=== PATIENT | female | born 1935 | race Caucasian/White ===

== ENCOUNTER → 2023-07-15 13:21 | Outpatient (REF) | payer OTHER, SELFPAY | LOC: DHCBC MAIN 13:21 | PROVIDERS: ATTENDING PHYSICIAN Nurse Practitioner; FAMILY PHYSICIAN Family Medicine | DX: I10 Essential (primary) hypertension (principal); R06.09 Other forms of dyspnea; U07.1 COVID-19; I35.8 Other nonrheumatic aortic valve disorders; I36.1 Nonrheumatic tricuspid (valve) insufficiency | CPT/HCPCS: 93306 ==

== ENCOUNTER → 2023-08-19 14:06 | Outpatient (REF) | payer OTHER, SELFPAY | LOC: RAD 14:06 | PROVIDERS: ATTENDING PHYSICIAN Family Medicine | DX: R53.83 Other fatigue (principal); R06.09 Other forms of dyspnea | CPT/HCPCS: 71046 ==

== ENCOUNTER 2023-09-12 15:09 | Inpatient (IN) | payer OTHER, SELFPAY ==
[2023-09-12] VITALS (7 sets, daily range): BP systolic 128–173; BP diastolic 65–88; BMI 38.8
[2023-09-12 11:55] LABS: % Basophils 0.3 % (0-2); % Immature Granulocytes 0.8 % (0-0.5); % Monocytes 7.1 % (1.7-9.3); % Neutrophils 82.8 % (42.2-75.2); Absolute Eosinophils 0.1 10^3/uL (0-0.7); Absolute Immature Granulocytes 0.1 10^3/uL (0-0.05); Absolute Lymphocytes 0.8 10^3/uL (1.2-3.4); Absolute Monocytes 0.7 10^3/uL (0.1-0.6); Absolute Neutrophils 8.6 10^3/uL (1.4-6.5); Hematocrit 40.1 % (37.0-47.0); Hemoglobin 13.9 g/dL (12.0-16.0); Mean Corp Hgb Conc. 34.7 g/dL (33.0-37.0); Mean Corpuscular Hgb 31.4 pg (27.0-31.0); Mean Corpuscular Volume 90.5 fL (81.0-99.0); Mean Platelet Volume 10.1 fL (7.4-10.4); Nucleated Red Blood Cells % 0 %; Platelet Count 202 10^3/uL (130-400); Red Blood Cell Count 4.43 10^6/uL (4.20-5.40); Red Cell Dist. Width 12.8 % (11.5-14.5); White Blood Cell Count 10.4 10^3/uL (4.8-10.8)
--- NOTE | 2023-09-12 11:57 | ED.GENMED ---
History of Present Illness
General
Chief Complaint: Breathing Problem
Source: patient and family
Time Seen by Provider: 09/12/23 11:27
Travel History
Have you had any contact with someone who has COVID-19?: No
Do you have any symptoms of coronavirus? Fever > 100 degrees, chills, cough, shortness of breath, sore throat, loss of taste or smell, muscle aches, or headache?: Yes
Symptoms:: cough
History of Present Illness
History of Present Illness:
88-year-old female with past medical history of chronic lung disease, hypertension, hyperlipidemia, previous CVA, diabetes presenting the emergency department for evaluation of a persistent cough that has been ongoing for about 3 weeks, gradually
worsening and now patient notes exertional dyspnea mild hypoxia with ambulation. Patient is chronically on 5 L and follows with dethistler operator here, Dr. Murguia. She has been using Tessalon Perles and Mucinex but without much relief. She notes at
rest she is relatively asymptomatic. Symptoms initially started with a little bit of rhinorrhea but no fevers or other infectious symptoms. Rhinorrhea is now resolved. No known sick contacts, recent travel or recent antibiotics. She denies any
chest pain, palpitations, diaphoresis, lower extremity edema.
Past History
Past History
ED Past Medical History: CVA, GERD, HTN, Hypercholesterolemia, NIDDM and Other (TIA. GI bleed)
ED Past Surgical History: Cholecystectomy, Orthopedic and Other
Social History
Tobacco: Former smoker
Alcohol: None
Drug: None
Personal:
Living: with family
Employment: Retired
Family History
Family History: Other (Reviewed and non-contributory)
Review of Systems
Review of Systems
All Other Systems: ROS reviewed and negative except as documented in HPI and ROS
Phy Exam
Physical Exam
Physical Exam:
GENERAL: Alert , in no apparent distress
EYE: conjunctiva clear
NECK: Supple, no significant adenopathy.
ENT: o/p clr, mmm.
CARDIAC: Regular rate and rhythm, systolic murmur most pronounced in the left sternal border
LUNGS: Faint apical wheeze bilateral posterior lung jennings, no accessory muscle use, no obvious respiratory distress, oxygen saturation 96% on room baseline 5 L
NEUROLOGICAL: Alert and oriented
SKIN: Warm and dry, skin intact.
MUSCULOSKELETAL: well perfused. No edema
PSYCH: Normal and appropriate interaction.
Scores
Heart Failure Risk
Heart Failure Risk Score: Yes
History of Stroke or TIA: Yes
History of intubation for respiratory distress: No
Heart rate on ED arrival >/= 110: No
SaO2 <90% on arrival on room air: Yes
HR >/=110 during 3min walk test (or too ill to perform test): Yes
ECG has acute ischemic changes: No
Urea >/=12mmol/L (BUN 33.6mg/dL): No
Serum CO2>/=35mmol/L: No
Troponin I or T elevated to IL Level (0.4mg/dL): No
NT-proBNP >/=5,000ng/L (5,000pg/ml): No
HF Risk Score: 4
Admission Status: HIGH RISK 26.1% Consider SNF treatment or admission to hospital
Heart Score for Chest Pain Patients
STEMI patient?: Not applicable
Withdrawal Assessment of Alcohol
Withdrawal Assessment Completed?: Not applicable
Course
Orders/Labs/Results
Orders:
Orders
09/12/23 11:35
Dexamethasone Sod Phosphate [Decadron] 10 mg IV NOW STA
Ipratropium/Albuterol Sulfate [Duoneb] 3 ml INH R NOW ONE
09/12/23 11:36
Electrocardiogram (*1) Urgent
Reason for Study: Shortness of Breath
EKG- Treatment ONCE
CR Chest - 2 Views Urgent
Comment:
Reason For Exam: SOB, TIAN
09/12/23 11:43
Basic Metabolic Panel Urgent
Complete Blood Count/With Diff Urgent
NT-proBNP Urgent
Troponin I Urgent
09/12/23 11:47
COVID-19 Antigen Urgent
Source: Nasal Swab
09/12/23 14:23
Admit/Transfer Patient As Directed
Co-Sign Provider:
Level of Care: Inpatient admission
Assign to:: Medical/Surgical
Physician / Group: hosp
Diagnosis: COPD exacerbation
Reason for Hospitalization: COPD exacerbation
Expected length of stay greater than two midnights?: Yes
ELOS- Estimated Length of Stay in days: 3
I certify the patient meets the requirements for IP care: Yes
09/12/23 14:26
Code Status As Directed
Resuscitation Status: Do not resuscitate
Reached after discussion with pt or family/Healthcare POA: Yes
09/12/23 14:27
DNR Bracelet Application ONCE
09/12/23 15:01
Furosemide [Lasix] 20 mg IV NOW STA
09/13/23 00:00
Dexamethasone Sod Phosphate [Decadron] 4 mg IV Q12H
Abnormal Lab Results
09/12/23
11:43
MCH 31.4 H pg
(27.0-31.0)
Abs Immat Gran (auto) 0.1 H 10^3/uL
(0-0.05)
Absolute Neuts (auto) 8.6 H 10^3/uL
(1.4-6.5)
Absolute Lymphs (auto) 0.8 L 10^3/uL
(1.2-3.4)
Absolute Monos (auto) 0.7 H 10^3/uL
(0.1-0.6)
Immature Gran % 0.8 H %
(0-0.5)
Neutrophils % 82.8 H %
(42.2-75.2)
Lymphocytes % 8.0 L %
(20.5-51.1)
Sodium 131 L mmol/L
(135-145)
Chloride 92 L mmol/L
(98-107)
Glucose 246 H mg/dl
(70-99)
09/12/23 11:43
09/12/23 11:43
Vital Signs
Initial and Last Documented VS:
Initial Vital Signs
Temp Pulse Resp BP Pulse Ox
98.9 F 107 22 173/79 96
09/12/23 10:58 09/12/23 10:58 09/12/23 10:58 09/12/23 10:58 09/12/23 10:58
Last Documented Vital Signs
Temp Pulse Resp BP Pulse Ox
98.9 F 87 19 139/74 94
09/12/23 10:58 09/12/23 14:00 09/12/23 14:00 09/12/23 13:00 09/12/23 14:00
MDM/Problems Addressed
Differential Diagnosis Includes:
COPD exacerbation, pneumonia, CHF, less concern for ACS
MDM/Problems Addressed:
88-year-old female presenting emergency department for 3 weeks of cough gradually worsening exertional dyspnea and noting her oxygen saturation is dropping while ambulating. She states that presently she is asymptomatic at rest. There is mild
tachycardia although this is also with exertion as her heart rate is persistently in the 80s during my exam. Will check labs, EKG, troponin and a BNP. Once labs are completed will ambulate patient and observe her oxygen saturation. Chest x-ray
ordered. Also will treat with a DuoNeb and Decadron. Patient does have diabetes so Decadron can elevate her glucose however feel the benefit of this outweighs the risk.
Chronic conditions affecting care: COPD
Acute Exacerbation and/or Progression of Chronic Illness: COPD
*Radiology
Radiology exam reviewed: radiology read reviewed
*Pulse Oximetry
Patient hypoxic: yes
*Washing And Screening Plant Supervisor Interpretation
Rate: normal
Rhythm: sinus
*Critical Care Note
Total Time (30-74mins, 75-104mins- exclusive of procedures): Not Applicable
Patient Management
Discussion with other providers: Hospitalist
Escalation/DeEscalation of care consider admission/obs:
Patient does note some mild improvement following her nebulizer treatments. Her chest x-ray shows changes consistent with COPD as well as some mild pulmonary vascular congestion. When ambulated patient's oxygen saturation dropped to 80% and she
experienced increased shortness of breath. Given her age, chronic medical conditions and presentation I do feel patient would be best served being admitted for continued evaluation and treatment. Hospitalist team accepts for admission.
ED Attending Note
-
Portions of this chart may have been created with voice recognition software.� Occasional wrong word or��sound alike� substitutions may have occurred due to the inherent limitations of voice recognition software.
Discharge Plan
Departure
Patient Disposition: Admit
Date of Disposition: 09/12/23
Time of Disposition: 13:57
Presentation/result/management discussed w/ accepting MD/DO: Hospitalist
Discharge Problem:
Acute exacerbation of chronic obstructive pulmonary disease (COPD), Hypoxia
Interventions
Interventions:
*Risk Screen - Suicide Last Done: 09/12/23 11:01
*General Assessment Last Done: 09/12/23 11:01
*Neglect/Abuse Screening Last Done: 09/12/23 11:01
ED- Fall Risk Assessment Last Done: 09/12/23 11:56
[2023-09-12] MEDS: DUONEB 3 ML INH ×2 (12:00→20:52)
[2023-09-12] MEDS: DECADRON 10 MG IV (12:03)
[2023-09-12 12:07] LABS: Blood Urea Nitrogen 16 mg/dl (7-17); Calcium 10.1 mg/dl (8.4-10.2); Carbon Dioxide 30 mmol/L (22-30); Chloride 92 mmol/L (98-107); Estimated Creatinine Clearance 40 ml/min; Glucose 246 mg/dl (70-99); Potassium 4.1 mmol/L (3.5-5.1); Sodium 131 mmol/L (135-145); eGFR 54.19
[2023-09-12 12:12] LABS: COVID-19 Antigen Negative (Negative)
[2023-09-12 12:20] LABS: NT-proBNP 956 pg/ml; Troponin I 0.022 ng/ml
--- NOTE | 2023-09-12 14:38 | HPS.HSE ---
Family Physician
-
Family Physician: Ana Rosa Min MD
Chief Complaint
-
Persisting dry cough for the last 3 weeks
History of Present Illness
88-year-old female with past medical history of chronic lung disease, hypertension, hyperlipidemia, previous CVA, diabetes presenting the emergency department for evaluation of a persistent cough that has been ongoing for about 3 weeks, gradually
worsening and now patient notes exertional dyspnea mild hypoxia with ambulation. Patient is chronically on 5 L and follows with laryngologist here, Dr. Murguia. She has been using Tessalon Perles and Mucinex but without much relief. She notes at
rest she is relatively asymptomatic. Symptoms initially started with a little bit of rhinorrhea but no fevers or other infectious symptoms. Rhinorrhea is now resolved. No known sick contacts, recent travel or recent antibiotics. She denies any
chest pain, palpitations, diaphoresis, lower extremity edema. She has been followed by Dr. 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 A 2D echocardiogram was reviewed
from July of this year and is unchanged from 2021 with adequate and retained EF of 65% and no wall motion abnormality no valvulopathy of concern. She describes a cough at night last night to be unusually irritating to her where she could not
sleep she has been using 5 pillows nightly for years. She has been on prednisone daily 10 mg for the last several months per Dr. Kathia Gil on the pulmonary service/I could not ascertain why she remains on propranolol. She is also on diltiazem
Medical History
Past Medical History
Past Medical History: Reports Asthma, CAD, COPD, CVA, GERD, HTN, Hypercholesterolemia and NIDDM
Additional Past Medical History:
Prior to her GI bleeding prior TIA
Past Surgical History: Reports None
Social History
Tobacco: Former Smoker
Alcohol: None
Drug: None
Personal:
Living: With Family
Employment: Retired
Family History
Family History: Not pertinent
Allergies / Home Medications
Allergies reflects when Allergies were last updated in [facility].
Home Medications with original date entered in [facility]
Allergy/Medication List:
Allergies
Allergy/AdvReac Type Severity Reaction Status Date / Time
egg Allergy Hives Verified 09/12/23 11:01
Home Medications
propranolol 60 mg capsule,24 hr,extended release 60 mg PO DAILY Blood Pressure 04/27/15
cranberry 400 mg capsule 400 mg PO BID Supplement 03/30/19
Mucinex DM 1 tab PO BIDPRN PRN cough/congestion 09/12/23
acetaminophen 500 mg tablet (Tylenol Extra Strength) 1,000 mg PO DAILYPRN PRN mild pain 09/12/23
acetaminophen 500 mg tablet (Tylenol Extra Strength) 1,000 mg PO HS Pain 09/12/23
cholecalciferol (vitamin D3) 125 mcg (5,000 unit) tablet 125 mcg PO DAILY Supplement 09/12/23
clopidogrel 75 mg tablet 75 mg PO DAILY Blood Clot Prevention/Tx 09/12/23
cyanocobalamin (vitamin B-12) 500 mcg tablet 500 mcg PO HS Supplement 09/12/23
diltiazem HCl 120 mg capsule,extended release 24 hr, controlled 120 mg PO DAILY Arrhythmia 09/12/23
isosorbide mononitrate 120 mg tablet,extended release 24 hr 120 mg PO DAILY Heart Disease/Condition 09/12/23
loperamide 2 mg capsule 2 mg PO DAILYPRN PRN diarrhea 09/12/23
losartan 100 mg tablet 100 mg PO DAILY Blood Pressure 09/12/23
metformin 750 mg tablet,extended release 24 hr 750 mg PO BID Diabetes 09/12/23
omeprazole 20 mg capsule,delayed release 20 mg PO DAILY Gastrointestinal Issue 09/12/23
prednisone 10 mg tablet 10 mg PO DAILY anti-inflammation 09/12/23
rosuvastatin 40 mg tablet 40 mg PO HS High Cholesterol 09/12/23
Review of Systems
-
History Source: Patient
Constitutional: Denies Fever
EENT: Denies Sore Throat
Respiratory: Reports See HPI, Cough and Trouble Breathing; Denies Hemoptysis
Cardiac: Denies Chest Pain, Diaphoresis, Palpitations or Syncope
Abdomen/GI: Reports No Symptoms
: Reports No Symptoms
Musculoskeletal: Reports No Symptoms and Joint Pain
Psych: Reports No Symptoms
Physical Exam
Vital Signs
Vital Signs
Temp Pulse Resp BP Pulse Ox
98.9 F 87 19 139/74 94
09/12/23 10:58 09/12/23 14:00 09/12/23 14:00 09/12/23 13:00 09/12/23 14:00
Physical Exam
General: Well Developed
Respiratory: Clear and Decreased Breath Sounds
Cardiac: S1/S2 and Regular Rhythm
GI: Soft
Skin: Warm
Neuro: Awake, Alert, Oriented, AO x 3 and No Motor Deficits
Psych: Calm
Laboratory Results
-
09/12/23 11:43
09/12/23 11:43
Laboratory Results
Troponin I 0.022 ng/ml 09/12/23 11:43
Data Reviewed
-
Critical Care Time (in minutes): 54
Diagnostic Radiology: Discussed with Physician (Some suggestion of mild overfilling no inflammatory infiltrate seen underlying COPD)
Lab Data: Labs Reviewed by me (proBNP over 900/blood sugar 07/15/1945/troponin 0.022)
Impression/Plan
-
IMPRESSION:
88-year-old female with past medical history of chronic lung disease, hypertension, hyperlipidemia, previous CVA, diabetes presenting the emergency department for evaluation of a persistent cough that has been ongoing for about 3 weeks, gradually
worsening and now patient notes exertional dyspnea mild hypoxia with ambulation. Patient is chronically on 5 L and follows with laryngologist here, Dr. Murguia. She has been using Tessalon Perles and Mucinex but without much relief. She notes at
rest she is relatively asymptomatic. Symptoms initially started with a little bit of rhinorrhea but no fevers or other infectious symptoms. Rhinorrhea is now resolved. No known sick contacts, recent travel or recent antibiotics. She denies any
chest pain, palpitations, diaphoresis, lower extremity edema.
She has been followed by Dr. 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
A 2D echocardiogram was reviewed from July of this year and is unchanged from 2021 with adequate and retained EF of 65% and no wall motion abnormality no valvulopathy of concern. She describes a cough at night last night to be unusually
irritating to her where she could not sleep she has been using 5 pillows nightly for years. She has been on prednisone daily 10 mg for the last several months per Dr. Kathia Gil on the pulmonary service/I could not ascertain why she remains on
propranolol. She is also on diltiazem
COPD exacerbation manifesting as intractable cough
-Oxygen and steroid-dependent
-No increased oxygen requirements above her baseline on presentation
-Some improvement with IV steroid and neb treatment in the ED
-Equivocal findings for some overfilling on chest x-ray/COPD/no infiltrate
-Recent upper respiratory symptoms now resolved
-Will treat with nebs titrate oxygen and IV steroid
-No relief with benzonatate or guaifenesin
-No criteria for antibiotic
-Nonselective beta-gene possibly contributing to cough variant
-Consult pulmonary follow-up with Dr. Murguia
Dyspnea on exertion and orthopnea
-Possible venous overfilling on chest x-ray indicating mild CHF
-proBNP of over 900 in her age group not that specific for CHF
-Recent 2D echocardiogram reviewed with 65% EF and mildly elevated PASP
-Will give single dose of IV Lasix tonight
Gastroesophageal reflux disease
-By history had been on omeprazole PPI
-Could be cause of her cough variant symptoms worse when lying down
-Placed on Protonix here
Type 2 diabetes mellitus
-Continue metformin
-Low-dose scale coverage
-Watch for hyperglycemia on steroid management
Essential hypertension
-Continue losartan
-On propranolol/look for alternatives as may be involved with her persisting cough
-Diltiazem to continue
Prior comorbidities include
Prior TIA/Plavix
CAD/clopidogrel
GI bleed by history
DVT prophylaxis with Lovenox/SCD
DNR/DNI
--- NOTE | 2023-09-12 15:32 | CON.PUL ---
Consultation
Consultation Request
Date/Time Consultation Requested: 09/12/23-3:30 PM
Date/Time Consultation Performed: 09/12/23-4 PM
Requesting Provider: hospitalist
Performing Provider: Dr. Graham
Reason for Consultation: COPD exacerbation
Medical History
-
Chief Complaint: shortness of breath
History of Present Illness:
88-year-old female with a history of COPD on chronic 5 L oxygen, followed by Dr. Murguia, hypertension, hyperlipidemia, previous CVA as well as diabetes and presented with aggressive shortness of breath over the last 3 weeks felt to have a COPD
exacerbation-pulmonary consulted for COPD exacerbation 09/12/23. She states that she has been getting more short of breath over the last several weeks. She also has a nonproductive cough. She has some mild postnasal drip, no reflux though reports a
'very large hiatal hernia'. She did not complain of significant leg swelling. Major complaint was progressive dyspnea on exertion and desaturations. Daughter was also at the bedside and reports desaturations into the low 80s with exertion. She
does not have any chest pain, chest tightness, pleurisy, hemoptysis, abdominal pain or weakness.
Past Medical History
Past Medical History: None ( COPD-on chronic 5 L oxygen. Former smoker. Asthma. Pulmonary nodule. Interstitial lung disease. History latent TB. Obesity. JELLY on CPAP. CAD. CVA. GERD. Hypertension. Hyperlipidemia. Diabetes. GERD.
Diverticulosis. Fatty liver. Glaucoma. Adrenal nodule. Vitamin D deficiency.)
Past Surgical History: None ( Cholecystectomy. Appendectomy. Right TKR. Loop recorder implanted. Ramsey teeth. Vein stripping. Laser surgery for glaucoma.)
Social History
Tobacco: Former Smoker
Alcohol: None
Drug: None
Living: With Family
Occupational Exposures: Previous tuberculosis exposure
Environmental Exposures: No known asbestos exposure
Family History
Family History: Other ( family history of lung cancer. Father 39 with tuberculosis-was alcoholic. Son with renal cell carcinoma. 2 sisters from lung cancer and COPD seventh decade)
Allergies / Home Medications
Allergies
Allergy/AdvReac Type Severity Reaction Status Date / Time
egg Allergy Hives Verified 09/12/23 11:01
Home Medications
�Medication �Instructions �Recorded �Confirmed �Last Taken �Type
propranolol 60 mg capsule,24 60 mg PO DAILY Blood Pressure 04/27/15 09/12/23 09/12/23 History
hr,extended release
cranberry 400 mg capsule 400 mg PO BID Supplement 03/30/19 09/12/23 09/12/23 History
Mucinex DM 1 tab PO BIDPRN PRN 09/12/23 09/12/23 2 Days Ago History
cough/congestion ~09/10/23
acetaminophen 500 mg tablet 1,000 mg PO DAILYPRN PRN mild pain 09/12/23 09/12/23 Unknown History
(Tylenol Extra Strength)
acetaminophen 500 mg tablet 1,000 mg PO HS Pain 09/12/23 09/12/23 09/11/23 History
(Tylenol Extra Strength)
cholecalciferol (vitamin D3) 125 125 mcg PO DAILY Supplement 09/12/23 09/12/23 09/12/23 History
mcg (5,000 unit) tablet
clopidogrel 75 mg tablet 75 mg PO DAILY Blood Clot 09/12/23 09/12/23 Unknown History
Prevention/Tx
cyanocobalamin (vitamin B-12) 500 500 mcg PO HS Supplement 09/12/23 09/12/23 09/11/23 History
mcg tablet
diltiazem HCl 120 mg 120 mg PO DAILY Arrhythmia 09/12/23 09/12/23 09/12/23 History
capsule,extended release 24 hr,
controlled
isosorbide mononitrate 120 mg 120 mg PO DAILY Heart 09/12/23 09/12/23 09/12/23 History
tablet,extended release 24 hr Disease/Condition
loperamide 2 mg capsule 2 mg PO DAILYPRN PRN diarrhea 09/12/23 09/12/23 09/11/23 History
losartan 100 mg tablet 100 mg PO DAILY Blood Pressure 09/12/23 09/12/23 09/12/23 History
metformin 750 mg tablet,extended 750 mg PO BID Diabetes 09/12/23 09/12/23 09/12/23 History
release 24 hr
omeprazole 20 mg capsule,delayed 20 mg PO DAILY Gastrointestinal 09/12/23 09/12/23 09/12/23 History
release Issue
prednisone 10 mg tablet 10 mg PO DAILY anti-inflammation 09/12/23 09/12/23 09/12/23 History
rosuvastatin 40 mg tablet 40 mg PO HS High Cholesterol 09/12/23 09/12/23 09/11/23 History
Review of Systems
-
Unable to Obtain full review of systems at this time due to: Other ( per HPI)
Vitals / Labs / Diagnostic Testing
Vital Signs
Temp Pulse Resp BP Pulse Ox
98.9 F 87 19 139/74 94
09/12/23 10:58 09/12/23 14:00 09/12/23 14:00 09/12/23 13:00 09/12/23 14:00
Lab Data
09/12/23 11:43
09/12/23 11:43
Diagnostic Testing:
Physical Exam
-
HEENT: Normocephalic, Anicteric and Moist Mucous Membranes
Cardiovascular: Regular Rhythm
Respiratory: Wheeze (Diffuse expiratory), Rales (n), Rhonchi (n), Non-Labored Respirations, Accessory Resp Muscle Use (n) and Other ( prolonged expiratory time)
GI: Soft, Non Distended and Non Tender
Neurology: Awake, Alert and No Motor Deficits
Skin: Warm and Good Color
General: Respiratory Distress (n) and Comfortable
Assessment
-
88-year-old female with a history of COPD on chronic 5 L oxygen, followed by Dr. Murguia, hypertension, hyperlipidemia, previous CVA as well as diabetes and presented with aggressive shortness of breath over the last 3 weeks felt to have a COPD
exacerbation-pulmonary consulted for COPD exacerbation 4/5/24.
COPD with acute exacerbation.
Mild hyponatremia-serum sodium 131
Hyperglycemia-blood sugar 246
Conditions present prior to admission:
COPD-on chronic 5 L oxygen
Decreased diffusing capacity-, DLCO 44%
Former smoker.
Asthma
Pulmonary nodule- Chest x-ray revealed 3.[address] chest confirmed this-no change 06/2023, possibility of malignancy discussed, patient does not want aggressive workup or treatment
Interstitial lung disease.
History latent TB
Obesity.
JELLY on CPAP
CAD
CVA
GERD.
Hypertension.
Hyperlipidemia.
Diabetes.
GERD.
Diverticulosis.
Fatty liver.
Glaucoma.
Adrenal nodule.
Vitamin D deficiency.
Cholecystectomy. Appendectomy. Right TKR. Loop recorder implanted. Ramsey teeth. Vein stripping. Laser surgery for glaucoma.
Plan
Respiratory decompensation, likely due to COPD exacerbation and possible mild fluid overload.
Supplemental oxygen as needed.
Nebulizers.
Decadron.
Aspiration precautions.
Mucolytic's.
Mucus clearing devices..
Observe off antibiotics
Diuresis as tolerated.
Consider echocardiogram-last echocardiogram July 2023. Summarized below.
Monitor intake/output, renal function, weight and lower extremity edema.
Monitor blood sugar.
Insulin supplementation as needed.
DVT prophylaxis.
GI prophylaxis-on . Pantoprazole.
Nutrition
Early mobilization
Reviewed with 2 daughters at the bedside
Last saw pulmonary-Dr. Murguia 07/04/23
Diagnostic data:
. Chest x-ray . 09/12/23-Mild or early CHF overlying COPD and moderate hiatal hernia.
Chest x-ray 08/19/23-NAD, stable mild cardiomegaly
.
CT chest 04/16/23-right lower lobe opacification, most likely infectious or inflammatory, but pulmonary neoplasm cannot be excluded, moderate hiatal hernia
Echo 04/08/22: normal biventricular function, PA pressure 47, aortic sclerosis�������
Echo 10/21/20: normal biventricular function, no significant valvular disease, right heart pressures could not be determined, technically difficult�������
Echo 07/31/19: Normal biventricular function,no significant valvular disease, right heart pressures could not be determined�������
ECHO 07/07/18: Aortic sclerosis, normal biventricular function, nl PASP.
Echocardiogram 07/15/23-EF 65-70%, PA systolic 44
PFT 11/14/20: FVC 1.89/95%, FEV1 1.49/103%, ratio 79, TLC 3.44/79%, DLCO 7.43/44%���
���
[place] 12/20/19: FVC 1.70/82%, FEV1 1.28/84%, ratio 77������
PFT 07/16/19: FVC 1.92/92%, FEV1 1.45/95%, ratio 76, TLC 3.06/69%, DLCO 7.91/45%.����
���
PFT 12/28/18: FVC 1.85/87%, FEV1 1.31/84%, ratio 71, TLC 3.33/75%, DLCO 8.68/50%.
HST 08/05/19-AHI-17.7, desaturation bucky 71%, CPAP with 4 L oxygen
Data Reviewed
-
PFT: Report reviewed by me
EKG: Report reviewed by me
Radiology: Report reviewed by me
CT Scan: Report reviewed by me
Medical Tests (Nuc Med, Echo etc): Report reviewed by me
Labs: Labs reviewed by me
Old Records: Reviewed
Total Time Spent with Patient (in minutes): 65
[2023-09-12] MEDS: LASIX 20 MG IV (16:29)
--- NOTE | 2023-09-12 17:30 | PTCARENOTE ---
Rec'd Pt from ED to Room 431- [address] [place]. Pt is AAOx3, ambulated unassisted from stretcher to bed. Pt oriented to room w call gavin in place.
[2023-09-12 17:36] LABS: Glucose - Point of Care 284 mg/dl (70-99)
[2023-09-12] MEDS: DUONEB INH (17:44)
[2023-09-12 18:04] LABS: Iron 66 ug/dl (37-170)
[2023-09-12 18:13] LABS: Percent Saturation 20 % (20-50); Total Iron Binding Capacity 323 ug/dl (265-497)
[2023-09-12] MEDS: NOVOLOG FLEXPEN-LOW RESISTANCE 3 UNITS SC (18:36)
[2023-09-12] MEDS: LOVENOX 40 MG SC (18:37)
[2023-09-12 19:29] LABS: Ferritin 53.5 ng/ml (11.1-264.0)
[2023-09-12 19:43] LABS: Vitamin B12 951 pg/ml (239-931)
[2023-09-12] MEDS: GLUCOPHAGE XR EXTENDED RELEASE 750 MG PO (21:26)
[2023-09-12] MEDS: TYLENOL 1000 MG PO (21:28)
[2023-09-12] MEDS: CRESTOR 40 MG PO (21:28)
[2023-09-12] MEDS: VITAMIN B-12 1000 MCG PO (21:28)
[2023-09-12 21:29] LABS: Glucose - Point of Care 392 mg/dl (70-99)
[2023-09-12] MEDS: DECADRON 4 MG IV (23:17)
[2023-09-13 06:00] VITALS: BMI 35.4
[2023-09-13 07:08] LABS: Hematocrit 37.6 % (37.0-47.0); Hemoglobin 13.1 g/dL (12.0-16.0); Mean Corp Hgb Conc. 34.8 g/dL (33.0-37.0); Mean Corpuscular Hgb 30.9 pg (27.0-31.0); Mean Corpuscular Volume 88.7 fL (81.0-99.0); Mean Platelet Volume 10.2 fL (7.4-10.4); Platelet Count 226 10^3/uL (130-400); Red Blood Cell Count 4.24 10^6/uL (4.20-5.40); Red Cell Dist. Width 12.7 % (11.5-14.5); White Blood Cell Count 7.1 10^3/uL (4.8-10.8)
[2023-09-13 07:30] VITALS: BP 180/84
[2023-09-13 07:31] LABS: Blood Urea Nitrogen 22 mg/dl (7-17); Calcium 10.1 mg/dl (8.4-10.2); Carbon Dioxide 26 mmol/L (22-30); Chloride 94 mmol/L (98-107); Estimated Creatinine Clearance 43 ml/min; Glucose 276 mg/dl (70-99); Potassium 4.4 mmol/L (3.5-5.1); Sodium 128 mmol/L (135-145); eGFR > 60.00
[2023-09-13 07:39] LABS: Glucose - Point of Care 265 mg/dl (70-99)
[2023-09-13 07:59] LABS: Ferritin 62.6 ng/ml (11.1-264.0)
[2023-09-13] MEDS: DUONEB 3 ML INH ×4 (08:03→21:56)
[2023-09-13] MEDS: NOVOLOG FLEXPEN-LOW RESISTANCE 3 UNITS SC ×2 (09:33→17:54)
[2023-09-13] MEDS: IMDUR (EXTENDED RELEASE) 120 MG PO (09:35)
[2023-09-13] MEDS: CARDIZEM CD 120 MG PO (09:35)
[2023-09-13] MEDS: COZAAR 100 MG PO (09:35)
[2023-09-13] MEDS: PLAVIX 75 MG PO (09:35)
[2023-09-13] MEDS: GLUCOPHAGE XR EXTENDED RELEASE 750 MG PO ×2 (09:36→21:18)
[2023-09-13] MEDS: PROTONIX 40 MG PO (09:36)
[2023-09-13] MEDS: INDERAL LA 60 MG PO (09:36)
[2023-09-13] MEDS: VITAMIN D3 (cholecalciferol) 125 MCG PO (09:36)
--- NOTE | 2023-09-13 09:48 | W.PN.HOSP.TC ---
Today's Communication/Plan
-
Would continue present course of IV steroids for another day and defer to pulmonary further taper
Seems to have had response with the steroids for her cough and doubt CHF
Increase activity
Assessment / Plan
Assessment / Plan
88-year-old female with past medical history of chronic lung disease, hypertension, hyperlipidemia, previous CVA, diabetes presenting the emergency department for evaluation of a persistent cough that has been ongoing for about 3 weeks, gradually
worsening and now patient notes exertional dyspnea mild hypoxia with ambulation. Patient is chronically on 5 L and follows with junior sales assistant here, Dr. Murguia. She has been using Tessalon Perles and Mucinex but without much relief. She notes at
rest she is relatively asymptomatic. Symptoms initially started with a little bit of rhinorrhea but no fevers or other infectious symptoms. Rhinorrhea is now resolved. No known sick contacts, recent travel or recent antibiotics. She denies any
chest pain, palpitations, diaphoresis, lower extremity edema.
She has been followed by Dr. 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
A 2D echocardiogram was reviewed from July of this year and is unchanged from 2021 with adequate and retained EF of 65% and no wall motion abnormality no valvulopathy of concern. She describes a cough at night last night to be unusually
irritating to her where she could not sleep she has been using 5 pillows nightly for years. She has been on prednisone daily 10 mg for the last several months per Dr. Kathia Gil on the pulmonary service/I could not ascertain why she remains on
propranolol. She is also on diltiazem
COPD exacerbation manifesting as intractable cough
-Oxygen and steroid-dependent
-No increased oxygen requirements above her baseline on presentation
-Some improvement with IV steroid and neb treatment in the ED/further improvement in cough overnight
-Equivocal findings for some overfilling on chest x-ray/COPD/no infiltrate
-Recent upper respiratory symptoms now resolved
-Will treat with nebs titrate oxygen and IV steroid
-No relief with benzonatate or guaifenesin
-No criteria for antibiotic
-Nonselective beta-gene possibly contributing to cough variant
-Consult pulmonary follow-up with Dr. Murguia
Dyspnea on exertion and orthopnea
-Possible venous overfilling on chest x-ray indicating mild CHF
-proBNP of over 900 in her age group not that specific for CHF
-Recent 2D echocardiogram reviewed with 65% EF and mildly elevated PASP
-Will give single dose of IV Lasix tonight
Gastroesophageal reflux disease
-By history had been on omeprazole PPI
-Could be cause of her cough variant symptoms worse when lying down
-Placed on Protonix here
Type 2 diabetes mellitus
-Continue metformin
-Low-dose scale coverage
-Watch for hyperglycemia on steroid management
Essential hypertension
-Continue losartan
-On propranolol/look for alternatives as may be involved with her persisting cough
-Diltiazem to continue
Prior comorbidities include
Prior TIA/Plavix
CAD/clopidogrel
GI bleed by history
DVT prophylaxis with Lovenox/SCD
DNR/DNI
Anticipated Discharge: Within 24 hours
Subjective/Interval History
-
Date of Service: September 13, 2023
States she has had significant improvement in her cough since she has been here actually had a good night sleep for the first time in some time.
Objective Data
-
Labs:
Laboratory Results
09/13/23
06:39
WBC 7.1
Hgb 13.1
Hct 37.6
Plt Count 226
Sodium 128 L
Potassium 4.4
Chloride 94 L
Carbon Dioxide 26
BUN 22 H
Creatinine 0.9
Glucose 276 H
Calcium 10.1
Vital Signs:
Vital Signs
Temp Pulse Resp BP Pulse Ox
97.5 F 80 16 180/84 96
09/13/23 07:30 09/13/23 08:04 09/13/23 08:04 09/13/23 07:30 09/13/23 08:04
Review of Systems
-
Unable to obtain full review of systems at this time due to: Dementia
Constitutional: Reports No Symptoms
EENT: Reports No Symptoms Reported
Respiratory: Reports Cough
Physical Exam
-
General: Well Developed
HEENT: Normocephalic
Respiratory: Clear to Auscultation; Negative Wheezes
Cardiac: Regular Rhythm
GI: Soft and Nontender
Psych: Calm
Data Reviewed
-
Total Time Spent with Patient (in minutes): 45
Labs: Labs Reviewed by me (White count 7.1/hemoglobin and indices stable/sodium 128/blood sugar up to 276)
[2023-09-13 11:05] LABS: Glycohemoglobin (HgbA1c) 9.4 % (4.0-5.6)
[2023-09-13 11:35] LABS: Glucose - Point of Care 323 mg/dl (70-99)
--- NOTE | 2023-09-13 12:05 | CM ---
Patient seen with son, initial assessment completed. Patient reports she lives independently in a one story home, one step to enter. Patient denies VN or SNF, reports on home O2 through [facility]. Patient confirms PCP Mechelle, confirms she has
prescription coverage, pharmacy used in [facility]. CM will continue to follow for discharge planning needs.
Plan; home no needs, watch for VN needs.
[2023-09-13] MEDS: NOVOLOG FLEXPEN-LOW RESISTANCE 4 UNITS SC (12:36)
[2023-09-13] MEDS: DECADRON 4 MG IV (12:40)
--- NOTE | 2023-09-13 14:51 | W.PN.PUL3 ---
Today's Communication / Plan
-
Transition to prednisone
Continue nebulizer
Continue mucolytic's
Wean down oxygen as
Assessment
-
88-year-old female with a history of COPD on chronic 5 L oxygen, followed by Dr. Murguia, hypertension, hyperlipidemia, previous CVA as well as diabetes and presented with aggressive shortness of breath over the last 3 weeks felt to have a COPD
exacerbation-pulmonary consulted for COPD exacerbation 09/12/23.
COPD with acute exacerbation.
Mild hyponatremia-serum sodium 131
Hyperglycemia-blood sugar 246
Conditions present prior to admission:
COPD-on chronic 5 L oxygen
Decreased diffusing capacity-, DLCO 44%
Former smoker.
Asthma
Pulmonary nodule- Chest x-ray revealed 3.[address] chest confirmed this-no change 06/2023, possibility of malignancy discussed, patient does not want aggressive workup or treatment
Interstitial lung disease.
History latent TB
Obesity.
JELLY on CPAP
CAD
CVA
GERD.
Hypertension.
Hyperlipidemia.
Diabetes.
GERD.
Diverticulosis.
Fatty liver.
Glaucoma.
Adrenal nodule.
Vitamin D deficiency.
Cholecystectomy. Appendectomy. Right TKR. Loop recorder implanted. [place] teeth. Vein stripping. Laser surgery for glaucoma.
Plan
Respiratory decompensation, likely due to COPD exacerbation and possible mild fluid overload.
-
Supplemental oxygen as needed.
Continue nebulizer-Duoneb QID
Bronchospasm improved, transition to prednisone 40 mg with a quick taper.
Aspiration precautions.
Mucolytic's.
Mucus clearing devices.
Observe off antibiotics
-
Diuresis as tolerated intermittently.
last echocardiogram July 2023. Summarized below.
Monitor intake/output, renal function, weight and lower extremity edema.
Monitor blood sugar.
Insulin supplementation as needed.
DVT prophylaxis.
GI prophylaxis-on . Pantoprazole.
Nutrition
Early mobilization
Reviewed with 2 daughters at the bedside
Last saw pulmonary-Dr. Murguia 07/04/23
Diagnostic data:
. Chest x-ray . 09/12/23-Mild or early CHF overlying COPD and moderate hiatal hernia.
Chest x-ray 08/19/23-NAD, stable mild cardiomegaly
.
CT chest 04/16/23-right lower lobe opacification, most likely infectious or inflammatory, but pulmonary neoplasm cannot be excluded, moderate hiatal hernia
Echo 04/08/22: normal biventricular function, PA pressure 47, aortic sclerosis�������
Echo 10/21/20: normal biventricular function, no significant valvular disease, right heart pressures could not be determined, technically difficult�������
Echo 07/31/19: Normal biventricular function,no significant valvular disease, right heart pressures could not be determined�������
ECHO 07/07/18: Aortic sclerosis, normal biventricular function, nl PASP.
Echocardiogram 07/15/23-EF 65-70%, PA systolic 44
PFT 11/14/20: FVC 1.89/95%, FEV1 1.49/103%, ratio 79, TLC 3.44/79%, DLCO 7.43/44%���
���
Serena 12/20/19: FVC 1.70/82%, FEV1 1.28/84%, ratio 77������
PFT 07/16/19: FVC 1.92/92%, FEV1 1.45/95%, ratio 76, TLC 3.06/69%, DLCO 7.91/45%.����
���
PFT 12/28/18: FVC 1.85/87%, FEV1 1.31/84%, ratio 71, TLC 3.33/75%, DLCO 8.68/50%.
HST 08/05/19-AHI-17.7, desaturation bucky 71%, CPAP with 4 L oxygen
Subjective Data
-
Date of Service:
Date of Service: September 13, 2023
Chief Complaint: Pulmonary Follow Up (Acute exacerbation COPD)
Review of Systems
General: Fever (n)
Cardiopulmonary: Dyspnea and Wheezing
GI: Abdominal Pain and Nausea (n)
Objective Data
Data Reviewed
Vital Signs / I&O / Oxygen:
Vital Signs
Temp Pulse Resp BP Pulse Ox
97.5 F 80 16 180/84 96
09/13/23 07:30 09/13/23 11:17 09/13/23 11:17 09/13/23 07:30 09/13/23 08:04
SaO2 96
Nasal Cannula flow liters per 3
minute
Physical Exam
General: Respiratory Distress and Comfortable
HEENT: Normocephalic
Cardiovascular: S1-S2 and Regular Rhythm
Respiratory: Wheeze and Non-Labored Respirations
GI: Soft and Non Distended
Neurology: Awake
Labs/Micro/Reports
Lab Data
09/13/23 06:39
09/13/23 06:39
--- NOTE | 2023-09-13 15:30 | PTCARENOTE ---
Patient OOb to chair all day. Patient has extended O2 tuning and ambulates from chair to door way frequently. Patient 97% on 5L NC. Patient asked not to have her O2 lower than 4L NC. Patient states, 'I am fine when I am sitting and doing nothing,
but when I get up to walk my oxygen level drops.'
[2023-09-13 16:10] LABS: Glucose - Point of Care 283 mg/dl (70-99)
[2023-09-13 16:15] VITALS: BP 110/56
[2023-09-13 21:03] LABS: Glucose - Point of Care 305 mg/dl (70-99)
[2023-09-13] MEDS: TYLENOL 1000 MG PO (21:18)
[2023-09-13] MEDS: VITAMIN B-12 1000 MCG PO (21:20)
[2023-09-13] MEDS: CRESTOR 40 MG PO (21:21)
[2023-09-13] MEDS: SAFETUSSIN DM (SUGAR/ALCOHOL FREE) 200 MG PO (22:19)
[2023-09-13 23:20] VITALS: BP 150/78
[2023-09-14 06:00] VITALS: BMI 36.4
[2023-09-14] MEDS: SAFETUSSIN DM (SUGAR/ALCOHOL FREE) 200 MG PO ×2 (06:34→22:22)
[2023-09-14 06:53] LABS: Blood Urea Nitrogen 30 mg/dl (7-17); Calcium 10.9 mg/dl (8.4-10.2); Carbon Dioxide 29 mmol/L (22-30); Chloride 91 mmol/L (98-107); Estimated Creatinine Clearance 38 ml/min; Glucose 233 mg/dl (70-99); Potassium 5.2 mmol/L (3.5-5.1); Sodium 128 mmol/L (135-145); eGFR 54.19
[2023-09-14] MEDS: DUONEB 3 ML INH ×4 (07:30→20:02)
[2023-09-14 07:53] VITALS: BP 112/86
[2023-09-14 08:20] LABS: Glucose - Point of Care 249 mg/dl (70-99)
[2023-09-14] MEDS: PLAVIX 75 MG PO (09:04)
[2023-09-14] MEDS: COZAAR 100 MG PO (09:04)
[2023-09-14] MEDS: NOVOLOG FLEXPEN-LOW RESISTANCE 3 UNITS SC ×2 (09:04→12:46)
[2023-09-14] MEDS: VITAMIN D3 (cholecalciferol) 125 MCG PO (09:05)
[2023-09-14] MEDS: IMDUR (EXTENDED RELEASE) 120 MG PO (09:05)
[2023-09-14] MEDS: CARDIZEM CD 120 MG PO (09:05)
[2023-09-14] MEDS: DELTASONE 40 MG PO (09:05)
[2023-09-14] MEDS: INDERAL LA 60 MG PO (09:05)
[2023-09-14] MEDS: PROTONIX 40 MG PO (09:05)
[2023-09-14] MEDS: GLUCOPHAGE XR EXTENDED RELEASE 750 MG PO ×2 (09:05→21:18)
--- NOTE | 2023-09-14 10:34 | W.PN.HOSP.TC ---
Today's Communication/Plan
-
Transition to oral prednisone with taper
Assessment / Plan
Assessment / Plan
88-year-old female with past medical history of chronic lung disease, hypertension, hyperlipidemia, previous CVA, diabetes presenting the emergency department for evaluation of a persistent cough that has been ongoing for about 3 weeks, gradually
worsening and now patient notes exertional dyspnea mild hypoxia with ambulation. Patient is chronically on 5 L and follows with business banking manager here, Dr. Murguia. She has been using Tessalon Perles and Mucinex but without much relief. She notes at
rest she is relatively asymptomatic. Symptoms initially started with a little bit of rhinorrhea but no fevers or other infectious symptoms. Rhinorrhea is now resolved. No known sick contacts, recent travel or recent antibiotics. She denies any
chest pain, palpitations, diaphoresis, lower extremity edema.
She has been followed by Dr. 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
A 2D echocardiogram was reviewed from July of this year and is unchanged from 2021 with adequate and retained EF of 65% and no wall motion abnormality no valvulopathy of concern. She describes a cough at night last night to be unusually
irritating to her where she could not sleep she has been using 5 pillows nightly for years. She has been on prednisone daily 10 mg for the last several months per Dr. Kathia Gil on the pulmonary service/I could not ascertain why she remains on
propranolol. She is also on diltiazem
COPD exacerbation manifesting as intractable cough
-Oxygen and steroid-dependent
-Now increased oxygen requirements above her baseline on presentation
-Some improvement with IV steroid and neb treatment in the ED/further improvement in cough overnight
-Equivocal findings for some overfilling on chest x-ray/COPD/no infiltrate
-Recent upper respiratory symptoms now resolved
-Will treat with nebs titrate oxygen and IV steroid>> slow prednisone taper start September 13
-No relief with benzonatate or guaifenesin
-No criteria for antibiotic
-Nonselective beta-gene possibly contributing to cough variant
-Consult pulmonary follow-up with Dr. Murguia
Dyspnea on exertion and orthopnea
-Possible venous overfilling on chest x-ray indicating mild CHF
-proBNP of over 900 in her age group not that specific for CHF
-Recent 2D echocardiogram reviewed with 65% EF and mildly elevated PASP
-Will give single dose of IV Lasix tonight
Gastroesophageal reflux disease
-By history had been on omeprazole PPI
-Could be cause of her cough variant symptoms worse when lying down
-Placed on Protonix here
Type 2 diabetes mellitus
-Continue metformin
-Low-dose scale coverage
-Watch for hyperglycemia on steroid management
Essential hypertension
-Continue losartan
-On propranolol/look for alternatives as may be involved with her persisting cough
-Diltiazem to continue
Prior comorbidities include
Prior TIA/Plavix
CAD/clopidogrel
GI bleed by history
DVT prophylaxis with Lovenox/SCD
DNR/DNI
Anticipated Discharge: Within 24 hours
Subjective/Interval History
-
Date of Service: September 14, 2023
States that she had another restful night just like the night before and with less cough. Remains slightly congested on her baseline oxygen
Objective Data
-
Labs:
Laboratory Results
09/14/23
05:57
Sodium 128 L
Potassium 5.2 H
Chloride 91 L
Carbon Dioxide 29
BUN 30 H
Creatinine 1.0
Glucose 233 H
Calcium 10.9 H
Vital Signs:
Vital Signs
Temp Pulse Resp BP Pulse Ox
97.8 F 79 18 112/86 95
09/14/23 07:53 09/14/23 07:53 09/14/23 07:53 09/14/23 07:53 09/14/23 07:53
I&O
09/13/23 09/14/23 09/15/23
06:59 06:59 06:59
Intake Total 360 / 360
Balance 360 / 360
Review of Systems
-
History Source: Patient
Constitutional: Reports No Symptoms
EENT: Reports No Symptoms Reported
Respiratory: Reports Cough
Endocrine: Reports No Symptoms
Hematologic / Lymphatic: Reports No Symptoms
Allergy / Immunology: Reports No Symptoms
Psych: Reports Depressed
Physical Exam
-
General: Well Developed
HEENT: Normocephalic
Respiratory: Wheezes and Rhonchi
Cardiac: Regular Rhythm
GI: Soft and Nontender
Data Reviewed
-
Total Time Spent with Patient (in minutes): 56
Labs: Labs Reviewed by me (Sodium 128 potassium 5.2 chloride 91/blood sugar 233/calcium 10.9)
[2023-09-14 12:38] LABS: Glucose - Point of Care 286 mg/dl (70-99)
[2023-09-14 15:05] VITALS: BP 114/65
--- NOTE | 2023-09-14 16:10 | W.PN.PUL3 ---
Today's Communication / Plan
-
Continue nebulizers while in the hospital
Prednisone taper
Will add low-dose azithromycin for anti-inflammatory properties, hopefully will help with the coughing.
Antitussive
Intermittent diuretics
Assessment
-
88-year-old female with a history of COPD on chronic 5 L oxygen, followed by Dr. Murguia, hypertension, hyperlipidemia, previous CVA as well as diabetes and presented with aggressive shortness of breath over the last 3 weeks felt to have a COPD
exacerbation-pulmonary consulted for COPD exacerbation 09/12/23.
COPD with acute exacerbation.
Mild hyponatremia-serum sodium 131
Hyperglycemia-blood sugar 246
Conditions present prior to admission:
COPD-on chronic 5 L oxygen
Decreased diffusing capacity-, DLCO 44%
Former smoker.
Asthma
Pulmonary nodule- Chest x-ray revealed 3.[address] chest confirmed this-no change 06/2023, possibility of malignancy discussed, patient does not want aggressive workup or treatment
Interstitial lung disease.
History latent TB
Obesity.
JELLY on CPAP
CAD
CVA
GERD.
Hypertension.
Hyperlipidemia.
Diabetes.
GERD.
Diverticulosis.
Fatty liver.
Glaucoma.
Adrenal nodule.
Vitamin D deficiency.
Cholecystectomy. Appendectomy. Right TKR. Loop recorder implanted. [place] teeth. Vein stripping. Laser surgery for glaucoma.
Plan
Respiratory decompensation, likely due to COPD exacerbation and possible mild fluid overload.
Main symptom is cough paroxysms.
Not bronchospastic on exam 09/14/2023.
-
Continue with current care for now:
Not bronchospastic on exam for 12/27/2023.
Continue nebulizer-Duoneb QID, while in the hospital.
Bronchospasm improved, transition to prednisone 40 mg decrease by 10 mg every 48 hours to off.
Mucolytic's.
Continue antitussives.
Observe off antibiotics for now.
Given ongoing cough and intermittent phlegm production, will add low-dose azithromycin for anti-inflammatory properties 250 mg every 48 hours until she is seen in our office.
-
Diuresis as tolerated intermittently.
last echocardiogram July 2023. Summarized below.
Follow renal function and electrolytes.
Monitor blood sugar. Particularly on the steroids.
Insulin supplementation as needed.
DVT prophylaxis.
GI prophylaxis-on . Pantoprazole.
Reviewed with 2 daughters at the bedside
Last saw pulmonary-Dr. Murguia 07/04/23

Diagnostic data:
. Chest x-ray . 09/12/23-Mild or early CHF overlying COPD and moderate hiatal hernia.
Chest x-ray 08/19/23-NAD, stable mild cardiomegaly
.
CT chest 04/16/23-right lower lobe opacification, most likely infectious or inflammatory, but pulmonary neoplasm cannot be excluded, moderate hiatal hernia
Echo 04/08/22: normal biventricular function, PA pressure 47, aortic sclerosis�������
Echo 10/21/20: normal biventricular function, no significant valvular disease, right heart pressures could not be determined, technically difficult�������
Echo 07/31/19: Normal biventricular function,no significant valvular disease, right heart pressures could not be determined�������
ECHO 07/07/18: Aortic sclerosis, normal biventricular function, nl PASP.
Echocardiogram 07/15/23-EF 65-70%, PA systolic 44
PFT 11/14/20: FVC 1.89/95%, FEV1 1.49/103%, ratio 79, TLC 3.44/79%, DLCO 7.43/44%���
���
Zev 12/20/19: FVC 1.70/82%, FEV1 1.28/84%, ratio 77������
PFT 07/16/19: FVC 1.92/92%, FEV1 1.45/95%, ratio 76, TLC 3.06/69%, DLCO 7.91/45%.����
���
PFT 12/28/18: FVC 1.85/87%, FEV1 1.31/84%, ratio 71, TLC 3.33/75%, DLCO 8.68/50%.
HST 08/05/19-AHI-17.7, desaturation bucky 71%, CPAP with 4 L oxygen
Subjective Data
-
Date of Service:
Date of Service: September 14, 2023
Chief Complaint: Pulmonary Follow Up (Acute exacerbation COPD)
Review of Systems
Cardiopulmonary: Dyspnea and Cough
GI: Nausea (n) and Vomiting (n)
Objective Data
Data Reviewed
Vital Signs / I&O / Oxygen:
Vital Signs
Temp Pulse Resp BP Pulse Ox
97.3 F 81 18 114/65 97
09/14/23 15:05 09/14/23 15:05 09/14/23 15:05 09/14/23 15:05 09/14/23 15:05
Intake and Output
09/13/23 09/14/23 09/15/23
06:59 06:59 06:59
Intake Total 360 / 360
Balance 360 / 360
SaO2 97
Nasal Cannula flow liters per 4
minute
Physical Exam
General: Respiratory Distress and Comfortable
HEENT: Normocephalic
Cardiovascular: S1-S2 and Regular Rhythm
Respiratory: Wheeze and Non-Labored Respirations
GI: Soft and Non Distended
Neurology: Awake
Labs/Micro/Reports
Lab Data
09/13/23 06:39
09/14/23 05:57
[2023-09-14 16:40] LABS: Glucose - Point of Care 372 mg/dl (70-99)
[2023-09-14] MEDS: ZITHROMAX 250 MG PO (17:19)
[2023-09-14] MEDS: NOVOLOG FLEXPEN-LOW RESISTANCE 5 UNITS SC (17:21)
[2023-09-14] MEDS: TYLENOL 1000 MG PO (21:17)
[2023-09-14 21:18] LABS: Glucose - Point of Care 264 mg/dl (70-99)
[2023-09-14] MEDS: VITAMIN B-12 1000 MCG PO (21:18)
[2023-09-14] MEDS: CRESTOR 40 MG PO (21:18)
[2023-09-14] MEDS: OCEAN, SALINE MIST 2 SPRAYS NASAL (21:22)
[2023-09-14] MEDS: AYR SALINE NASAL GEL 1 APPLIC NASAL (21:23)
[2023-09-14 23:34] VITALS: BP 142/76
[2023-09-15] MEDS: SAFETUSSIN DM (SUGAR/ALCOHOL FREE) 200 MG PO ×2 (04:09→13:42)
[2023-09-15 06:00] VITALS: BMI 35.2
[2023-09-15] MEDS: DUONEB 3 ML INH ×2 (07:16→11:01)
--- NOTE | 2023-09-15 07:40 | W.PN.HOSP.TC ---
Today's Communication/Plan
-
Patient still not feeling well and does not want to be discharged at this time, still coughing a lot
Continue prednisone taper
Assessment / Plan
Assessment / Plan
Physical Exam
General: Well Developed
HEENT: Normocephalic
Respiratory: Wheezes and Rhonchi
Cardiac: S1 and S2. Regular Rhythm
GI: Soft and Nontender. Positive bowel sounds.
Assessment/Plan
88-year-old female with past medical history of chronic lung disease, hypertension, hyperlipidemia, previous CVA, diabetes presenting the emergency department for evaluation of a persistent cough that has been ongoing for about 3 weeks, gradually
worsening and now patient notes exertional dyspnea mild hypoxia with ambulation. Patient is chronically on 5 L and follows with senior oracle database developer here, Dr. Murguia. She has been using Tessalon Perles and Mucinex but without much relief. She notes at
rest she is relatively asymptomatic. Symptoms initially started with a little bit of rhinorrhea but no fevers or other infectious symptoms. Rhinorrhea is now resolved. No known sick contacts, recent travel or recent antibiotics. She denies any
chest pain, palpitations, diaphoresis, lower extremity edema.
She has been followed by Dr. 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
A 2D echocardiogram was reviewed from July of this year and is unchanged from 2021 with adequate and retained EF of 65% and no wall motion abnormality no valvulopathy of concern. She describes a cough at night last night to be unusually
irritating to her where she could not sleep she has been using 5 pillows nightly for years. She has been on prednisone daily 10 mg for the last several months per Dr. Kathia Gil on the pulmonary service/I could not ascertain why she remains on
propranolol. She is also on diltiazem
COPD exacerbation manifesting as intractable cough
-Oxygen and steroid-dependent
-Earlier had increased oxygen requirements above her baseline on presentation
-Some improvement with IV steroid and neb treatment in the ED
-Equivocal findings for some overfilling on chest x-ray/COPD/no infiltrate
-Recent upper respiratory symptoms now resolved
-Will treat with nebs titrate oxygen and IV steroid>> slow prednisone taper started: transitioned to prednisone 40 mg decrease by 10 mg every 48 hours to off
-No relief with benzonatate or guaifenesin
-As per pulmonary, given ongoing cough and intermittent phlegm production, continue low-dose azithromycin for anti-inflammatory properties 250 mg every 48 hours until patient is seen in pulmonary office.
-Nonselective beta-gene possibly contributing to cough variant
-Consulted pulmonary follow-up with Dr. Murguia
Dyspnea on exertion and orthopnea
-Possible venous overfilling on chest x-ray indicating mild CHF
-proBNP of over 900 in her age group not that specific for CHF
-Recent 2D echocardiogram reviewed with 65% EF and mildly elevated PASP
-Will give single dose of IV Lasix tonight
-Diuresis as tolerated intermittently.
Gastroesophageal reflux disease
-By history had been on omeprazole PPI
-Could be cause of her cough variant symptoms worse when lying down
-Placed on Protonix here
Type 2 diabetes mellitus
-Continue metformin
-Low-dose scale coverage
-Watch for hyperglycemia on steroid management
Essential hypertension
-Continue losartan
-On propranolol/look for alternatives as may be involved with her persisting cough
-Diltiazem to continue
Prior comorbidities include
Prior TIA/Plavix
CAD/clopidogrel
GI bleed by history
DVT prophylaxis with Heparin Subq/SCD
DNR/DNI
Anticipated Discharge: 24 - 48 hours
Subjective/Interval History
-
Date of Service: September 15, 2023
Patient was seen and examined. She reported ongoing, persistent cough but otherwise denied any other new, significant symptoms or complaints.
Objective Data
-
Vital Signs:
Vital Signs
Temp Pulse Resp BP Pulse Ox
97.3 F 75 16 142/76 98
09/14/23 23:34 09/15/23 07:19 09/15/23 07:19 09/14/23 23:34 09/15/23 07:19
I&O
09/14/23 09/15/23 09/16/23
06:59 06:59 06:59
Intake Total 360 / 360 1740 / 1740
Balance 360 / 360 1740 / 1740
[2023-09-15 08:14] VITALS: BP 160/78
[2023-09-15 08:28] LABS: Glucose - Point of Care 174 mg/dl (70-99)
[2023-09-15] MEDS: CARDIZEM CD 120 MG PO (08:36)
[2023-09-15] MEDS: PLAVIX 75 MG PO (08:36)
[2023-09-15] MEDS: GLUCOPHAGE XR EXTENDED RELEASE 750 MG PO ×2 (08:36→21:43)
[2023-09-15] MEDS: NOVOLOG FLEXPEN-LOW RESISTANCE 1 UNITS SC (08:36)
[2023-09-15] MEDS: VITAMIN D3 (cholecalciferol) 125 MCG PO (08:36)
[2023-09-15] MEDS: IMDUR (EXTENDED RELEASE) 120 MG PO (08:36)
[2023-09-15] MEDS: DELTASONE 40 MG PO (08:36)
[2023-09-15] MEDS: INDERAL LA 60 MG PO (08:36)
[2023-09-15] MEDS: PROTONIX 40 MG PO (08:36)
[2023-09-15] MEDS: COZAAR 100 MG PO (08:36)
[2023-09-15 12:12] LABS: Glucose - Point of Care 232 mg/dl (70-99)
[2023-09-15] MEDS: NOVOLOG FLEXPEN-LOW RESISTANCE 2 UNITS SC (12:46)
--- NOTE | 2023-09-15 14:21 | W.PN.PUL3 ---
Today's Communication / Plan
-
PT eval due to weakness/SOB with exertion
Will add Advair/Spiriva for cough complaints
Continue nebs PRN
On baseline O2 requirements
Outpatient pulm FU recommended
Discharge planning per team
Assessment
-
88-year-old female with a history of COPD on chronic 5 L oxygen, followed by Dr. Murguia, hypertension, hyperlipidemia, previous CVA as well as diabetes and presented with aggressive shortness of breath over the last 3 weeks felt to have a COPD
exacerbation-pulmonary consulted for COPD exacerbation 09/12/23.
COPD with acute exacerbation.
Mild hyponatremia-serum sodium 131
Hyperglycemia-blood sugar 246
Conditions present prior to admission:
COPD-on chronic 5 L oxygen
Decreased diffusing capacity-, DLCO 44%
Former smoker.
Asthma
Pulmonary nodule- Chest x-ray revealed 3.[address] chest confirmed this-no change 06/2023, possibility of malignancy discussed, patient does not want aggressive workup or treatment
Interstitial lung disease.
History latent TB
Obesity.
JELLY on CPAP
CAD
CVA
GERD.
Hypertension.
Hyperlipidemia.
Diabetes.
GERD.
Diverticulosis.
Fatty liver.
Glaucoma.
Adrenal nodule.
Vitamin D deficiency.
Cholecystectomy. Appendectomy. Right TKR. Loop recorder implanted. [place] teeth. Vein stripping. Laser surgery for glaucoma.
Plan
Respiratory decompensation, likely due to COPD exacerbation and possible mild fluid overload.
Main symptom is cough paroxysms.
Not bronchospastic on exam 09/14/2023.
She is on her baseline O2 of 4L continuous
Continue with current care for now:
Not bronchospastic on exam for 12/27/2023.
Continue nebulizer-Duoneb QID, while in the hospital.
Bronchospasm improved, transition to prednisone 40 mg decrease by 10 mg every 48 hours to off.
Mucolytic's.
Continue antitussives.
Observe off antibiotics for now.
Given ongoing cough and intermittent phlegm production, will add low-dose azithromycin for anti-inflammatory properties 250 mg every 48 hours until she is seen in our office
We discussed cough as an expectant symptom of COPD
She has tried tesslon perles in past but did not help
Will add advair, spriva to see if this helps
Diuresis as tolerated intermittently.
Last echocardiogram July 2023. Summarized below.
Follow renal function and electrolytes.
Monitor blood sugar. Particularly on the steroids.
Insulin supplementation as needed.
DVT prophylaxis.
GI prophylaxis-on . Pantoprazole.
PT/OT eval for discharge placement
Outpatient pulmonary FU recommended
Last saw pulmonary-Dr. Murguia 07/04/23
Discharge planning per team
Diagnostic Data
Chest x-ray 09/12/23-Mild or early CHF overlying COPD and moderate hiatal hernia.
Chest x-ray 08/19/23-NAD, stable mild cardiomegaly
CT chest 04/16/23-right lower lobe opacification, most likely infectious or inflammatory, but pulmonary neoplasm cannot be excluded, moderate hiatal hernia
Echocardiogram 07/15/23-EF 65-70%, PA systolic 44
Echo 04/08/22: normal biventricular function, PA pressure 47, aortic sclerosis�������
Echo 10/21/20: normal biventricular function, no significant valvular disease, right heart pressures could not be determined, technically difficult�������
Echo 07/31/19: Normal biventricular function,no significant valvular disease, right heart pressures could not be determined�������
ECHO 07/07/18: Aortic sclerosis, normal biventricular function, nl PASP.
PFT 11/14/20: FVC 1.89/95%, FEV1 1.49/103%, ratio 79, TLC 3.44/79%, DLCO 7.43/44%���
[facility] 12/20/19: FVC 1.70/82%, FEV1 1.28/84%, ratio 77������
PFT 07/16/19: FVC 1.92/92%, FEV1 1.45/95%, ratio 76, TLC 3.06/69%, DLCO 7.91/45%.����
PFT 12/28/18: FVC 1.85/87%, FEV1 1.31/84%, ratio 71, TLC 3.33/75%, DLCO 8.68/50%.
HST 08/05/19-AHI-17.7, desaturation bucky 71%, CPAP with 4 L oxygen
All relevant imaging reviewed.
Subjective Data
-
Date of Service:
Date of Service: September 15, 2023
Chief Complaint: Pulmonary Follow Up (Acute exacerbation COPD)
Objective Data
Data Reviewed
Vital Signs / I&O / Oxygen:
Vital Signs
Temp Pulse Resp BP Pulse Ox
98.8 F 81 16 160/78 96
09/15/23 08:14 09/15/23 11:02 09/15/23 11:02 09/15/23 08:36 09/15/23 11:57
Intake and Output
09/14/23 09/15/23 09/16/23
06:59 06:59 06:59
Intake Total 360 / 360 1740 / 1740
Balance 360 / 360 1740 / 1740
SaO2 96
Nasal Cannula flow liters per 4
minute
Physical Exam
General: Respiratory Distress and Comfortable
HEENT: Normocephalic
Cardiovascular: S1-S2 and Regular Rhythm
Respiratory: Wheeze and Non-Labored Respirations
GI: Soft and Non Distended
Neurology: Awake
Labs/Micro/Reports
Lab Data
09/13/23 06:39
09/14/23 05:57
--- NOTE | 2023-09-15 14:52 | CM ---
creative services manager reviewed patient's chart and met with patient and will await PT/OT evaluations and recommendations, patient uses 4-5 liters of oxygen at home and lives alone per chart.
Plan; To follow with patient await physical therapy recommendation for discharge planning needs.
[2023-09-15 15:41] VITALS: BP 140/64
[2023-09-15 16:55] LABS: Glucose - Point of Care 332 mg/dl (70-99)
[2023-09-15] MEDS: NOVOLOG FLEXPEN-LOW RESISTANCE 4 UNITS SC (17:19)
[2023-09-15 19:59] LABS: Hematocrit 37.9 % (37.0-47.0); Hemoglobin 13.2 g/dL (12.0-16.0); Mean Corp Hgb Conc. 34.8 g/dL (33.0-37.0); Mean Corpuscular Hgb 31.1 pg (27.0-31.0); Mean Corpuscular Volume 89.2 fL (81.0-99.0); Mean Platelet Volume 10.2 fL (7.4-10.4); Platelet Count 269 10^3/uL (130-400); Red Blood Cell Count 4.25 10^6/uL (4.20-5.40); Red Cell Dist. Width 12.9 % (11.5-14.5); White Blood Cell Count 12.6 10^3/uL (4.8-10.8)
[2023-09-15] MEDS: ADVAIR HFA 230/21 MCG INHALER 2 PUFF INH (20:08)
[2023-09-15 20:20] LABS: Blood Urea Nitrogen 37 mg/dl (7-17); Calcium 10.2 mg/dl (8.4-10.2); Carbon Dioxide 28 mmol/L (22-30); Chloride 86 mmol/L (98-107); Estimated Creatinine Clearance 27 ml/min; Glucose 409 mg/dl (70-99); Potassium 4.9 mmol/L (3.5-5.1); Sodium 125 mmol/L (135-145); eGFR 36.19
[2023-09-15 21:41] LABS: Glucose - Point of Care 290 mg/dl (70-99)
[2023-09-15] MEDS: CRESTOR 40 MG PO (21:43)
[2023-09-15] MEDS: TYLENOL 1000 MG PO (21:43)
[2023-09-15] MEDS: VITAMIN B-12 1000 MCG PO (21:43)
[2023-09-15 23:14] VITALS: BP 138/76
[2023-09-16 06:00] VITALS: BMI 35.2
[2023-09-16 07:12] LABS: Glucose - Point of Care 179 mg/dl (70-99)
[2023-09-16] MEDS: SPIRIVA RESPIMAT 2.5 MCG 2 PUFF INH (07:20)
[2023-09-16] MEDS: ADVAIR HFA 230/21 MCG INHALER 2 PUFF INH ×2 (07:21→19:52)
[2023-09-16 07:47] LABS: Hematocrit 40.6 % (37.0-47.0); Hemoglobin 13.5 g/dL (12.0-16.0); Mean Corp Hgb Conc. 33.3 g/dL (33.0-37.0); Mean Corpuscular Hgb 30.7 pg (27.0-31.0); Mean Corpuscular Volume 92.3 fL (81.0-99.0); Mean Platelet Volume 10.3 fL (7.4-10.4); Platelet Count 249 10^3/uL (130-400); Red Cell Dist. Width 12.7 % (11.5-14.5); White Blood Cell Count 10.1 10^3/uL (4.8-10.8)
[2023-09-16 08:05] VITALS: BP 145/74
--- NOTE | 2023-09-16 08:30 | W.PN.HOSP.TC ---
Today's Communication/Plan
-
Glucose control
Continue steroid taper
Cardiology will place patient on a heart monitor prior to discharge (either tomorrow or )
Assessment / Plan
Assessment / Plan
Physical Exam
General: Well Developed
HEENT: Normocephalic
Respiratory: Wheezes and Rhonchi
Cardiac: S1 and S2. Irregular Rhythm
GI: Soft and Nontender. Positive bowel sounds.
Neuro: Awake and Alert.
Assessment/Plan
88-year-old female with past medical history of chronic lung disease, hypertension, hyperlipidemia, previous CVA, diabetes presenting the emergency department for evaluation of a persistent cough that has been ongoing for about 3 weeks, gradually
worsening and now patient notes exertional dyspnea mild hypoxia with ambulation. Patient is chronically on 5 L and follows with air traffic instructor here, Dr. Murguia. She has been using Tessalon Perles and Mucinex but without much relief. She notes at
rest she is relatively asymptomatic. Symptoms initially started with a little bit of rhinorrhea but no fevers or other infectious symptoms. Rhinorrhea is now resolved. No known sick contacts, recent travel or recent antibiotics. She denies any
chest pain, palpitations, diaphoresis, lower extremity edema.
She has been followed by Dr. 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
A 2D echocardiogram was reviewed from July of this year and is unchanged from 2021 with adequate and retained EF of 65% and no wall motion abnormality no valvulopathy of concern. She describes a cough at night last night to be unusually
irritating to her where she could not sleep she has been using 5 pillows nightly for years. She has been on prednisone daily 10 mg for the last several months per Dr. Kathia Gil on the pulmonary service/I could not ascertain why she remains on
propranolol. She is also on diltiazem
COPD exacerbation manifesting as intractable cough
COPD on Chronic 4 L of oxygen at home
Interstitial Lung Disease
Asthma
Former Smoker
-Oxygen and steroid-dependent
-Earlier had increased oxygen requirements above her baseline on presentation
-Some improvement with IV steroid and neb treatment in the ED
-Equivocal findings for some overfilling on chest x-ray/COPD/no infiltrate
-Recent upper respiratory symptoms now resolved
-Will treat with nebs titrate oxygen and IV steroid>> slow prednisone taper started: transitioned to prednisone 40 mg decrease by 10 mg every 48 hours to off (first dose of prednisone 30 was 09/16/23)
-No relief with benzonatate or guaifenesin
-As per pulmonary, given ongoing cough and intermittent phlegm production, continue low-dose azithromycin for anti-inflammatory properties 250 mg every 48 hours until patient is seen in pulmonary office.
-Nonselective beta-gene possibly contributing to cough variant
-Consulted pulmonary, recommendations appreciated
-Follow-up with Dr. Murguia outpatient
-Advair and Spriva added with improvement in cough
Dyspnea on exertion and orthopnea
-Possible venous overfilling on chest x-ray indicating mild CHF
-proBNP of over 900 in her age group not that specific for CHF
-Recent 2D echocardiogram reviewed with 65% EF and mildly elevated PASP
-Diuresis as tolerated intermittently.
Irregular Rhythm
-Placed on tele and EKG performed both on September 16, 2023
-Discussed with on-call [facility] senior instructional designer on September 16, 2023, and from their standpoint telemetry shows no definitive A-Fib and EKG looks sinus
-Cardiology will place patient on a final block press operator prior to discharge
-Patient also has a follow-up with Dr. Moran ([facility]) in about 1 month
Mild Hyponatremia
-Monitor BMP
-Possible contribution from hyperglycemia
Gastroesophageal reflux disease
-By history had been on omeprazole PPI
-Could be cause of her cough variant symptoms worse when lying down
-Placed on Protonix here
Type 2 diabetes mellitus
Hyperglycemia
-Continue metformin
-Low-dose scale coverage
-Consulted Diabetes SALES SUPPORT ASSISTANT, recommendations appreciated
Essential hypertension
-Continue losartan
-On propranolol/look for alternatives as may be involved with her persisting cough
-Diltiazem to continue
Pulmonary Nodule
-Follow-up with pulmonary
Prior comorbidities include
Prior TIA/CVA - Plavix
CAD - Clopidogrel
GI bleed by history
History latent TB
Obesity.
JELLY on CPAP
GERD.
Hyperlipidemia.
Diverticulosis.
Fatty liver.
Glaucoma.
Adrenal nodule.
Vitamin D deficiency.
Cholecystectomy. Appendectomy. Right TKR. Loop recorder implanted. [place] teeth. Vein stripping. Laser surgery for glaucoma.
DVT prophylaxis with Heparin Subq/SCD
DNR/DNI
Anticipated Discharge: 24 - 48 hours
Subjective/Interval History
-
Date of Service: September 16, 2023
Patient was seen and examined. She reported that her cough is better today.
Objective Data
-
Labs:
Laboratory Results
09/16/23
07:25
WBC 10.1
Hgb 13.5
Hct 40.6
Plt Count 249
Sodium Pending
Potassium Pending
Chloride Pending
Carbon Dioxide Pending
BUN Pending
Creatinine Pending
Glucose Pending
Calcium Pending
Vital Signs:
Vital Signs
Temp Pulse Resp BP Pulse Ox
97.7 F 83 18 138/76 96
09/15/23 23:14 09/16/23 07:24 09/16/23 07:24 09/15/23 23:14 09/16/23 07:24
I&O
09/15/23 09/16/23 09/17/23
06:59 06:59 06:59
Intake Total 1740 / 1740 960 / 960
Balance 1740 / 1740 960 / 960
[2023-09-16 08:48] LABS: Blood Urea Nitrogen 34 mg/dl (7-17); Calcium 10.1 mg/dl (8.4-10.2); Carbon Dioxide 31 mmol/L (22-30); Chloride 94 mmol/L (98-107); Estimated Creatinine Clearance 35 ml/min; Glucose 163 mg/dl (70-99); Potassium 4.6 mmol/L (3.5-5.1); Sodium 130 mmol/L (135-145); eGFR 48.33
[2023-09-16] MEDS: NOVOLOG FLEXPEN-LOW RESISTANCE 1 UNITS SC (08:49)
[2023-09-16] MEDS: DELTASONE 30 MG PO (08:49)
[2023-09-16] MEDS: COZAAR 100 MG PO (08:50)
[2023-09-16] MEDS: IMDUR (EXTENDED RELEASE) 120 MG PO (08:50)
[2023-09-16] MEDS: INDERAL LA 60 MG PO (08:50)
[2023-09-16] MEDS: PROTONIX 40 MG PO (08:50)
[2023-09-16] MEDS: PLAVIX 75 MG PO (08:50)
[2023-09-16] MEDS: VITAMIN D3 (cholecalciferol) 125 MCG PO (08:50)
[2023-09-16] MEDS: SAFETUSSIN DM (SUGAR/ALCOHOL FREE) 200 MG PO (08:53)
[2023-09-16] MEDS: GLUCOPHAGE XR EXTENDED RELEASE 750 MG PO ×2 (08:53→21:22)
[2023-09-16] MEDS: CARDIZEM CD 120 MG PO (08:54)
--- NOTE | 2023-09-16 10:00 | W.PN.PUL3 ---
Today's Communication / Plan
-
Inhalers are helping, coughing seem better today
PT eval, likely to need SNF placement
Tele monitoring per team for new arrhythmia
Reviewed outpatient management with patient and family at bedside
Outpatient pulmonary FU recommended
Discharge planning per team
Assessment
-
88-year-old female with a history of COPD on chronic 5 L oxygen, followed by Dr. Murguia, hypertension, hyperlipidemia, previous CVA as well as diabetes and presented with aggressive shortness of breath over the last 3 weeks felt to have a COPD
exacerbation-pulmonary consulted for COPD exacerbation 09/12/23.
COPD with acute exacerbation.
Mild hyponatremia-serum sodium 131
Hyperglycemia-blood sugar 246
Conditions present prior to admission:
COPD-on chronic 5 L oxygen
Decreased diffusing capacity-, DLCO 44%
Former smoker.
Asthma
Pulmonary nodule- Chest x-ray revealed 3.[address] chest confirmed this-no change 06/2023, possibility of malignancy discussed, patient does not want aggressive workup or treatment
Interstitial lung disease.
History latent TB
Obesity.
JELLY on CPAP
CAD
CVA
GERD.
Hypertension.
Hyperlipidemia.
Diabetes.
GERD.
Diverticulosis.
Fatty liver.
Glaucoma.
Adrenal nodule.
Vitamin D deficiency.
Cholecystectomy. Appendectomy. Right TKR. Loop recorder implanted. [place] teeth. Vein stripping. Laser surgery for glaucoma.
Plan
Respiratory decompensation, likely due to COPD exacerbation and possible mild fluid overload.
Main symptom is cough paroxysms.
Not bronchospastic on exam 09/14/2023.
She is on her baseline O2 of 4L continuous
Continue with current care for now:
Not bronchospastic on exam for 12/27/2023.
Continue nebulizer-Duoneb QID, while in the hospital.
Bronchospasm improved, transition to prednisone 40 mg decrease by 10 mg every 48 hours to off.
Mucolytic's.
Continue antitussives.
Observe off antibiotics for now.
Given ongoing cough and intermittent phlegm production, will add low-dose azithromycin for anti-inflammatory properties 250 mg every 48 hours until she is seen in our office
We discussed cough as an expectant symptom of COPD
She has tried tesslon perles in past but did not help
Continue advair, spriva at time of discharge
Diuresis as tolerated intermittently.
Last echocardiogram July 2023. Summarized below.
Follow renal function and electrolytes.
She notes new arrhythmia, care team with monitoring
Monitor blood sugar. Particularly on the steroids.
Insulin supplementation as needed.
DVT prophylaxis.
GI prophylaxis-on -- Pantoprazole.
PT/OT eval for discharge placement
Outpatient pulmonary FU recommended
Last saw pulmonary-Dr. Murguia 07/04/23
Discharge planning per team
Diagnostic Data
Chest x-ray 09/12/23-Mild or early CHF overlying COPD and moderate hiatal hernia.
Chest x-ray 08/19/23-NAD, stable mild cardiomegaly
CT chest 04/16/23-right lower lobe opacification, most likely infectious or inflammatory, but pulmonary neoplasm cannot be excluded, moderate hiatal hernia
Echocardiogram 07/15/23-EF 65-70%, PA systolic 44
Echo 04/08/22: normal biventricular function, PA pressure 47, aortic sclerosis�������
Echo 10/21/20: normal biventricular function, no significant valvular disease, right heart pressures could not be determined, technically difficult�������
Echo 07/31/19: Normal biventricular function,no significant valvular disease, right heart pressures could not be determined�������
ECHO 07/07/18: Aortic sclerosis, normal biventricular function, nl PASP.
PFT 11/14/20: FVC 1.89/95%, FEV1 1.49/103%, ratio 79, TLC 3.44/79%, DLCO 7.43/44%���
[facility] 12/20/19: FVC 1.70/82%, FEV1 1.28/84%, ratio 77������
PFT 07/16/19: FVC 1.92/92%, FEV1 1.45/95%, ratio 76, TLC 3.06/69%, DLCO 7.91/45%.����
PFT 12/28/18: FVC 1.85/87%, FEV1 1.31/84%, ratio 71, TLC 3.33/75%, DLCO 8.68/50%.
HST 08/05/19-AHI-17.7, desaturation bucky 71%, CPAP with 4 L oxygen
All relevant imaging reviewed.
Subjective Data
-
Date of Service:
Date of Service: September 16, 2023
Chief Complaint: Pulmonary Follow Up (Acute exacerbation COPD)
Subjective:
no new complaints, cough seemed more productive last night
Still weak/SOB
she notes possible new afib
Objective Data
Data Reviewed
Vital Signs / I&O / Oxygen:
Vital Signs
Temp Pulse Resp BP Pulse Ox
97.5 F 80 16 145/74 97
09/16/23 08:05 09/16/23 08:05 09/16/23 08:05 09/16/23 08:05 09/16/23 08:05
Intake and Output
09/15/23 09/16/23 09/17/23
06:59 06:59 06:59
Intake Total 1740 / 1740 960 / 960
Balance 1740 / 1740 960 / 960
SaO2 97
Nasal Cannula flow liters per 4
minute
Physical Exam
General: Respiratory Distress, Comfortable and Other (NAD)
HEENT: Normocephalic, Anicteric and Moist Mucous Membranes
Cardiovascular: S1-S2, Regular Rhythm and Peripheral Edema
Respiratory: Clear and Non-Labored Respirations
GI: Soft, Non Distended and Non Tender
Neurology: Awake, Alert, Oriented, AO x 3 and No Motor Deficits
Skin: Warm, Dry and Good Color
Labs/Micro/Reports
Lab Data
09/16/23 07:25
09/16/23 07:25
[2023-09-16 11:06] VITALS: BP 119/86
[2023-09-16 11:55] LABS: Glucose - Point of Care 311 mg/dl (70-99)
[2023-09-16] MEDS: NOVOLOG FLEXPEN-LOW RESISTANCE 4 UNITS SC (12:04)
[2023-09-16 12:08] VITALS: BP 119/86; BP 139/66; PULSE 56; O2SAT 95
--- NOTE | 2023-09-16 12:24 | PN.DE.MGMTRT ---
Insulin Management
- -
09/16/2023 Diabetes Management Consult
Patient admitted 09/11 with dyspnea, hypoxia, exacerbation of COPD. PMH HTN, chronic lung disease (on prednisone 10 mg ), HLD, CVA, type 2 diabetes. Prior to admission was taking 750 mg metformin BID. A1C 9.4%, cr 1.1, eGFR 48.33. Patient is
currently on steroid taper.
Glucose range yesterday 174 to 332, fasting today 179.
Will add Januvia 100 mg, first dose now and reassess glucose control for possible need for AM lantus with elevated A1C.
Diabetes History
- -
Type of Diabetes: 2
Pre-Admission Diabetes Regimen
09/15/23 09/16/23
19:47 07:25
Creatinine 1.4 H 1.1 H
Lab Results
Hemoglobin A1c 9.4 % (4.0-5.6) H 09/13/23 06:39
Insulin Pump Settings
IP Diabetes Regimen
09/15/23 09/15/23 09/15/23
16:53 19:47 21:40
Glucose 409 H
POC Glucose 332 H 290 H
09/16/23 09/16/23 09/16/23
07:11 07:25 11:53
Glucose 163 H
POC Glucose 179 H 311 H
Patient Education
[2023-09-16] MEDS: JANUVIA 100 MG PO (12:36)
--- NOTE | 2023-09-16 13:21 | PN.CDI ---
CDI
- -
CDI:
Physician Documentation Request
Admit Date: 09/12/23 15:09
Dear Doctor Amy,
Patient admitted with COPD exacerbation.
09/15 Hospitalist PN: 'Dyspnea on exertion and orthopnea
-Possible venous overfilling on chest x-ray indicating mild CHF
-proBNP of over 900 in her age group not that specific for CHF
-Recent 2D echocardiogram reviewed with 65% EF and mildly elevated PASP
-Diuresis as tolerated intermittently.'
Please clarify the following:
____ - Acute HFpEF was present on admission and is now resolved.
____ - Acute HFpEF was present on admission and is still being monitored, evaluated or treated
____ - Acute HFpEF was ruled out
____ - Acute HFpEF is still a likely, suspected, probable diagnosis
____ - Other
____ - Unable to determine
Use of terms such as suspected, likely, concern for, or probable (associated with a specific diagnosis that is being evaluated, monitored, or treated as if it exists) are acceptable and can be coded in the inpatient setting, when documented at the
time of discharge.
Thank you,
Angle Ayoub RN, BSN
CDI Specialist
Available via [employer] text
Please use your independent medical judgment in providing your response.
--- NOTE | 2023-09-16 13:26 | PN.CDI ---
CDI
- -
CDI:
Physician Documentation Request
Admit Date: 09/12/23 15:09
Dear Doctor Amy,
Patient admitted for COPD exacerbation.
09/15 Hospitalist PN: 'COPD on Chronic 4 L of oxygen at home...Oxygen and steroid-dependent. Earlier had increased oxygen requirements above her baseline on presentation'
Selected Entries
09/12/23
10:58 09/12/23
17:32 09/13/23
07:30
Nasal Cannula flow liters per minute 6 5 5
Clarify which of the following accurately represents the patient's respiratory status:
Acute on chronic hypoxic respiratory failure
Chronic hypoxic respiratory failure
Other
Additional information for Respiratory Failure:
Recognized criteria for Respiratory Failure (Source: [facility] Apr 2013)
ABGs: (1 or more) Symptoms Please indicate type if known
1. p)2 <60 or RA SPO2 <91% on RA 1. Tachypnea, SOB, dyspnea Hypoxic
2. pCO2 50 and pH <7.35 2. Use of accessory muscles Hypercapnic
3. pO2 decrease of pCO2 increase by 3. Pallor or cyanosis Hypoxic and Hypercapnic
10 mmHg from baseline if known 4. Anxiety or restlessness Unable to determine
5. Unable to speak in full sentences
Supplemental O2 of > 40% (5LPM) Intubation is not required
Use of terms such as suspected, likely, concern for, or probable (associated with a specific diagnosis that is being evaluated, monitored, or treated as if it exists) are acceptable and can be coded in the inpatient setting, when documented at the
time of discharge.
Thank you,
Angle Ayoub RN, BSN
CDI Specialist
Available via [place] text
Please use your independent medical judgment in providing your response.
--- NOTE | 2023-09-16 13:32 | PN.CDI ---
CDI
- -
CDI:
Physician Documentation Request
Admit Date: 09/12/23 15:09
Dear Doctor Amy,
Patient admitted for COPD exacerbation.
Laboratory Tests
09/14/23 09/15/23 09/16/23
05:57 19:47 07:25
Creatinine 1.0 1.4 H 1.1 H
Clarify which of the following accurately represents the patient's renal status:
JASWANT
Rise in creatinine
Other
Criteria for JASWANT*
1 Increase in serum creatinine by > or = to 0.3 mg/dL (> or = to 26.5 micromol/L) within 48 hours, OR
2 Increase in serum creatinine to > or = to 1.5 times baseline, which is known or presumed to have occurred within 7 days, OR
3 Urine volume < 0.5 nL/kg/hour for six hours
Use of terms such as suspected, likely, concern for, or probable (associated with a specific diagnosis that is being evaluated, monitored, or treated as if it exists) are acceptable and can be coded in the inpatient setting, when documented at the
time of discharge.
Thank you,
Angle Ayoub RN, BSN
CDI Specialist
Available via [employer] text
Please use your independent medical judgment in providing your response.
*Source: Kidney Disease: Improving Global Outcomes (KDIGO) 2012
[2023-09-16 15:37] VITALS: BP 126/91
--- NOTE | 2023-09-16 16:10 | CM ---
clinical care manager reviewed patient's chart and physical therapy are recommending skilled placement skilled options reviewed with patient and patient has selected [facility], referral [facility].
Plan; Skilled placement, referral sent to [facility]
[2023-09-16 16:46] LABS: Glucose - Point of Care 423 mg/dl (70-99)
[2023-09-16 17:15] LABS: Glucose 390 mg/dl (70-99)
[2023-09-16] MEDS: NOVOLOG FLEXPEN-LOW RESISTANCE 5 UNITS SC (17:22)
[2023-09-16] MEDS: ZITHROMAX 250 MG PO (17:22)
[2023-09-16 20:11] VITALS: BP 123/53
[2023-09-16] MEDS: CRESTOR 40 MG PO (21:21)
[2023-09-16] MEDS: TYLENOL 1000 MG PO (21:21)
[2023-09-16] MEDS: ROBITUSSIN AC 5 ML PO (21:22)
[2023-09-16] MEDS: VITAMIN B-12 1000 MCG PO (21:22)
[2023-09-16 21:41] LABS: Glucose - Point of Care 312 mg/dl (70-99)
--- NOTE | 2023-09-16 22:28 | PTCARENOTE ---
Addendum entered by Karen Shelby RN 09/16/23 22:32:
2140 glucose of 312. JODEE Nance notied imediately via tiger text communication. 4 units of insulin ordered as stat-med.
Original Note:
2140 glucose of 312. JODEE Nance notied imediately via tiger text communication.
[2023-09-16] MEDS: NOVOLOG FLEXPEN 4 UNITS SC (22:40)
[2023-09-16 23:34] VITALS: BP 131/88
[2023-09-17] VITALS (7 sets, daily range): BP systolic 106–157; BP diastolic 57–91; PULSE 84–112; O2SAT 96; BMI 35.4
--- NOTE | 2023-09-17 07:32 | PN.DE.MGMTRT ---
Insulin Management
- -
09/17/2023 Diabetes Management Consult Follow up
Patient admitted 09/11 with dyspnea, hypoxia, exacerbation of COPD. PMH HTN, chronic lung disease (on prednisone 10 mg ), HLD, CVA, type 2 diabetes. Prior to admission was taking 750 mg metformin BID. A1C 9.4%, cr 1.1, eGFR 48.33. Patient is
currently on steroid taper.
Glucose range yesterday 179 to 423.
Patient is awake alert and oriented oob in chair. Able to participate in education and discussion about diabetes management.
Januvia 100 mg, started yesterday AM. Will start AM lantus 14 units, continue Januvia 100 mg daily and metformin 750 mg BID.
Instructed patient on steps to prepare and inject insulin in pre filled pen with good return demonstration. Printed instructions with pictures also provided. Patient to use home pen needles and self inject all meals with nursing supervision.
I spoke with patient nurse and provided pen needles.
Diabetes History
- -
Type of Diabetes: 2
Pre-Admission Diabetes Regimen
09/16/23
07:25
Creatinine 1.1 H
Lab Results
Hemoglobin A1c 9.4 % (4.0-5.6) H 09/13/23 06:39
Insulin Pump Settings
IP Diabetes Regimen
09/16/23 09/16/23 09/16/23
07:25 11:53 16:44
Glucose 163 H
POC Glucose 311 H 423 H
09/16/23 09/16/23
16:52 21:40
Glucose 390 H
POC Glucose 312 H
Meal type: Lunch
Meal type: Breakfast
Amount consumed: 100%
Amount consumed: 100%
Patient Education
[2023-09-17 07:40] LABS: Glucose - Point of Care 124 mg/dl (70-99)
[2023-09-17 07:59] LABS: Hematocrit 39.5 % (37.0-47.0); Hemoglobin 13.2 g/dL (12.0-16.0); Mean Corp Hgb Conc. 33.4 g/dL (33.0-37.0); Mean Corpuscular Hgb 30.8 pg (27.0-31.0); Mean Corpuscular Volume 92.1 fL (81.0-99.0); Mean Platelet Volume 10.5 fL (7.4-10.4); Platelet Count 249 10^3/uL (130-400); Red Blood Cell Count 4.29 10^6/uL (4.20-5.40); Red Cell Dist. Width 12.9 % (11.5-14.5); White Blood Cell Count 9.3 10^3/uL (4.8-10.8)
[2023-09-17] MEDS: SPIRIVA RESPIMAT 2.5 MCG 2 PUFF INH (08:10)
[2023-09-17] MEDS: ADVAIR HFA 230/21 MCG INHALER 2 PUFF INH ×2 (08:10→20:06)
[2023-09-17] MEDS: NOVOLOG FLEXPEN-LOW RESISTANCE SC (08:10)
[2023-09-17] MEDS: CARDIZEM CD 120 MG PO (08:12)
[2023-09-17] MEDS: DELTASONE 30 MG PO (08:12)
[2023-09-17] MEDS: INDERAL LA 60 MG PO (08:12)
[2023-09-17] MEDS: TESSALON PERLES 200 MG PO (08:12)
[2023-09-17] MEDS: GLUCOPHAGE XR EXTENDED RELEASE 750 MG PO ×2 (08:13→20:31)
[2023-09-17] MEDS: PLAVIX 75 MG PO (08:13)
[2023-09-17] MEDS: PROTONIX 40 MG PO (08:13)
[2023-09-17] MEDS: LANTUS 0.140000000000000013 UNITS SC (08:13)
[2023-09-17] MEDS: IMDUR (EXTENDED RELEASE) 120 MG PO (08:13)
[2023-09-17] MEDS: COZAAR 100 MG PO (08:13)
[2023-09-17] MEDS: JANUVIA 100 MG PO (08:14)
[2023-09-17] MEDS: VITAMIN D3 (cholecalciferol) 125 MCG PO (08:14)
[2023-09-17 08:29] LABS: Blood Urea Nitrogen 35 mg/dl (7-17); Calcium 10.7 mg/dl (8.4-10.2); Carbon Dioxide 31 mmol/L (22-30); Chloride 91 mmol/L (98-107); Estimated Creatinine Clearance 30 ml/min; Glucose 125 mg/dl (70-99); Potassium 4.4 mmol/L (3.5-5.1); Sodium 130 mmol/L (135-145); eGFR 39.55
--- NOTE | 2023-09-17 10:59 | W.PN.PUL3 ---
Today's Communication / Plan
-
New onset Afib now on IV dilt, consider cards eval for further management
Prednisone taper, weaned to 30mg
Doing well in terms of cough on inhalers, this can be continued as outpatient
She is on her baseline O2 amount
D/c planning to SNF per team, PT eval ongoing
Assessment
-
88-year-old female with a history of COPD on chronic 5 L oxygen, followed by Dr. Murguia, hypertension, hyperlipidemia, previous CVA as well as diabetes and presented with aggressive shortness of breath over the last 3 weeks felt to have a COPD
exacerbation-pulmonary consulted for COPD exacerbation 09/12/23.
COPD with acute exacerbation.
Mild hyponatremia-serum sodium 131
Hyperglycemia-blood sugar 246
New onset AFib on IV dilt
Conditions present prior to admission:
COPD-on chronic 5 L oxygen
Decreased diffusing capacity-, DLCO 44%
Former smoker.
Asthma
Pulmonary nodule- Chest x-ray revealed 3.[address] chest confirmed this-no change 06/2023, possibility of malignancy discussed, patient does not want aggressive workup or treatment
Interstitial lung disease.
History latent TB
Obesity.
JELLY on CPAP
CAD
CVA
GERD.
Hypertension.
Hyperlipidemia.
Diabetes.
GERD.
Diverticulosis.
Fatty liver.
Glaucoma.
Adrenal nodule.
Vitamin D deficiency.
Cholecystectomy. Appendectomy. Right TKR. Loop recorder implanted. [place] teeth. Vein stripping. Laser surgery for glaucoma.
Plan
Respiratory decompensation, likely due to COPD exacerbation and possible mild fluid overload.
Main symptom is cough paroxysms.
Not bronchospastic on exam 09/14/2023.
She is on her baseline O2 of 4L continuous
Continue with current care for now:
Not bronchospastic on exam for 12/27/2023.
Bronchospasm improved, transition to prednisone 40 mg decrease by 10 mg every 48 hours to off.
Mucolytic's.
Continue antitussives.
Observe off antibiotics for now.
Given ongoing cough and intermittent phlegm production, will add low-dose azithromycin for anti-inflammatory properties 250 mg every 48 hours until she is seen in our office
We discussed cough as an expectant symptom of COPD
She has tried tesslon perles in past but did not help
Continue advair, spriva at time of discharge, nebs PRN
Diuresis as tolerated intermittently.
Last echocardiogram July 2023. Summarized below.
Follow renal function and electrolytes.
She notes new arrhythmia, care team with monitoring
Consider cards eval
Monitor blood sugar. Particularly on the steroids.
Insulin supplementation as needed.
DVT prophylaxis.
GI prophylaxis-on -- Pantoprazole.
PT/OT eval for discharge placement
Outpatient pulmonary FU recommended
Last saw pulmonary-Dr. Murguia 07/04/23
Discharge planning per team
Diagnostic Data
Chest x-ray 09/12/23-Mild or early CHF overlying COPD and moderate hiatal hernia.
Chest x-ray 08/19/23-NAD, stable mild cardiomegaly
CT chest 04/16/23-right lower lobe opacification, most likely infectious or inflammatory, but pulmonary neoplasm cannot be excluded, moderate hiatal hernia
Echocardiogram 07/15/23-EF 65-70%, PA systolic 44
Echo 04/08/22: normal biventricular function, PA pressure 47, aortic sclerosis�������
Echo 10/21/20: normal biventricular function, no significant valvular disease, right heart pressures could not be determined, technically difficult�������
Echo 07/31/19: Normal biventricular function,no significant valvular disease, right heart pressures could not be determined�������
ECHO 07/07/18: Aortic sclerosis, normal biventricular function, nl PASP.
PFT 11/14/20: FVC 1.89/95%, FEV1 1.49/103%, ratio 79, TLC 3.44/79%, DLCO 7.43/44%���
[place] 12/20/19: FVC 1.70/82%, FEV1 1.28/84%, ratio 77������
PFT 07/16/19: FVC 1.92/92%, FEV1 1.45/95%, ratio 76, TLC 3.06/69%, DLCO 7.91/45%.����
PFT 12/28/18: FVC 1.85/87%, FEV1 1.31/84%, ratio 71, TLC 3.33/75%, DLCO 8.68/50%.
HST 08/05/19-AHI-17.7, desaturation bucky 71%, CPAP with 4 L oxygen
All relevant imaging reviewed.
Subjective Data
-
Date of Service:
Date of Service: September 17, 2023
Chief Complaint: Pulmonary Follow Up (Acute exacerbation COPD)
Subjective:
stable overnight, she feels she is not doing 'well'
less coughing since inhalers were changed
family at bedside
she is now on IV dilt for afib
Objective Data
Data Reviewed
Vital Signs / I&O / Oxygen:
Vital Signs
Temp Pulse Resp BP Pulse Ox
97.6 F 85 16 157/91 96
09/17/23 08:00 09/17/23 08:11 09/17/23 08:11 09/17/23 08:00 09/17/23 10:49
Intake and Output
09/16/23 09/17/23 09/18/23
06:59 06:59 06:59
Intake Total 960 / 960 780 / 780
Balance 960 / 960 780 / 780
SaO2 96
Nasal Cannula flow liters per 4
minute
Physical Exam
General: Respiratory Distress, Comfortable and Other (NAD)
HEENT: Normocephalic, Anicteric and Moist Mucous Membranes
Cardiovascular: S1-S2, Irregular Rhythm and Peripheral Edema
Respiratory: Clear and Non-Labored Respirations
GI: Soft, Non Distended and Non Tender
Neurology: Awake, Alert, Oriented, AO x 3 and No Motor Deficits
Skin: Warm, Dry and Good Color
Labs/Micro/Reports
Lab Data
09/17/23 07:23
09/17/23 07:23
Microbiology
09/15/23 15:31 Nose MRSA Screen - Final
Staph aureus MRSA
[2023-09-17 11:08] LABS: Troponin I 0.027 ng/ml
[2023-09-17] MEDS: CARDIZEM 125 IV (11:09)
--- NOTE | 2023-09-17 12:05 | CON.CAR ---
Addendum entered and electronically signed by Stef Phillips MD 09/17/23 14:46:
I saw and examined the patient.
The PAID SEARCH SPECIALIST's note was reviewed and I agree with the note.
Comment: 88F with new onset AF/RVR.
- On dilt IV and po BB. Suspect we can transition to oral CCB in AM
- C2V is very high at 8. Transition clopidogrel to apixaban 5 po BID.
- Monitor creatinine because it has approached but not hit 1.5
- She has history of GIB, so FARHAT closure remains an option. Hopefully, since she tolerated clopidogrel, she can transition to apixaban.
Original Note:
Consultation
Consultation Request
Date/Time Consultation Requested: 09/17/23 1000
Date/Time Consultation Performed: 09/17/23 1200
Requesting Provider: Dr. Reyes
Performing Provider: Sylvie FARRAR for Dr. Phillips
Reason for Consultation: AFIB
Medical History
-
Chief Complaint: cough
History of Present Illness:
88 y/o female with CAD (diagnosed due to abnormal stress test, treated medically), hypertension, dyslipidemia, DM, PAD (50% L and R subclavian), TIA's, GERD, GIB on DAPT- diverticular, and COPD on O2 who is here for evaluation of cough with worsened
SOB and hypoxia. We are consulted since she went into AFIB with RVR this AM. She has occasional palpitations. She had brief chest discomfort this AM. She is now on a diltiazem drip with HR in 90's. She is in no distress at the time of my assessment
and has family visiting in the room.
Past Medical History
Past Medical History: CAD, COPD, CVA (TIAs), HTN, Hypercholesterolemia, NIDDM and Other (GIB)
Social History
Tobacco: Former Smoker
Family History
Family History: Reviewed & Not Pertinent
Allergies / Home Medications
Allergy/AdvReac Type Severity Reaction Status Date / Time
egg Allergy Hives Verified 09/12/23 11:01
�Medication �Instructions �Recorded �Confirmed �Type
propranolol 60 mg capsule,24 60 mg PO DAILY Blood Pressure 04/27/15 09/12/23 History
hr,extended release
cranberry 400 mg capsule 400 mg PO BID Supplement 03/30/19 09/12/23 History
Mucinex DM 1 tab PO BIDPRN PRN 09/12/23 09/12/23 History
cough/congestion
acetaminophen 500 mg tablet 1,000 mg PO DAILYPRN PRN mild pain 09/12/23 09/12/23 History
(Tylenol Extra Strength)
acetaminophen 500 mg tablet 1,000 mg PO HS Pain 09/12/23 09/12/23 History
(Tylenol Extra Strength)
cholecalciferol (vitamin D3) 125 125 mcg PO DAILY Supplement 09/12/23 09/12/23 History
mcg (5,000 unit) tablet
clopidogrel 75 mg tablet 75 mg PO DAILY Blood Clot 09/12/23 09/12/23 History
Prevention/Tx
cyanocobalamin (vitamin B-12) 500 500 mcg PO HS Supplement 09/12/23 09/12/23 History
mcg tablet
diltiazem HCl 120 mg 120 mg PO DAILY Arrhythmia 09/12/23 09/12/23 History
capsule,extended release 24 hr,
controlled
isosorbide mononitrate 120 mg 120 mg PO DAILY Heart 09/12/23 09/12/23 History
tablet,extended release 24 hr Disease/Condition
loperamide 2 mg capsule 2 mg PO DAILYPRN PRN diarrhea 09/12/23 09/12/23 History
losartan 100 mg tablet 100 mg PO DAILY Blood Pressure 09/12/23 09/12/23 History
metformin 750 mg tablet,extended 750 mg PO BID Diabetes 09/12/23 09/12/23 History
release 24 hr
omeprazole 20 mg capsule,delayed 20 mg PO DAILY Gastrointestinal 09/12/23 09/12/23 History
release Issue
prednisone 10 mg tablet 10 mg PO DAILY anti-inflammation 09/12/23 09/12/23 History
rosuvastatin 40 mg tablet 40 mg PO HS High Cholesterol 09/12/23 09/12/23 History
Review of Systems
-
History Source: Patient
All other systems: Negative unless noted
Respiratory: Cough and Trouble Breathing
Physical Exam
Vital Signs
Temp Pulse Resp BP Pulse Ox
97.6 F 85 16 157/91 96
09/17/23 08:00 09/17/23 08:11 09/17/23 08:11 09/17/23 08:00 09/17/23 10:49
Lab Results
09/17/23 07:23
09/17/23 07:23
Troponin I 0.027 ng/ml 09/17/23 10:38
Sfk-M-Zhptqpkfjmo Pept 956 pg/ml 09/12/23 11:43
Physical Exam
General: Well Developed, Well Nourished and No Apparent Distress
HEENT: Normocephalic and Anicteric
Respiratory: Clear and Non Labored Respirations
Cardiac: Irregular Rhythm
Musculoskeletal: No Edema
Skin: Warm and Dry
Neuro: AO x 3
Psych: Calm
Impression / Plan
-
SOB/cough:
-COPD exacerbation- getting steroids and breathing tx- management per pulmonary. Cough is now productive with guaifenesin/Zithromax.
-of note, I do not suspect CHF in this patient with no weight gain or edema despite CXR read as below. Recent echo as below.
AFIB with RVR:
-new diagnosis
-on diltiazem drip with controlled rates- likely just increase PO dosing for rate-control, but will hold PO dilt while on IV. Continue propranolol. IV dilt requires intensive monitoring.
-[id number] score is 8 for age, female, HTN, DM, CAD, TIA's. Recommend Eliquis 5 mg PO BID- will check pricing with CM. Will stop Plavix. She denies falling. Of note, she has a history of diverticular GIB's on ASA/Plavix.
-recent echo as below
-check TSH
CAD:
-patient with brief chest discomfort this AM, likely related to AFIB with RVR in setting of known CAD. Trop okay so far.
-continue BB, statin, Imdur. Transition from plavix to Eliquis.
HTN:
-monitor on dilt drip, but seems stable overall
Data Reviewed
-
EKG: Tracing Personally Visualized and interpreted
Radiology: Report Reviewed by me (CXR 09/12/23:Findings suggest mild or early congestive heart failure with overlying findings consistent with COPD. There is moderate sized hiatal hernia)
Medical Tests (Nuc Med, Echo etc): Report Reviewed by me (Echo 07/15/23: Mild-moderate concentric left ventricular hypertrophy. Ejection fraction is 65-70%. Mild tricuspid regurgitation. pulmonary artery pressure of 44 mmHg)
Labs: Labs Reviewed by me
--- NOTE | 2023-09-17 12:07 | CM ---
Addendum entered by Shirin Calvillo 09/17/23 14:02:
Cost of Eliquis is $47 per month for Eliquis 5 mg BID, physician aware.
Addendum entered by Shirin Calvillo 09/17/23 12:35:
KODAK faxed to [phone] admissions at [facility].
Original Note:
Chart reviewed and plan is for skilled placement when stable for discharge, patient has selected [facility], referral sent to [facility].
Plan; Skilled placement when stable.
[2023-09-17 12:10] LABS: Glucose - Point of Care 281 mg/dl (70-99)
[2023-09-17] MEDS: NOVOLOG FLEXPEN-LOW RESISTANCE 300 UNITS SC (12:36)
--- NOTE | 2023-09-17 15:56 | W.PN.HOSP.TC ---
Today's Communication/Plan
-
New A-Fib with RVR today
Cardizem Drip
Anticoagulation
Appreciate cardiology and pulmonary
Assessment / Plan
Assessment / Plan
Physical Exam
General: Well Developed
HEENT: Normocephalic
Respiratory: Wheezes and Rhonchi
Cardiac: S1 and S2. Irregular Rhythm
GI: Soft and Nontender. Positive bowel sounds.
Neuro: Awake and Alert.
Assessment/Plan
88-year-old female with past medical history of chronic lung disease, hypertension, hyperlipidemia, previous CVA, diabetes presenting the emergency department for evaluation of a persistent cough that has been ongoing for about 3 weeks, gradually
worsening and now patient notes exertional dyspnea mild hypoxia with ambulation. Patient is chronically on 5 L and follows with retail center receptionist here, Dr. Murguia. She has been using Tessalon Perles and Mucinex but without much relief. She notes at
rest she is relatively asymptomatic. Symptoms initially started with a little bit of rhinorrhea but no fevers or other infectious symptoms. Rhinorrhea is now resolved. No known sick contacts, recent travel or recent antibiotics. She denies any
chest pain, palpitations, diaphoresis, lower extremity edema.
She has been followed by Dr. 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
A 2D echocardiogram was reviewed from July of this year and is unchanged from 2021 with adequate and retained EF of 65% and no wall motion abnormality no valvulopathy of concern. She describes a cough at night last night to be unusually
irritating to her where she could not sleep she has been using 5 pillows nightly for years. She has been on prednisone daily 10 mg for the last several months per Dr. Kathia Gil on the pulmonary service/I could not ascertain why she remains on
propranolol. She is also on diltiazem
COPD exacerbation manifesting as intractable cough
COPD on Chronic 4 L of oxygen at home
Interstitial Lung Disease
Asthma
Former Smoker
-Oxygen and steroid-dependent
-Earlier had increased oxygen requirements above her baseline on presentation
-Some improvement with IV steroid and neb treatment in the ED
-Equivocal findings for some overfilling on chest x-ray/COPD/no infiltrate
-Recent upper respiratory symptoms now resolved
-Will treat with nebs titrate oxygen and IV steroid>> slow prednisone taper started: transitioned to prednisone 40 mg decrease by 10 mg every 48 hours to off (first dose of prednisone 30 was 09/16/23)
-No relief with benzonatate or guaifenesin
-As per pulmonary, given ongoing cough and intermittent phlegm production, continue low-dose azithromycin for anti-inflammatory properties 250 mg every 48 hours until patient is seen in pulmonary office.
-Nonselective beta-gene possibly contributing to cough variant
-Consulted pulmonary, recommendations appreciated
-Follow-up with Dr. Murguia outpatient
-Advair and Spriva added with improvement in cough
Dyspnea on exertion and orthopnea
-Possible venous overfilling on chest x-ray indicating mild CHF
-proBNP of over 900 in her age group not that specific for CHF
-Recent 2D echocardiogram reviewed with 65% EF and mildly elevated PASP
-Diuresis as tolerated intermittently.
Irregular Rhythm
New-Onset A-Fib RVR
-Placed on tele and EKG performed both on September 16, 2023
-Discussed with on-call [facility] medical billing representative on September 16, 2023, and from their standpoint telemetry shows no definitive A-Fib and EKG looks sinus
-New A-Fib RVR observed on September 17, 2023 morning
-Cardizem Drip started
-Cardiology consulted, recommendations appreciated
-Apixaban started due to high CHADSVASC score
Mild Hyponatremia
-Monitor BMP
-Possible contribution from hyperglycemia
Gastroesophageal reflux disease
-By history had been on omeprazole PPI
-Could be cause of her cough variant symptoms worse when lying down
-Placed on Protonix here
Type 2 diabetes mellitus
Hyperglycemia
-Continue metformin
-Low-dose scale coverage
-Consulted Diabetes CHIEF DEVELOPMENT OFFICER, recommendations appreciated
Essential hypertension
-Continue losartan
-On propranolol/look for alternatives as may be involved with her persisting cough
-Diltiazem to continue
Pulmonary Nodule
-Follow-up with pulmonary
Prior comorbidities include
Prior TIA/CVA - Plavix
CAD - Clopidogrel
GI bleed by history
History latent TB
Obesity.
JELLY on CPAP
GERD.
Hyperlipidemia.
Diverticulosis.
Fatty liver.
Glaucoma.
Adrenal nodule.
Vitamin D deficiency.
Cholecystectomy. Appendectomy. Right TKR. Loop recorder implanted. [place] teeth. Vein stripping. Laser surgery for glaucoma.
DVT prophylaxis with Heparin Subq/SCD
DNR/DNI
Anticipated Discharge: 24 - 48 hours
Subjective/Interval History
-
Date of Service: September 17, 2023
Patient was seen and examined. She had a few-seconds episode of chest pain earlier this morning, but otherwise denied any other, new significant complaints or symptoms.
Objective Data
-
Labs:
Laboratory Results
09/17/23
07:23
WBC 9.3
Hgb 13.2
Hct 39.5
Plt Count 249
Sodium 130 L
Potassium 4.4
Chloride 91 L
Carbon Dioxide 31 H
BUN 35 H
Creatinine 1.3 H
Glucose 125 H
Calcium 10.7 H
Vital Signs:
Vital Signs
Temp Pulse Resp BP Pulse Ox
97.4 F 101 19 139/85 96
09/17/23 12:00 09/17/23 12:00 09/17/23 12:00 09/17/23 12:00 09/17/23 12:00
I&O
09/16/23 09/17/23 09/18/23
06:59 06:59 06:59
Intake Total 960 / 960 780 / 780
Balance 960 / 960 780 / 780
--- NOTE | 2023-09-17 16:30 | PTCARENOTE ---
Assumed care of patient at 15:00 from Day Shift RN.
Assessment unchanged from prior assessment. Patient continues to be ambulatory on 4L NC. Remains on Diltiazem Drip for A-Fib with RVR.
--- NOTE | 2023-09-17 16:45 | PTCARENOTE ---
Critical Lab Report Troponin 0.040. Notified Byron Reyes MD.
[2023-09-17] MEDS: NOVOLOG FLEXPEN-LOW RESISTANCE 3 UNITS SC (18:04)
[2023-09-17 18:05] LABS: Glucose - Point of Care 297 mg/dl (70-99)
--- NOTE | 2023-09-17 20:29 | PTCARENOTE ---
Esperanza FARRAR notified of 1640 Trop. Next trop due @ 2230; will continue to monitor.
[2023-09-17] MEDS: ELIQUIS 5 MG PO (20:31)
[2023-09-17 21:20] LABS: Glucose - Point of Care 207 mg/dl (70-99)
[2023-09-17 22:54] LABS: Troponin I 0.062 ng/ml
[2023-09-17] MEDS: CRESTOR 40 MG PO (22:57)
[2023-09-17] MEDS: TYLENOL 1000 MG PO (22:58)
[2023-09-17] MEDS: VITAMIN B-12 1000 MCG PO (22:58)
[2023-09-17] MEDS: ROBITUSSIN AC 5 ML PO (23:05)
--- NOTE | 2023-09-17 23:30 | PTCARENOTE ---
2230 Trop of 0.062 reported to Rachel FARRAR. No new orders at this time. Pt remains asymptomatic w/stable VS.
[2023-09-18] VITALS (8 sets, daily range): BP systolic 98–140; BP diastolic 59–82; O2SAT 96; BMI 35.4
[2023-09-18 06:47] LABS: Hematocrit 39.3 % (37.0-47.0); Hemoglobin 13.1 g/dL (12.0-16.0); Mean Corp Hgb Conc. 33.3 g/dL (33.0-37.0); Mean Corpuscular Hgb 30.4 pg (27.0-31.0); Mean Corpuscular Volume 91.2 fL (81.0-99.0); Mean Platelet Volume 10.7 fL (7.4-10.4); Platelet Count 273 10^3/uL (130-400); Red Blood Cell Count 4.31 10^6/uL (4.20-5.40); Red Cell Dist. Width 12.8 % (11.5-14.5); White Blood Cell Count 10.7 10^3/uL (4.8-10.8)
[2023-09-18 07:13] LABS: Blood Urea Nitrogen 38 mg/dl (7-17); Calcium 10.4 mg/dl (8.4-10.2); Carbon Dioxide 27 mmol/L (22-30); Chloride 95 mmol/L (98-107); Estimated Creatinine Clearance 30 ml/min; Glucose 134 mg/dl (70-99); Potassium 4.1 mmol/L (3.5-5.1); Sodium 127 mmol/L (135-145); eGFR 39.55
[2023-09-18 07:17] LABS: Troponin I 0.071 ng/ml
[2023-09-18] MEDS: SPIRIVA RESPIMAT 2.5 MCG 2 PUFF INH (07:48)
[2023-09-18] MEDS: ADVAIR HFA 230/21 MCG INHALER 2 PUFF INH ×2 (07:48→19:34)
[2023-09-18] MEDS: NOVOLOG FLEXPEN-LOW RESISTANCE SC (08:00)
--- NOTE | 2023-09-18 08:07 | PN.DE.MGMTRT ---
Insulin Management
- -
09/18/2023 Diabetes Management Consult Follow up
Patient admitted 09/11 with dyspnea, hypoxia, exacerbation of COPD. PMH HTN, chronic lung disease (on prednisone 10 mg ), HLD, CVA, type 2 diabetes. Prior to admission was taking 750 mg metformin BID. A1C 9.4%, cr 1.3, eGFR 39.55 today. Patient
is currently on steroid taper prednisone now 20 mg daily.
Glucose range yesterday 124 to 297.
Spoke with patient today, she is alert and oriented oob in chair, admits to being exhausted.
Metformin 750 mg BID continues, Januvia 100 mg, started 09/15, AM lantus 14 units started 09/16. Glucose as high as 297 yesterday requiring corrective insulin with each meal. Will add AC novolog 5 units.
Discussed with patient and nurse her self injection. Patient admits to only doing fair with self injection which nurse confirms. She does need frequent verbal cuing. Nurse to continue to have patient prepare and self inject with her supervision.
Diabetes History
- -
Type of Diabetes: 2
Pre-Admission Diabetes Regimen
09/17/23 09/18/23
07:23 06:22
Creatinine 1.3 H 1.3 H
Lab Results
Hemoglobin A1c 9.4 % (4.0-5.6) H 09/13/23 06:39
Insulin Pump Settings
IP Diabetes Regimen
09/17/23 09/17/23 09/17/23
07:23 12:05 18:04
Glucose 125 H
POC Glucose 281 H 297 H
09/17/23 09/18/23
21:18 06:22
Glucose 134 H
POC Glucose 207 H
Meal type: Dinner
Amount consumed: 100%
Patient Education
[2023-09-18 08:23] LABS: Glucose - Point of Care 134 mg/dl (70-99)
[2023-09-18] MEDS: DELTASONE 20 MG PO (09:05)
[2023-09-18] MEDS: GLUCOPHAGE XR EXTENDED RELEASE 750 MG PO ×2 (09:06→21:23)
[2023-09-18] MEDS: INDERAL LA 60 MG PO (09:06)
[2023-09-18] MEDS: ELIQUIS 5 MG PO ×2 (09:06→21:23)
[2023-09-18] MEDS: IMDUR (EXTENDED RELEASE) 120 MG PO (09:06)
[2023-09-18] MEDS: COZAAR 100 MG PO (09:06)
[2023-09-18] MEDS: VITAMIN D3 (cholecalciferol) 125 MCG PO (09:07)
[2023-09-18] MEDS: LANTUS 0.140000000000000013 UNITS SC (09:07)
[2023-09-18] MEDS: JANUVIA 100 MG PO (09:07)
[2023-09-18] MEDS: PROTONIX 40 MG PO (09:07)
[2023-09-18] MEDS: NOVOLOG FLEXPEN 5 UNITS SC ×3 (09:07→18:01)
[2023-09-18] MEDS: CARDIZEM 125 IV (09:23)
--- NOTE | 2023-09-18 09:52 | W.PN.CD ---
Today's Communication / Plan
-
- transition to diltiazem po but at 240 instead of 120
- no further inpatient cardiac workup is anticipated and I will sign off
- Follow up: Sylvie Kang on October 02 at 2:20 PM, then Dr. Moran
- MEDS: Diltiazem CD 240 (new dose), Imdur 120 po qd, losartan 100 qd, Inderal LA 60 qd, rosuvastatin 40 po qd, Eliquis 5 po BID (new)
Impression / Plan
-
SOB/cough:
- COPD exacerbation- getting steroids and breathing tx- management per pulmonary. Cough is now productive with guaifenesin/Zithromax.
- do not suspect CHF in this patient with no weight gain or edema despite CXR read as below. Recent echo as below.
AFIB with RVR:
-new diagnosis
-transition to diltiazem po but at 240 instead of 120
-[id number] score is 8 - Eliquis 5 po BID is the correct dose unless creatinine is greater than 1.50
CAD:
- suspect CP/troponin bump are secondary to AF/RVR
- treat AF/RVR and observe for symptoms when she resumes her outpatient life
HTN:
Dispo
- no further inpatient cardiac workup is anticipated and I will sign off
- Follow up: Sylvie Kang on October 02 at 2:20 PM, then Dr. Moran
- MEDS: Diltiazem CD 240 (new dose), Imdur 120 po qd, losartan 100 qd, Inderal LA 60 qd, rosuvastatin 40 po qd, Eliquis 5 po BID (new)
Physical Exam
Vital Signs/Labs
Vital Signs
Temp Pulse Resp BP Pulse Ox
36.3 C 89 16 140/82 96
09/18/23 07:30 09/18/23 09:06 09/18/23 07:50 09/18/23 09:06 09/18/23 07:50
09/17/23 09/18/23 09/19/23
06:59 06:59 06:59
Actual Weight 187 lb 2 oz 187 lb
09/18/23 06:22
09/18/23 06:22
09/12/23
11:43
Law-H-Gomythlmwqv Pept 956
LAB Results
09/17/23 09/17/23 09/17/23
10:38 16:42 22:15
Troponin I 0.027 0.040 H* D 0.062 H* D
09/18/23
06:22
Troponin I 0.071 H*
Physical Exam
Constitutional: No acute distress
EENT: Anicteric and Moist mucous membranes
Cardiovascular: Pedal edema is absent, Systolic murmur absent, Diastolic murmur absent and Rhythm/rate is irregular
Respiratory: Respiratory effort normal
GI: Soft, Distention absent, Non tender and Normal bowel sounds
Neuro/Psych: Alert and Oriented
Data Reviewed
-
Date of Service: September 18, 2023
--- NOTE | 2023-09-18 10:08 | W.PN.PUL3 ---
Today's Communication / Plan
-
Doing well on inhalers, no changes today
Ongoing Afib management per cards, transition to oral meds per team
Outpatient pulmonary FU reviewed again today
No further recs from our standpoint, we will sign off, please call with questions
Assessment
-
88-year-old female with a history of COPD on chronic 5 L oxygen, followed by Dr. Murguia, hypertension, hyperlipidemia, previous CVA as well as diabetes and presented with aggressive shortness of breath over the last 3 weeks felt to have a COPD
exacerbation-pulmonary consulted for COPD exacerbation 09/12/23.
COPD with acute exacerbation.
Mild hyponatremia-serum sodium 131
Hyperglycemia-blood sugar 246
New onset AFib on IV dilt
Conditions present prior to admission:
COPD-on chronic 5 L oxygen
Decreased diffusing capacity-, DLCO 44%
Former smoker.
Asthma
Pulmonary nodule- Chest x-ray revealed 3.[address] chest confirmed this-no change 06/2023, possibility of malignancy discussed, patient does not want aggressive workup or treatment
Interstitial lung disease.
History latent TB
Obesity.
JELLY on CPAP
CAD
CVA
GERD.
Hypertension.
Hyperlipidemia.
Diabetes.
GERD.
Diverticulosis.
Fatty liver.
Glaucoma.
Adrenal nodule.
Vitamin D deficiency.
Cholecystectomy. Appendectomy. Right TKR. Loop recorder implanted. [place] teeth. Vein stripping. Laser surgery for glaucoma.
Plan
Respiratory decompensation, likely due to COPD exacerbation and possible mild fluid overload.
Main symptom is cough paroxysms.
Not bronchospastic on exam 09/14/2023.
She is on her baseline O2 of 4L continuous
Continue with current care for now:
Not bronchospastic on exam for 12/27/2023.
Bronchospasm improved, transition to prednisone 40 mg decrease by 10 mg every 48 hours to off.
Mucolytic's.
Continue antitussives.
Observe off antibiotics for now.
Given ongoing cough and intermittent phlegm production, will add low-dose azithromycin for anti-inflammatory properties 250 mg every 48 hours until she is seen in our office
We discussed cough as an expectant symptom of COPD
She has tried tesslon perles in past but did not help
Continue advair, spriva at time of discharge, nebs PRN
Diuresis as tolerated intermittently.
Last echocardiogram July 2023. Summarized below.
Follow renal function and electrolytes.
She notes new arrhythmia, care team with monitoring
Cards eval
Monitor blood sugar. Particularly on the steroids.
Insulin supplementation as needed.
DVT prophylaxis.
GI prophylaxis-on -- Pantoprazole.
PT/OT eval for discharge placement
Outpatient pulmonary FU recommended
Last saw pulmonary-Dr. Murguia 07/04/23
Discharge planning per team
Diagnostic Data
Chest x-ray 09/12/23-Mild or early CHF overlying COPD and moderate hiatal hernia.
Chest x-ray 08/19/23-NAD, stable mild cardiomegaly
CT chest 04/16/23-right lower lobe opacification, most likely infectious or inflammatory, but pulmonary neoplasm cannot be excluded, moderate hiatal hernia
Echocardiogram 07/15/23-EF 65-70%, PA systolic 44
Echo 04/08/22: normal biventricular function, PA pressure 47, aortic sclerosis�������
Echo 10/21/20: normal biventricular function, no significant valvular disease, right heart pressures could not be determined, technically difficult�������
Echo 07/31/19: Normal biventricular function,no significant valvular disease, right heart pressures could not be determined�������
ECHO 07/07/18: Aortic sclerosis, normal biventricular function, nl PASP.
PFT 11/14/20: FVC 1.89/95%, FEV1 1.49/103%, ratio 79, TLC 3.44/79%, DLCO 7.43/44%���
Zev 12/20/19: FVC 1.70/82%, FEV1 1.28/84%, ratio 77������
PFT 07/16/19: FVC 1.92/92%, FEV1 1.45/95%, ratio 76, TLC 3.06/69%, DLCO 7.91/45%.����
PFT 12/28/18: FVC 1.85/87%, FEV1 1.31/84%, ratio 71, TLC 3.33/75%, DLCO 8.68/50%.
HST 08/05/19-AHI-17.7, desaturation bucky 71%, CPAP with 4 L oxygen
All relevant imaging reviewed.
Subjective Data
-
Date of Service:
Date of Service: September 18, 2023
Chief Complaint: Pulmonary Follow Up (Acute exacerbation COPD)
Subjective:
no acute events on, remains clinically unchanged
she feels her cough has remained improved
Objective Data
Data Reviewed
Vital Signs / I&O / Oxygen:
Vital Signs
Temp Pulse Resp BP Pulse Ox
97.3 F 89 16 140/82 96
09/18/23 07:30 09/18/23 09:06 09/18/23 07:50 09/18/23 09:06 09/18/23 07:50
Intake and Output
09/17/23 09/18/23 09/19/23
06:59 06:59 06:59
Intake Total 780 / 780 720 / 720
Balance 780 / 780 720 / 720
SaO2 96
Nasal Cannula flow liters per 4
minute
Physical Exam
General: Respiratory Distress, Comfortable and Other (NAD)
HEENT: Normocephalic, Anicteric and Moist Mucous Membranes
Cardiovascular: S1-S2, Irregular Rhythm and Peripheral Edema
Respiratory: Clear and Non-Labored Respirations
GI: Soft, Non Distended and Non Tender
Neurology: Awake, Alert, Oriented, AO x 3 and No Motor Deficits
Skin: Warm, Dry and Good Color
Labs/Micro/Reports
Lab Data
09/18/23 06:22
09/18/23 06:22
Microbiology
09/15/23 15:31 Nose MRSA Screen - Final
Staph aureus MRSA
[2023-09-18] MEDS: CARDIZEM CD 240 MG PO (10:41)
--- NOTE | 2023-09-18 11:18 | W.PN.HOSP.TC ---
Today's Communication/Plan
-
NSS IV 75 cc/hr for renal function/JASWANT
Will also switch Protonix to Pepcid
Hyponatremia work-up
Appreciate cardiology for A-Fib
Assessment / Plan
Assessment / Plan
Physical Exam
General: Well Developed
HEENT: Normocephalic
Respiratory: Wheezes and Rhonchi
Cardiac: S1 and S2. Irregular Rhythm
GI: Soft and Nontender. Positive bowel sounds.
Neuro: Awake and Alert.
Assessment/Plan
88-year-old female with past medical history of chronic lung disease, hypertension, hyperlipidemia, previous CVA, diabetes presenting the emergency department for evaluation of a persistent cough that has been ongoing for about 3 weeks, gradually
worsening and now patient notes exertional dyspnea mild hypoxia with ambulation. Patient is chronically on 5 L and follows with personnel placement specialist here, Dr. Murguia. She has been using Tessalon Perles and Mucinex but without much relief. She notes at
rest she is relatively asymptomatic. Symptoms initially started with a little bit of rhinorrhea but no fevers or other infectious symptoms. Rhinorrhea is now resolved. No known sick contacts, recent travel or recent antibiotics. She denies any
chest pain, palpitations, diaphoresis, lower extremity edema.
She has been followed by Dr. 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
A 2D echocardiogram was reviewed from July of this year and is unchanged from 2021 with adequate and retained EF of 65% and no wall motion abnormality no valvulopathy of concern. She describes a cough at night last night to be unusually
irritating to her where she could not sleep she has been using 5 pillows nightly for years. She has been on prednisone daily 10 mg for the last several months per Dr. Kathia Gil on the pulmonary service/I could not ascertain why she remains on
propranolol. She is also on diltiazem
COPD exacerbation manifesting as intractable cough
COPD on Chronic 4 L of oxygen at home
Acute on chronic hypoxic respiratory failure
Interstitial Lung Disease
Asthma
Former Smoker
-Oxygen and steroid-dependent
-Earlier had increased oxygen requirements above her baseline on presentation
-Some improvement with IV steroid and neb treatment in the ED
-Equivocal findings for some overfilling on chest x-ray/COPD/no infiltrate
-Recent upper respiratory symptoms now resolved
-Will treat with nebs titrate oxygen and IV steroid>> slow prednisone taper started: transitioned to prednisone 40 mg decrease by 10 mg every 48 hours to off (first dose of prednisone 30 was 09/16/23)
-No relief with benzonatate or guaifenesin
-As per pulmonary, given ongoing cough and intermittent phlegm production, continue low-dose azithromycin for anti-inflammatory properties 250 mg every 48 hours until patient is seen in pulmonary office.
-Nonselective beta-gene possibly contributing to cough variant
-Consulted pulmonary, recommendations appreciated
-Follow-up with Dr. Murguia outpatient
-Advair and Spriva added with improvement in cough
Dyspnea on exertion and orthopnea
Acute HFpEF unlikely
-Possible venous overfilling on chest x-ray indicating mild CHF
-proBNP of over 900 in her age group not that specific for CHF
-Recent 2D echocardiogram reviewed with 65% EF and mildly elevated PASP
-Diuresis as tolerated intermittently.
Irregular Rhythm
New-Onset A-Fib RVR
-Placed on tele and EKG performed both on September 16, 2023
-Discussed with on-call [facility] avionics system engineer on September 16, 2023, and from their standpoint telemetry shows no definitive A-Fib and EKG looks sinus
-New A-Fib RVR observed on September 17, 2023 morning
-Cardizem Drip started
-Cardiology consulted, recommendations appreciated
-Apixaban started due to high CHADSVASC score
-HR's this morning appeared controlled -- will await cardiology recommendations about switching to oral cardizem
Acute Kidney Injury
-Trial of IV fluids
-Monitor BMP
Mild Hyponatremia
-Monitor BMP
-Check sodium studies
-Recheck BMP tomorrow
Gastroesophageal reflux disease
-By history had been on omeprazole PPI
-Could be cause of her cough variant symptoms worse when lying down
-Placed on Protonix here
-Stop Protonix due to renal function
-Replace with Pepcid
Type 2 diabetes mellitus
Hyperglycemia
-Continue metformin
-Low-dose scale coverage
-Consulted Diabetes MAIL HANDLERS SUPERVISOR, recommendations appreciated
Essential hypertension
-Continue losartan
-On propranolol/look for alternatives as may be involved with her persisting cough
-Diltiazem to continue
Pulmonary Nodule
-Follow-up with pulmonary
Prior comorbidities include
Prior TIA/CVA - Plavix
CAD - Clopidogrel
GI bleed by history
History latent TB
Obesity.
JELLY on CPAP
GERD.
Hyperlipidemia.
Diverticulosis.
Fatty liver.
Glaucoma.
Adrenal nodule.
Vitamin D deficiency.
Cholecystectomy. Appendectomy. Right TKR. Loop recorder implanted. [place] teeth. Vein stripping. Laser surgery for glaucoma.
DVT prophylaxis with Heparin Subq/SCD
DNR/DNI
Anticipated Discharge: 24 - 48 hours
Subjective/Interval History
-
Date of Service: September 18, 2023
Patient was seen and examined. She denied any chest pain or any other symptoms or complaints.
Objective Data
-
Labs:
Laboratory Results
09/18/23
06:22
WBC 10.7
Hgb 13.1
Hct 39.3
Plt Count 273
Sodium 127 L
Potassium 4.1
Chloride 95 L
Carbon Dioxide 27
BUN 38 H
Creatinine 1.3 H
Glucose 134 H
Calcium 10.4 H
Vital Signs:
Vital Signs
Temp Pulse Resp BP Pulse Ox
97.3 F 87 16 140/82 96
09/18/23 07:30 09/18/23 10:41 09/18/23 07:50 09/18/23 09:06 09/18/23 07:50
I&O
09/17/23 09/18/23 09/19/23
06:59 06:59 06:59
Intake Total 780 / 780 720 / 720
Balance 780 / 780 720 / 720
--- NOTE | 2023-09-18 11:45 | PTCARENOTE ---
Attending Amy and Director Software Development Alan notified of Troponin 0.080.
[2023-09-18 12:13] LABS: Glucose - Point of Care 199 mg/dl (70-99)
[2023-09-18 12:13] LABS: Osmolality Serum 282 mOsm/kg (275-300)
--- NOTE | 2023-09-18 12:26 | CM ---
Chart reviewed and plan is for skilled placement at [facility]. Patient and family are aware of plan.
[facility] Skilled
Report [phone]
[2023-09-18] MEDS: NSS 1000 IV (13:11)
[2023-09-18] MEDS: NOVOLOG FLEXPEN-LOW RESISTANCE 1 UNITS SC (13:12)
[2023-09-18 16:45] LABS: Glucose - Point of Care 260 mg/dl (70-99)
[2023-09-18 17:05] LABS: Troponin I 0.065 ng/ml
[2023-09-18] MEDS: NOVOLOG FLEXPEN-LOW RESISTANCE 3 UNITS SC (18:01)
[2023-09-18] MEDS: ZITHROMAX 250 MG PO (18:04)
[2023-09-18] MEDS: CRESTOR 40 MG PO (21:24)
[2023-09-18] MEDS: VITAMIN B-12 1000 MCG PO (21:24)
[2023-09-18] MEDS: TYLENOL 1000 MG PO (21:24)
[2023-09-18] MEDS: ROBITUSSIN AC 5 ML PO (21:26)
[2023-09-18 22:19] LABS: Glucose - Point of Care 118 mg/dl (70-99)
[2023-09-19] MEDS: NSS 1000 IV ×2 (01:38→14:46)
[2023-09-19 03:00] VITALS: BP 114/61
[2023-09-19 07:00] VITALS: BP 140/86
[2023-09-19 07:42] LABS: Hematocrit 41.5 % (37.0-47.0); Hemoglobin 13.7 g/dL (12.0-16.0); Mean Corpuscular Hgb 30.4 pg (27.0-31.0); Mean Platelet Volume 10.2 fL (7.4-10.4); Platelet Count 271 10^3/uL (130-400); Red Blood Cell Count 4.51 10^6/uL (4.20-5.40); Red Cell Dist. Width 12.8 % (11.5-14.5); White Blood Cell Count 11.8 10^3/uL (4.8-10.8)
[2023-09-19] MEDS: ADVAIR HFA 230/21 MCG INHALER 2 PUFF INH ×2 (07:43→20:06)
[2023-09-19] MEDS: SPIRIVA RESPIMAT 2.5 MCG 2 PUFF INH (07:44)
[2023-09-19 08:01] LABS: Glucose - Point of Care 98 mg/dl (70-99)
[2023-09-19] MEDS: NOVOLOG FLEXPEN-LOW RESISTANCE SC (08:14)
--- NOTE | 2023-09-19 08:14 | PN.DE.MGMTRT ---
Insulin Management
- -
09/19/2023 Diabetes Management F/U:
Patient admitted 09/11 with dyspnea, hypoxia, exacerbation of COPD. PMH HTN, chronic lung disease (on prednisone 10 mg ), HLD, CVA and T2DM.
Prior to admission was taking 750 mg metformin BID. A1C 9.4%, Cr 1.3, eGFR 39.55 today.
Pt A/O x3, OOB in chair, offers no complaints. She was able to participate in discussion regarding diabetes regimen.
Patient is currently on steroid taper prednisone now down to 20 mg daily, was taking 10mg daily
Glucose has trended down, was 118 @ HS and fasting 92 this AM.
Will reduce Lantus to 12 units in AM and STOP AC NovoLog.
Will cont Metformin 750 mg BID and Januvia 100 mg- recently added during this hospital visit.
Meds at D/C: Lantus 12 units in AM, Metformin 750 mg BID and Januvia 100 mg
Nurse team to continue to have patient prepare and self inject insulin with supervision.
Diabetes History
- -
Type of Diabetes: 2 requiring insulin
Pre-Admission Diabetes Regimen
Lab Results
Hemoglobin A1c 9.4 % (4.0-5.6) H 09/13/23 06:39
Insulin Pump Settings
IP Diabetes Regimen
09/18/23 09/18/23 09/18/23
08:22 12:12 16:44
POC Glucose 134 H 199 H 260 H
09/18/23 09/19/23
22:18 08:00
POC Glucose 118 H 98
Meal type: Lunch
Meal type: Breakfast
Amount consumed: 100%
Amount consumed: 100%
Patient Education
[2023-09-19 08:29] LABS: Albumin 3.5 g/dl (3.5-5.0); Blood Urea Nitrogen 38 mg/dl (7-17); Calcium 10.7 mg/dl (8.4-10.2); Carbon Dioxide 26 mmol/L (22-30); Chloride 99 mmol/L (98-107); Estimated Creatinine Clearance 32 ml/min; Glucose 92 mg/dl (70-99); Sodium 132 mmol/L (135-145); eGFR 43.54
[2023-09-19 08:35] LABS: Potassium 4.4 mmol/L (3.5-5.1)
[2023-09-19] MEDS: ELIQUIS 5 MG PO ×2 (09:04→21:40)
[2023-09-19] MEDS: VITAMIN D3 (cholecalciferol) 125 MCG PO (09:04)
[2023-09-19] MEDS: NOVOLOG FLEXPEN SC (09:04)
[2023-09-19] MEDS: DELTASONE 20 MG PO (09:04)
[2023-09-19] MEDS: IMDUR (EXTENDED RELEASE) 120 MG PO (09:05)
[2023-09-19] MEDS: GLUCOPHAGE XR EXTENDED RELEASE 750 MG PO ×2 (09:05→21:40)
[2023-09-19] MEDS: JANUVIA 100 MG PO (09:05)
[2023-09-19] MEDS: COZAAR 100 MG PO (09:05)
[2023-09-19] MEDS: INDERAL LA 60 MG PO (09:06)
[2023-09-19] MEDS: CARDIZEM CD 240 MG PO (09:06)
[2023-09-19] MEDS: LANTUS SC ×2 (09:07→09:16)
[2023-09-19] MEDS: PEPCID 20 MG PO (09:08)
[2023-09-19] MEDS: LANTUS 0.119999999999999996 UNITS SC (10:28)
[2023-09-19 11:00] VITALS: BP 108/70
[2023-09-19 11:39] LABS: Glucose - Point of Care 164 mg/dl (70-99)
[2023-09-19] MEDS: NOVOLOG FLEXPEN-MODERATE RESISTANCE 1 UNITS SC ×2 (12:43→17:32)
--- NOTE | 2023-09-19 13:10 | CM ---
manager statistics reviewed patient's chart and plan is for skilled placement when patient is medically stable for discharge, patient has been accepted at [facility].
Plan; Skilled placement at [facility] when stable.
[2023-09-19 15:00] VITALS: BP 142/83
[2023-09-19 16:59] LABS: Glucose - Point of Care 191 mg/dl (70-99)
[2023-09-19 19:23] VITALS: BP 114/64
--- NOTE | 2023-09-19 19:57 | W.PN.HOSP.TC ---
Today's Communication/Plan
-
[facility] bed available, labs improved, as long as telemetry and patient okay tomorrow can be discharged to [facility]
Assessment / Plan
Assessment / Plan
Physical Exam
General: Well Developed
HEENT: Normocephalic
Respiratory: Wheezes and Rhonchi
Cardiac: S1 and S2. Irregular Rhythm
GI: Soft and Nontender. Positive bowel sounds.
Neuro: Awake and Alert.
Assessment/Plan
88-year-old female with past medical history of chronic lung disease, hypertension, hyperlipidemia, previous CVA, diabetes presenting the emergency department for evaluation of a persistent cough that has been ongoing for about 3 weeks, gradually
worsening and now patient notes exertional dyspnea mild hypoxia with ambulation. Patient is chronically on 5 L and follows with hand drawer in helper here, Dr. Murguia. She has been using Tessalon Perles and Mucinex but without much relief. She notes at
rest she is relatively asymptomatic. Symptoms initially started with a little bit of rhinorrhea but no fevers or other infectious symptoms. Rhinorrhea is now resolved. No known sick contacts, recent travel or recent antibiotics. She denies any
chest pain, palpitations, diaphoresis, lower extremity edema.
She has been followed by Dr. 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
A 2D echocardiogram was reviewed from July of this year and is unchanged from 2021 with adequate and retained EF of 65% and no wall motion abnormality no valvulopathy of concern. She describes a cough at night last night to be unusually
irritating to her where she could not sleep she has been using 5 pillows nightly for years. She has been on prednisone daily 10 mg for the last several months per Dr. Kathia Gil on the pulmonary service/I could not ascertain why she remains on
propranolol. She is also on diltiazem
COPD exacerbation manifesting as intractable cough
COPD on Chronic 4 L of oxygen at home
Acute on chronic hypoxic respiratory failure
Interstitial Lung Disease
Asthma
Former Smoker
-Oxygen and steroid-dependent
-Earlier had increased oxygen requirements above her baseline on presentation
-Some improvement with IV steroid and neb treatment in the ED
-Equivocal findings for some overfilling on chest x-ray/COPD/no infiltrate
-Recent upper respiratory symptoms now resolved
-Will treat with nebs titrate oxygen and IV steroid>> slow prednisone taper started: transitioned to prednisone 40 mg decrease by 10 mg every 48 hours to off (first dose of prednisone 30 was 09/16/23)
-No relief with benzonatate or guaifenesin
-As per pulmonary, given ongoing cough and intermittent phlegm production, continue low-dose azithromycin for anti-inflammatory properties 250 mg every 48 hours until patient is seen in pulmonary office.
-Nonselective beta-gene possibly contributing to cough variant
-Consulted pulmonary, recommendations appreciated
-Follow-up with Dr. Murguia outpatient
-Advair and Spriva added with improvement in cough
Dyspnea on exertion and orthopnea
Acute HFpEF unlikely
-Possible venous overfilling on chest x-ray indicating mild CHF
-proBNP of over 900 in her age group not that specific for CHF
-Recent 2D echocardiogram reviewed with 65% EF and mildly elevated PASP
-Diuresis as tolerated intermittently.
Irregular Rhythm
New-Onset A-Fib RVR
-Placed on tele and EKG performed both on September 16, 2023 -- at that time, discussed with on-call [facility] sewer system supervisor on September 16, 2023, and from their standpoint telemetry shows no definitive A-Fib and EKG looks sinus
-New A-Fib RVR observed on September 17, 2023 morning
-Cardizem Drip was started
-Cardiology consulted, recommendations appreciated
-Apixaban started due to high CHADSVASC score
-Oral Cardizem but at a higher dose
Acute Kidney Injury - IMPROVING
-Trial of IV fluids
-Monitor BMP
Mild Hyponatremia - IMPROVED
-Monitor BMP
-Recheck BMP
Gastroesophageal reflux disease
-By history had been on omeprazole PPI
-Could be cause of her cough variant symptoms worse when lying down
-Placed on Protonix here
-Stopped Protonix due to renal function
-Replace with Pepcid
Type 2 diabetes mellitus
Hyperglycemia
-Continue metformin
-Low-dose scale coverage
-Consulted Diabetes INTERNET MARKETING ANALYST, recommendations appreciated
Essential hypertension
-Continue losartan
-On propranolol/look for alternatives as may be involved with her persisting cough
-Diltiazem to continue
Pulmonary Nodule
-Follow-up with pulmonary
Prior comorbidities include
Prior TIA/CVA - Plavix
CAD - Clopidogrel
GI bleed by history
History latent TB
Obesity.
JELLY on CPAP
GERD.
Hyperlipidemia.
Diverticulosis.
Fatty liver.
Glaucoma.
Adrenal nodule.
Vitamin D deficiency.
Cholecystectomy. Appendectomy. Right TKR. Loop recorder implanted. [place] teeth. Vein stripping. Laser surgery for glaucoma.
DVT prophylaxis with Heparin Subq/SCD
DNR/DNI
Anticipated Discharge: Within 24 hours
Subjective/Interval History
-
Date of Service: September 19, 2023
Patient was seen and examined. She denied chest pain or any other complaints.
Objective Data
-
Labs:
Laboratory Results
09/19/23
07:25
WBC 11.8 H
Hgb 13.7
Hct 41.5
Plt Count 271
Sodium 132 L
Potassium 4.4
Chloride 99
Carbon Dioxide 26
BUN 38 H
Creatinine 1.2 H
Glucose 92
Calcium 10.7 H
Vital Signs:
Vital Signs
Temp Pulse Resp BP Pulse Ox
97.4 F 97 20 114/64 98
09/19/23 19:23 09/19/23 19:23 09/19/23 19:23 09/19/23 19:23 09/19/23 19:23
I&O
09/18/23 09/19/23 09/20/23
06:59 06:59 06:59
Intake Total 720 / 720 1680 / 1680 1860 / 1860
Balance 720 / 720 1680 / 1680 1860 / 1860
[2023-09-19 21:35] LABS: Glucose - Point of Care 148 mg/dl (70-99)
[2023-09-19] MEDS: TYLENOL 1000 MG PO (21:40)
[2023-09-19] MEDS: CRESTOR 40 MG PO (21:40)
[2023-09-19] MEDS: VITAMIN B-12 1000 MCG PO (21:40)
[2023-09-19] MEDS: IMODIUM 2 MG PO (22:00)
[2023-09-19 23:26] VITALS: BP 100/62
[2023-09-20] VITALS (8 sets, daily range): BP systolic 98–140; BP diastolic 61–76; PULSE 86–99; O2SAT 96
[2023-09-20] MEDS: ADVAIR HFA 230/21 MCG INHALER 2 PUFF INH ×2 (08:09→19:39)
[2023-09-20] MEDS: SPIRIVA RESPIMAT 2.5 MCG 2 PUFF INH (08:10)
[2023-09-20 08:22] LABS: Glucose - Point of Care 112 mg/dl (70-99)
[2023-09-20 08:31] LABS: Hematocrit 38.2 % (37.0-47.0); Hemoglobin 13.1 g/dL (12.0-16.0); Mean Corp Hgb Conc. 34.3 g/dL (33.0-37.0); Mean Corpuscular Hgb 31.2 pg (27.0-31.0); Mean Platelet Volume 10.3 fL (7.4-10.4); Platelet Count 233 10^3/uL (130-400); Red Cell Dist. Width 12.7 % (11.5-14.5); White Blood Cell Count 12.5 10^3/uL (4.8-10.8)
[2023-09-20] MEDS: NOVOLOG FLEXPEN-MODERATE RESISTANCE SC (08:37)
[2023-09-20] MEDS: DELTASONE 10 MG PO (08:38)
[2023-09-20] MEDS: ELIQUIS 5 MG PO ×2 (08:38→21:49)
[2023-09-20] MEDS: IMDUR (EXTENDED RELEASE) 120 MG PO (08:38)
[2023-09-20] MEDS: INDERAL LA 60 MG PO (08:38)
[2023-09-20] MEDS: JANUVIA 100 MG PO (08:38)
[2023-09-20] MEDS: VITAMIN D3 (cholecalciferol) 125 MCG PO (08:38)
[2023-09-20] MEDS: CARDIZEM CD 240 MG PO (08:38)
[2023-09-20] MEDS: PEPCID 20 MG PO (08:39)
[2023-09-20] MEDS: COZAAR 100 MG PO (08:39)
[2023-09-20] MEDS: GLUCOPHAGE XR EXTENDED RELEASE 750 MG PO ×2 (08:42→21:50)
[2023-09-20 09:08] LABS: Blood Urea Nitrogen 33 mg/dl (7-17); Calcium 10.8 mg/dl (8.4-10.2); Carbon Dioxide 26 mmol/L (22-30); Chloride 98 mmol/L (98-107); Estimated Creatinine Clearance 30 ml/min; Glucose 100 mg/dl (70-99); Potassium 4.1 mmol/L (3.5-5.1); Sodium 130 mmol/L (135-145); eGFR 39.55
--- NOTE | 2023-09-20 09:37 | CM ---
Chart reviewed per physician patient is stable for rehab placement, telephonic case manager reached out to [facility] to check on bed availability today, patient will need updated PT/OT in order to obtain Auth.
Plan; Skilled placement at [facility].
[2023-09-20] MEDS: LANTUS 0.119999999999999996 UNITS SC (09:48)
--- NOTE | 2023-09-20 11:10 | W.PN.HOSP.TC ---
Today's Communication/Plan
-
stop ARB
continue Cardizem
follow BMP
finish steroid taper
DC planning to
Assessment / Plan
Assessment / Plan
Assessment:
Acute on chronic hypoxic respiratory failure on 4L baseline
Interstitial Lung Disease
Asthma
Former Smoker
- back to baseline 4L NC
- pulm evaluated
- continue steroid taper to complete tomorrow
- continue azithromycin
- continue inhalers Advair/Spiriva
Parox A. Fib with RVR
- new onset
- s/p Cardizem drip
- continue oral Cardizem, Eliquis. HR controlled x 48 hours now
- echocardiogram 07/15/23 reviewed with 65% EF and mildly elevated PASP
JASWANT
Hyponatremia
- improving with IVF
- stop ARB
- repeat labs next week at
Gastroesophageal reflux disease
- continue H2 gene; PPI stopped with JASWANT
Type 2 diabetes mellitus
Hyperglycemia
- A1c is 9.4%
- Low-dose scale coverage
- Consulted Diabetes ASSET PROTECTION MANAGER recs noted; continue Lantus 12 units and Metformin 750mg BID
Essential hypertension
- continue Diltiazem
- hold ARB with JASWANT - monitor labs daily and at
Pulmonary Nodule
- Follow-up with pulmonary
Prior TIA/CVA - Clopidogrel
CAD - Clopidogrel
GI bleed by history
History latent TB
Obesity
JELLY on CPAP
Hyperlipidemia.
Diverticulosis.
Fatty liver.
Glaucoma.
Adrenal nodule.
Vitamin D deficiency
DVT ppx: SC Heparin
Code: DNR/DNI
Anticipated Discharge: 24 - 48 hours
Subjective/Interval History
-
Date of Service: September 20, 2023
no new complaints
awaiting bed
Objective Data
-
Labs:
Laboratory Results
09/20/23
07:07
WBC 12.5 H
Hgb 13.1
Hct 38.2
Plt Count 233
Sodium 130 L
Potassium 4.1
Chloride 98
Carbon Dioxide 26
BUN 33 H
Creatinine 1.3 H
Glucose 100 H
Calcium 10.8 H
Vital Signs:
Vital Signs
Temp Pulse Resp BP Pulse Ox
98 F 99 18 113/74 97
09/20/23 07:40 09/20/23 08:13 09/20/23 08:13 09/20/23 07:40 09/20/23 08:13
I&O
09/19/23 09/20/23 09/21/23
06:59 06:59 06:59
Intake Total 0 / 0 2099
Balance 1680 / 0 2099
Physical Exam
-
General: No Apparent Distress
HEENT: Normocephalic and Atraumatic
Respiratory: Clear to Auscultation; Negative Wheezes or Rales
Cardiac: Irregular Rhythm
GI: Soft and Nontender
Genito-urinary: No Costovertebral Tender
Neuro: AO x 3
Psych: Calm
Data Reviewed
-
Total Time Spent with Patient (in minutes): 42
Labs: Labs Reviewed by me
[2023-09-20 12:27] LABS: Glucose - Point of Care 171 mg/dl (70-99)
[2023-09-20] MEDS: NOVOLOG FLEXPEN-MODERATE RESISTANCE 1 UNITS SC ×2 (12:53→17:54)
[2023-09-20] MEDS: IMODIUM 2 MG PO (15:18)
[2023-09-20 17:08] LABS: Glucose - Point of Care 176 mg/dl (70-99)
[2023-09-20] MEDS: ZITHROMAX 250 MG PO (17:54)
[2023-09-20 21:05] LABS: Glucose - Point of Care 141 mg/dl (70-99)
[2023-09-20] MEDS: CRESTOR 40 MG PO (21:49)
[2023-09-20] MEDS: VITAMIN B-12 1000 MCG PO (21:49)
[2023-09-20] MEDS: TYLENOL 1000 MG PO (21:50)
[2023-09-21] VITALS (7 sets, daily range): BP systolic 84–143; BP diastolic 52–86
[2023-09-21] MEDS: TYLENOL 650 MG PO ×2 (06:17→18:23)
[2023-09-21 07:42] LABS: Glucose - Point of Care 119 mg/dl (70-99)
[2023-09-21] MEDS: ADVAIR HFA 230/21 MCG INHALER 2 PUFF INH ×2 (08:08→20:50)
[2023-09-21] MEDS: SPIRIVA RESPIMAT 2.5 MCG 2 PUFF INH (08:08)
[2023-09-21] MEDS: DELTASONE 10 MG PO (08:25)
[2023-09-21 09:02] LABS: Hematocrit 37.6 % (37.0-47.0); Hemoglobin 12.7 g/dL (12.0-16.0); Mean Corp Hgb Conc. 33.8 g/dL (33.0-37.0); Mean Corpuscular Hgb 30.8 pg (27.0-31.0); Mean Corpuscular Volume 91.3 fL (81.0-99.0); Mean Platelet Volume 10.4 fL (7.4-10.4); Platelet Count 223 10^3/uL (130-400); Red Blood Cell Count 4.12 10^6/uL (4.20-5.40); Red Cell Dist. Width 12.6 % (11.5-14.5); White Blood Cell Count 13.2 10^3/uL (4.8-10.8)
[2023-09-21] MEDS: INDERAL LA 60 MG PO (09:28)
[2023-09-21] MEDS: CARDIZEM CD 240 MG PO (09:28)
[2023-09-21] MEDS: IMDUR (EXTENDED RELEASE) 120 MG PO (09:28)
[2023-09-21] MEDS: PEPCID 20 MG PO (09:29)
[2023-09-21] MEDS: JANUVIA 100 MG PO (09:29)
[2023-09-21] MEDS: ELIQUIS 5 MG PO ×2 (09:29→20:51)
[2023-09-21] MEDS: GLUCOPHAGE XR EXTENDED RELEASE 750 MG PO ×2 (09:29→20:52)
[2023-09-21] MEDS: VITAMIN D3 (cholecalciferol) 125 MCG PO (09:29)
--- NOTE | 2023-09-21 09:32 | CM ---
Patient with Dx Acute on chronic hypoxic respiratory failure, Parox A. Fib with RVR, JASWANT, Hyponatremia. O2 4L. PT 09/19 & OT 09/19 recommend skilled rehab.
Spoke with Alfreda, [employer] [facility]; they are unable to accept the patient today because she was not on the list of patients she was permitted to accept on the weekend. CM can call Admissions tomorrow about bed availability.
Dr Schulz informed [facility] unable to accept today.
Plan [facility] tomorrow once bed availability confirmed and insurance auth obtained.
[2023-09-21 09:33] LABS: Blood Urea Nitrogen 24 mg/dl (7-17); Calcium 10.5 mg/dl (8.4-10.2); Carbon Dioxide 28 mmol/L (22-30); Chloride 92 mmol/L (98-107); Estimated Creatinine Clearance 27 ml/min; Glucose 120 mg/dl (70-99); Sodium 130 mmol/L (135-145); eGFR 36.19
[2023-09-21] MEDS: NOVOLOG FLEXPEN-MODERATE RESISTANCE SC (09:45)
--- NOTE | 2023-09-21 09:45 | PTCARENOTE ---
pt with complaint of right hip pain. States she has had it throughout the night. she slept in the chair most of night. She had Tylenol at 0615 which she says initially helped but pain is back. Dr Schulz made aware. Xray of hip ordered and Tramadol
ordered for the pain. Pt updated on new orders
[2023-09-21] MEDS: ULTRAM 25 MG PO (10:05)
[2023-09-21 11:02] LABS: Glucose - Point of Care 211 mg/dl (70-99)
[2023-09-21] MEDS: NOVOLOG FLEXPEN-MODERATE RESISTANCE 3 UNITS SC (11:02)
[2023-09-21] MEDS: LANTUS 0.119999999999999996 UNITS SC (11:02)
--- NOTE | 2023-09-21 11:58 | W.PN.HOSP.TC ---
Today's Communication/Plan
-
continue current plan of care
Tramadol
Xray R hip pending
Assessment / Plan
Assessment / Plan
Assessment:
R hip pain, suspect no fracture as no trauma/fall
- prn Tramadol. Xray pending
Acute on chronic hypoxic respiratory failure on 4L baseline
Interstitial Lung Disease
Asthma
Former Smoker
- back to baseline 4L NC
- pulm signed off
- she completed steroid taper
- continue azithromycin until OP pulm f/u
- continue inhalers Advair/Spiriva
Parox A. Fib with RVR
- new onset
- s/p Cardizem drip
- continue oral Cardizem, Eliquis. HR controlled x 48 hours now
- echocardiogram 07/15/23 reviewed with 65% EF and mildly elevated PASP
JASWANT
Hyponatremia
- improving with IVF
- stop ARB
- repeat labs next week at [facility]
Gastroesophageal reflux disease
- continue H2 gene; PPI stopped with JASWANT
Type 2 diabetes mellitus
Hyperglycemia
- A1c is 9.4%
- Low-dose scale coverage
- Consulted Diabetes MONITORING AND EVALUATION ADVISOR recs noted; continue Lantus 12 units and Metformin 750mg BID
Essential hypertension
- continue Diltiazem
- hold ARB with JASWANT - monitor labs daily and at [facility]
Pulmonary Nodule
- Follow-up with pulmonary
Prior TIA/CVA - Clopidogrel
CAD - Clopidogrel
GI bleed by history
History latent TB
Obesity
JELLY on CPAP
Hyperlipidemia.
Diverticulosis.
Fatty liver.
Glaucoma.
Adrenal nodule.
Vitamin D deficiency
DVT ppx: SC Heparin
Code: DNR/DNI
Anticipated Discharge: 24 - 48 hours
Subjective/Interval History
-
Date of Service: September 21, 2023
she reports some mild R hip discomfort, she feels related to PT
no fall, no prior fracture or surgery in that area
tramadol helped with pain
Objective Data
-
Labs:
Laboratory Results
09/21/23
08:29
WBC 13.2 H
Hgb 12.7
Hct 37.6
Plt Count 223
Sodium 130 L
Potassium 4.0
Chloride 92 L
Carbon Dioxide 28
BUN 24 H
Creatinine 1.4 H
Glucose 120 H
Calcium 10.5 H
Vital Signs:
Vital Signs
Temp Pulse Resp BP Pulse Ox
98.6 F 101 18 101/53 97
09/21/23 11:52 09/21/23 11:52 09/21/23 11:52 09/21/23 11:52 09/21/23 11:52
I&O
09/20/23 09/21/23 09/22/23
06:59 06:59 06:59
Intake Total 2099 1140 / 1140
Balance 2099 1140 / 1140
Physical Exam
-
General: No Apparent Distress
HEENT: Normocephalic and Atraumatic
Respiratory: Negative Wheezes or Rales
Cardiac: Regular Rhythm and S1/S2
GI: Soft and Nontender
Musculoskeletal: No Edema
Neuro: AO x 3
Hematologic / Lymphatic: No Lymphadenopathy
Psych: Calm
Data Reviewed
-
Total Time Spent with Patient (in minutes): 42
Labs: Labs Reviewed by me
[2023-09-21 17:33] LABS: Glucose - Point of Care 174 mg/dl (70-99)
[2023-09-21] MEDS: NOVOLOG FLEXPEN-MODERATE RESISTANCE 1 UNITS SC (18:15)
[2023-09-21] MEDS: VITAMIN B-12 1000 MCG PO (21:00)
[2023-09-21] MEDS: CRESTOR 40 MG PO (21:00)
[2023-09-21 21:03] LABS: Glucose - Point of Care 192 mg/dl (70-99)
[2023-09-21] MEDS: TYLENOL 1000 MG PO (22:05)
[2023-09-22 03:00] VITALS: BP 116/64
[2023-09-22 05:09] VITALS: BMI 36.9
[2023-09-22 07:30] VITALS: BP 120/75
[2023-09-22 07:49] LABS: Hematocrit 35.5 % (37.0-47.0); Hemoglobin 12.2 g/dL (12.0-16.0); Mean Corp Hgb Conc. 34.4 g/dL (33.0-37.0); Mean Corpuscular Volume 90.1 fL (81.0-99.0); Mean Platelet Volume 10.5 fL (7.4-10.4); Platelet Count 188 10^3/uL (130-400); Red Blood Cell Count 3.94 10^6/uL (4.20-5.40); White Blood Cell Count 20.5 10^3/uL (4.8-10.8)
[2023-09-22] MEDS: SPIRIVA RESPIMAT 2.5 MCG 2 PUFF INH (08:09)
[2023-09-22] MEDS: ADVAIR HFA 230/21 MCG INHALER 2 PUFF INH (08:09)
[2023-09-22 08:13] LABS: Glucose - Point of Care 129 mg/dl (70-99)
[2023-09-22 08:23] LABS: Blood Urea Nitrogen 29 mg/dl (7-17); Calcium 9.9 mg/dl (8.4-10.2); Carbon Dioxide 24 mmol/L (22-30); Chloride 93 mmol/L (98-107); Estimated Creatinine Clearance 25 ml/min; Glucose 127 mg/dl (70-99); Potassium 3.8 mmol/L (3.5-5.1); Sodium 129 mmol/L (135-145); eGFR 30.83
[2023-09-22] MEDS: NOVOLOG FLEXPEN-MODERATE RESISTANCE SC (08:34)
[2023-09-22] MEDS: ELIQUIS 5 MG PO (08:44)
[2023-09-22] MEDS: PEPCID 20 MG PO (08:44)
[2023-09-22] MEDS: GLUCOPHAGE XR EXTENDED RELEASE 750 MG PO (08:44)
[2023-09-22] MEDS: CARDIZEM CD 240 MG PO (08:44)
[2023-09-22] MEDS: JANUVIA 100 MG PO (08:45)
[2023-09-22] MEDS: IMDUR (EXTENDED RELEASE) 120 MG PO (08:45)
[2023-09-22] MEDS: VITAMIN D3 (cholecalciferol) 125 MCG PO (08:45)
[2023-09-22] MEDS: LANTUS 0.119999999999999996 UNITS SC (08:45)
[2023-09-22] MEDS: INDERAL LA 60 MG PO (08:45)
--- NOTE | 2023-09-22 09:47 | PN.DE.MGMTRT ---
Insulin Management
- -
09/22/2023 Diabetes Management F/U:
Patient admitted 09/11 with dyspnea, hypoxia, exacerbation of COPD. PMH HTN, chronic lung disease (on prednisone 10 mg ), HLD, CVA and T2DM.
Prior to admission was taking 750 mg metformin BID. A1C 9.4%, Cr 1.3-->1.6, eGFR 30.83 today.
Pt A/O x3, OOB in chair, offers no complaints. She was able to participate in discussion regarding diabetes regimen.
Patient is currently on steroid taper prednisone now down to 20 mg daily, was taking 10mg daily
Was weaned off steroids. Glucose stable.
Will make no changes to current regimen: Lantus 12 units in AM, Metformin 750 mg BID and Januvia 100 mg.
Meds at D/C: Lantus 12 units in AM, Metformin 750 mg BID and Januvia 100 mg
Nursing team to continue to have patient prepare and self inject insulin with supervision.
Diabetes History
- -
Type of Diabetes: 2 requiring insulin
Pre-Admission Diabetes Regimen
09/22/23
07:31
Creatinine 1.6 H
Lab Results
Hemoglobin A1c 9.4 % (4.0-5.6) H 09/13/23 06:39
Insulin Pump Settings
IP Diabetes Regimen
09/21/23 09/21/23 09/21/23
11:00 17:31 21:02
Glucose
POC Glucose 211 H 174 H 192 H
09/22/23 09/22/23
07:31 08:11
Glucose 127 H
POC Glucose 129 H
Meal type: Lunch
Meal type: Breakfast
Amount consumed: 50%
Amount consumed: 30%
Patient Education
[2023-09-22 11:15] VITALS: BP 96/55
--- NOTE | 2023-09-22 11:30 | W.PN.HOSP.TC ---
Today's Communication/Plan
-
IVF
DC planning to [facility]
Assessment / Plan
Assessment / Plan
Assessment:
R hip pain, suspect no fracture as no trauma/fall
- prn Tramadol
- Xray: Mild to moderate degenerative changes of the right hip without evidence for acute fracture or dislocation. Mild to moderate degenerative changes of the pubis symphysis, left hip, bilateral sacroiliac joints and partially visualized lower
lumbar spine. Diffuse demineralization. Soft tissues are grossly unremarkable.
- continue PT/OT
Acute on chronic hypoxic respiratory failure on 4L baseline
Interstitial Lung Disease
Asthma
Former Smoker
- back to baseline 4L NC
- pulm signed off
- she completed steroid taper
- continue azithromycin until OP pulm f/u
- continue inhalers Advair/Spiriva
Parox A. Fib with RVR
- new onset
- s/p Cardizem drip
- continue oral Cardizem, Eliquis. HR controlled x 48 hours now
- echocardiogram 07/15/23 reviewed with 65% EF and mildly elevated PASP
JASWANT
Hyponatremia
- continue IVF
- stop ARB
- repeat labs next week at [facility]
Gastroesophageal reflux disease
- continue H2 gene; PPI stopped with JASWANT
Type 2 diabetes mellitus
Hyperglycemia
- A1c is 9.4%
- Low-dose scale coverage
- Consulted Diabetes VP [employer]ATEGIC PLANNING recs noted; continue Lantus 12 units and Metformin 750mg BID
Essential hypertension
- continue Diltiazem
- hold ARB with JASWANT - monitor labs daily and at [facility]
Pulmonary Nodule
- Follow-up with pulmonary
Prior TIA/CVA - Clopidogrel
CAD - Clopidogrel
GI bleed by history
History latent TB
Obesity
JELLY on CPAP
Hyperlipidemia.
Diverticulosis.
Fatty liver.
Glaucoma.
Adrenal nodule.
Vitamin D deficiency
DVT ppx: SC Heparin
Code: DNR/DNI
Anticipated Discharge: 24 - 48 hours
Subjective/Interval History
-
Date of Service: September 22, 2023
hip pain improved
no fracture on Xray
waiting on SNF
Objective Data
-
Labs:
Laboratory Results
09/22/23
07:31
WBC 20.5 H
Hgb 12.2
Hct 35.5 L
Plt Count 188
Sodium 129 L
Potassium 3.8
Chloride 93 L
Carbon Dioxide 24
BUN 29 H
Creatinine 1.6 H
Glucose 127 H
Calcium 9.9
Vital Signs:
Vital Signs
Temp Pulse Resp BP Pulse Ox
97.7 F 102 17 96/55 94
09/22/23 11:15 09/22/23 11:15 09/22/23 11:15 09/22/23 11:15 09/22/23 11:15
I&O
09/21/23 09/22/23 09/23/23
06:59 06:59 06:59
Intake Total 1140 / 1140 1380 / 1380
Balance 1140 / 1140 1380 / 1380
Physical Exam
-
General: No Apparent Distress
HEENT: Normocephalic and Atraumatic
Respiratory: Negative Wheezes or Rales
Cardiac: Irregular Rhythm
GI: Soft and Nontender
Musculoskeletal: No Edema
Neuro: AO x 3
Hematologic / Lymphatic: No Lymphadenopathy
Psych: Calm
Data Reviewed
-
Total Time Spent with Patient (in minutes): 41
Labs: Labs Reviewed by me
[2023-09-22 11:38] VITALS: PULSE 92; O2SAT 92
[2023-09-22 11:39] VITALS: PULSE 109; PULSE 119; O2SAT 92
[2023-09-22 11:51] VITALS: BMI 34.8
[2023-09-22 11:58] LABS: Glucose - Point of Care 193 mg/dl (70-99)
--- NOTE | 2023-09-22 12:10 | W.DS.TRANS ---
DC Summary - Resume Writer
-
Discharge Instructions:
Discharge Diagnosis/Procedures Parox Afib RVR, AECOPD
Diet Diabetic, Carb Controlled,Restrict fluids to 48
oz
Activity As tolerated
Bathing Restrictions None
Other Services PT,OT
Instructions:
Stand-Alone Forms:
Changes to Home Medications: No
Discharge Medications:
DC Medications w/original date entered in [employer]
propranolol 60 mg capsule,24 hr,extended release 60 mg PO DAILY Blood Pressure 04/27/15
cranberry 400 mg capsule 400 mg PO BID Supplement 03/30/19
Mucinex DM 1 tab PO BIDPRN PRN cough/congestion 09/12/23
acetaminophen 500 mg tablet (Tylenol Extra Strength) 1,000 mg PO DAILYPRN PRN mild pain 09/12/23
acetaminophen 500 mg tablet (Tylenol Extra Strength) 1,000 mg PO HS Pain 09/12/23
cholecalciferol (vitamin D3) 125 mcg (5,000 unit) tablet 125 mcg PO DAILY Supplement 09/12/23
cyanocobalamin (vitamin B-12) 500 mcg tablet 500 mcg PO HS Supplement 09/12/23
isosorbide mononitrate 120 mg tablet,extended release 24 hr 120 mg PO DAILY Heart Disease/Condition 09/12/23
loperamide 2 mg capsule 2 mg PO DAILYPRN PRN diarrhea 09/12/23
metformin 750 mg tablet,extended release 24 hr 750 mg PO BID Diabetes 09/12/23
rosuvastatin 40 mg tablet 40 mg PO HS High Cholesterol 09/12/23
Insulin Glargine Lantus [Lantus] 12 units As Directed mls/hr SC DAILY@0800 09/22/23
apixaban 5 mg tablet (Eliquis) 5 mg PO BID #60 tabs 09/22/23
azithromycin 250 mg tablet 250 mg PO Q48H #30 tabs 09/22/23
diltiazem HCl 240 mg capsule,extended release 24 hr 240 mg PO DAILY #30 caps 09/22/23
fluticasone propionate 230 mcg-salmeterol 21 mcg/actuation HFA inhaler 2 puff inhalation R BID #12 grams 09/22/23
ipratropium 0.5 mg-albuterol 3 mg (2.5 mg base)/3 mL nebulization soln 3 ml inhalation R Q4HPRN PRN shortness of breath #90 mL 09/22/23
pantoprazole 40 mg tablet,delayed release 40 mg PO DAILY #30 tabs 09/22/23
sitagliptin phosphate 100 mg tablet (Januvia) 100 mg PO DAILY #30 tabs 09/22/23
tiotropium bromide 2.5 mcg/actuation mist for inhalation (Spiriva Respimat) 2 puff inhalation R DAILY #4 grams 09/22/23
Home Medication Changes
Pending Results: No
Total time spent discharging patient (in min): 42
[2023-09-22] MEDS: NOVOLOG FLEXPEN-MODERATE RESISTANCE 1 UNITS SC (12:21)
[2023-09-22] MEDS: NSS 1000 IV (12:21)
[2023-09-22] MEDS: TYLENOL 650 MG PO (12:22)
--- NOTE | 2023-09-22 12:27 | CM ---
Addendum entered by Shirin Calvillo 09/22/23 13:12:
Patient has been approved for 8 days skilled at [facility] level 1, 09/21-09/28, Auth [id number], Ambulance Auth [id number], patient has a 2:30pm pick up man by ambulance.
Original Note:
Chart reviewed and patient does qualify for skilled placement, [facility] can accept katherine today, [employer] Auth pending, daughter to bring in CPAP machine for patient to use at skilled facility.
Plan; Skilled placement at [facility]
Report [phone]
--- NOTE | 2023-09-22 14:00 | PTCARENOTE ---
Report called to Lyndon Chahal. Patient for ambulance pick up and delivery driver at 14:30.
--- NOTE | 2023-09-22 15:01 | PTCARENOTE ---
R hand INT removed prior to discharge. Patient developing a hematoma on posterior aspect of hand after removal. Pressure applied, bleeding from site stopping. Pressure dressing placed. Lyndon Lackey updated.
== END 2023-09-22 15:04 | DRG 190 ==
LOC: 4 WEST ACU 15:09
PROVIDERS: Hospitalist; Physician Assistant Medical; ADMITTING PHYSICIAN Internal Medicine; ATTENDING PHYSICIAN Internal Medicine; CONSULT PHYSICIAN Internal Medicine Cardiovascular Disease; CONSULT PHYSICIAN Internal Medicine Critical Care Medicine; EMERGENCY PHYSICIAN Student in an Organized Health Care Education/Training Program; FAMILY PHYSICIAN Family Medicine
PROC: 5A09357 Assistance with Respiratory Ventilation, Less than 24 Consecutive Hours, Continuous Positive Airway Pressure (ICD-10-PCS; 2023-09-12)
DX: J44.1 Chronic obstructive pulmonary disease with (acute) exacerbation (principal); J96.21 Acute and chronic respiratory failure with hypoxia; J84.9 Interstitial pulmonary disease, unspecified; E87.1 Hypo-osmolality and hyponatremia; N17.9 Acute kidney failure, unspecified; I10 Essential (primary) hypertension; E78.00 Pure hypercholesterolemia, unspecified; E11.65 Type 2 diabetes mellitus with hyperglycemia; R91.1 Solitary pulmonary nodule; G47.33 Obstructive sleep apnea (adult) (pediatric); K76.0 Fatty (change of) liver, not elsewhere classified; E55.9 Vitamin D deficiency, unspecified; E27.8 Other specified disorders of adrenal gland; K21.9 Gastro-esophageal reflux disease without esophagitis; E66.9 Obesity, unspecified; M25.551 Pain in right hip; R00.2 Palpitations; I48.0 Paroxysmal atrial fibrillation; K44.9 Diaphragmatic hernia without obstruction or gangrene; I25.10 Atherosclerotic heart disease of native coronary artery without angina pectoris; Z66 Do not resuscitate; Z20.1 Contact with and (suspected) exposure to tuberculosis; Z91.012 Allergy to eggs; Z99.81 Dependence on supplemental oxygen; Z87.891 Personal history of nicotine dependence; Z87.19 Personal history of other diseases of the digestive system; Z86.73 Personal history of transient ischemic attack (TIA), and cerebral infarction without residual deficits; Z79.02 Long term (current) use of antithrombotics/antiplatelets; Z79.84 Long term (current) use of oral hypoglycemic drugs; Z79.52 Long term (current) use of systemic steroids; Z86.15 Personal history of latent tuberculosis infection; Z68.34 Body mass index [BMI] 34.0-34.9, adult; Z11.52 Encounter for screening for COVID-19; Z80.1 Family history of malignant neoplasm of trachea, bronchus and lung; Z81.1 Family history of alcohol abuse and dependence; Z80.51 Family history of malignant neoplasm of kidney; Z79.01 Long term (current) use of anticoagulants
CPT/HCPCS: 71046; 73502; 80048; 82040; 82607; 82728; 82947; 82962; 83036; 83540; 83550; 83880; 83930; 84443; 84484; 85025; 85027; 87070; 87147; 87811; 93005; 94640; 96374; 97116; 97162; 97166; 97530; 97535; 99285

== ENCOUNTER 2023-09-23 15:07 | Inpatient (IN) | payer OTHER, SELFPAY ==
[2023-09-23] VITALS (14 sets, daily range): BP systolic 63–141; BP diastolic 27–107
--- NOTE | 2023-09-23 12:13 | ED.GENMED ---
History of Present Illness
General
Chief Complaint: Change in Mental Status
Source: patient and long-term records
Exam Limitations: none
Time Seen by Provider: 09/23/23 12:12
Nursing documentation reviewed up to this point in time: agreed with
History of Present Illness
History of Present Illness:
88-year-old female with history of glaucoma, HLD, obesity, obstructive sleep apnea with CPAP, CAD, A-fib with RVR, on Eliquis, TIAs, IDDM, HTN, GERD, JASWANT, hyponatremia, from [facility] was discharged from the [facility] yesterday w COPD
exacerbation, and above diagnoses. DC'd to [facility] yesterday.
Presents back again with change in mental state: Pt is poor historian.
Admitted here 09/11-09/21 patient acute on chronic hypoxic respiratory failure, interstitial lung disease, asthma, paroxysmal A-fib with RVR, acute kidney injury, hyponatremia.
Spoke with Alfreda at [facility] who states she is not very familiar with the patient as she just arrived yesterday, she states patient was found on the floor by her chair, unwitnessed fall. Much more confused, weak.
This morning when the nurse went in to see her she had altered mental status and difficulty expressing herself. She could not get her words out. Monitored her for a while, O2 sat was continuously dropping, they put her for 4 to 5 L and could not
get her oxygen sat above 90..
Spoke with daughter Mark and son at bedside who state prior to admission here on 09/12/23 pt lived alone in her own home in independent living.
Son saw pt last 4 days ago and she was at her baseline AA&O.
Daughter Mark states she saw her up until 8:30 last night and she could tell her speech was a little garbled but she could talk and communicate.
Past History
Past History
ED Past Medical History: COPD, CVA, GERD, HTN, Hypercholesterolemia, IDDM, Renal failure and Other (TIA. GI bleed)
ED Past Surgical History: Cholecystectomy, Orthopedic and Other
Social History
Tobacco: Former smoker
Alcohol: None
Drug: None
Personal:
Living: assisted living (Independent living)
Employment: Retired
Family History
Family History: Other (Reviewed and non-contributory)
Review of Systems
Review of Systems
Allergies reviewed?: Yes
Unable to obtain full review of systems at this time due to: due to acuity
Other source history: family and long-term
All Other Systems: ROS reviewed and negative except as documented in HPI and ROS
Constitutional: Denies fever
Respiratory: Reports trouble breathing (hypoxic on pulse ox)
ABD/GI: Denies vomiting or diarrhea
Musculoskeletal: Denies edema
Skin: Reports no symptoms
Neurological: Reports other (change in mental state)
Phy Exam
Physical Exam
Physical Exam:
GENERAL: Minimally responsive.
CONSTITUTIONAL: Afebrile.
EYES: PERRL, conjunctivae normal
Neck: Supple
ENMT: moist mucus membranes, Pharynx nl
RESPIRATORY: Regular respirations, nonlabored, lungs with crackles in bases. Frequent coarse junky productive cough
CARDIOVASCULAR: Regular rate and rhythm, no murmurs, no rubs.
GI: Soft, normal BS
MUSCULOSKELETAL: No edema Well perfused.
SKIN: Warm, dry, pink
PSYCH: Obtunded
NEUROLOGIC: Obtunded. Attempts to talk but speech is extremely garbled
NIH Stroke Score
Level of Consciousness: 2 - Obtunded
LOC questions: 2-Neither correct
LOC Commands: 2-Performs neither correctly
Best Gaze: 0-Normal
Visual [place]: 0=Normal, no visual loss
Facial palsy: 0=Normal, symmetrical
Motor - Right Arm: 3=None vs. gravity
Motor - Left Arm: 3=None vs. gravity
Motor - Right Le-None vs. gravity
Motor - Left Le-None vs. gravity
Limb Ataxia: 2-Present in two limbs
Sensation: 0-Normal
Best Language: 2-Severe aphasia
Dysarthria: 2-Severe slurring
Extinction and Inattention: 1-Sensory inattention
Total Score:: 25
Course
Orders/Labs/Results
Orders:
Orders
09/23/23 12:10
Electrocardiogram (*1) Urgent
Reason for Study: Tachycardia
EKG- Treatment ONCE
09/23/23 12:20
CMP [Comprehensive Metabolic Panel] Urgent
Complete Blood Count/With Diff Urgent
09/23/23 12:39
CT Head W/o Iv Contrast Urgent
Comment:
Reason For Exam: change in mental state
09/23/23 12:40
Straight cath- Treatment ONCE
09/23/23 12:41
CR Chest Portable - 1 View Urgent
Comment:
Reason For Exam: change in mental state, cough
Reason Study Needs to be Portable: Patient Unstable
09/23/23 12:47
0.9% Sodium Chloride 1000 ml [Nss] 2,700 ml IV NOW STA
09/23/23 12:48
Vancomycin 1 Gram/200 ml [Vancocin] 1 gram in 200 ml IV NOW
09/23/23 12:56
Lactic Acid Q4H
Comment: CANCEL 2nd LACTIC ACID IF 1st LACTIC ACID IS LESS THAN 2
Urinalysis Reflex To Culture Urgent
Date Specimen was Collected: 09/23/23
Time Specimen was Collected: 12:47
Urine Microscopic Reflex Cult Urgent
Blood Culture Q30M
JEOVANY Source: Blood/Venous
Specimen Description:
Blood Culture Q30M
JEOVANY Source: Blood/Venous
Specimen Description:
Urine Culture Urgent
JEOVANY Source: U
Specimen Description:
Date Specimen was Collected: 09/23/23
Time Specimen was Collected: 12:47
09/23/23 14:19
NT-proBNP Urgent
Troponin I Urgent
09/23/23 14:48
Admit/Transfer Patient As Directed
Co-Sign Provider:
Level of Care: Inpatient admission
Assign to:: Telemetry
Physician / Group: clifton rich
Diagnosis: sepsis 2/2 uti, tme likely uti, jaswant/dehydration, hypona hypovolemic, copd4l
Reason for Telemetry: Arrhythmia
Date to Stop Telemetry: 09/26/23
Time to Stop Telemetry: 11:00
Reason for Hospitalization: sepsis 2/2 uti, tme likely uti, jaswant/dehydration, hypona hypovolemic, copd4l
Expected length of stay greater than two midnights?: Yes
ELOS- Estimated Length of Stay in days: 4
I certify the patient meets the requirements for IP care: Yes
Code Status As Directed
Resuscitation Status: Do not resuscitate
Reached after discussion with pt or family/Healthcare POA: Yes
Based on pt advanced directive or healthcare POA form: Yes
Decision communicated with: Per daughter Kiera at bedside
DNR Bracelet Application ONCE
09/23/23 Dinner
IDDSI 6 - Soft & Bite Sized
Fluid Restriction: 1440 mL/day (48 oz)
Dysphagia Diet: 1800 kary/15 CHO Diabetic
09/23/23 15:02
Speech Screening from Kev Routine
09/23/23 15:[address] Non Medication Order As Directed
Physician Order: If passes swallow may have dysphagia 2 diet
09/23/23 15:34
Lactic Acid Q4H
Comment: CANCEL 2nd LACTIC ACID IF 1st LACTIC ACID IS LESS THAN 2
09/23/23 16:00
CefTRIAXone [Rocephin] 1,000 mg IV Q24H
09/23/23 20:15
Acetaminophen [Tylenol] 650 mg PO Q4HPRN PRN
Apixaban [Eliquis] 2.5 mg PO BID
Azithromycin [Zithromax] 250 mg PO Q48H
Bisacodyl [Dulcolax] 10 mg RECTAL [id number] PRN
Dextrose 50%-Water [Dextrose 50% Syringe] 12.5 grams IV [id number] PRN
Docusate W/Senna [Senokot-S] 1 tablet PO BIDPRN PRN
Fluticasone/Salmeterol 230/21 [Advair Hfa 230/21 Mcg Inhaler] 2 puff INH R BID
Glucagon [GlucaGen] 1 mg IM PRN PRN
Insulin Aspart Corrective Low [Novolog Flexpen-Low Resistance] See Protocol SC AC
Ipratropium/Albuterol Sulfate [Duoneb] 3 ml INH R Q4HPRN PRN
Polyethylene Glycol Powder [Miralax] 17 grams PO DAILYPRN PRN
09/23/23 20:15
VTE Contraindication Routine
VTE Mechanical Device Contraindication: Medical Contraindication
Pharmocologic Contraindication: Medical Contraindication
Comment: Continue EMPLOYEE RELATIONS REPRESENTATIVE Eliquis
Activity As Directed
Activity Level: As Tolerated
Bedside Glucose Monitoring As Directed
Frequency: AC&HS
Comment: Change to q6h if pt on TPN, tube feeding or not eating
Intake/ Output As Directed
Frequency: Per unit guidelines
Neurological Checks As Directed
Frequency: q4h
Vital Signs As Directed
Frequency: Per unit guidelines
Weight As Directed
Frequency: Daily
O2 Therapy [RESP] Routine
Nasal Cannula Liter Flow: 4 LPM
Titrate/Wean O2 to maintain O2 sat greater than (%): 90
Special Instructions: Patient chronic 4 L nasal cannula dependent
Pulse Ox/spot Check [RESP] Routine
Quantity: 1
Ot Eval And Treat Routine
Pt Eval And Treat Routine
Activity Level: As Tolerated
Speech Therapy Eval & Treat Routine
09/23/23 22:00
Acetaminophen [Tylenol] 1,000 mg PO HS
09/24/23 06:00
Complete Blood Count/With Diff IN AM
Comprehensive Metabolic Panel IN AM
09/24/23 08:00
Diltiazem Extended Release [Cardizem Cd] 240 mg PO DAILY
ISOSORBIDE MONOnitrate ER [Imdur (Extended Release)] 120 mg PO DAILY
Propranolol Extended Release [Inderal LA] 60 mg PO DAILY
Tiotropium [place] 2.5 Mcg [Spiriva Respimat 2.5 Mcg] 2 puff INH R DAILY
insulin glargine [Lantus Solostar U-100 Insulin] 12 unit SC DAILY
09/25/23 06:00
Complete Blood Count/With Diff IN AM
Comprehensive Metabolic Panel IN AM
09/26/23 06:00
Complete Blood Count/With Diff IN AM
Comprehensive Metabolic Panel IN AM
09/26/23 11:00
DC Protocol for Telemetry ONCE
09/27/23 06:00
Complete Blood Count/With Diff IN AM
Comprehensive Metabolic Panel IN AM
Abnormal Lab Results
09/23/23 09/23/23 09/23/23
12:20 12:56 14:19
WBC 24.4 H 10^3/uL
(4.8-10.8)
MCH 31.1 H pg
(27.0-31.0)
MPV 11.2 H fL
(7.4-10.4)
Abs Immat Gran (auto) 0.3 H 10^3/uL
(0-0.05)
Absolute Neuts (auto) 22.3 H 10^3/uL
(1.4-6.5)
Absolute Lymphs (auto) 0.6 L 10^3/uL
(1.2-3.4)
Absolute Monos (auto) 1.1 H 10^3/uL
(0.1-0.6)
Immature Gran % 1.1 H %
(0-0.5)
Neutrophils % 91.3 H %
(42.2-75.2)
Lymphocytes % 2.5 L %
(20.5-51.1)
Sodium 126 L mmol/L
(135-145)
Chloride 91 L mmol/L
(98-107)
BUN 32 H mg/dl
(7-17)
Creatinine 2.0 H mg/dL
(0.6-1.0)
Glucose 162 H mg/dl
(70-99)
Lactic Acid 2.9 H mmol/L
(0.7-2.0)
Troponin I 0.088 H* ng/ml
Urine Ketones Trace A
(Negative)
Ur Occult Blood Reflex 4+ A
(Negative)
Urine Nitrite (Reflex) Positive A
(Negative)
Leukocyte Esterase Rfl 2+ A
(Negative)
Urine RBC 16-20 A /HPF
(0-2)
Urine WBC (Reflex) 50-60 A /HPF
(0-5)
Urine Bacteria (Reflex) Moderate A
(Negative)
Urine Glucose Trace A
(Negative)
Urine Albumin (Reflex) 2+ A
(Neg - Trace)
09/23/23 12:20
09/23/23 12:20
Vital Signs
Initial and Last Documented VS:
Initial Vital Signs
Temp Pulse Resp BP Pulse Ox
98.3 F 101 18 141/67 91
09/23/23 12:11 09/23/23 12:11 09/23/23 12:11 09/23/23 12:11 09/23/23 12:11
Last Documented Vital Signs
Temp Pulse Resp BP Pulse Ox
99.7 F 95 33 121/72 95
09/23/23 19:42 09/23/23 20:00 09/23/23 16:36 09/23/23 20:00 09/23/23 19:45
MDM/Problems Addressed
Differential Diagnosis Includes:
CVA, ICH, metabolic encephalopathy, Sepsis
MDM/Problems Addressed:
88-year-old female with history of glaucoma, HLD, obesity, obstructive sleep apnea with CPAP, CAD, A-fib with RVR, on Eliquis, TIAs, IDDM, HTN, GERD, JASWANT, hyponatremia, from [facility] was discharged from the [facility] yesterday w COPD
exacerbation, and above diagnoses. DC'd to [facility] yesterday.
Presents back again with change in mental state: Pt is poor historian.
Admitted here 09/11-09/21 patient acute on chronic hypoxic respiratory failure, interstitial lung disease, asthma, paroxysmal A-fib with RVR, acute kidney injury, hyponatremia.
Spoke with Alfrdea at [facility] who states she is not very familiar with the patient as she just arrived yesterday, she states patient was found on the floor by her chair, unwitnessed fall. Much more confused, weak.
This morning when the nurse went in to see her she had altered mental status and difficulty expressing herself. She could not get her words out. Monitored her for a while, O2 sat was continuously dropping, they put her for 4 to 5 L and could not
get her oxygen sat above 90..
Spoke with daughter Mark and son at bedside who state prior to admission here on 09/12/23 pt lived alone in her own home in independent living.
Son saw pt last 4 days ago and she was at her baseline AA&O.
Daughter Mark states she saw her up until 8:30 last night and she could tell her speech was a little garbled but she could talk and communicate.
Family state after being on Prednisone 10 mg daily for several months, was receiving steroids during this recent admission and tapered off prior to discharge
Pt is obtunded, NIH scale 25.
Global rather than focal neuro deficits
1:10 PM
CBC: WBC 24.4 (partially due to recent steroids?)
Patient sent to CAT scan
CBC: WBC 24.4
CMP: Sodium 126, Glucose 165, BUN/Creat 32/2.0,
Sepsis protocol instituted
This examiner reviewed the head CT, no acute abnormality noted. Awaiting official x-ray read
1:52 PM
Official radiology read of head CT: IMPRESSION:
There are no acute intracranial abnormalities.
There is mild diffuse cortical atrophy with mild nonspecific white matter changes as described above.
Chronic bilateral maxillary and ethmoid sinusitis
U/A consistent with UTI WBC 50-60 9, +Nitrates, 2+ Leukocytes, culture pending
Blood cultures pending
CXR: IMPRESSION:
There is borderline cephalization of the pulmonary vasculature. Correlation with the patient's BNP is recommended
The lungs are otherwise clear
Troponin, BNP pending
Plan: Admit: Urosepsis, Hyponatremia, mental status change
Hospitalist notified of admission
Pt a little more alert and coherent. Family updated
Chronic conditions affecting care: DM, HTN, Arrhythmia, COPD and Kidney disease
*Pulse Oximetry
Patient hypoxic: yes
Comment: 88% RA placed on O2 5 L NC: up to 91%
*EKG
EKG Intrepretation Date: 09/23/23
Interpretation: abnormal
Comparison EKG: no changes
Rate: normal
Rhythm: a-fib
[place]: normal axis
QRS Pattern: normal QRS
Ischemia: no ischemia
*Critical Care Note
Total Time (30-74mins, 75-104mins- exclusive of procedures): Not Applicable
Patient Management
Social determinants of health affecting care: Strong social support
ED Attending Note
-
Portions of this chart may have been created with voice recognition software.� Occasional wrong word or��sound alike� substitutions may have occurred due to the inherent limitations of voice recognition software.
Discharge Plan
Departure
Patient Disposition: Admit
Date of Disposition: 09/23/23
Time of Disposition: 13:56
Admit to: IMU
Presentation/result/management discussed w/ accepting MD/DO: Hospitalist
Condition: Serious
Discharge Problem:
Acute UTI, Sepsis, Acute hyponatremia
Interventions
Interventions:
*Risk Screen - Suicide Last Done: 09/23/23 12:11
*General Assessment Last Done: 09/23/23 12:11
*Neglect/Abuse Screening Last Done: 09/23/23 12:11
ED- Fall Risk Assessment Last Done: 09/23/23 17:24
*ED COVID-19 Vaccine History Last Done: 09/23/23 12:11
ED- Neurological Assessment Last Done: 09/23/23 12:11
ED Swallowing Screen Last Done: 09/23/23 17:24
[2023-09-23 12:40] LABS: % Basophils 0.3 % (0-2); % Eosinophils 0.2 % (0-6); % Immature Granulocytes 1.1 % (0-0.5); % Lymphocytes 2.5 % (20.5-51.1); % Monocytes 4.6 % (1.7-9.3); % Neutrophils 91.3 % (42.2-75.2); Absolute Basophils 0.1 10^3/uL (0-0.2); Absolute Eosinophils 0.1 10^3/uL (0-0.7); Absolute Immature Granulocytes 0.3 10^3/uL (0-0.05); Absolute Lymphocytes 0.6 10^3/uL (1.2-3.4); Absolute Monocytes 1.1 10^3/uL (0.1-0.6); Absolute Neutrophils 22.3 10^3/uL (1.4-6.5); Hematocrit 37.7 % (37.0-47.0); Hemoglobin 13.2 g/dL (12.0-16.0); Mean Corpuscular Hgb 31.1 pg (27.0-31.0); Mean Corpuscular Volume 88.7 fL (81.0-99.0); Mean Platelet Volume 11.2 fL (7.4-10.4); Nucleated Red Blood Cells % 0 %; Platelet Count 190 10^3/uL (130-400); Red Blood Cell Count 4.25 10^6/uL (4.20-5.40); Red Cell Dist. Width 13.2 % (11.5-14.5); White Blood Cell Count 24.4 10^3/uL (4.8-10.8)
[2023-09-23 12:48] LABS: ALT (SGPT) 18 U/L (0-35); AST (SGOT) 25 U/L (14-36); Albumin 3.5 g/dl (3.5-5.0); Alkaline Phosphatase 102 U/L (38-126); Blood Urea Nitrogen 32 mg/dl (7-17); Calcium 9.9 mg/dl (8.4-10.2); Carbon Dioxide 22 mmol/L (22-30); Chloride 91 mmol/L (98-107); Glucose 162 mg/dl (70-99); Potassium 3.7 mmol/L (3.5-5.1); Sodium 126 mmol/L (135-145); Total Bilirubin 0.9 mg/dl (0.2-1.3); Total Protein 6.3 g/dl (6.3-8.2); eGFR 23.59
[2023-09-23] MEDS: NSS 2700 ML IV (12:59)
[2023-09-23] MEDS: VANCOCIN 200 IV (13:04)
[2023-09-23 13:15] LABS: Urine Albumin 2+ (Neg - Trace); Urine Bilirubin Negative (Negative); Urine Character Very Cloudy (Clear); Urine Color Yellow; Urine Glucose Trace (Negative); Urine Ketone Trace (Negative); Urine Leukocyte 2+ (Negative); Urine Nitrite Positive (Negative); Urine Occult Blood 4+ (Negative); Urine Urobilinogen Negative (Neg - 1+)
[2023-09-23 13:24] LABS: Lactic Acid 2.9 mmol/L (0.7-2.0)
[2023-09-23 13:40] LABS: Urine Bacteria Moderate (Negative); Urine Red Blood Cell 16-20 /HPF (0-2); Urine White Cell 50-60 /HPF (0-5)
--- NOTE | 2023-09-23 14:18 | HPS.HSE ---
Addendum entered and electronically signed by Vinod Turpin MD 09/23/23 15:19:
I saw and examined the patient.
The QUALIFICATIONS EXAMINER or PA's note was reviewed and I agree with the note.
Comment:
88-year-old female from [facility] [place] self who was found on the floor by her chair unwitnessed fall with increased confusion and weakness and difficulty expressing herself. No fevers, lower sodium than upon discharged. Higher WBC.
She had a recent admission 09/11 - 09/22/2023 COPD exacerbation ,paroxysmal A-fib with RVR new onset patient was treated with IV steroids, IV Cardizem to oral Cardizem and oral Eliquis Plavix was stopped was discharged to [facility] on 09/22/2023.
Physical Exam
General: Other (Pleasantly confused does respond to name, thinks her daughter is her son-in-law not oriented to place or time); No Pain or Fever
HEENT: Normocephalic, Anicteric, PERRLA, Thruston Conjunctivae, No Ptosis and Oxygen (4 L nasal cannula dependent)
Respiratory: limited. No wheezes.
Cardiac: S1/S2 and Regular Rhythm;
GI: Soft, Non Distended, Normal Bowel Sounds, Tender (Suprapubic) and No Hepatosplenomegaly
Rectal: no bleeding
Genito-urinary: no Marshall
Musculoskeletal: No Clubbing, No Cyanosis and No Edema
Skin: Warm and Dry; No Rash or Jaundice
Neuro: Awake, mumbling , known to have expressive aphasia. Did not follow commands but answered yes and no appropirately. No Tremors
Psych: Calm
# Acute change mental status. Her mental status seems to be different than her baseline according to the family. History of strokes in the past. CAT scan of the head showed signs of atrophy with no acute changes.
Toxic metabolic encephalopathy with ongoing leukocytosis, cloudy urine, hyponatremia, worsening renal function.
Avoid sedative drugs. Stop metformin.
Continue with mild IV fluid.
Blood and urine culture.
Modified diet, swallow evaluation
Empiric antibiotic for possible UTI
Consider MRI of the head if no improvement with supportive care and treatment of UTI. Patient will require sedation to undergo MRI we will avoid sedative until stabilizing the patient
#Hyponatremia, check serum and urine osmolality. Urine sodium.
Continue with IV fluid.
# Leukocytosis, blood culture. Empiric antibiotic for UTI.
Follow-up with urine culture
#Acute kidney injury patient had normal kidney function on 09/13/23
Check urine studies, electrolyte
Avoid nephrotoxic
Renal ultrasound stat
Bladder scan
Consult nephrology, appreciate input
# Paroxysmal A-fib, continue Eliquis but adjust the dose, continue heart medication including rate control medications
#Chronic hypoxic respiratory failure combination of obstructive sleep apnea, COPD
Baseline oxygen requirement 4 to 5 L
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
Total critical time spent to see patient, examine the patient on the floor, review data and lab results, discuss treatment plan with patient, ER doctor, family, nursing staff around 85 minutes
Original Note:
Family Physician
-
Family Physician: Juan Alberto Bowles MD
Chief Complaint
-
Increased confusion, hypoxia
History of Present Illness
88-year-old female from [facility] [employer] who was found on the floor by her chair unwitnessed fall with increased confusion and weakness and difficulty expressing herself. She was noted to be hypoxic O2 improving on 4 to 5 L at 90%. At baseline she is
supposed to be on 4 L it is unclear whether this was off at the correction. Her daughter Kiera is at bedside states prior to her admission on 09/10 she was living by herself completely oriented. On discharge she had some slight confusion, but
today is very confused. Patient rambles when asked where she is at, referred to her daughter as her son-in-law. She just arrived to [facility] yesterday from her recent admission and discharge 09/11-
She had a recent admission 09/11 - 09/22/2023 COPD exacerbation ,paroxysmal A-fib with RVR new onset patient was treated with IV steroids, IV Cardizem to oral Cardizem and oral Eliquis Plavix was stopped was [facility] to SN[facility] on 09/[facility]23. Other PMH
chronic COPD, interstitial lung disease, asthma, former smoker, latent tuberculosis, JELLY on CPAP, paroxysmal A-fib with RVR September 2023 on Eliquis, GERD/GI bleed, DM 2, HTN, known pulmonary nodule, TIA/CVA with prior expressive aphasia, CAD, HLD,
diverticulosis, fatty liver, glaucoma, adrenal nodule, vitamin D deficiency.
Medical History
Past Medical History
Past Medical History: Reports Other
Additional Past Medical History:
New onset A-fib September 2023
chronic COPD
interstitial lung disease
asthma
former smoker
latent tuberculosis
JELLY on CPAP
GERD/GI bleed
DM 2
HTN
known pulmonary nodule
TIA/CVA
CAD
HLD
diverticulosis
fatty liver
glaucoma
adrenal nodule
vitamin D deficiency
Past Surgical History: Reports Other
Additional Past Surgical History:
Right TKR
Cholecystectomy
Bilateral leg vein stripping
Bilateral cataract extraction
Loop recorder placed
Laser surgery cataract
Social History
Tobacco: Former Smoker
Alcohol: Occasional (Would have occasional alcohol once twice a week prior to recent admission in September)
Drug: None
Personal: Single
Living: Alone
Employment: Retired
Family History
Family History: Not pertinent
Allergies / Home Medications
Allergies reflects when Allergies were last updated in [employer].
Home Medications with original date entered in [employer]
Allergy/Medication List:
Allergies
Allergy/AdvReac Type Severity Reaction Status Date / Time
egg Allergy Hives Verified 09/12/23 11:01
Home Medications
propranolol 60 mg capsule,24 hr,extended release 60 mg PO DAILY Blood Pressure 04/27/15
cranberry 400 mg capsule 400 mg PO BID Supplement 03/30/19
cholecalciferol (vitamin D3) 125 mcg (5,000 unit) tablet 125 mcg PO DAILY Supplement 09/12/23
cyanocobalamin (vitamin B-12) 500 mcg tablet 500 mcg PO HS Supplement 09/12/23
isosorbide mononitrate 120 mg tablet,extended release 24 hr 120 mg PO DAILY Heart Disease/Condition 09/12/23
loperamide 2 mg capsule 2 mg PO DAILYPRN PRN diarrhea 09/12/23
metformin 750 mg tablet,extended release 24 hr 750 mg PO BID Diabetes 09/12/23
rosuvastatin 40 mg tablet 40 mg PO HS High Cholesterol 09/12/23
apixaban 5 mg tablet (Eliquis) 5 mg PO BID #60 tabs 09/22/23
azithromycin 250 mg tablet 250 mg PO Q48H #30 tabs 09/22/23
diltiazem HCl 240 mg capsule,extended release 24 hr 240 mg PO DAILY #30 caps 09/22/23
fluticasone propionate 230 mcg-salmeterol 21 mcg/actuation HFA inhaler 2 puff inhalation R BID #12 grams 09/22/23
ipratropium 0.5 mg-albuterol 3 mg (2.5 mg base)/3 mL nebulization soln 3 ml inhalation R Q4HPRN PRN shortness of breath #90 mL 09/22/23
pantoprazole 40 mg tablet,delayed release 40 mg PO DAILY #30 tabs 09/22/23
sitagliptin phosphate 100 mg tablet (Januvia) 100 mg PO DAILY #30 tabs 09/22/23
tiotropium bromide 2.5 mcg/actuation mist for inhalation (Spiriva Respimat) 2 puff inhalation R DAILY #4 grams 09/22/23
acetaminophen 325 mg tablet (Tylenol) 650 mg PO Q4H PRN fever>100 09/23/23
acetaminophen 500 mg tablet 1,000 mg PO DAILYPRN PRN mild pain 09/23/23
acetaminophen 500 mg tablet 1,000 mg PO HS 09/23/23
bisacodyl 10 mg rectal suppository (Dulcolax (bisacodyl)) 10 mg AR DAILY PRN constipation 09/23/23
guaifenesin 600 mg tablet, extended release 12 hr (Mucinex) 600 mg PO BID PRN congestion 09/23/23
insulin glargine 100 unit/mL (3 mL) subcutaneous pen (Lantus Solostar U-100 Insulin) 12 unit SC DAILY 09/23/23
magnesium hydroxide 400 mg/5 mL oral suspension (Milk of Magnesia) 30 ml PO DAILY PRN if no BM x 4 days 09/23/23
sodium phosphates 19 gram-7 gram/118 mL enema (Fleet Enema) 118 ml AR DAILYPRN PRN constipation 09/23/23
Review of Systems
-
History Source: Patient and Family (Daughter Kiera at bedside)
A 12 point ROS was completed and negative except as noted: Yes
Constitutional: Reports Fatigue and Other (Confused); Denies Fever or Chills
EENT: Denies Sore Throat or Runny Nose
Respiratory: Denies Cough or Trouble Breathing
Cardiac: Denies Chest Pain, Diaphoresis, Palpitations or Syncope
Abdomen/GI: Reports Abdominal Pain (Suprapubic tenderness on palpation) and Other (Decreased appetite and oral intake per daughter); Denies Nausea, Vomiting or Diarrhea
: Denies Dysuria or Flank Pain
Musculoskeletal: Reports Other (Chronic left upper arm pain); Denies Joint Swelling or Edema
Skin: Denies Itching or Rash
Neurological: Reports Weakness (Generalized with confusion); Denies Dizzy or Headache
Endocrine: Reports No Symptoms
Hematologic/Lymphatic: Reports No Symptoms
Psych: Reports Calm
Physical Exam
Vital Signs
Vital Signs
Temp Pulse Resp BP Pulse Ox
98.3 F 82 22 113/58 94
09/23/23 12:11 09/23/23 13:45 09/23/23 13:45 09/23/23 13:00 09/23/23 13:00
Physical Exam
General: Other (Pleasantly confused does respond to name, thinks her daughter is her son-in-law not oriented to place or time); No Pain or Fever
HEENT: NormoCephalic, Anicteric, PERRLA, Thruston Conjunctivae, No Ptosis and Oxygen (4 L nasal cannula dependent)
Respiratory: Clear; No Wheezes, Rales or Rhonchi
Cardiac: S1/S2 and Regular Rhythm; No Murmur, Rub, Gallop or Peripheral Edema
Breast: Deferred by me
GI: Soft, Non Distended, Normal Bowel Sounds, Tender (Suprapubic) and No Hepatosplenomegaly
Rectal: Deferred by Provider
Genito-urinary: Deferred by me
Musculoskeletal: No Clubbing, No Cyanosis and No Edema
Skin: Warm and Dry; No Rash or Jaundice
Neuro: Awake, Alert, Oriented (To name only thinks daughter is son-in-law) and No Sensory Deficits; No Slurred Speech, Facial Droop or Tremors
Psych: Calm
Laboratory Results
-
09/23/23 12:20
09/23/23 12:20
Laboratory Results
Lactic Acid 2.9 mmol/L (0.7-2.0) H 09/23/23 12:56
Total Bilirubin 0.9 mg/dl (0.2-1.3) 09/23/23 12:20
AST 25 U/L (14-36) 09/23/23 12:20
ALT 18 U/L (0-35) 09/23/23 12:20
Alkaline Phosphatase 102 U/L (38-126) 09/23/23 12:20
Impression/Plan
-
Impression/plan:
Admit to telemetry
#Sepsis 2/2 UTI
#TME likely UTI concern tia/cva
#Hx MRSA nasal positive 09/15/23
WBC 24.4 with left shift, pyuria, HR 82, 113/58, 98.3 F
-Follow urine culture, blood cultures x 2
-IV vancomycin given in Er will cont Iv Rocephin
-IV NSS 2700 mL bolus given in ER
- Check MRI brain if no improvement 24 hours
-nuero Checks every 4 hours
-Speech swallow eval
-Follow CBC, BMP
PT/Ot case mgmt
#Hyponatremia hypovolemic symptomatic with Confusion
NA 126 <129 yesterday 09/22/2023
-IV NSS 2700 ml bolus given in Er
-Follow BMP
CT head: No acute intracranial abnormalities. Mild diffuse cortical atrophy with mild nonspecific white matter changes
CXR: Borderline cephalization of the pulmonary vasculature otherwise normal
#JASWANT on CKD
Creat 2 > 1.6 yesterday 09/22/2023
-ARB was recently stopped
-iv fluids given in ER 2700 ml hold further fluids
-Hold metformin 750 mg twice daily
#Chronic COPD with chronic hypoxic respiratory failure on 4 L baseline
#Interstitial Lung Disease
#Asthma
#Former Smoker
94%, 4 L nasal cannula
- back to baseline 4L NC
-Recently completed steroid taper 09/10-09/21
- continue azithromycin until OP pulm f/u
- continue inhalers Advair/Spiriva
#JELLY on CPAP
-cont setting 7 with 4 liters nc
#Paroxysmal A-fib with new onset September 2023
-Continue Eliquis at 2.5 mg twice daily instead of 5 mg twice daily due to CrCl 27, CrCl was 34 on discharge 09/22/2023
-cont oral Cardizem
-- echocardiogram 07/15/23 reviewed with 65% EF and mildly elevated PASP
#HTN�benign
BP 113/58
-Continue propranolol 60 mg ER with hold parameters
-Continue oral diltiazem with hold parameters
#Gastroesophageal reflux disease
#GI bleed by history
- continue H2 gene; PPI stopped with JASWANT
#Type 2 diabetes mellitus
#Hyperglycemia hx
BS 162
- A1c is 9.4%
- Low-dose scale coverage
- continue Lantus 12 units
-Hold metformin 750mg BID, Januvia
#Pulmonary Nodule
- Follow-up with pulmonary
#Prior TIA/CVA
- Clopidogrel was stopped during recent admission due to need for Eliquis for A-fib
#CAD
-Continue beta-gene
Hold statin statin
#History latent TB
#Obesity due to excess calorie consumption
-Weight loss recommended
#Hyperlipidemia
-Hold current statin
#Ambulatory dysfunction secondary to recent hospitalization
-Continue PT/OT
Other PMH:
#Diverticulosis.
Fatty liver
Glaucoma
Adrenal nodule
Vitamin D deficiency-continue vitamin D
DVT proph
-Continue oral Eliquis
Code: DNR/DNI
--- NOTE | 2023-09-23 15:19 | W.PN.UPDATE ---
Update Note
Progress Note Update
Billing purposes
[2023-09-23] MEDS: ROCEPHIN 1000 MG IV (15:20)
[2023-09-23] MEDS: STERILE WATER FOR INJECTION 10 ML IV (15:20)
[2023-09-23 15:30] LABS: NT-proBNP 7880 pg/ml; Troponin I 0.088 ng/ml
[2023-09-23 15:54] LABS: Lactic Acid 2.2 mmol/L (0.7-2.0)
--- NOTE | 2023-09-23 15:57 | W.CON.NEPH ---
Consultation
-
Date/Time Consultation Requested: 09/23/2023 3:40 PM
Date/Time Consultation Performed: 09/23/2023 4:00
Requesting Provider: Hernan
Performing Provider: Eliud
Reason for Consultation: JASWANT/Hyponatremia
Medical History
-
Chief Complaint: JASWANT/Hyponatremia
History of Present Illness:
The patient is an 88-year-old female with a past medical history of paroxysmal atrial fibrillation currently maintained on Eliquis and rate controlled with diltiazem. She is maintained on insulin for diabetes and Combivent inhalers and home O2 for
her COPD. She was recently admitted to the hospital from 09/12/2023 until 09/22/2023 with COPD exacerbation and new onset AFIB. During that hospitalization she had ongoing issues with hyponatremia and progressive renal failure with a creatinine of
1.6 noted at discharge yesterday off of her baseline of 1 noted on 09/14/2023. She re presented to the hospital from [facility] today after being found on the floor with an unwitnessed fall with increasing confusion weakness and expressive aphasia.
She was also notably hypoxic. Initial CT scan of head was nonrevealing for any acute CVA. Of note her creatinine is now up to 2 and she is hyponatremic with a serum sodium level of 126 nephrology was asked to see the patient.
Past Medical History
New onset A-fib September 2023
chronic COPD
interstitial lung disease
asthma
former smoker
latent tuberculosis
JELLY on CPAP
GERD/GI bleed
DM 2
HTN
known pulmonary nodule
TIA/CVA
CAD
HLD
diverticulosis
fatty liver
glaucoma
adrenal nodule
vitamin D deficiency
Right total knee replacement
Cholecystectomy
Social History
Tobacco: Former Smoker
Alcohol: Occasional
Family History
No chronic kidney disease
Family History: Not Pertinent
Allergies / Home Medications
Allergy/AdvReac Type Severity Reaction Status Date / Time
egg Allergy Hives Verified 09/12/23 11:01
�Medication �Instructions �Recorded �Confirmed �Type
propranolol 60 mg capsule,24 60 mg PO DAILY Blood Pressure 04/27/15 09/23/23 History
hr,extended release
cranberry 400 mg capsule 400 mg PO BID Supplement 03/30/19 09/23/23 History
cholecalciferol (vitamin D3) 125 125 mcg PO DAILY Supplement 09/12/23 09/23/23 History
mcg (5,000 unit) tablet
cyanocobalamin (vitamin B-12) 500 500 mcg PO HS Supplement 09/12/23 09/23/23 History
mcg tablet
isosorbide mononitrate 120 mg 120 mg PO DAILY Heart 09/12/23 09/23/23 History
tablet,extended release 24 hr Disease/Condition
loperamide 2 mg capsule 2 mg PO DAILYPRN PRN diarrhea 09/12/23 09/23/23 History
metformin 750 mg tablet,extended 750 mg PO BID Diabetes 09/12/23 09/23/23 History
release 24 hr
rosuvastatin 40 mg tablet 40 mg PO HS High Cholesterol 09/12/23 09/23/23 History
ipratropium 0.5 mg-albuterol 3 mg 3 ml inhalation R Q4HPRN PRN 09/22/23 09/23/23 Rx
(2.5 mg base)/3 mL nebulization shortness of breath #90 mL
soln
acetaminophen 325 mg tablet 650 mg PO Q4H PRN fever>100 09/23/23 09/23/23 History
(Tylenol)
acetaminophen 500 mg tablet 1,000 mg PO DAILYPRN PRN mild pain 09/23/23 09/23/23 History
acetaminophen 500 mg tablet 1,000 mg PO HS Pain 09/23/23 09/23/23 History
apixaban 5 mg tablet (Eliquis) 5 mg PO BID Blood Clot 09/23/23 09/23/23 History
Prevention/Tx
azithromycin 250 mg tablet 250 mg PO Q48H prophylaxis 09/23/23 09/23/23 History
bisacodyl 10 mg rectal suppository 10 mg WI DAILY PRN constipation 09/23/23 09/23/23 History
(Dulcolax (bisacodyl))
diltiazem HCl 240 mg 240 mg PO DAILY Blood Pressure 09/23/23 09/23/23 History
capsule,extended release 24 hr
fluticasone propionate 230 2 puff inhalation R BID 09/23/23 09/23/23 History
mcg-salmeterol 21 mcg/actuation Lung/Breathing Issues
HFA inhaler
guaifenesin 600 mg tablet, 600 mg PO BID PRN congestion 09/23/23 09/23/23 History
extended release 12 hr (Mucinex)
insulin glargine 100 unit/mL (3 12 unit SC DAILY Diabetes 09/23/23 09/23/23 History
mL) subcutaneous pen (Lantus
Solostar U-100 Insulin)
magnesium hydroxide 400 mg/5 mL 30 ml PO DAILY PRN if no BM x 4 09/23/23 09/23/23 History
oral suspension (Milk of Magnesia) days
pantoprazole 40 mg tablet,delayed 40 mg PO DAILY Gastrointestinal 09/23/23 09/23/23 History
release Issue
sitagliptin phosphate 100 mg 100 mg PO DAILY Diabetes 09/23/23 09/23/23 History
tablet (Januvia)
sodium phosphates 19 gram-7 118 ml WI DAILYPRN PRN constipation 09/23/23 09/23/23 History
gram/118 mL enema (Fleet Enema)
tiotropium bromide 2.5 2 puff inhalation R DAILY 09/23/23 09/23/23 History
mcg/actuation mist for inhalation Lung/Breathing Issues
(Spiriva Respimat)
Review of Systems
-
Unable to obtain full review of systems at this time due to: Dementia (mild)
History Source: Patient and Family
All other systems: Negative unless noted
Constitutional: Fatigue and Other (Found down after fall from chair)
EENT: No Symptoms
Respiratory: Other (Chronic shortness of breath on oxygen therapy)
Abdomen/GI: No Symptoms
: No Symptoms
Musculoskeletal: No Symptoms
Skin: No Symptoms
Neurological: Other (Confusion on presentation)
Endocrine: No Symptoms
Hematologic/Lymphatic: No Symptoms
Physical Exam
Vital Signs
Vital Signs
Temp Pulse Resp BP Pulse Ox
98.3 F 79 27 123/71 91
09/23/23 12:11 09/23/23 15:00 09/23/23 15:00 09/23/23 15:00 09/23/23 14:15
Lab Results
09/23/23 12:20
09/23/23 12:20
WBC 24.4 10^3/uL (4.8-10.8) H 09/23/23 12:20
RBC 4.25 10^6/uL (4.20-5.40) 09/23/23 12:20
Hgb 13.2 g/dL (12.0-16.0) 09/23/23 12:20
Hct 37.7 % (37.0-47.0) 09/23/23 12:20
Plt Count 190 10^3/uL (130-400) 09/23/23 12:20
Sodium 126 mmol/L (135-145) L 09/23/23 12:20
Potassium 3.7 mmol/L (3.5-5.1) 09/23/23 12:20
Chloride 91 mmol/L (98-107) L 09/23/23 12:20
Carbon Dioxide 22 mmol/L (22-30) 09/23/23 12:20
BUN 32 mg/dl (7-17) H 09/23/23 12:20
Creatinine 2.0 mg/dL (0.6-1.0) H 09/23/23 12:20
eGFR 23.59 09/23/23 12:20
Glucose 162 mg/dl (70-99) H 09/23/23 12:20
Calcium 9.9 mg/dl (8.4-10.2) 09/23/23 12:20
Tiy-P-Mhdejudhuwr Pept 7880 pg/ml 09/23/23 14:19
Albumin 3.5 g/dl (3.5-5.0) 09/23/23 12:20
Physical Exam
General: Awake, Alert, No Distress, Nontoxic and Other (Answers most questions appropriately)
HEENT: PERRL, EOMI, Anicteric, Conjunctivae Clear, Ear/Nose Intact, Facial Symmetry, Neck Supple, Trachea Midline and No JVD
Respiratory: Normal Excursion and Other (Coarse breath sounds with decreased breath sounds towards the bases)
Cardiac: S1/S2 and Regular Rate/Rhythm (Irregular)
Breast: Deferred by me
Abdomen: Soft, Nontender, Nondistended, Normal Bowel Sounds and No Hepatosplenomegaly
Rectal: Deferred by Provider
Genito-urinary: No Costovertebral Tender
Musculoskeletal: No Clubbing, No Cyanosis and No Edema
Skin: No Rash, Warm, Dry, No Clubbing and Other (Mottled feet)
Neuro: Nonfocal/Grossly Intact and Strength (5 out of 5)
Hematologic/Lymphatic: No Cervical Lymphadenopathy, No Submandibular Lymphadenopathy and No Supraclavicular Lymphadenopathy
Psych: Mood/afflect pleasant and Other (Some confusion noted with more complex questioning)
Data Reviewed
-
Radiology: Image Personally Visualized and interpreted (Chest x-ray personally reviewed no infiltrate no overt congestive heart failure noted interstitial lung changes)
Medical Tests (Nuc Med, Echo etc): Other (EKG report notes atrial fibrillation)
Labs: Labs Reviewed by me (BMP CBC reviewed)
Old Records: Reviewed (Reviewed history and physical discharge summary and various office notes from last admission from 09/12/2023 through 09/22/2023)
Assessment/Plan
-
Impression:
TME likely due to evolving sepsis vs embolic event
Acute kidney
Hyponatremia
Paroxysmal atrial fibrillation
Chronic COPD and interstitial lung disease
Hypertension
Type 2 diabetes
History of TIA and stroke
Coronary artery disease
History of latent TB
Plan:
JASWANT: (no obvious etiology per review of chart from recent admission and discharge yesterday)
-Check bladder scan, urinalysis, fractional excretion of sodium
-Hold metformin
-Likely prerenal mediated in setting of Urosepsis (antibiotics, cxs)
-Obtain renal and bladder ultrasound
-Antibiotics to be renally dosed
-hemodynamically stable, does not appear wet or dry
Hyponatremia
-check urine osmolarity
-FR 48oz
-check TSH
[2023-09-23 21:14] LABS: Glucose - Point of Care 150 mg/dl (70-99)
[2023-09-23] MEDS: TYLENOL 1000 MG PO (21:30)
[2023-09-23] MEDS: ELIQUIS 2.5 MG PO (21:30)
[2023-09-23] MEDS: ADVAIR HFA 230/21 MCG INHALER 2 PUFF INH (22:56)
--- NOTE | 2023-09-24 05:24 | DOWNTIME ---
There was a [employer]er Downtime on 09/24/2023 from 0100 to 09/24/2023 at 0439. Downtime documentation of patient's care, including medication administrations, has been reconciled in the electronic record per guidelines. Refer to the
patient's paper chart under the miscellaneous tab to see printed paper medication records and downtime forms.
[2023-09-24 06:00] VITALS: BMI 35.2
[2023-09-24 07:30] VITALS: BP 108/61
[2023-09-24 08:33] LABS: Glucose - Point of Care 131 mg/dl (70-99)
--- NOTE | 2023-09-24 08:35 | PTOTSP ---
Speech Language Pathology
Pt seen for clinical bedside swallow evaluation. P.O. trials of puree, regular solids, and thin liquids provided. Adequate mastication, bolus formation, and A-P transit noted. Trace residual coating on tongue post regular solids. No overt signs
of aspiration.
Pt and daughter/son denied any hx of dysphagia or PNA. Pt currently ordered IDDSI Level 6 solids, and daughter most comfortable with her staying on this diet for now. Expressive aphasia noted, which is significantly improved since yesterday per
family. Will consider speech/language evaluation pending resolution with tx of UTI.
Recommend:
(1) Continue IDDSI Level 6 (soft/bite-sized) and Thin Liquids
(2) Aspiration precautions: slow rate, sit upright, set-up assist
(3) Meds as tolerated
(4) FURNACE OPERATOR to continue to follow for dysphagia tx. Will consider speech/language evaluation pending
[2023-09-24] MEDS: SPIRIVA RESPIMAT 2.5 MCG 2 PUFF INH (08:45)
[2023-09-24] MEDS: ADVAIR HFA 230/21 MCG INHALER 2 PUFF INH ×2 (08:45→20:24)
[2023-09-24 08:59] LABS: % Basophils 0.3 % (0-2); % Eosinophils 0.3 % (0-6); % Neutrophils 90.4 % (42.2-75.2); Absolute Basophils 0.1 10^3/uL (0-0.2); Absolute Eosinophils 0.1 10^3/uL (0-0.7); Absolute Immature Granulocytes 0.2 10^3/uL (0-0.05); Absolute Lymphocytes 0.5 10^3/uL (1.2-3.4); Absolute Monocytes 0.9 10^3/uL (0.1-0.6); Absolute Neutrophils 15.5 10^3/uL (1.4-6.5); Hematocrit 32.6 % (37.0-47.0); Hemoglobin 11.4 g/dL (12.0-16.0); Mean Corpuscular Hgb 31.1 pg (27.0-31.0); Mean Corpuscular Volume 89.1 fL (81.0-99.0); Mean Platelet Volume 10.9 fL (7.4-10.4); Nucleated Red Blood Cells % 0 %; Platelet Count 156 10^3/uL (130-400); Red Blood Cell Count 3.66 10^6/uL (4.20-5.40); Red Cell Dist. Width 13.5 % (11.5-14.5); White Blood Cell Count 17.2 10^3/uL (4.8-10.8)
--- NOTE | 2023-09-24 09:12 | W.PN.HOSP.TC ---
Addendum entered and electronically signed by Vinod Turpin MD 09/24/23 11:34:
Addendum
Hypokalemia
Hyponatremia
worsening renal function with MRSA bacteremia
Low urine out put , place Marshall
Replace K
End
Addendum entered and electronically signed by Vinod Turpin MD 09/24/23 09:49:
Addendum
Blood culture came back positive for MRSA. Will add IV vancomycin. Will do transthoracic echocardiogram
Will follow-up
end
Original Note:
Today's Communication/Plan
-
.
Assessment / Plan
Assessment / Plan
Physical Exam
General: she looks better today, more alert, not in respiratory distress
HEENT: Normocephalic, Anicteric, PERRLA, [place] Conjunctivae, No Ptosis and Oxygen (4 L nasal cannula dependent)
Respiratory: limited. Mild expiratory wheezes
Cardiac: S1/S2 and Regular Rhythm;
GI: Soft, Non Distended, Normal Bowel Sounds, Tender (Suprapubic) and No Hepatosplenomegaly
Rectal: no bleeding
Genito-urinary: no Marshall
Musculoskeletal: No Clubbing, No Cyanosis and No Edema
Skin: Warm and Dry; No Rash or Jaundice
Neuro: Awake, mumbling , known to have expressive aphasia. She followed commands, answered yes and no appropriately. No Tremors
Psych: Calm
# Toxic metabolic encephalopathy due to infection/ sepsis
Her mental status seems to be better today, she is following commands and answering questions, recognized her family.
History of strokes in the past. CAT scan of the head showed signs of atrophy with no acute changes.
c/ w supportive care and treating the infection.
# Sepsis/ severe sepsis POA
with leukocytosis, bacteremia, lactic acidosis, confusion
Blood culture positive for bacteremia, 1 bottle positive for gram-positive cocci in clusters, gram-positive
Repeat the blood culture.
Continue with empiric antibiotic
Urine culture positive for gram-negative bacilli
Renal ultrasound no hydronephrosis or nephrolithiasis
Appreciate ID input
#Hyponatremia, check serum and urine osmolality. Urine sodium. Patient is incontinent. Will do straight cath for urine studies
Status post IV fluid.
#Acute kidney injury patient had normal kidney function on 09/13/23
Check urine studies, electrolyte
Avoid nephrotoxic
Renal ultrasound no hydronephrosis or nephrolithiasis, consistent with chronic renal disease. Possible underlying diabetic nephropathy
Appreciate nephrology input
# Paroxysmal A-fib, continue Eliquis but adjust the dose, continue heart medication including rate control medications
History of GI bleeding and aspirin was stopped. On low-dose Eliquis.
Monitor for GI bleeding
#Chronic hypoxic respiratory failure combination of obstructive sleep apnea, COPD
Baseline oxygen requirement 4 to 5 L. On prophylactic Zithromax
Continue with Spiriva and Advair. As needed DuoNebs
Swallow evaluation. Chest x-ray did not show acute changes
Primary stock feeder Dr. Murguia
Will reach out to her stock feeder to ask about maintenance prednisone therapy. Per family, patient was on 10 mg prednisone for several months as an outpatient
For cortisol level in a.m.
#JELLY on CPAP
-cont setting 7 with 4 liters nc
#Paroxysmal A-fib with new onset September 2023
-Continue Eliquis at 2.5 mg twice daily instead of 5 mg twice daily due to CrCl 27, CrCl was 34 on discharge 09/22/2023
-cont oral Cardizem
-- echocardiogram 07/15/23 reviewed with 65% EF and mildly elevated PASP
#HTN�benign
No hypotension.
-Continue propranolol 60 mg ER with hold parameters
-Continue oral diltiazem with hold parameters
#Gastroesophageal reflux disease
#GI bleed by history
- continue H2 gene;
#Type 2 diabetes mellitus
#Hyperglycemia hx
- A1c is 9.4%
- Low-dose scale coverage
- continue Lantus 12 units
-Hold metformin 750mg BID, Januvia
#Pulmonary Nodule
- Follow-up with pulmonary
#Prior TIA/CVA
- Clopidogrel was stopped during recent admission due to need for Eliquis for A-fib
#CAD
-No chest pain
-Continue beta-gene
Resume statin therapy.
#History latent TB
#Obesity due to excess calorie consumption
-Weight loss recommended
#Hyperlipidemia
-Hold current statin
#Ambulatory dysfunction secondary to recent hospitalization
-Continue PT/OT
Other PMH:
#Diverticulosis.
Fatty liver
Glaucoma
Adrenal nodule
Vitamin D deficiency-continue vitamin D
DVT proph
-Continue oral Eliquis
Total time spent to see patient, examine the patient on the floor, review data and lab results, discuss treatment plan with patient, family, nursing staff around 63 minutes
Anticipated Discharge: > 48 hours
Subjective/Interval History
-
Date of Service: September 24, 2023
Objective Data
-
Labs:
Laboratory Results
09/24/23
08:27
WBC Pending
Hgb Pending
Hct Pending
Plt Count Pending
Sodium Pending
Potassium Pending
Chloride Pending
Carbon Dioxide Pending
BUN Pending
Creatinine Pending
Glucose Pending
Calcium Pending
Total Bilirubin Pending
AST Pending
ALT Pending
Alkaline Phosphatase Pending
Vital Signs:
Vital Signs
Temp Pulse Resp BP Pulse Ox
97.4 F 82 16 108/61 92
09/24/23 07:30 09/24/23 08:52 09/24/23 08:52 09/24/23 07:30 09/24/23 08:52
[2023-09-24] MEDS: IMDUR (EXTENDED RELEASE) PO (09:25)
[2023-09-24] MEDS: ELIQUIS 2.5 MG PO ×2 (09:25→22:27)
[2023-09-24] MEDS: ZITHROMAX 250 MG PO (09:25)
[2023-09-24] MEDS: CARDIZEM CD PO (09:25)
[2023-09-24] MEDS: LANTUS 0.119999999999999996 UNITS SC (09:26)
[2023-09-24] MEDS: INDERAL LA PO (09:26)
[2023-09-24 09:28] LABS: ALT (SGPT) 12 U/L (0-35); AST (SGOT) 23 U/L (14-36); Albumin 2.7 g/dl (3.5-5.0); Alkaline Phosphatase 95 U/L (38-126); Blood Urea Nitrogen 37 mg/dl (7-17); Carbon Dioxide 21 mmol/L (22-30); Chloride 94 mmol/L (98-107); Estimated Creatinine Clearance 17 ml/min; Glucose 98 mg/dl (70-99); Potassium 3.2 mmol/L (3.5-5.1); Sodium 129 mmol/L (135-145); Total Bilirubin 0.6 mg/dl (0.2-1.3); Total Protein 5.3 g/dl (6.3-8.2); eGFR 18.95
--- NOTE | 2023-09-24 09:53 | PHA.VAN.IN ---
Assessment
- Assessment
Renal Function: Appears elevated from baseline (SCR 2.4 vs ~0.9-1)
Concomitant Antimicrobials: ceftriaxone / azithromycin
Plan
- Plan
Initial / Loading Dose: 1000mg 09/22 13:04 PLUS additional 1500mg x1 today
Maintenance Regimen: dosing by level
Monitorin/18 0600
Pharmacokinetics Vancomycin I
- -
Patient Age: 88
Patient Sex: Female
Vancomycin Day #: 1
Indication: Bacteremia
Requesting Provider: Dr. Turpin
Pertinent Antimicrobial Allergies:
no pertinent antibiotic allergies
Height / Weight:
Height 5 ft 2.5 in
Actual Weight 88.592 kg
Pertinent Past Medical History: BMI ~35, COPD (home O2), DM 2
- Vital Signs / Lab Results
Temp Pulse Resp BP Pulse Ox
97.4 F 82 16 108/61 92
09/24/23 07:30 09/24/23 08:52 09/24/23 08:52 09/24/23 07:30 09/24/23 08:52
Lab Results - Hematology
09/23/23 09/24/23
12:20 08:27
WBC 24.4 H 17.2 H
Lab Results - Chemistry
09/23/23 09/24/23
12:20 08:27
BUN 32 H 37 H
Creatinine 2.0 H 2.4 H
Estimated Creat Clear 17
Albumin 3.5 2.7 L
09/23/23 09/23/23
12:56 15:34
Lactic Acid 2.9 H 2.2 H
Lab Results - Urine
09/23/23
12:56
Urine Nitrite (Reflex) Positive A
Leukocyte Esterase Rfl 2+ A
Urine WBC (Reflex) 50-60 A
Ur Squamous Epith Cells 6-10
Urine Bacteria (Reflex) Moderate A
Microbiology Results
09/23/23 12:56 Blood Culture - Preliminary
Blood/Venous Staph aureus MRSA
Gram Stain - Final
09/23/23 12:56 Urine Culture - Preliminary
Urine Gram negative bacilli
09/23/23 12:56 Blood Culture - Preliminary
Blood/Venous Positive culture in progress
Gram Stain - Final
[2023-09-24 09:58] LABS: Cortisol, Random 57.1 ug/dl; TSH 1.55 uIU/ml (0.47-4.68)
[2023-09-24] MEDS: VANCOCIN 300 MG IV (10:19)
[2023-09-24] MEDS: VANCOCIN 300 ML IV (10:19)
--- NOTE | 2023-09-24 11:20 | CON.ID ---
Consultation
-
Date/Time Consultation Requested: 09/24/2023 0820
Date/Time Consultation Performed: 09/24/2023 1120
Requesting Provider: Dr. Shaina Turpin
Performing Provider: Lauren Floyd
Reason for Consultation: Bacteremia
Chief Complaint / Past History
Chief Complaint
Weakness
History of Present Illness
History obtained from review of medical records, from patient and from family members at bedside. She is an 88-year-old female with diabetes mellitus, chronic COPD, interstitial lung disease, on chronic 4 to 5 L of oxygen, who was recently
hospitalized from September 11 to September 21 with acute exacerbation of COPD, and new A-fib with RVR. She was treated with steroid, azithromycin as per pulmonary, and Cardizem. She was discharged to [facility]. However yesterday September 22, patient was
found on the floor next to her chair. Patient was very lethargic per family. White count was 24.4. Lactic acid 2.9. Patient was in JASWANT. Chest x-ray no pneumonia. She received vancomycin due to MRSA colonized. She was also placed on
ceftriaxone for abnormal urine analysis. Admission blood cultures x 2 are positive for MRSA. Per family patient's mental status is much improved today. Patient denies fevers. She feels cold. Still coughing and now more productive of
mucus/phlegm. No urinary symptoms. However patient noted to be retaining urine and Donovan catheter was placed. Patient reports poor appetite. Positive weakness. Positive nausea. No diarrhea.
Past History
Additional Past Medical History:
DM 2
New onset A-fib September 2023
chronic COPD
interstitial lung disease
chronic hypoxemic respiratory failure on 4-5L O2
asthma
latent tuberculosis, treated in remote past
JELLY on CPAP
GERD/GI bleed
HTN
known pulmonary nodule
TIA/CVA
CAD
HLD
diverticulosis
fatty liver
glaucoma
adrenal nodule
vitamin D deficiency
Right TKR
Cholecystectomy
Appendectomy
Bilateral leg vein stripping
Bilateral cataract extraction
Loop recorder placed
Laser surgery cataract
Allergy History:
egg Allergy (Verified 09/12/23 11:01)
Hives
Medications Reviewed: Yes
Current Antibiotics:
Vancomycin (d2)
Ceftriaxone (d2)
Azithromycin
Social History
Tobacco: Former Smoker
Alcohol: Occasional
Drug: None
Family History
Family History: Not Pertinent
Review of Systems
Review of Systems
General: Chills and Change in Appetite; Negative Fever
HEENT: Negative Sinus Problems, Headache or Pharyngitis
Cardiovascular: Negative Chest Pain
Respiratory: Cough
Gasteroenterology: Nausea; Negative Vomiting
Genital / Urological: Negative Dysuria or Flank Pain
Endocrine: Weakness
Skin / Hair / Nails: Negative Rash
Neurological: Negative Headache or Dizziness
All systems: All other systems were reviewed and were negative
Vital Signs
Temp Pulse Resp BP Pulse Ox
97.4 F 82 16 108/61 92
09/24/23 07:30 09/24/23 08:52 09/24/23 08:52 09/24/23 07:30 09/24/23 08:52
Physical Exam
Physical Exam
Constitutional: Acutely Ill
Head: Other (No frontal or maxillary sinus tenderness)
Eyes: No Conjunctival Hemorrhage and Sclera Anicteric
Oral: No Thrush
Cardiovascular: Irregular Rate and S1/S2
Pulmonary: Clear
Gastrointestinal: Soft, Non Tender, Non Distended and Normal Bowel Sounds
Extremities: Negative Edema
Musculoskeletal: Negative Joint Swelling (knees) or Joint Effusion (knees)
Neurological: Awake
Lab / Diagnostic Study Results
09/24/23 08:27
09/24/23 08:27
Abs Immat Gran (auto) 0.2 10^3/uL (0-0.05) H 09/24/23 08:27
Absolute Neuts (auto) 15.5 10^3/uL (1.4-6.5) H 09/24/23 08:27
Absolute Lymphs (auto) 0.5 10^3/uL (1.2-3.4) L 09/24/23 08:27
Absolute Monos (auto) 0.9 10^3/uL (0.1-0.6) H 09/24/23 08:27
Absolute Basos (auto) 0.1 10^3/uL (0-0.2) 09/24/23 08:27
Immature Gran % 1.0 % (0-0.5) H 09/24/23 08:27
Neutrophils % 90.4 % (42.2-75.2) H 09/24/23 08:27
Lymphocytes % 3.0 % (20.5-51.1) L 09/24/23 08:27
Monocytes % 5.0 % (1.7-9.3) 09/24/23 08:27
Eosinophils % 0.3 % (0-6) 09/24/23 08:27
Basophils % 0.3 % (0-2) 09/24/23 08:27
Lactic Acid 2.2 mmol/L (0.7-2.0) H 09/23/23 15:34
Ur Squamous Epith Cells 6-10 /LPF (Few) 09/23/23 12:56
Microbiology Results
Micro:
09/24/23 09:08 Blood Culture - Pending
Blood/Venous
09/23/23 12:56 Blood Culture - Preliminary
Blood/Venous Staph aureus MRSA
Gram Stain - Final
09/23/23 12:56 Urine Culture - Preliminary
Urine Gram negative bacilli
09/24/23 08:27 Blood Culture - Pending
Blood/Venous
09/23/23 12:56 Blood Culture - Preliminary
Blood/Venous Positive culture in progress
Gram Stain - Final
09/23/23 CXR: There is borderline cephalization of the pulmonary vasculature. Correlation with the patient's BNP is recommended
The lungs are otherwise clear.
09/23/23 Renal US: Suspected 2.3 cm mass in the lower pole of the left kidney. Diagnostic possibilities are (1) lobular renal parenchyma, (2) a complex cyst, or (3) a hypovascular renal cell carcinoma.
Assessment / Plan
# MRSA bacteremia
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
- Unclear source of bacteremia
- Agree with TTE
- Follow repeat blood cultures
- Continue Vancomycin
Follow Vanco levels closely
# GNR bacteruria vs UTI
- Continue ceftriaxone (d2) for now
#Leukocytosis
- improved today.
# JASWANT worse
- 09/22 donovan placed for decreased urine output
# COPD on maintenance azithromycin, per pulmonalogist
[2023-09-24 11:35] LABS: Glucose - Point of Care 95 mg/dl (70-99)
[2023-09-24] MEDS: KCL 20 MEQ PO (12:21)
[2023-09-24 13:45] LABS: Osmolality Urine 321 mOsm/kg (300-900)
[2023-09-24 13:50] LABS: Body Fluid for Eosinophils No Eosinophils seen
[2023-09-24 14:03] LABS: Urine Sodium 29 mmol/L (30-90)
--- NOTE | 2023-09-24 14:33 | W.PN.NEPH.PH ---
Today's Communication / Plan
-
- trend BMPs
Assessment/Plan
-
Impression:
TME likely due to evolving sepsis vs embolic event
Acute kidney
Hyponatremia
Paroxysmal atrial fibrillation
Chronic COPD and interstitial lung disease
Hypertension
Type 2 diabetes
History of TIA and stroke
Coronary artery disease
History of latent TB
Plan:
JASWANT: (no obvious etiology per review of chart from recent admission and discharge yesterday)
- differential includes atheroembolic disease [livedo reticularis on feet? + declined mental status + sudden rise in Cr with new onset AC + UA] vs. ATN vs. AIN?
- on CTX now for possible UTI
- did discuss biopsy with the patient's children (daughter via phone and son at bedside). they reiterated that the patient would not want any aggressive measures or treatment and would likely just want supportive measures.
- proteinuria, blood noted on UA but in the setting of infection, very difficult to interpret. albumin also lower. I will obtain some serologies, but these are likely low yield.
- Hold metformin
- renal ultrasound results reviewed with a cyst on kidney with variable diagnostic probabilities. moderate chronic bilateral renal disease noted
- antibiotics to be renally dosed
- hemodynamically stable, appears euvolemic
Hyponatremia
- likely some hypovolemic hyponatremia
- s/p fluids with improvement in Na
-
-
Date of Service: September 24, 2023
CC / HPI / ROS
-
Chief Complaint:
JASWANT
History of Present Illness:
mental status change -- still different
JASWANT (bl Cr 0.8, but has gotten as high as 1.5 in outpatient setting due to pre-renal disease)
hypoxci respiratory failure (bl O2 4-5L)
Review of Systems:
very lethargic but following commands
Labs
-
Labs:
WBC 17.2 10^3/uL (4.8-10.8) H 09/24/23 08:27
RBC 3.66 10^6/uL (4.20-5.40) L 09/24/23 08:27
Hgb 11.4 g/dL (12.0-16.0) L 09/24/23 08:27
Hct 32.6 % (37.0-47.0) L 09/24/23 08:27
Plt Count 156 10^3/uL (130-400) 09/24/23 08:27
Sodium 129 mmol/L (135-145) L 09/24/23 08:27
Potassium 3.2 mmol/L (3.5-5.1) L 09/24/23 08:27
Chloride 94 mmol/L (98-107) L 09/24/23 08:27
Carbon Dioxide 21 mmol/L (22-30) L 09/24/23 08:27
BUN 37 mg/dl (7-17) H 09/24/23 08:27
Creatinine 2.4 mg/dL (0.6-1.0) H 09/24/23 08:27
eGFR 18.95 09/24/23 08:27
Glucose 98 mg/dl (70-99) 09/24/23 08:27
Calcium 9.0 mg/dl (8.4-10.2) 09/24/23 08:27
Uax-Z-Jopiawsadru Pept 7880 pg/ml 09/23/23 14:19
Albumin 2.7 g/dl (3.5-5.0) L 09/24/23 08:27
Physical Exam
-
Vital Signs:
Vital Signs
Temp Pulse Resp BP Pulse Ox
97.4 F 82 16 108/61 92
09/24/23 07:30 09/24/23 08:52 09/24/23 08:52 09/24/23 07:30 09/24/23 08:52
Cardiovascular:: Regular rate and rhythm
Respiratory:: Bilateral: Coarse
Lung Excursion:: Normal
Abdomen:: Nontender and Soft
Bowel Sounds:: Normal
Extremity Edema:: +1: Bilateral: (mottling noted on bilateral lower extremities)
Marshall Catheter: No
[2023-09-24 15:15] LABS: Erythrocyte Sed Rate 79 mm/hour (0-20)
[2023-09-24] MEDS: ROCEPHIN 1000 MG IV (16:12)
[2023-09-24] MEDS: STERILE WATER FOR INJECTION 10 ML IV (16:12)
--- NOTE | 2023-09-24 16:21 | CM ---
Patient with recent admission.
Prior to [facility] lived independently in a one story home with 1 RON.
patient with chronic oxygen thru [facility].
Pharmacy:[facility].
Plan: CM will continue to follow for discharge planning needs
[2023-09-24 16:48] LABS: C-Reactive Protein > 270.00 mg/L (0.0-10.00)
[2023-09-24 18:00] LABS: Glucose - Point of Care 94 mg/dl (70-99)
[2023-09-24 19:40] VITALS: BP 135/80
[2023-09-24 21:24] LABS: Glucose - Point of Care 90 mg/dl (70-99)
[2023-09-24] MEDS: TYLENOL 1000 MG PO (22:27)
[2023-09-24 23:24] LABS: Complement C3 149 mg/dl (88-165)
[2023-09-24 23:31] VITALS: BP 131/75
[2023-09-25] VITALS (8 sets, daily range): BP systolic 115–148; BP diastolic 67–91; PULSE 101–109; O2SAT 93; BMI 34.6
[2023-09-25] MEDS: CARDIZEM 125 IV (01:45)
--- NOTE | 2023-09-25 01:45 | PTCARENOTE ---
Pt observed to be sustaining 110's-120's with an occasional spike of up to 140's while sleeping. Pt afebrile, no signs or symptoms. TRANSPORTATION MAINTENANCE SUPERVISOR Roas Matthews notified, 5mg/hr Cardizem ordered. Daughter at bedside updated as well. No further orders.
[2023-09-25] MEDS: SPIRIVA RESPIMAT 2.5 MCG 2 PUFF INH (08:06)
[2023-09-25 08:07] LABS: % Basophils 0.3 % (0-2); % Eosinophils 0.3 % (0-6); % Immature Granulocytes 0.9 % (0-0.5); % Lymphocytes 3.1 % (20.5-51.1); % Monocytes 5.8 % (1.7-9.3); % Neutrophils 89.6 % (42.2-75.2); Absolute Eosinophils 0.1 10^3/uL (0-0.7); Absolute Immature Granulocytes 0.1 10^3/uL (0-0.05); Absolute Lymphocytes 0.5 10^3/uL (1.2-3.4); Absolute Monocytes 0.9 10^3/uL (0.1-0.6); Absolute Neutrophils 13.4 10^3/uL (1.4-6.5); Hematocrit 33.2 % (37.0-47.0); Hemoglobin 11.4 g/dL (12.0-16.0); Mean Corp Hgb Conc. 34.3 g/dL (33.0-37.0); Mean Corpuscular Hgb 30.3 pg (27.0-31.0); Mean Corpuscular Volume 88.3 fL (81.0-99.0); Mean Platelet Volume 10.7 fL (7.4-10.4); Nucleated Red Blood Cells % 0 %; Platelet Count 171 10^3/uL (130-400); Red Blood Cell Count 3.76 10^6/uL (4.20-5.40); Red Cell Dist. Width 13.6 % (11.5-14.5); White Blood Cell Count 14.9 10^3/uL (4.8-10.8)
[2023-09-25] MEDS: ADVAIR HFA 230/21 MCG INHALER 2 PUFF INH ×2 (08:07→19:49)
[2023-09-25 08:13] LABS: Glucose - Point of Care 102 mg/dl (70-99)
[2023-09-25 08:25] LABS: ALT (SGPT) 15 U/L (0-35); AST (SGOT) 35 U/L (14-36); Albumin 2.7 g/dl (3.5-5.0); Alkaline Phosphatase 104 U/L (38-126); Blood Urea Nitrogen 45 mg/dl (7-17); Carbon Dioxide 20 mmol/L (22-30); Chloride 95 mmol/L (98-107); Estimated Creatinine Clearance 14 ml/min; Glucose 91 mg/dl (70-99); Potassium 3.3 mmol/L (3.5-5.1); Sodium 130 mmol/L (135-145); Total Bilirubin 0.5 mg/dl (0.2-1.3); Total Protein 5.4 g/dl (6.3-8.2)
[2023-09-25 08:40] LABS: Vancomycin Random 16.8 ug/ml
[2023-09-25 08:54] LABS: Cortisol, Random 51.1 ug/dl
[2023-09-25] MEDS: LANTUS 0.119999999999999996 UNITS SC (09:05)
[2023-09-25] MEDS: CARDIZEM CD 240 MG PO (09:07)
[2023-09-25] MEDS: IMDUR (EXTENDED RELEASE) 120 MG PO (09:07)
[2023-09-25] MEDS: INDERAL LA 60 MG PO (09:08)
[2023-09-25] MEDS: ELIQUIS 2.5 MG PO ×2 (09:08→20:13)
--- NOTE | 2023-09-25 09:38 | PHA.VAN.FU ---
Vancomycin Assessment / Plan
- Assessment
Renal Function: SCR Increasing
WBC's are: Trending Down
In the past 24 hrs, patient has been: Afebrile
Concomitant Antimicrobials: ceftriaxone, azithromcyin
- Assessment - Therapeutic Drug Monitoring
Random Level: 16.8 - drawn ~21.5H after previous dose of 1500mg
- Dosing Plan
Dosing by Level: Re-dose today (Vanc 750mg)
Anticipate patient will require prolonged dosing interval with increasing SCR
Given MRSA bacteremia, will re-dose with low dose today to ensure maintains levels
- Monitoring Plan
Random Level: 09/25 0600
- Follow Up
Pharmacy will continue to follow.
Vancomycin Follow UP
- -
Patient Age: 88
Patient Sex: Female
Vancomycin Day #: 2
Indication: Bacteremia
Requesting Provider: Dr. Turpin / Arsen[facility]
Pertinent Antimicrobial Allergies:
no pertinent antibiotic allergies
Height / Weight:
Height 5 ft 2.5 in
Actual Weight 87.146 kg
Pertinent Past Medical History: BMI ~35, COPD (home O2), DM 2
- Vital Signs / Lab Results
Temp Pulse Resp BP Pulse Ox
97.2 F 89 16 148/91 94
09/25/23 07:00 09/25/23 08:16 09/25/23 08:16 09/25/23 07:00 09/25/23 08:16
Lab Results - Hematology
09/23/23 09/24/23 09/25/23
12:20 08:27 07:39
WBC 24.4 H 17.2 H 14.9 H
Lab Results - Chemistry
09/23/23 09/24/23 09/25/23
12:20 08:27 07:39
BUN 32 H 37 H 45 H
Creatinine 2.0 H 2.4 H 2.9 H
Estimated Creat Clear 17 14
Albumin 3.5 2.7 L 2.7 L
09/23/23 09/23/23
12:56 15:34
Lactic Acid 2.9 H 2.2 H
Microbiology Results
09/23/23 12:56 Urine Culture - Final
Urine Citrobacter koseri
09/24/23 09:08 Blood Culture - Preliminary
Blood/Venous Positive culture in progress
Gram Stain - Preliminary
09/24/23 08:27 Blood Culture - Preliminary
Blood/Venous Positive culture in progress
Gram Stain - Preliminary
09/23/23 12:56 Blood Culture - Preliminary
Blood/Venous Staph aureus MRSA
Gram Stain - Final
09/23/23 12:56 Blood Culture - Preliminary
Blood/Venous Positive culture in progress
Gram Stain - Final
Therapeutic Drug Monitoring
Random Vancomycin 16.8 ug/ml 09/25/23 07:39
--- NOTE | 2023-09-25 10:15 | PN.CDI ---
Addendum entered and electronically signed by Vinod Turpin MD 09/25/23 10:52:
Stage 1 sacral pressure injury, POA.'
Original Note:
CDI
- -
CDI:
Physician Documentation Request
Admit Date: 09/23/23 15:07
Dear Doctor Papi,
Patient admitted with sepsis.
09/22 Nursing skin assessment, 'Stage 1 sacral pressure injury, POA.'
Physician documentation of the type and location of wounds is required for compliant documentation. Based on the above clinical findings and your assessment, please provide the following in your progress note:
Type (etiology) of ulcer/wound:
- Diabetic ulcer
- Arterial (ischemic) ulcer
- Traumatic wound
- Venous stasis ulcer
- Pressure (decubitus) ulcer
- Non-healing surgical wound
- Other
- Unable to determine
For a pressure ulcer, please also include the stage* of the ulcer:
- Stage 1 - Skin intact, non-blanchable redness
- Stage 2 - Partial thickness loss of dermis, includes intact or open blister
- Stage 3 - Full thickness tissue not including bone, tendon or muscle
- Stage 4 - Full thickness tissue loss, including exposed bone, tendon or muscle
- Unstageable - Full thickness loss in which the base of the ulcer is covered by slough (yellow, barksdale, keenan, green or brown) and/or eschar (barksdale, brown or black) in the wound bed.
- Unable to determine
Use of terms such as suspected, likely, concern for, or probable (associated with a specific diagnosis that is being evaluated, monitored, or treated as if it exists) are acceptable and can be coded in the inpatient setting, when documented at the
time of discharge.
Thank you,
Alie BORRERO,RN,CCDS
CDI Specialist
Available via [employer]
Please use your independent medical judgment in providing your response.
*Source: National Pressure Ulcer Advisory Panel (NPUAP)
--- NOTE | 2023-09-25 10:23 | W.PN.HOSP.TC ---
Today's Communication/Plan
-
.
Assessment / Plan
Assessment / Plan
Physical Exam
General: she looks better today, more alert, not in respiratory distress
HEENT: Normocephalic, Anicteric, PERRLA, Paton Conjunctivae, No Ptosis and Oxygen (4 L nasal cannula dependent)
Respiratory: limited. Mild expiratory wheezes
Cardiac: S1/S2 and Regular Rhythm;
GI: Soft, Non Distended, Normal Bowel Sounds, Tender (Suprapubic) and No Hepatosplenomegaly
Rectal: no bleeding
Genito-urinary: no Marshall
Musculoskeletal: No Clubbing, No Cyanosis and No Edema
Skin: Warm and Dry; No Rash or Jaundice
Neuro: Awake, mumbling , known to have expressive aphasia. She followed commands, answered yes and no appropriately. No Tremors
Psych: Calm
# Toxic metabolic encephalopathy due to infection/ sepsis
Her mental status seems to be better , she is following commands and answering questions, recognized her family.
History of strokes in the past. CAT scan of the head showed signs of atrophy with no acute changes. Hold off on MRI
c/ w supportive care and treating the infection.
# Severe sepsis POA
with leukocytosis, bacteremia, lactic acidosis, confusion upon admission, resolving.
# MRSA Bacteremia, persistent
c/w Vancomycin
TTE no vegetation
No fevers
No Back pain ( more than usual arthritis), no joint swelling, no toothache although one left lower molar looked black.
For possible ABENA
Appreciate ID & cardiology help
# UTI with Citrobacter Koseri
No Dysuria
No gross hematuria
Continue with Rocephin
Urine culture positive for E Coli also
Renal ultrasound no hydronephrosis or nephrolithiasis
Appreciate ID input
#Hyponatremia, improving
maintain Marshall due to JASWANT
#Acute kidney injury , Creatinine up to 2.9 from 2.4 but good urine put put
Patient had normal kidney function on 4/6/24
Urine sodium 29
Better urine out put over night
Urine studies are sent
Marshall for strict I/O measurement for now
Will start IVF with sodium bicarbonate
Avoid nephrotoxic
Renal ultrasound no hydronephrosis or nephrolithiasis, consistent with chronic renal disease. Possible underlying diabetic nephropathy
Appreciate nephrology input
# Paroxysmal A-fib, continue Eliquis but adjust the dose,
Oral Cardizem was not given yesterday duet o parameters, she went into rapid a fib, started on IV Cardizem gtt.
Stop Cardizem gtt, resume oral meds.
History of GI bleeding and aspirin was stopped. On low-dose Eliquis.- Continue Eliquis at 2.5 mg twice daily instead of 5 mg twice daily due to CrCl 27, CrCl was 34 on discharge 09/22/2023
Monitor for GI bleeding
echocardiogram 07/15/23 reviewed with 65% EF and mildly elevated PASP
#Chronic hypoxic respiratory failure combination of obstructive sleep apnea, COPD
Baseline oxygen requirement 4 to 5 L. On prophylactic Zithromax
Continue with Spiriva and Advair. As needed DuoNebs
Swallow evaluation. Chest x-ray did not show acute changes
Primary acid pump operator Dr. Murguia
Will reach out to her acid pump operator to ask about maintenance prednisone therapy. Per family, patient was on 10 mg prednisone for several months as an outpatient
For cortisol level in a.m.
#JELLY on CPAP
-cont setting 7 with 4 liters nc
#HTN�benign
No hypotension.
-Continue propranolol 60 mg ER
-Continue oral diltiazem
# hypokalemia, replace
#Gastroesophageal reflux disease
#GI bleed by history
- continue H2 gene;
#Type 2 diabetes mellitus
#Hyperglycemia hx
- A1c is 9.4%
- Low-dose scale coverage
- continue Lantus 12 units
-Hold metformin 750mg BID, Januvia
#Pulmonary Nodule
- Follow-up with pulmonary
#Prior TIA/CVA
- Clopidogrel was stopped during recent admission due to need for Eliquis for A-fib
#CAD
-No chest pain
-Continue beta-gene
Resume statin therapy.
#History latent TB
#Obesity due to excess calorie consumption
-Weight loss recommended
#Hyperlipidemia
-Hold current statin
#Ambulatory dysfunction secondary to recent hospitalization
-Continue PT/OT
Other PMH:
#Diverticulosis.
Fatty liver
Glaucoma
Adrenal nodule
Vitamin D deficiency-continue vitamin D
DVT proph
-Continue oral Eliquis
Total time spent to see patient, examine the patient on the floor, review data and lab results, discuss treatment plan with patient, family, nursing staff around 65 minutes
Anticipated Discharge: > 48 hours
Subjective/Interval History
-
Date of Service: September 25, 2023
Objective Data
-
Labs:
Laboratory Results
09/25/23
07:39
WBC 14.9 H
Hgb 11.4 L
Hct 33.2 L
Plt Count 171
Sodium 130 L
Potassium 3.3 L
Chloride 95 L
Carbon Dioxide 20 L
BUN 45 H
Creatinine 2.9 H
Glucose 91
Calcium 9.0
Total Bilirubin 0.5
AST 35
ALT 15
Alkaline Phosphatase 104
Vital Signs:
Vital Signs
Temp Pulse Resp BP Pulse Ox
97.2 F 89 16 148/91 94
09/25/23 07:00 09/25/23 08:16 09/25/23 08:16 09/25/23 07:00 09/25/23 08:16
I&O
04/17/24 04/18/24 04/19/24
06:59 06:59 06:59
Intake Total 460 / 460
Output Total 1100 / 1100
Balance -640 / -640
[2023-09-25] MEDS: VANCOCIN 150 IV (10:47)
[2023-09-25] MEDS: KCL 20 MEQ PO (11:42)
[2023-09-25] MEDS: SODIUM BICARBONATE 1075 MEQ IV (11:42)
[2023-09-25 11:55] LABS: Glucose - Point of Care 123 mg/dl (70-99)
--- NOTE | 2023-09-25 12:09 | CON.CAR ---
Consultation
Consultation Request
Date/Time Consultation Requested: 09/25/23, 11am
Date/Time Consultation Performed: 09/25/23, 1115am
Requesting Provider: Papi
Performing Provider: Dean
Reason for Consultation: A fib, bacteremia
Medical History
-
Chief Complaint: weakness
History of Present Illness:
88 yo female with PMH of A fib, likely persistent, on eliquis, CAD (moderate risk nuclear stress), chronic stable angina, medically managed (no stents), HTN, mixed hyperlipidemia, DM, PAD (50% left and right subclavian), TIA, GI bleed when on DAPT,
COPD on 4LNC, JELLY/CPAP, obesity is admitted with fatigue, altered mental status.
Found to have MRSA bacteremia, unclear source. Also A fib with RVR and JASWANT.
We are consulted for A fib management. And also for evaluation of endocarditis as possible source.
Her angina is stable. A fib seems minimally symptomatic with occasional palps. SOB seems stable.
Past Medical History
Past Medical History: Arrhythmias (persistent A fib), CAD, COPD, GERD, HTN, Hypercholesterolemia and IDDM
Past Surgical History: Cholecystectomy
Social History
Tobacco: Non-Smoker
Family History
Family History: Early CAD (none)
Allergies / Home Medications
Allergy/AdvReac Type Severity Reaction Status Date / Time
egg Allergy Hives Verified 09/12/23 11:01
�Medication �Instructions �Recorded �Confirmed �Type
propranolol 60 mg capsule,24 60 mg PO DAILY Blood Pressure 04/27/15 09/23/23 History
hr,extended release
cranberry 400 mg capsule 400 mg PO BID Supplement 03/30/19 09/23/23 History
cholecalciferol (vitamin D3) 125 125 mcg PO DAILY Supplement 09/12/23 09/23/23 History
mcg (5,000 unit) tablet
cyanocobalamin (vitamin B-12) 500 500 mcg PO HS Supplement 09/12/23 09/23/23 History
mcg tablet
isosorbide mononitrate 120 mg 120 mg PO DAILY Heart 09/12/23 09/23/23 History
tablet,extended release 24 hr Disease/Condition
loperamide 2 mg capsule 2 mg PO DAILYPRN PRN diarrhea 09/12/23 09/23/23 History
metformin 750 mg tablet,extended 750 mg PO BID Diabetes 09/12/23 09/23/23 History
release 24 hr
rosuvastatin 40 mg tablet 40 mg PO HS High Cholesterol 09/12/23 09/23/23 History
ipratropium 0.5 mg-albuterol 3 mg 3 ml inhalation R Q4HPRN PRN 09/22/23 09/23/23 Rx
(2.5 mg base)/3 mL nebulization shortness of breath #90 mL
soln
acetaminophen 325 mg tablet 650 mg PO Q4H PRN fever>100 09/23/23 09/23/23 History
(Tylenol)
acetaminophen 500 mg tablet 1,000 mg PO DAILYPRN PRN mild pain 09/23/23 09/23/23 History
acetaminophen 500 mg tablet 1,000 mg PO HS Pain 09/23/23 09/23/23 History
apixaban 5 mg tablet (Eliquis) 5 mg PO BID Blood Clot 09/23/23 09/23/23 History
Prevention/Tx
azithromycin 250 mg tablet 250 mg PO Q48H prophylaxis 09/23/23 09/23/23 History
bisacodyl 10 mg rectal suppository 10 mg KS DAILY PRN constipation 09/23/23 09/23/23 History
(Dulcolax (bisacodyl))
diltiazem HCl 240 mg 240 mg PO DAILY Blood Pressure 09/23/23 09/23/23 History
capsule,extended release 24 hr
fluticasone propionate 230 2 puff inhalation R BID 09/23/23 09/23/23 History
mcg-salmeterol 21 mcg/actuation Lung/Breathing Issues
HFA inhaler
guaifenesin 600 mg tablet, 600 mg PO BID PRN congestion 09/23/23 09/23/23 History
extended release 12 hr (Mucinex)
insulin glargine 100 unit/mL (3 12 unit SC DAILY Diabetes 09/23/23 09/23/23 History
mL) subcutaneous pen (Lantus
Solostar U-100 Insulin)
magnesium hydroxide 400 mg/5 mL 30 ml PO DAILY PRN if no BM x 4 09/23/23 09/23/23 History
oral suspension (Milk of Magnesia) days
pantoprazole 40 mg tablet,delayed 40 mg PO DAILY Gastrointestinal 09/23/23 09/23/23 History
release Issue
sitagliptin phosphate 100 mg 100 mg PO DAILY Diabetes 09/23/23 09/23/23 History
tablet (Januvia)
sodium phosphates 19 gram-7 118 ml KS DAILYPRN PRN constipation 09/23/23 09/23/23 History
gram/118 mL enema (Fleet Enema)
tiotropium bromide 2.5 2 puff inhalation R DAILY 09/23/23 09/23/23 History
mcg/actuation mist for inhalation Lung/Breathing Issues
(Spiriva Respimat)
Review of Systems
-
All other systems: Negative unless noted
Constitutional: Fatigue
Respiratory: Trouble Breathing
Cardiac: Chest Pain (stable angina)
Neurological: Weakness
Physical Exam
Vital Signs
Temp Pulse Resp BP Pulse Ox
97.6 F 101 20 119/79 93
09/25/23 10:54 09/25/23 10:54 09/25/23 10:54 09/25/23 10:54 09/25/23 10:54
Lab Results
09/25/23 07:39
09/25/23 07:39
Troponin I 0.088 ng/ml H* 09/23/23 14:19
Ncj-Q-Fjbddulanyo Pept 7880 pg/ml 09/23/23 14:19
Physical Exam
General: No Apparent Distress and Comfortable
HEENT: Normocephalic, Anicteric and Moist Mucous Membranes
Respiratory: Clear and Non Labored Respirations
Cardiac: S1/S2 (normal), Irregular Rhythm, Murmur (none), Peripheral Edema (none) and JVD (none)
GI: Soft, Non Tender and Non Distended
Musculoskeletal: No Clubbing, No Cyanosis and No Edema
Skin: Warm and Dry
Neuro: AO x 3
Psych: Calm
Impression / Plan
-
88 yo female with PMH of A fib, likely persistent, on eliquis, CAD (moderate risk nuclear stress), chronic stable angina, medically managed (no stents), HTN, mixed hyperlipidemia, DM, PAD (50% left and right subclavian), TIA, GI bleed when on
DAPT, COPD on 4LNC, JELLY/CPAP, obesity is admitted with fatigue, altered mental status.
Found to have MRSA bacteremia, unclear source. Also A fib with RVR and JASWANT.
We are consulted for A fib management. And also for evaluation of endocarditis as possible source.
#MRSA bacteremia
-Abx per ID
-TTE unremarkable
-discussed persistent positive Bcx with ID and recommendation is for ABENA
-nephrology is also concerned about embolic phenomenon contributing to JASWANT
-will plan for ABENA in AM as long as she remains clinically stable
# A fib, likely persistent
-continue eliquis 2.5mg bid for OAC (CHADS2-VASC = 8)
-continue diltiazem 240mg daily, and propranolol 60mg daily for rate control
-rates mildly elevated: trend as she is treated for infection
#CAD with stable angina
-not on ASA since on eliquis for A fib
-prior nuclear stress: moderate risk with small area of ischemia in LAD territory
-opted not for cath in past due to GI bleed on DAPT in past
-continue imdur 120mg daily, propranolol 60mg daily.
-she takes crestor at home
# JASWANT
-nephrology consulted
Testing
TTE 09/24/23
Normal left ventricular systolic function. Left ventricular ejection fraction
is 55-60% by visual assessment.
Mild to moderate tricuspid regurgitation. Estimated pulmonary artery pressure
of 50 mmHg.
No significant change since the prior study of Jul 2023.
Data Reviewed
-
EKG: Tracing Personally Visualized and interpreted (A fib 93, LVH)
Medical Tests (Nuc Med, Echo etc): Report Reviewed by me (echo per note)
Labs: Labs Reviewed by me, Discussed with Physician, Discussed with Nurse and Discussed with Patient
Old Records: Reviewed
--- NOTE | 2023-09-25 12:51 | CM ---
Spoke with daughter bedside.
Patient sitting in chair.
PT/OT recommending skilled rehab.
Patient was in [facility], will send referral to [facility].
Daughter stated BUN/CR increasing and she is not sure her mother would want HD.
Per Daughter if they decide not to treat may consider home.
Discussed hospice with daughter and this will depend on patients kidney status and wishes.
Family aware of CM availability.
Plan: possible skilled rehab vs home.
--- NOTE | 2023-09-25 14:07 | W.PN.ID1 ---
Date of Service
Date of Service: September 25, 2023
Today's Communication
For ABENA.
Continue Vancomycin.
Assessment / Plan
# MRSA bacteremia, complicated
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
- Unclear source of bacteremia
-Repeat blood cx's x 2 remain positive
- TTE no gross vegetation
- Appreciate Cardiology. For ABENA tomorrow or Friday.
- Follow repeat blood cultures until clear
- Continue Vancomycin (d3)
Follow Vanco levels closely
# Citrobacter bacteruria vs UTI
- Continue ceftriaxone (d3) for now
#Leukocytosis
- improving.
# JASWANT worse
- 09/22 donovan placed for decreased urine output
# COPD on maintenance azithromycin, per pulmonalogist
#Additional Past Medical History:
DM 2
New onset A-fib September 2023
chronic COPD
interstitial lung disease
chronic hypoxemic respiratory failure on 4-5L O2
asthma
latent tuberculosis, treated in remote past
JELLY on CPAP
GERD/GI bleed
HTN
known pulmonary nodule
TIA/CVA
CAD
HLD
diverticulosis
fatty liver
glaucoma
adrenal nodule
vitamin D deficiency
Right TKR
Cholecystectomy
Appendectomy
Bilateral leg vein stripping
Bilateral cataract extraction
Loop recorder placed
Laser surgery cataract
Chief Complaint
-: Bacteremia
Subjective / Review of Systems
More alert. Sitting up in chair.
c/o left shoulder pain.
Had right hip pain now resolved.
No back pain.
Vital Signs / Physical Exam
Vital Signs
Vital Signs
Temp Pulse Resp BP Pulse Ox
97.6 F 101 20 119/79 93
09/25/23 10:54 09/25/23 10:54 09/25/23 10:54 09/25/23 10:54 09/25/23 10:54
Physical Exam
Constitutional: No Acute Distress and Comfortable
Cardiovascular: Irregular Rate
Pulmonary: Clear
Gastrointestinal: Soft, Non Tender and Non Distended
Genito-Urinary: Negative CVA Tenderness
Musculoskeletal: Other (right hip/ left shoulder/right TKR: NO erythema/warmth/effusion); Negative Spinal Tenderness
Neurological: AO x 3
Objective Data
Lab Data
Lab Results
09/25/23 07:39
09/25/23 07:39
ESR Cancelled 09/24/23 14:48
Estimated Creat Clear 14 ml/min 09/25/23 07:39
Lactic Acid 2.2 mmol/L (0.7-2.0) H 09/23/23 15:34
Total Bilirubin 0.5 mg/dl (0.2-1.3) 09/25/23 07:39
AST 35 U/L (14-36) 09/25/23 07:39
ALT 15 U/L (0-35) 09/25/23 07:39
Alkaline Phosphatase 104 U/L (38-126) 09/25/23 07:39
C-Reactive Protein > 270.00 mg/L (0.0-10.00) H 09/24/23 08:28
Most recent labs reviewed.
Micro Results:
09/23/23 12:56 Blood Culture - Preliminary
Blood/Venous Positive culture in progress
Gram Stain - Final
09/23/23 12:56 Blood Culture - Preliminary
Blood/Venous Staph aureus MRSA
Gram Stain - Final
09/24/23 08:27 Blood Culture - Preliminary
Blood/Venous Staph aureus MRSA
Gram Stain - Preliminary
09/23/23 12:56 Urine Culture - Final
Urine Citrobacter koseri
09/24/23 09:08 Blood Culture - Preliminary
Blood/Venous Positive culture in progress
Gram Stain - Preliminary
09/25/23 07:39 Blood Culture - Pending
Blood/Venous
09/23/23 CXR: There is borderline cephalization of the pulmonary vasculature. Correlation with the patient's BNP is recommended
The lungs are otherwise clear.
09/23/23 Renal US: Suspected 2.3 cm mass in the lower pole of the left kidney. Diagnostic possibilities are (1) lobular renal parenchyma, (2) a complex cyst, or (3) a hypovascular renal cell carcinoma.
Care Review
Plan reviewed with: Physician (Drs. Moran and Papi)
--- NOTE | 2023-09-25 14:49 | W.PN.NEPH.PH ---
Today's Communication / Plan
-
- replete K
- sodium bicarb gtt
Assessment/Plan
-
Impression:
TME likely due to evolving sepsis vs embolic event
Acute kidney
Hyponatremia
Paroxysmal atrial fibrillation
Chronic COPD and interstitial lung disease
Hypertension
Type 2 diabetes
History of TIA and stroke
Coronary artery disease
History of latent TB
Plan:
JASWANT: (no obvious etiology per review of chart from recent admission and discharge)
- differential includes atheroembolic disease [livedo reticularis on feet? + sudden rise in Cr with new onset AC + UA] vs. ATN vs. AIN?
- on CTX now for possible UTI
- did discuss biopsy with the patient's children they told me that the patient would not want any aggressive measures or treatment and would likely just want supportive measures. discussed with patient today who reiterated this.
- proteinuria, blood noted on UA but in the setting of infection, very difficult to interpret. albumin also lower. notable for some high C4 unclear of clinical significance. no peripheral eosinophilia.
- patient with significantly improved mentation today and increased UOP after Marshall placement --> unclear if this indicates ATN and the patient might peak Cr soon. we will continue to trend for the next 24-48h
- Hold metformin
- renal ultrasound results reviewed with a cyst on kidney with variable diagnostic probabilities. moderate chronic bilateral renal disease noted
- antibiotics to be renally dosed
- hemodynamically stable, appears euvolemic
Hyponatremia
- likely some hypovolemic hyponatremia
- s/p fluids with improvement in Na
- initiated on sodium bicarb today by primary team. will need aggressive repletion of K which will help with Na as well
-
-
Date of Service: September 25, 2023
CC / HPI / ROS
-
Chief Complaint:
JASWANT
History of Present Illness:
mental status change -- still different
JASWANT (bl Cr 0.8, but has gotten as high as 1.5 in outpatient setting due to pre-renal disease), now up to 2.9
hypoxci respiratory failure (bl O2 4-5L)
Review of Systems:
awake and alert today
states that she is feeling better
does not remember meeting me yesterday
Labs
-
Labs:
WBC 14.9 10^3/uL (4.8-10.8) H 09/25/23 07:39
RBC 3.76 10^6/uL (4.20-5.40) L 09/25/23 07:39
Hgb 11.4 g/dL (12.0-16.0) L 09/25/23 07:39
Hct 33.2 % (37.0-47.0) L 09/25/23 07:39
Plt Count 171 10^3/uL (130-400) 09/25/23 07:39
Sodium 130 mmol/L (135-145) L 09/25/23 07:39
Potassium 3.3 mmol/L (3.5-5.1) L 09/25/23 07:39
Chloride 95 mmol/L (98-107) L 09/25/23 07:39
Carbon Dioxide 20 mmol/L (22-30) L 09/25/23 07:39
BUN 45 mg/dl (7-17) H 09/25/23 07:39
Creatinine 2.9 mg/dL (0.6-1.0) H 09/25/23 07:39
eGFR 15.10 09/25/23 07:39
Glucose 91 mg/dl (70-99) 09/25/23 07:39
Calcium 9.0 mg/dl (8.4-10.2) 09/25/23 07:39
Vdv-M-Iasqzcozazq Pept 7880 pg/ml 09/23/23 14:19
Albumin 2.7 g/dl (3.5-5.0) L 09/25/23 07:39
Physical Exam
-
Vital Signs:
Vital Signs
Temp Pulse Resp BP Pulse Ox
97.6 F 101 20 119/79 93
09/25/23 10:54 09/25/23 10:54 09/25/23 10:54 09/25/23 10:54 09/25/23 10:54
Cardiovascular:: Regular rate and rhythm
Respiratory:: Bilateral: Coarse
Lung Excursion:: Normal
Abdomen:: Nontender and Soft
Bowel Sounds:: Normal
Extremity Edema:: None: Bilateral:
Marshall Catheter: Yes
[2023-09-25] MEDS: ROCEPHIN 1000 MG IV (15:46)
[2023-09-25] MEDS: STERILE WATER FOR INJECTION 10 ML IV (15:47)
[2023-09-25 16:56] LABS: Glucose - Point of Care 123 mg/dl (70-99)
[2023-09-25 21:43] LABS: Glucose - Point of Care 158 mg/dl (70-99)
[2023-09-25] MEDS: TYLENOL 1000 MG PO (21:56)
[2023-09-26] VITALS (7 sets, daily range): BP systolic 112–149; BP diastolic 61–94; BMI 35.3
[2023-09-26] MEDS: SODIUM BICARBONATE 1075 MEQ IV ×2 (02:31→17:39)
[2023-09-26 05:36] LABS: Glucose - Point of Care 182 mg/dl (70-99)
[2023-09-26] MEDS: NOVOLOG FLEXPEN-MODERATE RESISTANCE 1 UNITS SC (06:05)
[2023-09-26] MEDS: ADVAIR HFA 230/21 MCG INHALER 2 PUFF INH ×2 (07:31→20:17)
[2023-09-26] MEDS: SPIRIVA RESPIMAT 2.5 MCG 2 PUFF INH (07:31)
[2023-09-26] MEDS: DUONEB 3 ML INH (07:37)
[2023-09-26 07:38] LABS: % Basophils 0.2 % (0-2); % Eosinophils 0.2 % (0-6); % Immature Granulocytes 0.6 % (0-0.5); % Lymphocytes 3.5 % (20.5-51.1); % Monocytes 6.4 % (1.7-9.3); % Neutrophils 89.1 % (42.2-75.2); Absolute Immature Granulocytes 0.1 10^3/uL (0-0.05); Absolute Lymphocytes 0.4 10^3/uL (1.2-3.4); Absolute Monocytes 0.7 10^3/uL (0.1-0.6); Absolute Neutrophils 10.2 10^3/uL (1.4-6.5); Hematocrit 31.3 % (37.0-47.0); Mean Corp Hgb Conc. 35.1 g/dL (33.0-37.0); Mean Corpuscular Hgb 30.8 pg (27.0-31.0); Mean Corpuscular Volume 87.7 fL (81.0-99.0); Mean Platelet Volume 10.8 fL (7.4-10.4); Nucleated Red Blood Cells % 0 %; Platelet Count 166 10^3/uL (130-400); Red Blood Cell Count 3.57 10^6/uL (4.20-5.40); Red Cell Dist. Width 13.8 % (11.5-14.5); White Blood Cell Count 11.5 10^3/uL (4.8-10.8)
[2023-09-26 08:02] LABS: Vancomycin Random 17.9 ug/ml
--- NOTE | 2023-09-26 08:05 | W.PN.CD ---
Today's Communication / Plan
-
plan for ABENA today
trend tele
Impression / Plan
-
88 yo female with PMH of A fib, likely persistent, on eliquis, CAD (moderate risk nuclear stress), chronic stable angina, medically managed (no stents), HTN, mixed hyperlipidemia, DM, PAD (50% left and right subclavian), TIA, GI bleed when on
DAPT, COPD on 4LNC, JELLY/CPAP, obesity is admitted with fatigue, altered mental status.
Found to have MRSA bacteremia, unclear source. Also A fib with RVR and JASWANT.
We are consulted for A fib management. And also for evaluation of endocarditis as possible source.
#MRSA bacteremia
-Abx per ID
-TTE unremarkable
-discussed persistent positive Bcx with ID and recommendation is for ABENA
-nephrology is also concerned about embolic phenomenon contributing to JASWANT
-ABENA this AM
# A fib, likely persistent
-continue eliquis 2.5mg bid for OAC (CHADS2-VASC = 8)
-continue diltiazem 240mg daily, and propranolol 60mg daily for rate control
-average HR ~100: improving as she is treated for infection; will titrate diltiazem if rates remain elevated
#CAD with stable angina
-not on ASA since on eliquis for A fib
-prior nuclear stress: moderate risk with small area of ischemia in LAD territory
-opted not for cath in past due to GI bleed on DAPT in past
-continue imdur 120mg daily, propranolol 60mg daily.
-she takes crestor at home
# JASWANT
-nephrology consulted
Testing
TTE 09/24/23
Normal left ventricular systolic function. Left ventricular ejection fraction
is 55-60% by visual assessment.
Mild to moderate tricuspid regurgitation. Estimated pulmonary artery pressure
of 50 mmHg.
No significant change since the prior study of Jul 2023.
Physical Exam
Vital Signs/Labs
Vital Signs
Temp Pulse Resp BP Pulse Ox
97.3 F 96 20 131/94 97
09/26/23 07:00 09/26/23 07:40 09/26/23 07:40 09/26/23 07:00 09/26/23 07:40
09/25/23 09/26/23 09/27/23
06:59 06:59 06:59
Actual Weight 87.146 kg 88.904 kg
09/26/23 07:20
TSH 1.55 uIU/ml (0.47-4.68) 09/24/23 08:27
09/23/23
14:19
Goy-A-Nmkyxteteqa Pept 7880
LAB Results
09/23/23
14:19
Troponin I 0.088 H*
Physical Exam
Constitutional: No acute distress
EENT: Moist mucous membranes
Cardiovascular: Pedal edema is absent, JVD pressure is normal, Rhythm/rate is irregular and Systolic murmur present
Respiratory: Respiratory effort normal and Lungs clear to auscul.
GI: Soft and Distention absent
Neuro/Psych: AO x 3
Data Reviewed
-
Date of Service: September 26, 2023
EKG: Other (A fib, avg HR ~100)
Labs: Labs Reviewed by me
[2023-09-26 08:41] LABS: ALT (SGPT) 19 U/L (0-35); AST (SGOT) 42 U/L (14-36); Albumin 2.6 g/dl (3.5-5.0); Alkaline Phosphatase 107 U/L (38-126); Blood Urea Nitrogen 46 mg/dl (7-17); Calcium 8.6 mg/dl (8.4-10.2); Carbon Dioxide 23 mmol/L (22-30); Chloride 97 mmol/L (98-107); Estimated Creatinine Clearance 15 ml/min; Glucose 105 mg/dl (70-99); Potassium 3.3 mmol/L (3.5-5.1); Sodium 129 mmol/L (135-145); Total Bilirubin 0.5 mg/dl (0.2-1.3); Total Protein 5.2 g/dl (6.3-8.2); eGFR 16.45
[2023-09-26] MEDS: LANTUS SC (08:41)
--- NOTE | 2023-09-26 08:46 | PHA.VAN.FU ---
Vancomycin Assessment / Plan
- Assessment
Renal Function: SCR Decreasing
WBC's are: Trending Down
In the past 24 hrs, patient has been: Afebrile
Concomitant Antimicrobials: Azithromycin, Ceftriaxone
- Assessment - Therapeutic Drug Monitoring
Random Level: 17.9
- Dosing Plan
Dosing by Level: Hold off on dosing today
- Monitoring Plan
Next Level Due (Date): Random level: 09/26 0600
- Follow Up
Pharmacy will continue to follow.
Vancomycin Follow UP
- -
Patient Age: 88
Patient Sex: Female
Vancomycin Day #: 3
Indication: Bacteremia
Requesting Provider: Dr. Turpin / Arsenio
Pertinent Antimicrobial Allergies:
no pertinent antibiotic allergies
Height / Weight:
Height 5 ft 2.5 in
Actual Weight 88.904 kg
Pertinent Past Medical History: BMI ~35, COPD (home O2), DM 2
- Vital Signs / Lab Results
Temp Pulse Resp BP Pulse Ox
97.3 F 96 20 131/94 97
09/26/23 07:00 09/26/23 07:40 09/26/23 07:40 09/26/23 07:00 09/26/23 07:40
Lab Results - Hematology
09/23/23 09/24/23 09/25/23
12:20 08:27 07:39
WBC 24.4 H 17.2 H 14.9 H
09/26/23
07:20
WBC 11.5 H
Lab Results - Chemistry
09/23/23 09/24/23 09/25/23
12:20 08:27 07:39
BUN 32 H 37 H 45 H
Creatinine 2.0 H 2.4 H 2.9 H
Estimated Creat Clear 17 14
Albumin 3.5 2.7 L 2.7 L
09/26/23
07:20
BUN 46 H
Creatinine 2.7 H
Estimated Creat Clear 15
Albumin 2.6 L
09/23/23 09/23/23
12:56 15:34
Lactic Acid 2.9 H 2.2 H
Microbiology Results
09/23/23 12:56 Blood Culture - Preliminary
Blood/Venous Positive culture in progress
Gram Stain - Final
09/23/23 12:56 Blood Culture - Preliminary
Blood/Venous Staph aureus MRSA
Gram Stain - Final
09/24/23 08:27 Blood Culture - Preliminary
Blood/Venous Staph aureus MRSA
Gram Stain - Preliminary
09/24/23 09:08 Blood Culture - Preliminary
Blood/Venous Positive culture in progress
Gram Stain - Preliminary
09/25/23 07:39 Blood Culture - Preliminary
Blood/Venous No Growth in 24 hours- Final report to follow
09/23/23 12:56 Urine Culture - Final
Urine Citrobacter koseri
Therapeutic Drug Monitoring
Random Vancomycin 17.9 ug/ml 09/26/23 07:20
[2023-09-26] MEDS: INDERAL LA 60 MG PO (08:49)
[2023-09-26] MEDS: CARDIZEM CD 240 MG PO (08:49)
[2023-09-26] MEDS: ELIQUIS 2.5 MG PO ×2 (08:50→21:08)
[2023-09-26] MEDS: IMDUR (EXTENDED RELEASE) 120 MG PO (08:50)
--- NOTE | 2023-09-26 10:35 | W.PN.HOSP.TC ---
Today's Communication/Plan
-
.
Assessment / Plan
Assessment / Plan
Physical Exam
General: she looks better today, more alert, not in respiratory distress
HEENT: Normocephalic, Anicteric, PERRLA, [place] Conjunctivae, No Ptosis and Oxygen (4 L nasal cannula dependent)
Respiratory: limited. Mild expiratory wheezes
Cardiac: S1/S2 and Regular Rhythm; + murmur
GI: Soft, Non Distended, Normal Bowel Sounds, Tender (Suprapubic) and No Hepatosplenomegaly
Rectal: no bleeding
Genito-urinary: no Marshall
Musculoskeletal: No Clubbing, No Cyanosis and No Edema
Skin: Warm and Dry; No Rash or Jaundice
Neuro: Awake, mumbling , known to have expressive aphasia. She followed commands, answered yes and no appropriately. No Tremors
Psych: Calm
# Toxic metabolic encephalopathy due to infection/ sepsis
Her mental status seems to be better , she is following commands and answering questions, recognized her family.
History of strokes in the past. CAT scan of the head showed signs of atrophy with no acute changes. Hold off on MRI
c/ w supportive care and treating the infection.
# Severe sepsis POA
with leukocytosis, bacteremia, lactic acidosis, confusion upon admission, resolving.
# MRSA Bacteremia, persistent. Await culture of 09/24 & 09/25
c/w Vancomycin
TTE no vegetation
No fevers
No Back pain ( more than usual arthritis), no joint swelling, no toothache although one left lower molar looked black.
For ABENA
Appreciate ID & cardiology help
# UTI with Citrobacter Koseri
No Dysuria
No gross hematuria
Continue with Rocephin
Urine culture positive for E Coli also
Renal ultrasound no hydronephrosis or nephrolithiasis
Appreciate ID input
#Hyponatremia, improving
maintain Marshall due to JASWANT
#Acute kidney injury , Creatinine down to 2.7 from 2.9 good urine put put/metabolic acidosis
Seems consistent with acute interstitial nephritis
Patient had normal kidney function on 09/13/23
Urine sodium 29
Better urine out put over night
Urine studies are sent
Marshall for strict I/O measurement for now
IVF with sodium bicarbonate, can be DC later today
Avoid nephrotoxic
Renal ultrasound no hydronephrosis or nephrolithiasis, consistent with chronic renal disease. Possible underlying diabetic nephropathy
Appreciate nephrology input
# Paroxysmal A-fib, continue Eliquis but adjust the dose,
Continue with oral medication. Rate is well-controlled.
History of GI bleeding and aspirin was stopped. On low-dose Eliquis.- Continue Eliquis at 2.5 mg twice daily instead of 5 mg twice daily due to CrCl 27, CrCl was 34 on discharge 09/22/2023
Monitor for GI bleeding
echocardiogram 07/15/23 reviewed with 65% EF and mildly elevated PASP
#Chronic hypoxic respiratory failure combination of obstructive sleep apnea, COPD
Baseline oxygen requirement 4 to 5 L. On prophylactic Zithromax
Continue with Spiriva and Advair. As needed DuoNebs
Swallow evaluation. Chest x-ray did not show acute changes
Primary supervisor unloading Dr. Murguia
Will reach out to her supervisor unloading to ask about maintenance prednisone therapy. Per family, patient was on 10 mg prednisone for several months as an outpatient
For cortisol level in a.m.
#JELLY on CPAP
-cont setting 7 with 4 liters nc
#HTN�benign
No hypotension.
-Continue propranolol 60 mg ER
-Continue oral diltiazem
# hypokalemia, replace
#Gastroesophageal reflux disease
#GI bleed by history
- continue H2 gene;
#Type 2 diabetes mellitus
#Hyperglycemia hx
- A1c is 9.4%
- Low-dose scale coverage
- continue Lantus 12 units
-Hold metformin 750mg BID, Januvia
#Pulmonary Nodule
- Follow-up with pulmonary
#Prior TIA/CVA
- Clopidogrel was stopped during recent admission due to need for Eliquis for A-fib
#CAD
-No chest pain
-Continue beta-gene
Resume statin therapy.
#History latent TB
#Obesity due to excess calorie consumption
-Weight loss recommended
#Hyperlipidemia
-Hold current statin
#Ambulatory dysfunction secondary to recent hospitalization
-Continue PT/OT
Other PMH:
#Diverticulosis.
Fatty liver
Glaucoma
Adrenal nodule
Vitamin D deficiency-continue vitamin D
DVT proph
-Continue oral Eliquis
Total time spent to see patient, examine the patient on the floor, review data and lab results, discuss treatment plan with patient, family, nursing staff around 57 minutes
Anticipated Discharge: > 48 hours
Subjective/Interval History
-
Date of Service: September 26, 2023
No chest pain
No sob
No fevers
Objective Data
-
Labs:
Laboratory Results
09/26/23
07:20
WBC 11.5 H
Hgb 11.0 L
Hct 31.3 L
Plt Count 166
Sodium 129 L
Potassium 3.3 L
Chloride 97 L
Carbon Dioxide 23
BUN 46 H
Creatinine 2.7 H
Glucose 105 H
Calcium 8.6
Total Bilirubin 0.5
AST 42 H
ALT 19
Alkaline Phosphatase 107
Vital Signs:
Vital Signs
Temp Pulse Resp BP Pulse Ox
97.3 F 96 20 131/94 97
09/26/23 07:00 09/26/23 07:40 09/26/23 07:40 09/26/23 07:00 09/26/23 07:40
I&O
09/25/23 09/26/23 09/27/23
06:59 06:59 06:59
Intake Total 460 / 460 1954
Output Total 1100 / 1100 1275 / 1275
Balance -640 / -640 680 / 680
[2023-09-26 11:40] LABS: Glucose - Point of Care 99 mg/dl (70-99)
--- NOTE | 2023-09-26 11:56 | W.PN.NEPH.PH ---
Today's Communication / Plan
-
maintain IVFs another day
maintain donovan
follow bmp
Assessment/Plan
-
Impression:
TME likely due to evolving sepsis vs embolic event
Acute kidney
Hyponatremia
Paroxysmal atrial fibrillation
Chronic COPD and interstitial lung disease
Hypertension
Type 2 diabetes
History of TIA and stroke
Coronary artery disease
History of latent TB
Plan:
JASWANT: (no obvious etiology per review of chart from recent admission and discharge)
- differential includes atheroembolic disease [livedo reticularis on feet? + sudden rise in Cr with new onset AC + UA] vs. ATN vs. AIN?
- on CTX now for possible UTI
- did discuss biopsy with the patient's children they told me that the patient would not want any aggressive measures or treatment and would likely just want supportive measures. discussed with patient today who reiterated this.
- proteinuria, blood noted on UA but in the setting of infection, very difficult to interpret. albumin also lower. notable for some high C4 unclear of clinical significance. no peripheral eosinophilia.
- patient with significantly improved mentation today and increased UOP after Donovan placement --> unclear if this indicates ATN and the patient might peak Cr soon. we will continue to trend for the next 24-48h
- Hold metformin
- renal ultrasound results reviewed with a cyst on kidney with variable diagnostic probabilities. moderate chronic bilateral renal disease noted
- antibiotics to be renally dosed
- hemodynamically stable, appears euvolemic
Hyponatremia
- likely some hypovolemic hyponatremia
- s/p fluids with sodium down to 129
-weights stable grossly non oliguric via donovan: continue donovan
- maintain sodium bicarb today by primary team. replete K
-discussed with daughter
-
-
Date of Service: September 26, 2023
CC / HPI / ROS
-
Chief Complaint:
JASWANT
History of Present Illness:
mental status change -- still different
JASWANT (bl Cr 0.8, but has gotten as high as 1.5 in outpatient setting due to pre-renal disease), down to 2.7
hypoxic respiratory failure (bl O2 4-5L)
Review of Systems:
awake and alert today
states that she is feeling better
non olilguric via donovan
Labs
-
Labs:
WBC 11.5 10^3/uL (4.8-10.8) H 09/26/23 07:20
RBC 3.57 10^6/uL (4.20-5.40) L 09/26/23 07:20
Hgb 11.0 g/dL (12.0-16.0) L 09/26/23 07:20
Hct 31.3 % (37.0-47.0) L 09/26/23 07:20
Plt Count 166 10^3/uL (130-400) 09/26/23 07:20
Sodium 129 mmol/L (135-145) L 09/26/23 07:20
Potassium 3.3 mmol/L (3.5-5.1) L 09/26/23 07:20
Chloride 97 mmol/L (98-107) L 09/26/23 07:20
Carbon Dioxide 23 mmol/L (22-30) 09/26/23 07:20
BUN 46 mg/dl (7-17) H 09/26/23 07:20
Creatinine 2.7 mg/dL (0.6-1.0) H 09/26/23 07:20
eGFR 16.45 09/26/23 07:20
Glucose 105 mg/dl (70-99) H 09/26/23 07:20
Calcium 8.6 mg/dl (8.4-10.2) 09/26/23 07:20
Emo-H-Dxxokjqykfb Pept 7880 pg/ml 09/23/23 14:19
Albumin 2.6 g/dl (3.5-5.0) L 09/26/23 07:20
Physical Exam
-
Vital Signs:
Vital Signs
Temp Pulse Resp BP Pulse Ox
97.0 F 92 20 149/89 94
09/26/23 11:20 09/26/23 11:20 09/26/23 11:20 09/26/23 11:20 09/26/23 11:20
Cardiovascular:: Regular rate and rhythm
Respiratory:: Bilateral: CTA
Lung Excursion:: Normal
Abdomen:: Nontender and Soft
Bowel Sounds:: Normal
Extremity Edema:: None: Bilateral:
Donovan Catheter: Yes
[2023-09-26] MEDS: NOVOLOG FLEXPEN-MODERATE RESISTANCE SC ×2 (14:16→17:30)
--- NOTE | 2023-09-26 14:17 | W.PN.ID1 ---
Date of Service
Date of Service: September 26, 2023
Today's Communication
Continue Vancomycin.
Assessment / Plan
# MRSA bacteremia, complicated
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
- Unclear source of bacteremia
- ABENA: No evidence of infectious endocarditis. 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
- Follow repeat blood cultures until clear
- Continue Vancomycin (d3). Anticipate 4 to 6 weeks of IV abx.
Follow Vanco levels closely
# Citrobacter bacteruria
- Completed 3d of ceftriaxone. DC ceftriaxone.
#Leukocytosis
- improving.
# JASWANT
# COPD on maintenance azithromycin, per banner painter
#Additional Past Medical History:
DM 2
New onset A-fib September 2023
chronic COPD
interstitial lung disease
chronic hypoxemic respiratory failure on 4-5L O2
asthma
latent tuberculosis, treated in remote past
JELLY on CPAP
GERD/GI bleed
HTN
known pulmonary nodule
TIA/CVA
CAD
HLD
diverticulosis
fatty liver
glaucoma
adrenal nodule
vitamin D deficiency
Right TKR
Cholecystectomy
Appendectomy
Bilateral leg vein stripping
Bilateral cataract extraction
Loop recorder placed
Laser surgery cataract
Chief Complaint
-: Bacteremia
Subjective / Review of Systems
More alert. No specific complaints. No back pain.
Vital Signs / Physical Exam
Vital Signs
Vital Signs
Temp Pulse Resp BP Pulse Ox
97.7 F 96 16 143/83 96
09/26/23 12:45 09/26/23 12:45 09/26/23 12:45 09/26/23 12:45 09/26/23 12:45
Physical Exam
Constitutional: No Acute Distress and Comfortable
Cardiovascular: Irregular Rate and S1/S2
Pulmonary: Clear
Gastrointestinal: Soft, Non Tender and Non Distended
Musculoskeletal: Negative Joint Swelling, Joint Effusion or Spinal Tenderness
Objective Data
Lab Data
Lab Results
09/26/23 07:20
09/26/23 07:20
ESR Cancelled 09/24/23 14:48
Estimated Creat Clear 15 ml/min 09/26/23 07:20
Lactic Acid 2.2 mmol/L (0.7-2.0) H 09/23/23 15:34
Total Bilirubin 0.5 mg/dl (0.2-1.3) 09/26/23 07:20
AST 42 U/L (14-36) H 09/26/23 07:20
ALT 19 U/L (0-35) 09/26/23 07:20
Alkaline Phosphatase 107 U/L (38-126) 09/26/23 07:20
C-Reactive Protein > 270.00 mg/L (0.0-10.00) H 09/24/23 08:28
Most recent labs reviewed.
Micro Results:
09/23/23 12:56 Blood Culture - Final
Blood/Venous Staph aureus MRSA
Gram Stain - Final
09/24/23 08:27 Blood Culture - Preliminary
Blood/Venous Staph aureus MRSA
Gram Stain - Preliminary
09/23/23 12:56 Blood Culture - Final
Blood/Venous Staph aureus MRSA
Gram Stain - Final
09/24/23 09:08 Blood Culture - Preliminary
Blood/Venous Positive culture in progress
Gram Stain - Preliminary
09/25/23 07:39 Blood Culture - Preliminary
Blood/Venous No Growth in 24 hours- Final report to follow
09/26/23 07:20 Blood Culture - Pending
Blood/Venous
09/23/23 12:56 Urine Culture - Final
Urine Citrobacter koseri
09/23/23 CXR: There is borderline cephalization of the pulmonary vasculature. Correlation with the patient's BNP is recommended
The lungs are otherwise clear.
09/23/23 Renal US: Suspected 2.3 cm mass in the lower pole of the left kidney. Diagnostic possibilities are (1) lobular renal parenchyma, (2) a complex cyst, or (3) a hypovascular renal cell carcinoma.
Care Review
Plan reviewed with: Physician (Dr. Moran)
--- NOTE | 2023-09-26 15:27 | CM ---
Patient seen bedside.
Continue to monitor BUN/CR patient does not want HD per daughter.
Plan terminal computer operator anbx.
PT/OT recommending skilled rehab. (was in [place] [facility] for skilled rehab prior to hospitalization).
Patient and family agreeable to [facility].
Plan: skilled rehab when stable.
[2023-09-26 16:12] LABS: Glucose - Point of Care 115 mg/dl (70-99)
[2023-09-26] MEDS: ZITHROMAX 250 MG PO (17:39)
[2023-09-26] MEDS: KCL 20 MEQ PO (17:40)
[2023-09-26] MEDS: TYLENOL 1000 MG PO (21:08)
[2023-09-26 21:31] LABS: Glucose - Point of Care 162 mg/dl (70-99)
[2023-09-27 03:10] VITALS: BP 131/75
[2023-09-27 03:29] LABS: ANA, IgG Reflex to HEp-2 Detected (None Detected)
[2023-09-27 06:00] VITALS: BMI 35.8
[2023-09-27] MEDS: SODIUM BICARBONATE 1075 MEQ IV (06:16)
[2023-09-27 07:00] VITALS: BP 131/66
[2023-09-27 07:47] LABS: Glucose - Point of Care 177 mg/dl (70-99)
[2023-09-27 08:02] LABS: % Basophils 0.2 % (0-2); % Eosinophils 0.2 % (0-6); % Immature Granulocytes 0.6 % (0-0.5); % Lymphocytes 4.2 % (20.5-51.1); % Monocytes 7.3 % (1.7-9.3); % Neutrophils 87.5 % (42.2-75.2); Absolute Immature Granulocytes 0.1 10^3/uL (0-0.05); Absolute Lymphocytes 0.4 10^3/uL (1.2-3.4); Absolute Monocytes 0.7 10^3/uL (0.1-0.6); Absolute Neutrophils 8.7 10^3/uL (1.4-6.5); Hematocrit 33.6 % (37.0-47.0); Hemoglobin 11.6 g/dL (12.0-16.0); Mean Corp Hgb Conc. 34.5 g/dL (33.0-37.0); Mean Corpuscular Hgb 30.5 pg (27.0-31.0); Mean Corpuscular Volume 88.4 fL (81.0-99.0); Mean Platelet Volume 10.2 fL (7.4-10.4); Nucleated Red Blood Cells % 0 %; Platelet Count 182 10^3/uL (130-400); Red Cell Dist. Width 13.8 % (11.5-14.5)
[2023-09-27] MEDS: ADVAIR HFA 230/21 MCG INHALER 2 PUFF INH ×2 (08:27→19:32)
[2023-09-27] MEDS: SPIRIVA RESPIMAT 2.5 MCG 2 PUFF INH (08:27)
[2023-09-27 08:30] LABS: Vancomycin Random 13.3 ug/ml
[2023-09-27 08:40] LABS: ALT (SGPT) 22 U/L (0-35); AST (SGOT) 35 U/L (14-36); Albumin 2.7 g/dl (3.5-5.0); Alkaline Phosphatase 111 U/L (38-126); Blood Urea Nitrogen 42 mg/dl (7-17); Calcium 8.5 mg/dl (8.4-10.2); Carbon Dioxide 27 mmol/L (22-30); Chloride 97 mmol/L (98-107); Estimated Creatinine Clearance 18 ml/min; Glucose 138 mg/dl (70-99); Potassium 3.5 mmol/L (3.5-5.1); Sodium 131 mmol/L (135-145); Total Bilirubin 0.5 mg/dl (0.2-1.3); Total Protein 5.5 g/dl (6.3-8.2); eGFR 19.94
--- NOTE | 2023-09-27 08:40 | W.PN.HOSP.TC ---
Today's Communication/Plan
-
likely d con Friday upon arranging IV abx course.
Assessment / Plan
Assessment / Plan
Physical Exam
General: she looks better today, more alert, not in respiratory distress
HEENT: Normocephalic, Anicteric, PERRLA, [place] Conjunctivae, No Ptosis and Oxygen (4 L nasal cannula dependent)
Respiratory: limited. Mild expiratory wheezes
Cardiac: S1/S2 and Regular Rhythm; + murmur
GI: Soft, Non Distended, Normal Bowel Sounds, Tender (Suprapubic) and No Hepatosplenomegaly
Rectal: no bleeding
Genito-urinary: no Marshall
Musculoskeletal: No Clubbing, No Cyanosis and No Edema
Skin: Warm and Dry; No Rash or Jaundice
Neuro: Awake, mumbling , known to have expressive aphasia. She followed commands, answered yes and no appropriately. No Tremors
Psych: Calm
# MRSA Bacteremia, persistent. Await culture of 09/24 & 09/25& 09/26 to clear, so far 18 looks clear
c/w Vancomycin
TTE no vegetation
No fevers
No Back pain ( more than usual arthritis), no joint swelling, no toothache although one left lower molar looked black.
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
per ID, expect 6-8 weeks of IV Vancomycin.
Appreciate ID & cardiology help
# Toxic metabolic encephalopathy due to infection/ sepsis
Her mental status seems to be better , she is following commands and answering questions, recognized her family.
History of strokes in the past. CAT scan of the head showed signs of atrophy with no acute changes. Hold off on MRI
c/ w supportive care and treating the infection.
# Severe sepsis POA, resolved.
with leukocytosis, bacteremia, lactic acidosis, confusion upon admission.
# UTI with Citrobacter Koseri
No Dysuria
No gross hematuria
Finished 3 days of Rocephin
Renal ultrasound no hydronephrosis or nephrolithiasis
Appreciate ID input
#Hyponatremia, improving
maintain Marshall due to JASWANT, voiding trial.
#Acute kidney injury , Creatinine down to 2.3 from 2.7 good urine put put/metabolic acidosis
Seems consistent with acute interstitial nephritis
Patient had normal kidney function on 09/13/23
Urine sodium 29
Better urine out put over night
Urine studies are sent
Marshall for strict I/O measurement for now
Stop IVF with sodium bicarbonate.
Avoid nephrotoxic
Renal ultrasound no hydronephrosis or nephrolithiasis, consistent with chronic renal disease. Possible underlying diabetic nephropathy
Appreciate nephrology input
# Paroxysmal A-fib, continue Eliquis but adjust the dose,
Continue with oral medication. Rate is well-controlled.
History of GI bleeding and aspirin was stopped. On low-dose Eliquis.- Continue Eliquis at 2.5 mg twice daily instead of 5 mg twice daily due to CrCl 27, CrCl was 34 on discharge 09/22/2023
Monitor for GI bleeding
TT echocardiogram 07/15/23 reviewed with 65% EF and mildly elevated PASP
#Chronic hypoxic respiratory failure combination of obstructive sleep apnea, COPD
Baseline oxygen requirement 4 to 5 L. On prophylactic Zithromax
Continue with Spiriva and Advair. As needed DuoNebs
Swallow evaluation. Chest x-ray did not show acute changes
Will do Mucinex for cough
Primary petroleum engineering professor Dr. Murguia
Will reach out to her petroleum engineering professor to ask about maintenance prednisone therapy. Per family, patient was on 10 mg prednisone for several months as an outpatient
For cortisol level in a.m.
#JELLY on CPAP
-cont setting 7 with 4 liters nc
#HTN�benign
No hypotension.
-Continue propranolol 60 mg ER
-Continue oral diltiazem
# hypokalemia, replace
#Gastroesophageal reflux disease
#GI bleed by history
- continue H2 gene;
#Type 2 diabetes mellitus
#Hyperglycemia hx
- A1c is 9.4%
- Low-dose scale coverage
- continue Lantus 12 units
-Hold metformin 750mg BID, Januvia
#Pulmonary Nodule
- Follow-up with pulmonary
#Prior TIA/CVA
- Clopidogrel was stopped during recent admission due to need for Eliquis for A-fib
#CAD
-No chest pain
-Continue beta-gene
Resume statin therapy.
#History latent TB
#Obesity due to excess calorie consumption
-Weight loss recommended
#Hyperlipidemia
-Hold current statin
#Ambulatory dysfunction secondary to recent hospitalization
-Continue PT/OT
Other PMH:
#Diverticulosis.
Fatty liver
Glaucoma
Adrenal nodule
Vitamin D deficiency-continue vitamin D
DVT proph
-Continue oral Eliquis
Total time spent to see patient, examine the patient on the floor, review data and lab results, discuss treatment plan with patient, family, nursing staff around 57 minutes
Anticipated Discharge: > 48 hours
Subjective/Interval History
-
Date of Service: September 27, 2023
No chest pain
Some dry coughing
no sob
Objective Data
-
Labs:
Laboratory Results
09/27/23
07:48
WBC Pending
Hgb Pending
Hct Pending
Plt Count Pending
Sodium Pending
Potassium Pending
Chloride Pending
Carbon Dioxide Pending
BUN Pending
Creatinine Pending
Glucose Pending
Calcium Pending
Total Bilirubin Pending
AST Pending
ALT Pending
Alkaline Phosphatase Pending
Vital Signs:
Vital Signs
Temp Pulse Resp BP Pulse Ox
97.4 F 87 18 131/66 94
09/27/23 03:10 09/27/23 08:34 09/27/23 08:34 09/27/23 07:00 09/27/23 08:34
I&O
09/26/23 09/27/23 09/28/23
06:59 06:59 06:59
Intake Total 1954 / 1954 1380 / 1380 1230 / 1230
Output Total 1275 / 1275 1949 / 1949
Balance 680 / 680 -570 / -570 1230 / 1230
--- NOTE | 2023-09-27 08:52 | PHA.VAN.FU ---
Vancomycin Assessment / Plan
- Assessment
Renal Function: SCR Decreasing
WBC's are: Trending Down
In the past 24 hrs, patient has been: Afebrile
Concomitant Antimicrobials: AZITHROMYCIN
- Assessment - Therapeutic Drug Monitoring
Random Level: 13.3
- Dosing Plan
Dosing by Level: Re-dose today (750MG)
- Monitoring Plan
Random Level: 09/27 in am
- Follow Up
Pharmacy will continue to follow.
Vancomycin Follow UP
- -
Patient Age: 88
Patient Sex: Female
Vancomycin Day #: 4
Indication: Bacteremia
Requesting Provider: Dr. Turpin / Arsenio
Pertinent Antimicrobial Allergies:
no pertinent antibiotic allergies
Height / Weight:
Height 5 ft 2.5 in
Actual Weight 90.066 kg
Pertinent Past Medical History: BMI ~35, COPD (home O2), DM 2
- Vital Signs / Lab Results
Temp Pulse Resp BP Pulse Ox
97.4 F 87 18 131/66 94
09/27/23 03:10 09/27/23 08:34 09/27/23 08:34 09/27/23 07:00 09/27/23 08:34
Lab Results - Hematology
09/24/23 09/25/23 09/26/23
08:27 07:39 07:20
WBC 17.2 H 14.9 H 11.5 H
Lab Results - Chemistry
09/24/23 09/25/23 09/26/23
08:27 07:39 07:20
BUN 37 H 45 H 46 H
Creatinine 2.4 H 2.9 H 2.7 H
Estimated Creat Clear 17 14 15
Albumin 2.7 L 2.7 L 2.6 L
09/27/23
07:48
BUN 42 H
Creatinine 2.3 H
Estimated Creat Clear 18
Albumin 2.7 L
Microbiology Results
09/25/23 07:39 Blood Culture - Preliminary
Blood/Venous No Growth in 48 hours- Final report to follow
09/26/23 07:20 Blood Culture - Preliminary
Blood/Venous No Growth in 24 hours- Final report to follow
09/24/23 08:27 Blood Culture - Preliminary
Blood/Venous Staph aureus MRSA
Gram Stain - Preliminary
09/23/23 12:56 Blood Culture - Final
Blood/Venous Staph aureus MRSA
Gram Stain - Final
09/23/23 12:56 Blood Culture - Final
Blood/Venous Staph aureus MRSA
Gram Stain - Final
09/24/23 09:08 Blood Culture - Preliminary
Blood/Venous Positive culture in progress
Gram Stain - Preliminary
09/23/23 12:56 Urine Culture - Final
Urine Citrobacter koseri
Therapeutic Drug Monitoring
Random Vancomycin 13.3 ug/ml 09/27/23 07:48
[2023-09-27] MEDS: INDERAL LA 60 MG PO (09:10)
[2023-09-27] MEDS: IMDUR (EXTENDED RELEASE) 120 MG PO (09:10)
[2023-09-27] MEDS: KCL 20 MEQ PO (09:11)
[2023-09-27] MEDS: NOVOLOG FLEXPEN-MODERATE RESISTANCE 1 UNITS SC ×2 (09:11→17:32)
[2023-09-27] MEDS: CARDIZEM CD 240 MG PO (09:11)
[2023-09-27] MEDS: LANTUS 0.119999999999999996 UNITS SC (09:11)
[2023-09-27] MEDS: ELIQUIS 2.5 MG PO ×2 (09:11→20:23)
[2023-09-27] MEDS: MUCINEX 600 MG PO ×2 (09:13→20:23)
[2023-09-27] MEDS: VANCOCIN 150 IV (09:14)
[2023-09-27] MEDS: DUONEB 3 ML INH (10:21)
[2023-09-27 11:00] VITALS: BP 118/77
--- NOTE | 2023-09-27 11:05 | W.PN.CD ---
Addendum entered and electronically signed by Amaury Rubi MD 09/27/23 13:28:
I saw and examined the patient.
The [employer]'s note was reviewed and I agree with the note.
Patient comfortable in chair. Heart rate just above 100. Heart rates have been improving. Will continue current therapy and continue to monitor. Renal function also improving.
ABENA results as noted. Continue treatment of MRSA bacteremia as per primary team.
Will continue current therapy and reassess rates on 09/29/23
Original Note:
Today's Communication / Plan
-
ABENA no thrombus, no endocarditis.
Monitor HR's which have been improving.
Impression / Plan
-
88 yo female with PMH of A fib, likely persistent, on eliquis, CAD (moderate risk nuclear stress), chronic stable angina, medically managed (no stents), HTN, mixed hyperlipidemia, DM, PAD (50% left and right subclavian), TIA, GI bleed when on
DAPT, COPD on 4LNC, JELLY/CPAP, obesity is admitted with fatigue, altered mental status.
Found to have MRSA bacteremia, unclear source. Also A fib with RVR and JASWANT.
#MRSA bacteremia
-Abx per ID
-TTE unremarkable
-nephrology is also concerned about embolic phenomenon contributing to JASWANT
-ABENA on 09/26/23 no evidence of thrombus or infective endocarditis.
# A fib, likely persistent
-continue eliquis 2.5mg bid for OAC (CHADS2-VASC = 8)
-continue diltiazem 240mg daily, and propranolol 60mg daily for rate control
- HR;s slowly improving as infection improves. Now 90-120's .
#CAD with stable angina
-not on ASA since on eliquis for A fib
-prior nuclear stress: moderate risk with small area of ischemia in LAD territory
-opted not for cath in past due to GI bleed on DAPT in past
-continue imdur 120mg daily, propranolol 60mg daily.
-she takes crestor at home
# JASWANT
-nephrology following.
Testing
ABENA 09/26/23
Normal left ventricular size and systolic function. No regional wall motion
abnormalities are seen. The ejection fraction is estimated at 55-60%.
Normal right ventricular size and function.
No thrombus detected in the left atrial appendage.
Thickened trileaflet aortic valve with adequate leaflet excursion. Small linear
echo density seen consistent with Lambl's excrescence.
Mild to moderate tricuspid regurgitation.
TTE 09/24/23
Normal left ventricular systolic function. Left ventricular ejection fraction
is 55-60% by visual assessment.
Mild to moderate tricuspid regurgitation. Estimated pulmonary artery pressure
of 50 mmHg.
No significant change since the prior study of Jul 2023.
Physical Exam
Vital Signs/Labs
Vital Signs
Temp Pulse Resp BP Pulse Ox
97.4 F 88 20 131/66 94
09/27/23 03:10 09/27/23 10:23 09/27/23 10:23 09/27/23 09:11 09/27/23 10:23
09/26/23 09/27/23 09/28/23
06:59 06:59 06:59
Actual Weight 88.904 kg 90.066 kg
09/27/23 07:48
09/27/23 07:48
TSH 1.55 uIU/ml (0.47-4.68) 09/24/23 08:27
09/23/23
14:19
Xtx-T-Glizncbvmcv Pept 7880
Physical Exam
Constitutional: No acute distress
Cardiovascular: Rhythm/rate is irregular
Respiratory: Respiratory effort normal and Lungs clear to auscul. (decreased bases )
Neuro/Psych: AO x 3
Data Reviewed
-
Date of Service: September 27, 2023
EKG: Other (Tele: AF 90-100's )
Echo: Report Reviewed by me (ABENA 09/26/23 Normal left ventricular size and systolic function. No regional wall motion abnormalities are seen. The ejection fraction is estimated at 55-60%. Normal right ventricular size and function. No
thrombus detected in the left atrial appendage. Thickened trileaflet aortic valve wit)
Labs: Labs Reviewed by me
[2023-09-27 11:31] LABS: Glucose - Point of Care 236 mg/dl (70-99)
[2023-09-27] MEDS: NOVOLOG FLEXPEN-MODERATE RESISTANCE 3 UNITS SC (11:54)
--- NOTE | 2023-09-27 12:39 | W.PN.NEPH.PH ---
Today's Communication / Plan
-
follow bmp
Assessment/Plan
-
Impression:
TME likely due to evolving sepsis vs embolic event
Acute kidney
Hyponatremia
Paroxysmal atrial fibrillation
Chronic COPD and interstitial lung disease
Hypertension
Type 2 diabetes
History of TIA and stroke
Coronary artery disease
History of latent TB
Plan:
JASWANT: (no obvious etiology per review of chart from recent admission and discharge)
-creatinine improved to 2.3 and sodium down to 131, non oliguric
- differential includes atheroembolic disease [livedo reticularis on feet? + sudden rise in Cr with new onset AC + UA] vs. ATN vs. AIN?
- proteinuria, blood noted on UA but in the setting of infection, very difficult to interpret. albumin also lower. notable for some high C4 unclear of clinical significance. no peripheral eosinophilia.
- patient with significantly improved mentation today and increased UOP after Donovan placement --> unclear if this indicates ATN and the patient might peak Cr soon. we will continue to trend for the next 24-48h
- Hold metformin
- renal ultrasound results reviewed with a cyst on kidney with variable diagnostic probabilities. moderate chronic bilateral renal disease noted
- antibiotics to be renally dosed
- hemodynamically stable, appears euvolemic
Hyponatremia
-improving with nondenominational of GFR and output
- sodium up to 131
-weights stable grossly non oliguric via donovan: continue donovan
- maintain sodium bicarb today by primary team. replete K
-discussed with daughter
-
-
Date of Service: September 27, 2023
CC / HPI / ROS
-
Chief Complaint:
JASWANT
History of Present Illness:
mental status back to baseling
JASWANT (bl Cr 0.8, but has gotten as high as 1.5 in outpatient setting due to pre-renal disease), down to 2.3
hypoxic respiratory failure (bl O2 4-5L)
sodium up to 131
Review of Systems:
awake and alert today
states that she is feeling better
non olilguric via donovan
Labs
-
Labs:
WBC 10.0 10^3/uL (4.8-10.8) 09/27/23 07:48
RBC 3.80 10^6/uL (4.20-5.40) L 09/27/23 07:48
Hgb 11.6 g/dL (12.0-16.0) L 09/27/23 07:48
Hct 33.6 % (37.0-47.0) L 09/27/23 07:48
Plt Count 182 10^3/uL (130-400) 09/27/23 07:48
Sodium 131 mmol/L (135-145) L 09/27/23 07:48
Potassium 3.5 mmol/L (3.5-5.1) 09/27/23 07:48
Chloride 97 mmol/L (98-107) L 09/27/23 07:48
Carbon Dioxide 27 mmol/L (22-30) 09/27/23 07:48
BUN 42 mg/dl (7-17) H 09/27/23 07:48
Creatinine 2.3 mg/dL (0.6-1.0) H 09/27/23 07:48
eGFR 19.94 09/27/23 07:48
Glucose 138 mg/dl (70-99) H 09/27/23 07:48
Calcium 8.5 mg/dl (8.4-10.2) 09/27/23 07:48
Iko-K-Rfyppfjhtpo Pept 7880 pg/ml 09/23/23 14:19
Albumin 2.7 g/dl (3.5-5.0) L 09/27/23 07:48
Physical Exam
-
Vital Signs:
Vital Signs
Temp Pulse Resp BP Pulse Ox
97.5 F 104 18 118/77 97
09/27/23 11:00 09/27/23 11:00 09/27/23 11:00 09/27/23 11:00 09/27/23 11:00
Cardiovascular:: Regular rate and rhythm
Respiratory:: Bilateral: Coarse
Lung Excursion:: Normal
Abdomen:: Nontender and Soft
Bowel Sounds:: Normal
Extremity Edema:: None: Bilateral:
Donovan Catheter: Yes
[2023-09-27] MEDS: TYLENOL 650 MG PO (13:29)
[2023-09-27 15:00] VITALS: BP 139/87
[2023-09-27 16:47] LABS: Glucose - Point of Care 193 mg/dl (70-99)
[2023-09-27 19:27] VITALS: BP 133/84
[2023-09-27] MEDS: TYLENOL 1000 MG PO (21:35)
[2023-09-27 21:49] LABS: Glucose - Point of Care 182 mg/dl (70-99)
[2023-09-27 23:24] VITALS: BP 113/66
[2023-09-28] VITALS (7 sets, daily range): BP systolic 120–168; BP diastolic 66–103; PULSE 91; BMI 35.7
[2023-09-28 01:46] LABS: Albumin 1.97 g/dL (3.75-5.01); Free Kappa Light Chains,Quant 66.97 mg/L (3.30-19.40); Free Lambda Light Chains,Quant 66.09 mg/L (5.71-26.30); IgA 147 mg/dL (68-408); IgG 462 mg/dL (768-1632); IgM 54 mg/dL (35-263); Immunofixation Electrophoresis IFE Done; Kappa/Lambda Fr Light Ratio 1.01 (0.26-1.65); Total Protein-Electrophoresis 5.5 g/dL (6.3-8.2)
[2023-09-28 07:15] LABS: Glucose - Point of Care 147 mg/dl (70-99)
[2023-09-28 07:18] LABS: Vancomycin Random 15.9 ug/ml
[2023-09-28 07:37] LABS: Blood Urea Nitrogen 39 mg/dl (7-17); Calcium 8.6 mg/dl (8.4-10.2); Carbon Dioxide 30 mmol/L (22-30); Chloride 99 mmol/L (98-107); Estimated Creatinine Clearance 19 ml/min; Glucose 126 mg/dl (70-99); Potassium 3.6 mmol/L (3.5-5.1); Sodium 132 mmol/L (135-145); eGFR 21.04
[2023-09-28] MEDS: DUONEB 3 ML INH (08:03)
[2023-09-28] MEDS: SPIRIVA RESPIMAT 2.5 MCG 2 PUFF INH (08:04)
[2023-09-28] MEDS: ADVAIR HFA 230/21 MCG INHALER 2 PUFF INH ×2 (08:04→19:38)
--- NOTE | 2023-09-28 08:57 | PHA.VAN.FU ---
Vancomycin Assessment / Plan
- Assessment
Renal Function: SCR Decreasing
WBC's are: Trending Down
In the past 24 hrs, patient has been: Afebrile
Concomitant Antimicrobials: AZITHROMYCIN
- Assessment - Therapeutic Drug Monitoring
Random Level: 15.9
- Dosing Plan
Dosing by Level: Re-dose today (500MG)
- Monitoring Plan
Random Level: 09/28 IN AM
- Follow Up
Pharmacy will continue to follow.
Vancomycin Follow UP
- -
Patient Age: 88
Patient Sex: Female
Vancomycin Day #: 4
Indication: Bacteremia
Requesting Provider: Dr. Turpin / Arsenio
Pertinent Antimicrobial Allergies:
no pertinent antibiotic allergies
Height / Weight:
Height 5 ft 2.5 in
Actual Weight 90.038 kg
Pertinent Past Medical History: BMI ~35, COPD (home O2), DM 2
- Vital Signs / Lab Results
Temp Pulse Resp BP Pulse Ox
97.3 F 61 16 121/70 93
09/28/23 07:56 09/28/23 08:08 09/28/23 08:08 09/28/23 07:56 09/28/23 08:08
Lab Results - Hematology
09/26/23 09/27/23
07:20 07:48
WBC 11.5 H 10.0
Lab Results - Chemistry
09/26/23 09/27/23 09/28/23
07:20 07:48 06:44
BUN 46 H 42 H 39 H
Creatinine 2.7 H 2.3 H 2.2 H
Estimated Creat Clear
Albumin 2.6 L 2.7 L
Microbiology Results
09/25/23 07:39 Blood Culture - Preliminary
Blood/Venous Staph aureus MRSA
Gram Stain - Preliminary
09/26/23 07:20 Blood Culture - Preliminary
Blood/Venous Staph aureus MRSA
Gram Stain - Preliminary
09/27/23 07:48 Blood Culture - Preliminary
Blood/Venous Positive culture in progress
Gram Stain - Preliminary
09/24/23 08:27 Blood Culture - Preliminary
Blood/Venous Staph aureus MRSA
Gram Stain - Preliminary
09/23/23 12:56 Blood Culture - Final
Blood/Venous Staph aureus MRSA
Gram Stain - Final
09/23/23 12:56 Blood Culture - Final
Blood/Venous Staph aureus MRSA
Gram Stain - Final
09/24/23 09:08 Blood Culture - Preliminary
Blood/Venous Positive culture in progress
Gram Stain - Preliminary
Therapeutic Drug Monitoring
Random Vancomycin 15.9 ug/ml 09/28/23 06:44
[2023-09-28] MEDS: LANTUS 0.119999999999999996 UNITS SC (09:18)
[2023-09-28] MEDS: NOVOLOG FLEXPEN-MODERATE RESISTANCE SC (09:21)
[2023-09-28] MEDS: ELIQUIS 2.5 MG PO ×2 (09:22→20:03)
[2023-09-28] MEDS: IMDUR (EXTENDED RELEASE) 120 MG PO (09:22)
[2023-09-28] MEDS: INDERAL LA 60 MG PO (09:23)
[2023-09-28] MEDS: ZITHROMAX 250 MG PO (09:23)
[2023-09-28] MEDS: CARDIZEM CD 240 MG PO (09:23)
[2023-09-28] MEDS: KCL 20 MEQ PO (09:23)
[2023-09-28] MEDS: MUCINEX 600 MG PO ×2 (09:23→20:03)
--- NOTE | 2023-09-28 09:25 | W.PN.HOSP.TC ---
Addendum entered and electronically signed by Vinod Turpin MD 09/28/23 15:00:
Addendum
Patient has also mild chronic lower back pain. Will do MRI of the lumbar area to rule out discitis
End
Original Note:
Today's Communication/Plan
-
.
Assessment / Plan
Assessment / Plan
Physical Exam
General: she looks better today, more alert, not in respiratory distress
HEENT: Normocephalic, Anicteric, PERRLA, [place] Conjunctivae, No Ptosis and Oxygen (4 L nasal cannula dependent)
Respiratory: limited. Mild expiratory wheezes
Cardiac: S1/S2 and Regular Rhythm; + murmur
GI: Soft, Non Distended, Normal Bowel Sounds, Tender (Suprapubic) and No Hepatosplenomegaly
Rectal: no bleeding
Genito-urinary: no Marshall
Musculoskeletal: No Clubbing, No Cyanosis and No Edema
Skin: Warm and Dry; No Rash or Jaundice
Neuro: Awake, mumbling , known to have expressive aphasia. She followed commands, answered yes and no appropriately. No Tremors
Psych: Calm
# MRSA Bacteremia, persistent. Culture of 09/25& 09/26 are positive. Culture of 09/27 is sent
c/w Vancomycin
TTE no vegetation
No fevers
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 No other joint swelling. no toothache although one left lower molar looked black.
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
Will do MRI of left shoulder to rule out effusion.
Unable to do CT with contrast study due to JASWANT. Without contrast , the study will be very limited. NO GI problems.
per ID, expect 6-8 weeks of IV Vancomycin.
Appreciate ID & cardiology help
# Toxic metabolic encephalopathy due to infection/ sepsis
Her mental status seems to be better , she is following commands and answering questions, recognized her family.
History of strokes in the past. CAT scan of the head showed signs of atrophy with no acute changes. Hold off on MRI
c/ w supportive care and treating the infection.
# Severe sepsis POA, resolved.
with leukocytosis, bacteremia, lactic acidosis, confusion upon admission.
# UTI with Citrobacter Koseri
No Dysuria
No gross hematuria
Finished 3 days of Rocephin
Renal ultrasound no hydronephrosis or nephrolithiasis
Appreciate ID input
#Hyponatremia, improving
c/w fluid restriction, pt is doing it with family supervision.
maintain Marshall due to JASWANT, voiding trial.
#Acute kidney injury , Creatinine down to 2.2 from 2.3 good urine put put/metabolic acidosis
Seems consistent with acute interstitial nephritis
Patient had normal kidney function on 09/13/23
Urine sodium 29
Better urine out put over night
Urine studies are sent
Marshall for strict I/O measurement for now
Stop IVF with sodium bicarbonate.
Avoid nephrotoxic
Renal ultrasound no hydronephrosis or nephrolithiasis, consistent with chronic renal disease. Possible underlying diabetic nephropathy
Appreciate nephrology input
# Paroxysmal A-fib, continue Eliquis but adjust the dose,
Continue with oral medication. Rate is well-controlled.
History of GI bleeding and aspirin was stopped. On low-dose Eliquis.- Continue Eliquis at 2.5 mg twice daily instead of 5 mg twice daily due to CrCl 27, CrCl was 34 on discharge 09/22/2023
Monitor for GI bleeding
TT echocardiogram 07/15/23 reviewed with 65% EF and mildly elevated PASP
#Chronic hypoxic respiratory failure combination of obstructive sleep apnea, COPD
Baseline oxygen requirement 4 to 5 L. On prophylactic Zithromax
She is feeling better, less cough
Continue with Spiriva and Advair. As needed DuoNeb
Swallow evaluation. No aspiration Chest x-ray did not show acute changes
c/w Mucinex
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
cortisol level in a.m. wa snormal.
#JELLY on CPAP
-cont setting 7 with 4 liters nc
#HTN�benign
No hypotension.
-Continue propranolol 60 mg ER
-Continue oral diltiazem
# hypokalemia, replace
#Gastroesophageal reflux disease
#GI bleed by history
- continue H2 gene;
#Type 2 diabetes mellitus
#Hyperglycemia hx
- A1c is 9.4%
- Low-dose scale coverage
- continue Lantus 12 units
-Hold metformin 750mg BID, Januvia
#Pulmonary Nodule
- Follow-up with pulmonary
#Prior TIA/CVA
- Clopidogrel was stopped during recent admission due to need for Eliquis for A-fib
#CAD
-No chest pain
-Continue beta-geen
Resume statin therapy.
#History latent TB
#Obesity due to excess calorie consumption
-Weight loss recommended
#Hyperlipidemia
-Hold current statin
#Ambulatory dysfunction secondary to recent hospitalization
-Continue PT/OT
Other PMH:
#Diverticulosis.
Fatty liver
Glaucoma
Adrenal nodule
Vitamin D deficiency-continue vitamin D
DVT proph
-Continue oral Eliquis
Total time spent to see patient, examine the patient on the floor, review data and lab results, discuss treatment plan with patient, family, nursing staff around 63 minutes
Anticipated Discharge: > 48 hours
Subjective/Interval History
-
Date of Service: September 28, 2023
No chest pain
Feel cough is better now
No fevers
Objective Data
-
Labs:
Laboratory Results
09/28/23
06:44
Sodium 132 L
Potassium 3.6
Chloride 99
Carbon Dioxide 30
BUN 39 H
Creatinine 2.2 H
Glucose 126 H
Calcium 8.6
Vital Signs:
Vital Signs
Temp Pulse Resp BP Pulse Ox
97.3 F 61 16 121/70 93
09/28/23 07:56 09/28/23 08:08 09/28/23 08:08 09/28/23 07:56 09/28/23 08:08
I&O
09/27/23 09/28/23 09/29/23
06:59 06:59 06:59
Intake Total 1380 / 1380 1710 / 1710
Output Total 1950 / 1949 1550 / 1550
Balance -570 / -570 160 / 160
[2023-09-28] MEDS: VANCOCIN HCL 500 MG 100 IV (10:21)
--- NOTE | 2023-09-28 11:13 | W.PN.NEPH.PH ---
Today's Communication / Plan
-
Continue to observe with BMP
Donovan catheter due to urinary retention
Should be stable for discharge tomorrow
Assessment/Plan
-
Impression:
TME likely due to evolving sepsis vs embolic event
MRSA bacteremia (unclear source)
Acute kidney
Hyponatremia
Paroxysmal atrial fibrillation
Chronic COPD and interstitial lung disease
Hypertension
Type 2 diabetes
History of TIA and stroke
Coronary artery disease
History of latent TB
Plan:
JASWANT: (no obvious etiology per review of chart from recent admission and discharge)
-Suspect related to MRSA bacteremia with subsequent ATN
-creatinine improved to 2.2 and sodium up to 130, grossly non oliguric via Donovan catheter
- differential includes atheroembolic disease [livedo reticularis on feet? + sudden rise in Cr with new onset AC + UA] vs. ATN vs. AIN?
- proteinuria, blood noted on UA but in the setting of infection, very difficult to interpret. albumin also lower. notable for some high C4 unclear of clinical significance. no peripheral eosinophilia.
-
- Holding metformin
- renal ultrasound results reviewed with a cyst on kidney with variable diagnostic probabilities. moderate chronic bilateral renal disease noted
-Vancomycin for several week duration
- hemodynamically stable, appears euvolemic
-Likely for discharge in a.m. to rehab where voiding trial can be obtained
Hyponatremia
-improving with taoist of GFR and output
- sodium up to 132
-weights stable grossly non oliguric via donovan: continue donovan
-
-
Date of Service: September 28, 2023
CC / HPI / ROS
-
Chief Complaint:
JASWANT
History of Present Illness:
mental status back to baseling
JASWANT (bl Cr 0.8, but has gotten as high as 1.5 in outpatient setting due to pre-renal disease), down to 2.2
hypoxic respiratory failure (bl O2 4-5L)
sodium up to 132
Review of Systems:
Mental status back to baseline
states that she is feeling better
non olilguric via donovan
Labs
-
Labs:
WBC 10.0 10^3/uL (4.8-10.8) 09/27/23 07:48
RBC 3.80 10^6/uL (4.20-5.40) L 09/27/23 07:48
Hgb 11.6 g/dL (12.0-16.0) L 09/27/23 07:48
Hct 33.6 % (37.0-47.0) L 09/27/23 07:48
Plt Count 182 10^3/uL (130-400) 09/27/23 07:48
Sodium 132 mmol/L (135-145) L 09/28/23 06:44
Potassium 3.6 mmol/L (3.5-5.1) 09/28/23 06:44
Chloride 99 mmol/L (98-107) 09/28/23 06:44
Carbon Dioxide 30 mmol/L (22-30) 09/28/23 06:44
BUN 39 mg/dl (7-17) H 09/28/23 06:44
Creatinine 2.2 mg/dL (0.6-1.0) H 09/28/23 06:44
eGFR 21.04 09/28/23 06:44
Glucose 126 mg/dl (70-99) H 09/28/23 06:44
Calcium 8.6 mg/dl (8.4-10.2) 09/28/23 06:44
Tzp-O-Tbkzfuzwmyy Pept 7880 pg/ml 09/23/23 14:19
Albumin 2.7 g/dl (3.5-5.0) L 09/27/23 07:48
Physical Exam
-
Vital Signs:
Vital Signs
Temp Pulse Resp BP Pulse Ox
97.3 F 61 16 121/70 93
09/28/23 07:56 09/28/23 08:08 09/28/23 08:08 09/28/23 07:56 09/28/23 08:08
Cardiovascular:: Regular rate and rhythm
Respiratory:: Bilateral: CTA
Lung Excursion:: Normal
Abdomen:: Nontender
Bowel Sounds:: Normal
Extremity Edema:: None: Bilateral:
Donovan Catheter: Yes
[2023-09-28 11:58] LABS: Glucose - Point of Care 168 mg/dl (70-99)
[2023-09-28] MEDS: NOVOLOG FLEXPEN-MODERATE RESISTANCE 1 UNITS SC ×2 (12:28→18:02)
--- NOTE | 2023-09-28 14:45 | W.PN.ID1 ---
Date of Service
Date of Service: September 28, 2023
Today's Communication
Continue antibiotics.
Assessment / Plan
# MRSA bacteremia, complicated
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
- Unclear source of bacteremia
- ABENA: No evidence of infectious endocarditis. 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
- Follow repeat blood cultures until clear
- Continue Vancomycin (d3). Anticipate 4 to 6 weeks of IV abx.
Follow Vanco levels closely
- recommend MRI lumbar spine given new low back discomfort
# Citrobacter bacteruria
- Completed 3d of ceftriaxone. DC ceftriaxone.
#Leukocytosis
- improving.
# JASWANT
# COPD on maintenance azithromycin, per statistician theoretical
#Additional Past Medical History:
DM 2
New onset A-fib September 2023
chronic COPD
interstitial lung disease
chronic hypoxemic respiratory failure on 4-5L O2
asthma
latent tuberculosis, treated in remote past
JELLY on CPAP
GERD/GI bleed
HTN
known pulmonary nodule
TIA/CVA
CAD
HLD
diverticulosis
fatty liver
glaucoma
adrenal nodule
vitamin D deficiency
Right TKR
Cholecystectomy
Appendectomy
Bilateral leg vein stripping
Bilateral cataract extraction
Loop recorder placed
Laser surgery cataract
Chief Complaint
-: Bacteremia
Subjective / Review of Systems
Patient seen and examined. Denies oral pain, but upon questioning notes that she has had some increasing lower back discomfort over the past several days which she attributes to the bed.
Review of Systems: No Fever and No Chills
Vital Signs / Physical Exam
Vital Signs
Vital Signs
Temp Pulse Resp BP Pulse Ox
9701 F H 88 16 124/69 97
09/28/23 11:36 09/28/23 11:36 09/28/23 11:36 09/28/23 11:36 09/28/23 11:36
Physical Exam
Constitutional: No Acute Distress, Comfortable, Chronically Ill and Non-toxic
Cardiovascular: S1/S2; Negative S3/S4
Pulmonary: Clear; Negative Wheezes or Rales
Extremities: Negative Splinter Hemorrhage, Venous Insufficiency or Janeway Lesions
Musculoskeletal: Spinal Tenderness (minimal-mild tenderness with palpation.)
Skin: Negative Rash or Jaundice
Neurological: Awake and Alert
Objective Data
Lab Data
Lab Results
09/27/23 07:48
09/28/23 06:44
ESR Cancelled 09/24/23 14:48
Estimated Creat Clear 19 ml/min 09/28/23 06:44
Lactic Acid 2.2 mmol/L (0.7-2.0) H 09/23/23 15:34
Total Bilirubin 0.5 mg/dl (0.2-1.3) 09/27/23 07:48
AST 35 U/L (14-36) 09/27/23 07:48
ALT 22 U/L (0-35) 09/27/23 07:48
Alkaline Phosphatase 111 U/L (38-126) 09/27/23 07:48
C-Reactive Protein > 270.00 mg/L (0.0-10.00) H 09/24/23 08:28
Most recent labs reviewed.
Micro Results:
09/25/23 07:39 Blood Culture - Preliminary
Blood/Venous Staph aureus MRSA
Gram Stain - Preliminary
09/26/23 07:20 Blood Culture - Preliminary
Blood/Venous Staph aureus MRSA
Gram Stain - Preliminary
09/27/23 07:48 Blood Culture - Preliminary
Blood/Venous Positive culture in progress
Gram Stain - Preliminary
09/28/23 06:44 Blood Culture - Pending
Blood/Venous
09/24/23 08:27 Blood Culture - Preliminary
Blood/Venous Staph aureus MRSA
Gram Stain - Preliminary
09/23/23 12:56 Blood Culture - Final
Blood/Venous Staph aureus MRSA
Gram Stain - Final
09/23/23 12:56 Blood Culture - Final
Blood/Venous Staph aureus MRSA
Gram Stain - Final
09/24/23 09:08 Blood Culture - Preliminary
Blood/Venous Positive culture in progress
Gram Stain - Preliminary
09/23/23 12:56 Urine Culture - Final
Urine Citrobacter koseri
09/23/23 CXR: There is borderline cephalization of the pulmonary vasculature. Correlation with the patient's BNP is recommended
The lungs are otherwise clear.
09/23/23 Renal US: Suspected 2.3 cm mass in the lower pole of the left kidney. Diagnostic possibilities are (1) lobular renal parenchyma, (2) a complex cyst, or (3) a hypovascular renal cell carcinoma.
Care Review
Plan reviewed with: Physician (Hospitalist)
[2023-09-28 18:02] LABS: Glucose - Point of Care 156 mg/dl (70-99)
[2023-09-28] MEDS: TYLENOL 1000 MG PO (20:04)
[2023-09-28 21:29] LABS: Glucose - Point of Care 183 mg/dl (70-99)
[2023-09-29] VITALS (8 sets, daily range): BP systolic 129–147; BP diastolic 67–94; O2SAT 94; BMI 35.7
[2023-09-29 07:34] LABS: Glucose - Point of Care 133 mg/dl (70-99)
[2023-09-29 08:13] LABS: Hematocrit 33.1 % (37.0-47.0); Hemoglobin 10.9 g/dL (12.0-16.0); Mean Corp Hgb Conc. 32.9 g/dL (33.0-37.0); Mean Corpuscular Hgb 30.4 pg (27.0-31.0); Mean Corpuscular Volume 92.2 fL (81.0-99.0); Mean Platelet Volume 9.9 fL (7.4-10.4); Platelet Count 222 10^3/uL (130-400); Red Blood Cell Count 3.59 10^6/uL (4.20-5.40); Red Cell Dist. Width 13.8 % (11.5-14.5); White Blood Cell Count 9.4 10^3/uL (4.8-10.8)
[2023-09-29 08:14] LABS: ANA, HEp-2, IgG Detected (<1:80)
[2023-09-29] MEDS: SPIRIVA RESPIMAT 2.5 MCG 2 PUFF INH (08:23)
[2023-09-29] MEDS: ADVAIR HFA 230/21 MCG INHALER 2 PUFF INH ×2 (08:23→20:07)
[2023-09-29] MEDS: IMDUR (EXTENDED RELEASE) 120 MG PO (08:28)
[2023-09-29] MEDS: NOVOLOG FLEXPEN-MODERATE RESISTANCE SC (08:28)
[2023-09-29] MEDS: CARDIZEM CD 240 MG PO (08:29)
[2023-09-29] MEDS: MUCINEX 600 MG PO (08:29)
[2023-09-29] MEDS: KCL 20 MEQ PO (08:29)
[2023-09-29] MEDS: INDERAL LA 60 MG PO (08:29)
[2023-09-29] MEDS: ELIQUIS 2.5 MG PO ×2 (08:29→19:58)
[2023-09-29] MEDS: LANTUS 0.119999999999999996 UNITS SC (08:30)
[2023-09-29 08:37] LABS: ANA Pattern Homogeneous
--- NOTE | 2023-09-29 08:42 | W.PN.CD ---
Addendum entered and electronically signed by Sangeeta Don MD 09/29/23 14:48:
I saw and examined the patient.
The MANAGER DAT[employer]MINISTRATION's note was reviewed and I agree with the note.
Comment: She is feeling fatigue and her whole body hurts, but no sob, no chest pain. irreg irreg no m/r/g, lungs cta b. Continue current rate controlling agents. Ongoing evaluation for mrsa bacteremia.
I will sign off, please call with questions.
Original Note:
Today's Communication / Plan
-
Continue rate control
MRI ordered by primary service
Family bedside, plan of care updated
Impression / Plan
-
BACKGROUND: 88F with atrial fibrillation (likely persistent, on Eliquis), CAD (moderate risk nuclear stress), chronic stable angina, medically managed (no stents), HTN, mixed hyperlipidemia, DM, PAD (50% left and right subclavian), TIA, GI bleed
when on DAPT, COPD on 4LNC, JELLY/CPAP, obesity is admitted with fatigue, altered mental status found to have MRSA bacteremia, unclear source. Also AF RVR and JASWANT.
#MRSA bacteremia
-Abx per ID
-TTE unremarkable
-Nephrology is also concerned about embolic phenomenon contributing to JASWANT
-ABENA on 09/26/23 no evidence of thrombus or infective endocarditis.
-MRI planned (back pain)
# Atrial fibrillation, likely persistent
-CHADS2-VASC score 8
-Continue Eliquis 2.5mg BID (age 88, creatinine > 1.5)
-Continue diltiazem 240mg daily, and propranolol 60mg daily for rate control
-HRs < 100bpm
#CAD with stable angina
-Not on ASA, on Eliquis (prior GIB)
-Prior nuclear stress: moderate risk with small area of ischemia in LAD territory & opted not for cath in past due to GI bleed on DAPT in past
-Continue Imdur 120mg daily, propranolol 60mg daily,& on rosuvastatin 40mg at home
# JASWANT, Nephrology following.
# Abnormal troponin, non ischemic myocardial injury in the setting of acute infection & chronic kidney disease, chest pain free
Subjective:
CAD: Denies CP
AF: Denies palps
Bacteremia: Denies chills
DATA:
ABENA 09/26/23
Normal left ventricular size and systolic function. No regional wall motion
abnormalities are seen. The ejection fraction is estimated at 55-60%.
Normal right ventricular size and function.
No thrombus detected in the left atrial appendage.
Thickened trileaflet aortic valve with adequate leaflet excursion. Small linear
echo density seen consistent with Lambl's excrescence.
Mild to moderate tricuspid regurgitation.
.
TTE 09/24/23
Normal left ventricular systolic function. Left ventricular ejection fraction
is 55-60% by visual assessment.
Mild to moderate tricuspid regurgitation. Estimated pulmonary artery pressure
of 50 mmHg.
No significant change since the prior study of Jul 2023.
Physical Exam
Vital Signs/Labs
Vital Signs
Temp Pulse Resp BP Pulse Ox
97.4 F 96 18 143/94 97
09/29/23 07:30 09/29/23 07:30 09/29/23 07:30 09/29/23 07:30 09/29/23 07:30
09/28/23 09/29/23 09/30/23
06:59 06:59 06:59
Actual Weight 90.038 kg 90.01 kg
09/29/23 07:45
TSH 1.55 uIU/ml (0.47-4.68) 09/24/23 08:27
09/23/23
14:19
Waw-F-Vdfptqgrubv Pept 7880
Physical Exam
Constitutional: No acute distress and Comfortable
EENT: Anicteric and Moist mucous membranes
Cardiovascular: Rhythm/rate is irregular, S1S2 is normal and Murmur/rub/gallop absent
Respiratory: Respiratory effort normal and Other (coarse)
GI: Soft, Distention absent, Flat, Non tender and Normal bowel sounds
Neuro/Psych: AO x 3
Other: Skin (warm and dry)
Data Reviewed
-
Date of Service: September 29, 2023
Labs: Labs Reviewed by me
Old Records: Reviewed
[2023-09-29 08:52] LABS: Vancomycin Random 14.8 ug/ml
[2023-09-29 09:08] LABS: Blood Urea Nitrogen 32 mg/dl (7-17); Carbon Dioxide 28 mmol/L (22-30); Chloride 99 mmol/L (98-107); Estimated Creatinine Clearance 22 ml/min; Glucose 129 mg/dl (70-99); Potassium 3.8 mmol/L (3.5-5.1); Sodium 132 mmol/L (135-145); eGFR 25.08
--- NOTE | 2023-09-29 09:14 | PHA.VAN.FU ---
Vancomycin Assessment / Plan
- Assessment
Renal Function: SCR Decreasing
WBC's are: Trending Down
In the past 24 hrs, patient has been: Afebrile
- Assessment - Therapeutic Drug Monitoring
Random Level: 14.8
- Dosing Plan
Dosing by Level: Re-dose today (750MG)
- Monitoring Plan
Random Level: 09/29 @0600
- Follow Up
Pharmacy will continue to follow.
Vancomycin Follow UP
- -
Patient Age: 88
Patient Sex: Female
Vancomycin Day #: 5
Indication: Bacteremia
Requesting Provider: Dr. Turpin / Arsenio
Pertinent Antimicrobial Allergies:
no pertinent antibiotic allergies
Height / Weight:
Height 5 ft 2.5 in
Actual Weight 90.01 kg
Pertinent Past Medical History: BMI ~35, COPD (home O2), DM 2
- Vital Signs / Lab Results
Temp Pulse Resp BP Pulse Ox
97.4 F 89 20 143/94 94
09/29/23 07:30 09/29/23 08:42 09/29/23 08:42 09/29/23 07:30 09/29/23 08:42
Lab Results - Hematology
09/27/23 09/29/23
07:48 07:45
WBC 10.0 9.4
Lab Results - Chemistry
09/27/23 09/28/23 09/29/23
07:48 06:44 07:45
BUN 42 H 39 H 32 H
Creatinine 2.3 H 2.2 H 1.9 H
Estimated Creat Clear
Albumin 2.7 L
Microbiology Results
09/28/23 06:44 Blood Culture - Preliminary
Blood/Venous No Growth in 24 hours- Final report to follow
09/25/23 07:39 Blood Culture - Preliminary
Blood/Venous Staph aureus MRSA
Gram Stain - Preliminary
09/26/23 07:20 Blood Culture - Preliminary
Blood/Venous Staph aureus MRSA
Gram Stain - Preliminary
09/27/23 07:48 Blood Culture - Preliminary
Blood/Venous Positive culture in progress
Gram Stain - Preliminary
09/24/23 08:27 Blood Culture - Preliminary
Blood/Venous Staph aureus MRSA
Gram Stain - Preliminary
Therapeutic Drug Monitoring
Random Vancomycin 14.8 ug/ml 09/29/23 07:45
[2023-09-29] MEDS: VANCOCIN 150 IV (09:59)
[2023-09-29 11:05] LABS: Glucose - Point of Care 192 mg/dl (70-99)
--- NOTE | 2023-09-29 11:23 | W.PN.NEPH.PH ---
Today's Communication / Plan
-
follow PVR
Assessment/Plan
-
Impression:
TME likely due to evolving sepsis vs embolic event
MRSA bacteremia (unclear source)
Acute kidney
Hyponatremia
Paroxysmal atrial fibrillation
Chronic COPD and interstitial lung disease
Hypertension
Type 2 diabetes
History of TIA and stroke
Coronary artery disease
History of latent TB
Plan:
follow BMP
check PVR
no metformin for now
abx continues
?2.2cm mass left kidney. should repeat US in 3 months
-
-
Date of Service: September 29, 2023
CC / HPI / ROS
-
Chief Complaint:
JASWANT
History of Present Illness:
mental status back to baseline
JASWANT (bl Cr 0.8, but has gotten as high as 1.5 in outpatient setting due to pre-renal disease), down to 1.9
hypoxic respiratory failure (bl O2 4-5L)
venus removed this am
Review of Systems:
Mental status back to baseline
states that she is feeling better
non olilguric
Labs
-
Labs:
WBC 9.4 10^3/uL (4.8-10.8) 09/29/23 07:45
RBC 3.59 10^6/uL (4.20-5.40) L 09/29/23 07:45
Hgb 10.9 g/dL (12.0-16.0) L 09/29/23 07:45
Hct 33.1 % (37.0-47.0) L 09/29/23 07:45
Plt Count 222 10^3/uL (130-400) D 09/29/23 07:45
Sodium 132 mmol/L (135-145) L 09/29/23 07:45
Potassium 3.8 mmol/L (3.5-5.1) 09/29/23 07:45
Chloride 99 mmol/L (98-107) 09/29/23 07:45
Carbon Dioxide 28 mmol/L (22-30) 09/29/23 07:45
BUN 32 mg/dl (7-17) H 09/29/23 07:45
Creatinine 1.9 mg/dL (0.6-1.0) H 09/29/23 07:45
eGFR 25.08 09/29/23 07:45
Glucose 129 mg/dl (70-99) H 09/29/23 07:45
Calcium 9.0 mg/dl (8.4-10.2) 09/29/23 07:45
Hyd-Q-Glbsrweihvo Pept 7880 pg/ml 09/23/23 14:19
Albumin 2.7 g/dl (3.5-5.0) L 09/27/23 07:48
Physical Exam
-
Vital Signs:
Vital Signs
Temp Pulse Resp BP Pulse Ox
97.4 F 89 20 143/94 94
09/29/23 07:30 09/29/23 08:42 09/29/23 08:42 09/29/23 07:30 09/29/23 08:42
Cardiovascular:: Regular rate and rhythm
Respiratory:: Bilateral: CTA
Lung Excursion:: Normal
Abdomen:: Nontender and Soft
Bowel Sounds:: Normal
Extremity Edema:: +1: Bilateral:
[2023-09-29] MEDS: TYLENOL 650 MG PO (12:23)
[2023-09-29] MEDS: NOVOLOG FLEXPEN-MODERATE RESISTANCE 1 UNITS SC ×2 (12:24→17:29)
--- NOTE | 2023-09-29 12:28 | W.PN.ID1 ---
Date of Service
Date of Service: September 29, 2023
Today's Communication
Change Vancomycin to Daptomycin 1000mg IV q24.
Assessment / Plan
# MRSA bacteremia, sustained and complicated
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
- Unclear source of bacteremia
- ABENA: No evidence of infectious endocarditis. 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
- Follow repeat blood cultures until clear
-Change Vancomycin to Daptomycin 1000mg IV q24.
Follow CK. Hold atorvastatin while on Daptomycin.
- Await MRI of left shoulder and lumbar spine
# Citrobacter bacteruria
- Completed 3d of ceftriaxone.
#Leukocytosis
- resolved.
# JASWANT- improving
# COPD on maintenance azithromycin, per electronic publications specialist
#Additional Past Medical History:
DM 2
New onset A-fib September 2023
chronic COPD
interstitial lung disease
chronic hypoxemic respiratory failure on 4-5L O2
asthma
latent tuberculosis, treated in remote past
JELLY on CPAP
GERD/GI bleed
HTN
known pulmonary nodule
TIA/CVA
CAD
HLD
diverticulosis
fatty liver
glaucoma
adrenal nodule
vitamin D deficiency
Right TKR
Cholecystectomy
Appendectomy
Bilateral leg vein stripping
Bilateral cataract extraction
Loop recorder placed
Laser surgery cataract
Chief Complaint
-: Bacteremia
Subjective / Review of Systems
Feels OK. Left shoulder pain better.
Low back pain from sitting too long.
Vital Signs / Physical Exam
Vital Signs
Vital Signs
Temp Pulse Resp BP Pulse Ox
97.6 F 89 17 144/87 95
09/29/23 11:30 09/29/23 11:30 09/29/23 11:30 09/29/23 11:30 09/29/23 11:30
Physical Exam
Constitutional: No Acute Distress
Cardiovascular: Regular Rate and S1/S2
Pulmonary: Clear
Gastrointestinal: Soft, Non Tender and Non Distended
Extremities: Negative Edema
Neurological: AO x 3 and No Motor Deficits
Objective Data
Lab Data
Lab Results
09/29/23 07:45
09/29/23 07:45
ESR Cancelled 09/24/23 14:48
Estimated Creat Clear 22 ml/min 09/29/23 07:45
Lactic Acid 2.2 mmol/L (0.7-2.0) H 09/23/23 15:34
Total Bilirubin 0.5 mg/dl (0.2-1.3) 09/27/23 07:48
AST 35 U/L (14-36) 09/27/23 07:48
ALT 22 U/L (0-35) 09/27/23 07:48
Alkaline Phosphatase 111 U/L (38-126) 09/27/23 07:48
C-Reactive Protein > 270.00 mg/L (0.0-10.00) H 09/24/23 08:28
Most recent labs reviewed.
Micro Results:
09/24/23 09:08 Blood Culture - Preliminary
Blood/Venous Staph aureus MRSA
Gram Stain - Preliminary
09/27/23 07:48 Blood Culture - Preliminary
Blood/Venous Staph aureus MRSA
Gram Stain - Preliminary
09/29/23 07:45 Blood Culture - Pending
Blood/Venous
09/28/23 06:44 Blood Culture - Preliminary
Blood/Venous No Growth in 24 hours- Final report to follow
09/25/23 07:39 Blood Culture - Preliminary
Blood/Venous Staph aureus MRSA
Gram Stain - Preliminary
09/26/23 07:20 Blood Culture - Preliminary
Blood/Venous Staph aureus MRSA
Gram Stain - Preliminary
09/24/23 08:27 Blood Culture - Preliminary
Blood/Venous Staph aureus MRSA
Gram Stain - Preliminary
09/23/23 12:56 Blood Culture - Final
Blood/Venous Staph aureus MRSA
Gram Stain - Final
09/23/23 12:56 Blood Culture - Final
Blood/Venous Staph aureus MRSA
Gram Stain - Final
09/23/23 12:56 Urine Culture - Final
Urine Citrobacter koseri
09/23/23 CXR: There is borderline cephalization of the pulmonary vasculature. Correlation with the patient's BNP is recommended
The lungs are otherwise clear.
09/23/23 Renal US: Suspected 2.3 cm mass in the lower pole of the left kidney. Diagnostic possibilities are (1) lobular renal parenchyma, (2) a complex cyst, or (3) a hypovascular renal cell carcinoma.
--- NOTE | 2023-09-29 12:45 | W.PN.HOSP.TC ---
Addendum entered and electronically signed by Robert Lucia MD 09/29/23 18:23:
Renal ultrasound with suspected 2.3 cm mass in the left lower pole of the kidney. Could be possible lobular renal parenchyma, complex cyst or renal cell carcinoma. Patient to get repeat ultrasound outpatient in 3 months
Original Note:
Today's Communication/Plan
-
Monitor vital signs and see plan
Voiding trial
PT/OT
MRI pending
Monitor renal function
cw abx
Assessment / Plan
Assessment / Plan
Physical Exam
General: she looks better today, more alert, not in respiratory distress
HEENT: Normocephalic, Anicteric, PERRLA, [place] Conjunctivae, No Ptosis and Oxygen (4 L nasal cannula dependent)
Respiratory: no wheezing
Cardiac: S1/S2 and Regular Rhythm; + murmur
GI: Soft, Non Distended, Normal Bowel Sounds, Tender (Suprapubic)
Rectal: no bleeding
Genito-urinary: no Marshall
Musculoskeletal: No Clubbing, No Cyanosis and No Edema
Skin: Warm and Dry; No Rash or Jaundice
Neuro: Awake, mumbling , known to have expressive aphasia. She followed commands
Psych: Calm
# MRSA Bacteremia, persistent. Culture of 09/25& 09/26 are positive. Culture of 09/27 is sent
c/w Vancomycin
TTE no vegetation
No fevers
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 No other joint swelling. no toothache although one left lower molar looked black.
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
Will do MRI of left shoulder to rule out effusion.
Unable to do CT with contrast study due to JASWANT. Without contrast , the study will be very limited. NO GI problems.
per ID, expect 6-8 weeks of abx; antibiotics now changed to Dapto
Appreciate ID & cardiology help
Back pain and left shoulder pain, MRI pending
# Toxic metabolic encephalopathy due to infection/ sepsis
Her mental status seems to be better , she is following commands and answering questions, recognized her family.
History of strokes in the past. CAT scan of the head showed signs of atrophy with no acute changes. Hold off on MRI
c/ w supportive care and treating the infection.
# Severe sepsis POA, resolved.
with leukocytosis, bacteremia, lactic acidosis, confusion upon admission.
# UTI with Citrobacter Koseri
No Dysuria
No gross hematuria
Finished 3 days of Rocephin
Renal ultrasound no hydronephrosis or nephrolithiasis
Appreciate ID input
#Hyponatremia, improving
c/w fluid restriction, pt is doing it with family supervision.
#Acute kidney injury , Creatinine down to 1.9
metabolic acidosis
Seems consistent with acute interstitial nephritis
Patient had normal kidney function on 09/13/23
Urine sodium 29
Better urine out put over night
Urine studies are sent
Marshall for strict I/O measurement for now
Stop IVF with sodium bicarbonate.
Avoid nephrotoxic
Renal ultrasound no hydronephrosis or nephrolithiasis, consistent with chronic renal disease. Possible underlying diabetic nephropathy
Appreciate nephrology input
# Paroxysmal A-fib, continue Eliquis but adjust the dose,
Continue with oral medication. Rate is well-controlled.
History of GI bleeding and aspirin was stopped. On low-dose Eliquis.- Continue Eliquis at 2.5 mg twice daily instead of 5 mg twice daily due to CrCl 27, CrCl was 34 on discharge 09/22/2023
Monitor for GI bleeding
TT echocardiogram 07/15/23 reviewed with 65% EF and mildly elevated PASP
#Chronic hypoxic respiratory failure combination of obstructive sleep apnea, COPD
Baseline oxygen requirement 4 to 5 L. On prophylactic Zithromax
She is feeling better, less cough
Continue with Spiriva and Advair. As needed DuoNeb
Swallow evaluation. No aspiration Chest x-ray did not show acute changes
c/w Mucinex
Primary land leveler Dr. Murguia
cortisol level in a.m. was snormal.
#JELLY on CPAP
-cont setting 7 with 4 liters nc
#HTN�benign
No hypotension.
-Continue propranolol 60 mg ER
-Continue oral diltiazem
# hypokalemia, replace
#Gastroesophageal reflux disease
#GI bleed by history
- continue H2 gene;
#Type 2 diabetes mellitus
#Hyperglycemia hx
- A1c is 9.4%
- Low-dose scale coverage
- continue Lantus 12 units
-Hold metformin 750mg BID, Januvia
#Pulmonary Nodule
- Follow-up with pulmonary
#Prior TIA/CVA
- Clopidogrel was stopped during recent admission due to need for Eliquis for A-fib
#CAD
-No chest pain
-Continue beta-gene
Resume statin therapy.
#History latent TB
#Obesity due to excess calorie consumption
-Weight loss recommended
#Hyperlipidemia
-Hold current statin
#Ambulatory dysfunction secondary to recent hospitalization
-Continue PT/OT
Other PMH:
#Diverticulosis.
Fatty liver
Glaucoma
Adrenal nodule
Vitamin D deficiency-continue vitamin D
DVT proph
-Continue oral Eliquis
Total time spent to see patient, examine the patient on the floor, review data and lab results, discuss treatment plan with patient, family, nursing staff around 53 minutes
Anticipated Discharge: 24 - 48 hours
Subjective/Interval History
-
Date of Service: September 29, 2023
does have some pain
Objective Data
-
Labs:
Laboratory Results
09/29/23
07:45
WBC 9.4
Hgb 10.9 L
Hct 33.1 L
Plt Count 222 D
Sodium 132 L
Potassium 3.8
Chloride 99
Carbon Dioxide 28
BUN 32 H
Creatinine 1.9 H
Glucose 129 H
Calcium 9.0
Vital Signs:
Vital Signs
Temp Pulse Resp BP Pulse Ox
97.6 F 89 17 144/87 95
09/29/23 11:30 09/29/23 11:30 09/29/23 11:30 09/29/23 11:30 09/29/23 11:30
I&O
09/28/23 09/29/23 09/30/23
06:59 06:59 06:59
Intake Total 1710 / 1710 1040 / 1040
Output Total 1550 / 1550 3000 / 3000 500 / 500
Balance 160 / 160 -1960 / -1960 -500 / -500
[2023-09-29] MEDS: CUBICIN 20 MG IV (13:25)
[2023-09-29 15:29] LABS: Glucose - Point of Care 178 mg/dl (70-99)
[2023-09-29] MEDS: ATIVAN 1 MG IV (15:35)
--- NOTE | 2023-09-29 16:23 | CM ---
Blood cx pending.
MRI spine (P).
Cont IV anbx.
Plan: skilled rehab when stable, will need insurance auth.
[2023-09-29] MEDS: MUCINEX PO (21:20)
[2023-09-29 21:38] LABS: Glucose - Point of Care 121 mg/dl (70-99)
[2023-09-29] MEDS: TYLENOL PO (23:22)
--- NOTE | 2023-09-29 23:56 | PTCARENOTE ---
Addendum entered by Eulalia Grady RN 09/29/23 23:57:
LENI Zaragoza made aware.
Original Note:
Patient being very drowsy and sleeping since the beginning of this shift. Patient had IV Ativan around 1500 this evening prior to MRI. Patient responding to verbal commands but falling asleep right away. stable vitals. As per family patient didn't
get any sleep/ rest during the day time. Will continue to monitor.
[2023-09-30] VITALS (7 sets, daily range): BP systolic 116–156; BP diastolic 63–96; PULSE 85; O2SAT 90
[2023-09-30 07:51] LABS: Glucose - Point of Care 104 mg/dl (70-99)
[2023-09-30 08:07] LABS: % Basophils 0.3 % (0-2); % Eosinophils 0.9 % (0-6); % Immature Granulocytes 0.8 % (0-0.5); % Lymphocytes 8.7 % (20.5-51.1); % Monocytes 6.8 % (1.7-9.3); % Neutrophils 82.5 % (42.2-75.2); Absolute Eosinophils 0.1 10^3/uL (0-0.7); Absolute Immature Granulocytes 0.1 10^3/uL (0-0.05); Absolute Lymphocytes 0.7 10^3/uL (1.2-3.4); Absolute Monocytes 0.5 10^3/uL (0.1-0.6); Absolute Neutrophils 6.5 10^3/uL (1.4-6.5); Hematocrit 31.6 % (37.0-47.0); Hemoglobin 10.7 g/dL (12.0-16.0); Mean Corp Hgb Conc. 33.9 g/dL (33.0-37.0); Mean Corpuscular Hgb 30.7 pg (27.0-31.0); Mean Corpuscular Volume 90.8 fL (81.0-99.0); Mean Platelet Volume 9.7 fL (7.4-10.4); Nucleated Red Blood Cells % 0 %; Platelet Count 245 10^3/uL (130-400); Red Blood Cell Count 3.48 10^6/uL (4.20-5.40); Red Cell Dist. Width 13.9 % (11.5-14.5); White Blood Cell Count 7.8 10^3/uL (4.8-10.8)
[2023-09-30] MEDS: SPIRIVA RESPIMAT 2.5 MCG 2 PUFF INH (08:13)
[2023-09-30] MEDS: ADVAIR HFA 230/21 MCG INHALER 2 PUFF INH ×2 (08:13→19:52)
--- NOTE | 2023-09-30 08:40 | PTOTSP ---
Speech Language Pathology
Pt seen for dysphagia tx. Family present at bedside. Improved verbal output noted and difficulty noted on admission being attributed to infection, so speech/language evaluations not appropriate in this level of care. Pt was upgraded to regular
solids 09/28 by . Pt reported no difficulty chewing. Son present stated she ate a bagel for breakfast without any difficulty.
Seen with P.O. trials of regular solids and thin liquids via straw. Adequate mastication, bolus formation, and A-P transit noted with no oral residue. No overt signs of aspiration. Pt stated that she always needs 'to be careful' when
eating/drinking because 'I'm 88!' WBC WNL with no concern for PNA on chest imaging. Pt appears to be tolerating P.O. diet.
Recommend:
(1) Continue regular solids/thin liquids
(2) General aspiration precautions
(3) Meds as tolerated
(4) PHARMACY INFORMATICS SPECIALIST to sign off. Please reconsult as indicated
[2023-09-30 08:48] LABS: Blood Urea Nitrogen 29 mg/dl (7-17); Carbon Dioxide 30 mmol/L (22-30); Chloride 99 mmol/L (98-107); Creatine Phosphokinase 21 U/L (30-135); Estimated Creatinine Clearance 23 ml/min; Glucose 98 mg/dl (70-99); Potassium 3.9 mmol/L (3.5-5.1); Sodium 132 mmol/L (135-145); eGFR 26.77
[2023-09-30] MEDS: NOVOLOG FLEXPEN-MODERATE RESISTANCE SC ×2 (08:56→17:34)
[2023-09-30] MEDS: MUCINEX 600 MG PO ×2 (08:57→21:04)
[2023-09-30] MEDS: LANTUS 0.119999999999999996 UNITS SC (08:57)
[2023-09-30] MEDS: ELIQUIS 2.5 MG PO ×2 (08:57→21:04)
[2023-09-30] MEDS: CARDIZEM CD 240 MG PO (08:57)
[2023-09-30] MEDS: KCL 20 MEQ PO (08:58)
[2023-09-30] MEDS: TYLENOL 650 MG PO (08:58)
[2023-09-30] MEDS: INDERAL LA 60 MG PO (08:58)
[2023-09-30] MEDS: IMDUR (EXTENDED RELEASE) 120 MG PO (08:58)
[2023-09-30] MEDS: ZITHROMAX 250 MG PO (08:58)
--- NOTE | 2023-09-30 11:25 | W.PN.NEPH.PH ---
Today's Communication / Plan
-
follow BMP
Assessment/Plan
-
Impression:
TME likely due to evolving sepsis vs embolic event
MRSA bacteremia (unclear source)
Acute kidney
Hyponatremia
Paroxysmal atrial fibrillation
Chronic COPD and interstitial lung disease
Hypertension
Type 2 diabetes
History of TIA and stroke
Coronary artery disease
History of latent TB
Plan:
follow BMP
follow PVR
no metformin for now
abx continues
?2.2cm mass left kidney. should repeat US in 3 months, discussed with pt and family. she does not want aggressive w/u for it
-
-
Date of Service: September 30, 2023
CC / HPI / ROS
-
Chief Complaint:
JASWANT
History of Present Illness:
mental status back to baseline
JASWANT (bl Cr 0.8, but has gotten as high as 1.5 in outpatient setting due to pre-renal disease), down to 1.8
remains on O2
donovan out, PVR wnl
Review of Systems:
Mental status back to baseline
states that she is feeling better
non olilguric
Labs
-
Labs:
WBC 7.8 10^3/uL (4.8-10.8) 09/30/23 07:28
RBC 3.48 10^6/uL (4.20-5.40) L 09/30/23 07:28
Hgb 10.7 g/dL (12.0-16.0) L 09/30/23 07:28
Hct 31.6 % (37.0-47.0) L 09/30/23 07:28
Plt Count 245 10^3/uL (130-400) 09/30/23 07:28
Sodium 132 mmol/L (135-145) L 09/30/23 07:28
Potassium 3.9 mmol/L (3.5-5.1) 09/30/23 07:28
Chloride 99 mmol/L (98-107) 09/30/23 07:28
Carbon Dioxide 30 mmol/L (22-30) 09/30/23 07:28
BUN 29 mg/dl (7-17) H 09/30/23 07:28
Creatinine 1.8 mg/dL (0.6-1.0) H 09/30/23 07:28
eGFR 26.77 09/30/23 07:28
Glucose 98 mg/dl (70-99) 09/30/23 07:28
Calcium 9.0 mg/dl (8.4-10.2) 09/30/23 07:28
Btd-C-Xqmsujeikee Pept 7880 pg/ml 09/23/23 14:19
Albumin 2.7 g/dl (3.5-5.0) L 09/27/23 07:48
Physical Exam
-
Vital Signs:
Vital Signs
Temp Pulse Resp BP Pulse Ox
97.6 F 101 16 153/80 95
09/30/23 08:52 09/30/23 08:52 09/30/23 08:52 09/30/23 08:52 09/30/23 08:52
Cardiovascular:: Regular rate and rhythm
Respiratory:: Bilateral: Coarse
Lung Excursion:: Normal
Abdomen:: Nontender and Soft
Bowel Sounds:: Normal
Extremity Edema:: None: Bilateral:
--- NOTE | 2023-09-30 12:04 | W.PN.HOSP.TC ---
Today's Communication/Plan
-
Monitor vitals
See plan
Continue to follow blood culture
Spoke with infectious disease, CT scan lumbar spine Noncon ordered
cw abx
pt/ot
Assessment / Plan
Assessment / Plan
Physical Exam
General: she looks better today, more alert, not in respiratory distress
HEENT: Normocephalic, Anicteric, PERRLA, [place] Conjunctivae, No Ptosis and Oxygen (4 L nasal cannula dependent)
Respiratory: no wheezing
Cardiac: S1/S2 and Regular Rhythm; + murmur
GI: Soft, Non Distended, Normal Bowel Sounds, Tender (Suprapubic)
Rectal: no bleeding
Genito-urinary: no Donovan
Musculoskeletal: No Clubbing, No Cyanosis and No Edema
Skin: Warm and Dry; No Rash or Jaundice
Neuro: Awake, mumbling , known to have expressive aphasia. She followed commands
Psych: Calm
# MRSA Bacteremia, persistent. Culture of 09/25& 09/26 are positive. Culture of 09/27 is sent
c/w Vancomycin
TTE no vegetation
No fevers
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 No other joint swelling. no toothache although one left lower molar looked black.
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
Will do MRI of left shoulder to rule out effusion.
Unable to do CT with contrast study due to JASWANT. Without contrast , the study will be very limited. NO GI problems.
per ID, expect 6-8 weeks of abx; antibiotics now changed to Dapto
Appreciate ID & cardiology help
Back pain and left shoulder pain, MRI back had artifacts due to patient agitation; she was given ativan prior. shoulder MRI wasnt able to be obtained. No jory abscess noted on examination. Discussed with infectious disease, will order CT lumbar
spine without contrast given JASWANT.
# Toxic metabolic encephalopathy due to infection/ sepsis
Her mental status seems to be better , she is following commands and answering questions, recognized her family.
History of strokes in the past. CAT scan of the head showed signs of atrophy with no acute changes. Hold off on MRI
c/ w supportive care and treating the infection.
# Severe sepsis POA, resolved.
with leukocytosis, bacteremia, lactic acidosis, confusion upon admission.
# UTI with Citrobacter Koseri
No Dysuria
No gross hematuria
Finished 3 days of Rocephin
Renal ultrasound no hydronephrosis or nephrolithiasis
Appreciate ID input
#Hyponatremia, improving
c/w fluid restriction, pt is doing it with family supervision.
#Acute kidney injury , Creatinine down to 1.8
metabolic acidosis
Seems consistent with acute interstitial nephritis
Patient had normal kidney function on 09/13/23
now voiding after donovan removal 09/28
Avoid nephrotoxic
Renal ultrasound no hydronephrosis or nephrolithiasis, consistent with chronic renal disease. Possible underlying diabetic nephropathy
Appreciate nephrology input
Renal ultrasound with suspected 2.3 cm mass in the left lower pole of the kidney. Could be possible lobular renal parenchyma, complex cyst or renal cell carcinoma. Patient to get repeat ultrasound outpatient in 3 months
# Paroxysmal A-fib, continue Eliquis but adjust the dose,
Continue with oral medication. Rate is well-controlled.
History of GI bleeding and aspirin was stopped. On low-dose Eliquis.- Continue Eliquis at 2.5 mg twice daily instead of 5 mg twice daily due to CrCl 27, CrCl was 34 on discharge 09/22/2023
Monitor for GI bleeding
TT echocardiogram 07/15/23 reviewed with 65% EF and mildly elevated PASP
#Chronic hypoxic respiratory failure combination of obstructive sleep apnea, COPD
Baseline oxygen requirement 4 to 5 L. On prophylactic Zithromax
Hyponatremia
monitor
She is feeling better, less cough
Continue with Spiriva and Advair. As needed DuoNeb
Swallow evaluation. No aspiration Chest x-ray did not show acute changes
c/w Mucinex
Primary heel sorter Dr. Murguia
cortisol level in a.m. was normal.
#JELLY on CPAP
-cont setting 7 with 4 liters nc
#HTN�benign
No hypotension.
-Continue propranolol 60 mg ER
-Continue oral diltiazem
# hypokalemia, replace
#Gastroesophageal reflux disease
#GI bleed by history
- continue H2 gene;
#Type 2 diabetes mellitus
#Hyperglycemia hx
- A1c is 9.4%
- Low-dose scale coverage
- continue Lantus 12 units
-Hold metformin 750mg BID, Januvia
#Pulmonary Nodule
- Follow-up with pulmonary
#Prior TIA/CVA
- Clopidogrel was stopped during recent admission due to need for Eliquis for A-fib
#CAD
-No chest pain
-Continue beta-gene
#History latent TB
#Obesity due to excess calorie consumption
-Weight loss recommended
#Hyperlipidemia
-Hold current statin
#Ambulatory dysfunction secondary to recent hospitalization
-Continue PT/OT
Other PMH:
#Diverticulosis.
Fatty liver
Glaucoma
Adrenal nodule
Vitamin D deficiency-continue vitamin D
DVT proph
-Continue oral Eliquis
Total time spent to see patient, examine the patient on the floor, review data and lab results, discuss treatment plan with patient, family, nursing staff around 52 minutes
Anticipated Discharge: > 48 hours
Subjective/Interval History
-
Date of Service: September 30, 2023
feels her pain is little better
Objective Data
-
Labs:
Laboratory Results
09/30/23
07:28
WBC 7.8
Hgb 10.7 L
Hct 31.6 L
Plt Count 245
Sodium 132 L
Potassium 3.9
Chloride 99
Carbon Dioxide 30
BUN 29 H
Creatinine 1.8 H
Glucose 98
Calcium 9.0
Vital Signs:
Vital Signs
Temp Pulse Resp BP Pulse Ox
97.9 F 96 18 156/96 93
09/30/23 11:59 09/30/23 11:59 09/30/23 11:59 09/30/23 11:59 09/30/23 11:59
I&O
09/29/23 09/30/23 10/01/23
06:59 06:59 06:59
Intake Total 1040 / 1040
Output Total 3000 / 3000 500 / 500
Balance -1960 / -1960 -500 / -500
--- NOTE | 2023-09-30 12:58 | PN.CDI ---
CDI
- -
CDI:
Physician Documentation Request
Admit Date: 09/23/23 15:07
Dear Doctor Khari,
Patient admitted with sepsis.
09/29 PN, 'Chronic hypoxic respiratory failure ....Baseline oxygen requirement 4 to 5 L.'
Patient's recent oxygen use documented below:
Selected Entries
09/28/23
16:09 09/28/23
19:36 09/28/23
19:42
Nasal Cannula flow liters per minute 6 6 6
09/28/23
20:00 09/28/23
23:13 09/29/23
03:41
Nasal Cannula flow liters per minute 6 6 6
09/29/23
08:42 09/29/23
17:06 09/29/23
20:20
Nasal Cannula flow liters per minute 6 6 6
Please provide in your note the diagnosis associated with the patient's recent oxygen use:
Acute on chronic hypoxic respiratory failure
Chronic hypoxic respiratory failure only
Other
Use of terms such as suspected, likely, concern for, or probable (associated with a specific diagnosis that is being evaluated, monitored, or treated as if it exists) are acceptable and can be coded in the inpatient setting, when documented at the
time of discharge.
Thank you,
Alie BORRERO,RN,CCDS
CDI Specialist
Available via [employer] text
Please use your independent medical judgment in providing your response.
[2023-09-30 13:03] LABS: Glucose - Point of Care 168 mg/dl (70-99)
[2023-09-30] MEDS: NOVOLOG FLEXPEN-MODERATE RESISTANCE 1 UNITS SC (13:04)
--- NOTE | 2023-09-30 13:28 | W.PN.ID1 ---
Date of Service
Date of Service: September 30, 2023
Today's Communication
CT lumbar spine
Assessment / Plan
# MRSA bacteremia, sustained and complicated
# JASWANT, improving
- Unclear source of bacteremia - persistent
- ABENA: No evidence of infectious endocarditis. 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
- MRI nondiagnostic as patient too agitated despite Ativan.
- Recommend CT lumbar spine wo contrast (due to JASWANT)
- Follow repeat blood cultures until clear
- Vancomycin changed to dapto on 09/28
- Continue Daptomycin 1000mg IV q48H (d2).
CK normal. Hold atorvastatin while on Daptomycin.
# Citrobacter bacteruria
- Completed 3d of ceftriaxone.
# COPD on maintenance azithromycin, per tea bag machine tender
#Additional Past Medical History:
DM 2
New onset A-fib September 2023
chronic COPD
interstitial lung disease
chronic hypoxemic respiratory failure on 4-5L O2
asthma
latent tuberculosis, treated in remote past
JELLY on CPAP
GERD/GI bleed
HTN
known pulmonary nodule
TIA/CVA
CAD
HLD
diverticulosis
fatty liver
glaucoma
adrenal nodule
vitamin D deficiency
Right TKR
Cholecystectomy
Appendectomy
Bilateral leg vein stripping
Bilateral cataract extraction
Loop recorder placed
Laser surgery cataract
Chief Complaint
-: Bacteremia
Subjective / Review of Systems
No worsening back pain.
Vital Signs / Physical Exam
Vital Signs
Vital Signs
Temp Pulse Resp BP Pulse Ox
97.9 F 96 18 156/96 93
09/30/23 11:59 09/30/23 11:59 09/30/23 11:59 09/30/23 11:59 09/30/23 11:59
Physical Exam
Constitutional: No Acute Distress
Cardiovascular: Irregular Rate and S1/S2
Gastrointestinal: Soft, Non Tender and Non Distended
Musculoskeletal: Negative Joint Swelling or Joint Effusion
Neurological: No Motor Deficits
Objective Data
Lab Data
Lab Results
09/30/23 07:28
09/30/23 07:28
ESR Cancelled 09/24/23 14:48
Estimated Creat Clear 23 ml/min 09/30/23 07:28
Lactic Acid 2.2 mmol/L (0.7-2.0) H 09/23/23 15:34
Total Bilirubin 0.5 mg/dl (0.2-1.3) 09/27/23 07:48
AST 35 U/L (14-36) 09/27/23 07:48
ALT 22 U/L (0-35) 09/27/23 07:48
Alkaline Phosphatase 111 U/L (38-126) 09/27/23 07:48
C-Reactive Protein > 270.00 mg/L (0.0-10.00) H 09/24/23 08:28
Most recent labs reviewed.
Micro Results:
09/28/23 06:44 Blood Culture - Preliminary
Blood/Venous Staph aureus MRSA
Gram Stain - Preliminary
09/27/23 07:48 Blood Culture - Preliminary
Blood/Venous Staph aureus MRSA
Gram Stain - Preliminary
09/30/23 07:28 Blood Culture - Pending
Blood/Venous
09/29/23 07:45 Blood Culture - Preliminary
Blood/Venous No Growth in 24 hours- Final report to follow
09/24/23 09:08 Blood Culture - Preliminary
Blood/Venous Staph aureus MRSA
Gram Stain - Preliminary
09/25/23 07:39 Blood Culture - Preliminary
Blood/Venous Staph aureus MRSA
Gram Stain - Preliminary
09/26/23 07:20 Blood Culture - Preliminary
Blood/Venous Staph aureus MRSA
Gram Stain - Preliminary
09/24/23 08:27 Blood Culture - Preliminary
Blood/Venous Staph aureus MRSA
Gram Stain - Preliminary
09/23/23 12:56 Blood Culture - Final
Blood/Venous Staph aureus MRSA
Gram Stain - Final
09/23/23 12:56 Blood Culture - Final
Blood/Venous Staph aureus MRSA
Gram Stain - Final
09/23/23 12:56 Urine Culture - Final
Urine Citrobacter koseri
09/23/23 CXR: There is borderline cephalization of the pulmonary vasculature. Correlation with the patient's BNP is recommended
The lungs are otherwise clear.
09/23/23 Renal US: Suspected 2.3 cm mass in the lower pole of the left kidney. Diagnostic possibilities are (1) lobular renal parenchyma, (2) a complex cyst, or (3) a hypovascular renal cell carcinoma.
Care Review
Plan reviewed with: Physician (Dr. Lcuia)
--- NOTE | 2023-09-30 15:05 | CM ---
Patient seen bedside.
CT scan lumbar spine today.
Blood cx pending.
Cont IV anbx.
PT/OT recommending skilled rehab.
Plan: skilled rehab when stable
Accepted at [facility] pending bed availability day of d/c. Will need insurance auth.
[2023-09-30 17:01] LABS: Glucose - Point of Care 138 mg/dl (70-99)
[2023-09-30] MEDS: TYLENOL 1000 MG PO (21:04)
[2023-09-30 21:39] LABS: Glucose - Point of Care 308 mg/dl (70-99)
[2023-10-01] MEDS: TYLENOL 650 MG PO ×2 (01:07→11:54)
[2023-10-01 03:30] VITALS: BP 161/88
[2023-10-01 06:00] VITALS: BMI 36.8
[2023-10-01 07:00] VITALS: BP 150/92
[2023-10-01 07:24] LABS: Glucose - Point of Care 146 mg/dl (70-99)
[2023-10-01 07:32] LABS: % Basophils 0.3 % (0-2); % Eosinophils 1.3 % (0-6); % Lymphocytes 11.1 % (20.5-51.1); % Monocytes 8.2 % (1.7-9.3); % Neutrophils 78.1 % (42.2-75.2); Absolute Eosinophils 0.1 10^3/uL (0-0.7); Absolute Immature Granulocytes 0.1 10^3/uL (0-0.05); Absolute Lymphocytes 0.7 10^3/uL (1.2-3.4); Absolute Monocytes 0.6 10^3/uL (0.1-0.6); Absolute Neutrophils 5.2 10^3/uL (1.4-6.5); Hematocrit 30.7 % (37.0-47.0); Hemoglobin 10.3 g/dL (12.0-16.0); Mean Corp Hgb Conc. 33.6 g/dL (33.0-37.0); Mean Corpuscular Hgb 30.7 pg (27.0-31.0); Mean Corpuscular Volume 91.6 fL (81.0-99.0); Mean Platelet Volume 9.5 fL (7.4-10.4); Nucleated Red Blood Cells % 0 %; Platelet Count 243 10^3/uL (130-400); Red Blood Cell Count 3.35 10^6/uL (4.20-5.40); Red Cell Dist. Width 13.7 % (11.5-14.5); White Blood Cell Count 6.7 10^3/uL (4.8-10.8)
[2023-10-01] MEDS: IMDUR (EXTENDED RELEASE) 120 MG PO (08:20)
[2023-10-01] MEDS: CARDIZEM CD 240 MG PO (08:20)
[2023-10-01] MEDS: MUCINEX 600 MG PO ×2 (08:20→20:08)
[2023-10-01] MEDS: LANTUS 0.119999999999999996 UNITS SC (08:20)
[2023-10-01] MEDS: NOVOLOG FLEXPEN-MODERATE RESISTANCE SC ×2 (08:21→18:12)
[2023-10-01] MEDS: KCL 20 MEQ PO (08:21)
[2023-10-01] MEDS: ELIQUIS 2.5 MG PO ×2 (08:21→20:08)
[2023-10-01] MEDS: INDERAL LA 60 MG PO (08:21)
[2023-10-01] MEDS: ADVAIR HFA 230/21 MCG INHALER 2 PUFF INH ×2 (08:50→19:18)
[2023-10-01] MEDS: SPIRIVA RESPIMAT 2.5 MCG 2 PUFF INH (08:50)
[2023-10-01 09:44] LABS: Blood Urea Nitrogen 30 mg/dl (7-17); Carbon Dioxide 30 mmol/L (22-30); Chloride 98 mmol/L (98-107); Estimated Creatinine Clearance 24 ml/min; Glucose 132 mg/dl (70-99); Potassium 3.9 mmol/L (3.5-5.1); Sodium 132 mmol/L (135-145); eGFR 28.67
[2023-10-01 11:00] VITALS: BP 142/73
[2023-10-01 11:52] LABS: Glucose - Point of Care 183 mg/dl (70-99)
[2023-10-01] MEDS: NOVOLOG FLEXPEN-MODERATE RESISTANCE 1 UNITS SC (11:56)
[2023-10-01] MEDS: CUBICIN 20 MG IV (11:57)
--- NOTE | 2023-10-01 12:12 | W.PN.NEPH.PH ---
Today's Communication / Plan
-
Check postvoid bladder scan
Follow BMP
Assessment/Plan
-
Impression:
TME likely due to evolving sepsis vs embolic event
MRSA bacteremia (unclear source)
Acute kidney
Hyponatremia
Paroxysmal atrial fibrillation
Chronic COPD and interstitial lung disease
Hypertension
Type 2 diabetes
History of TIA and stroke
Coronary artery disease
History of latent TB
Plan:
follow BMP, creatinine down to 1.7
follow PVR as weight is increasing and urine output appears to be 200
no metformin for now
Daptomycin continues for persistent MRSA bacteremia
?2.2cm mass left kidney. should repeat US in 3 months, discussed with pt and family. she does not want aggressive w/u for it
-
-
Date of Service: October 01, 2023
CC / HPI / ROS
-
Chief Complaint:
JASWANT
History of Present Illness:
mental status back to baseline
JASWANT (bl Cr 0.8, but has gotten as high as 1.5 in outpatient setting due to pre-renal disease), down to 1.7
remains on O2
donovan out, PVR wnl
Review of Systems:
Mental status back to baseline
states that she is feeling better
Urine output not recorded
Weights rising
Labs
-
Labs:
WBC 6.7 10^3/uL (4.8-10.8) 10/01/23 07:
RBC 3.35 10^6/uL (4.20-5.40) L 10/01/23 07:01
Hgb 10.3 g/dL (12.0-16.0) L 10/01/23 07:01
Hct 30.7 % (37.0-47.0) L 10/01/23 07:01
Plt Count 243 10^3/uL (130-400) 10/01/23 07:01
Sodium 132 mmol/L (135-145) L 10/01/23 07:01
Potassium 3.9 mmol/L (3.5-5.1) 10/01/23 07:01
Chloride 98 mmol/L (98-107) 10/01/23 07:01
Carbon Dioxide 30 mmol/L (22-30) 10/01/23 07:01
BUN 30 mg/dl (7-17) H 10/01/23 07:01
Creatinine 1.7 mg/dL (0.6-1.0) H 10/01/23 07:01
eGFR 28.67 10/01/23 07:01
Glucose 132 mg/dl (70-99) H 10/01/23 07:01
Calcium 9.0 mg/dl (8.4-10.2) 10/01/23 07:01
Frb-Z-Adhjzazcuan Pept 7880 pg/ml 09/23/23 14:19
Albumin 2.7 g/dl (3.5-5.0) L 09/27/23 07:48
Physical Exam
-
Vital Signs:
Vital Signs
Temp Pulse Resp BP Pulse Ox
97.6 F 88 18 150/92 95
10/01/23 07:00 10/01/23 08:54 10/01/23 08:54 10/01/23 08:20 10/01/23 08:54
Cardiovascular:: Regular rate and rhythm
Respiratory:: Bilateral: Coarse
Lung Excursion:: Normal
Abdomen:: Nontender
Extremity Edema:: +1: Bilateral:
Donovan Catheter: No
--- NOTE | 2023-10-01 12:57 | W.PN.HOSP.TC ---
Today's Communication/Plan
-
Monitor vital signs and see plan
Continue with antibiotics per infectious disease
PT/OT
Monitor renal function
Follow cultures
Discussed with family at bedside
Assessment / Plan
Assessment / Plan
Physical Exam
General: she looks better today, more alert, not in respiratory distress
HEENT: Normocephalic, Anicteric, PERRLA, [place] Conjunctivae, No Ptosis and Oxygen (4 L nasal cannula dependent)
Respiratory: no wheezing
Cardiac: S1/S2 and Regular Rhythm; + murmur
GI: Soft, Non Distended, Normal Bowel Sounds, Tender (Suprapubic)
Rectal: no bleeding
Genito-urinary: no Donovan
Musculoskeletal: No Clubbing, No Cyanosis and No Edema
Skin: Warm and Dry; No Rash or Jaundice
Neuro: Awake, mumbling , known to have expressive aphasia. She followed commands
Psych: Calm
# MRSA Bacteremia, persistent. Culture of 09/25& 09/26 are positive. Culture of 09/27 is sent
TTE no vegetation
No fevers
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 No other joint swelling. no toothache although one left lower molar looked black.
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
Will do MRI of left shoulder to rule out effusion. Unable to be obtained since patient could not tolerate MRI. Currently her pain is getting better
Unable to do CT with contrast study due to JASWANT. Without contrast , the study will be very limited. NO GI problems.
per ID, expect 6-8 weeks of abx; antibiotics now changed to Dapto
Appreciate ID & cardiology help
Back pain and left shoulder pain, MRI back had artifacts due to patient agitation; she was given ativan prior. shoulder MRI wasnt able to be obtained. No jory abscess noted on examination. CT lumbar spine with multilevel lumbar degenerative
disease. Was done without contrast given patient has acute kidney injury
# Toxic metabolic encephalopathy due to infection/ sepsis
Her mental status seems to be better , she is following commands and answering questions, recognized her family.
History of strokes in the past. CAT scan of the head showed signs of atrophy with no acute changes. Hold off on MRI
c/ w supportive care and treating the infection.
# Severe sepsis POA, resolved.
with leukocytosis, bacteremia, lactic acidosis, confusion upon admission.
# UTI with Citrobacter Koseri
No Dysuria
No gross hematuria
Finished 3 days of Rocephin
Renal ultrasound no hydronephrosis or nephrolithiasis
Appreciate ID input
#Hyponatremia, improving
c/w fluid restriction, pt is doing it with family supervision.
#Acute kidney injury , Creatinine down to 1.8
metabolic acidosis
Seems consistent with acute interstitial nephritis
Patient had normal kidney function on 09/13/23
now voiding after donovan removal 09/28
Avoid nephrotoxic
Renal ultrasound no hydronephrosis or nephrolithiasis, consistent with chronic renal disease. Possible underlying diabetic nephropathy
Appreciate nephrology input
Renal ultrasound with suspected 2.3 cm mass in the left lower pole of the kidney. Could be possible lobular renal parenchyma, complex cyst or renal cell carcinoma. Patient to get repeat ultrasound outpatient in 3 months. per patient she does not
want any aggressive measures regarding this.
# Paroxysmal A-fib, continue Eliquis but adjust the dose,
Continue with oral medication. Rate is well-controlled.
History of GI bleeding and aspirin was stopped. On low-dose Eliquis.- Continue Eliquis at 2.5 mg twice daily instead of 5 mg twice daily due to CrCl 27, CrCl was 34 on discharge 09/22/2023
Monitor for GI bleeding
TT echocardiogram 07/15/23 reviewed with 65% EF and mildly elevated PASP
# Acute on Chronic hypoxic respiratory failure combination of obstructive sleep apnea, COPD
pain could have contributed to her symptoms of increased oxygenation. Now on baseline O2
Baseline oxygen requirement 4 to 5 L. On prophylactic Zithromax
Hyponatremia
monitor
She is feeling better, less cough
Continue with Spiriva and Advair. As needed DuoNeb
Swallow evaluation. No aspiration Chest x-ray did not show acute changes
c/w Mucinex
Primary emergency dispatcher Dr. Murguia
cortisol level in a.m. was normal.
#JELLY on CPAP
-cont setting 7 with 4 liters nc
#HTN�benign
No hypotension.
-Continue propranolol 60 mg ER
-Continue oral diltiazem
# hypokalemia, replace
#Gastroesophageal reflux disease
#GI bleed by history
- continue H2 gene;
#Type 2 diabetes mellitus
#Hyperglycemia hx
- A1c is 9.4%
- Low-dose scale coverage
- continue Lantus 12 units
-Hold metformin 750mg BID, Januvia
#Pulmonary Nodule
- Follow-up with pulmonary
#Prior TIA/CVA
- Clopidogrel was stopped during recent admission due to need for Eliquis for A-fib
#CAD
-No chest pain
-Continue beta-gene
#History latent TB
#Obesity due to excess calorie consumption
-Weight loss recommended
#Hyperlipidemia
-Hold current statin
#Ambulatory dysfunction secondary to recent hospitalization
-Continue PT/OT
Other PMH:
#Diverticulosis.
Fatty liver
Glaucoma
Adrenal nodule
Vitamin D deficiency-continue vitamin D
DVT proph
-Continue oral Eliquis
Total time spent to see patient, examine the patient on the floor, review data and lab results, discuss treatment plan with patient, family, nursing staff around 52 minutes
Anticipated Discharge: 24 - 48 hours
Subjective/Interval History
-
Date of Service: October 01, 2023
Feeling her pain is getting better
Objective Data
-
Labs:
Laboratory Results
10/01/23
07:01
WBC 6.7
Hgb 10.3 L
Hct 30.7 L
Plt Count 243
Sodium 132 L
Potassium 3.9
Chloride 98
Carbon Dioxide 30
BUN 30 H
Creatinine 1.7 H
Glucose 132 H
Calcium 9.0
Vital Signs:
Vital Signs
Temp Pulse Resp BP Pulse Ox
97.9 F 92 18 142/73 96
10/01/23 11:00 10/01/23 11:00 10/01/23 11:00 10/01/23 11:00 10/01/23 11:00
I&O
09/30/23 10/01/23 10/02/23
06:59 06:59 06:59
Intake Total 240 / 240
Output Total 500 / 500 300 / 300
Balance -500 / -500 -60 / -60
--- NOTE | 2023-10-01 13:32 | W.PN.ID1 ---
Date of Service
Date of Service: October 01, 2023
Today's Communication
See below.
Assessment / Plan
# MRSA bacteremia, sustained and complicated
# JASWANT, improving
- Unclear source of bacteremia - persistent
- ABENA: No evidence of infectious endocarditis. 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
- MRI nondiagnostic as patient too agitated despite Ativan.
- CT lumbar spine wo contrast (due to JASWANT) negative discitis/osteo, but poor sensitivity
- Blood cultures appears to be clearing
- Vancomycin changed to dapto on 09/28
- Continue Daptomycin 1000mg IV q48H . Anticipate 6 weeks of antibiotics.
CK normal. Hold atorvastatin while on Daptomycin.
- Follow the mild back pain clinically for now. Follow CRP.
# Citrobacter bacteruria
- Completed 3d of ceftriaxone.
# COPD on maintenance azithromycin, per dye padder operator
#Additional Past Medical History:
DM 2
New onset A-fib September 2023
chronic COPD
interstitial lung disease
chronic hypoxemic respiratory failure on 4-5L O2
asthma
latent tuberculosis, treated in remote past
JELLY on CPAP
GERD/GI bleed
HTN
known pulmonary nodule
TIA/CVA
CAD
HLD
diverticulosis
fatty liver
glaucoma
adrenal nodule
vitamin D deficiency
Right TKR
Cholecystectomy
Appendectomy
Bilateral leg vein stripping
Bilateral cataract extraction
Loop recorder placed
Laser surgery cataract
Chief Complaint
-: Bacteremia
Vital Signs / Physical Exam
Vital Signs
Vital Signs
Temp Pulse Resp BP Pulse Ox
97.9 F 92 18 142/73 96
10/01/23 11:00 10/01/23 11:00 10/01/23 11:00 10/01/23 11:00 10/01/23 11:00
Physical Exam
Constitutional: No Acute Distress and Comfortable
Cardiovascular: Regular Rate and S1/S2
Pulmonary: Other (decreased BS )
Gastrointestinal: Soft and Non Tender
Objective Data
Lab Data
Lab Results
10/01/23 07:01
10/01/23 07:01
ESR Cancelled 09/24/23 14:48
Estimated Creat Clear 24 ml/min 10/01/23 07:01
Lactic Acid 2.2 mmol/L (0.7-2.0) H 09/23/23 15:34
Total Bilirubin 0.5 mg/dl (0.2-1.3) 09/27/23 07:48
AST 35 U/L (14-36) 09/27/23 07:48
ALT 22 U/L (0-35) 09/27/23 07:48
Alkaline Phosphatase 111 U/L (38-126) 09/27/23 07:48
C-Reactive Protein > 270.00 mg/L (0.0-10.00) H 09/24/23 08:28
Most recent labs reviewed.
Micro Results:
09/24/23 09:08 Blood Culture - Final
Blood/Venous Staph aureus MRSA
Gram Stain - Final
09/24/23 08:27 Blood Culture - Final
Blood/Venous Staph aureus MRSA
Gram Stain - Final
09/30/23 07:28 Blood Culture - Preliminary
Blood/Venous No Growth in 24 hours- Final report to follow
09/29/23 07:45 Blood Culture - Preliminary
Blood/Venous No Growth in 48 hours- Final report to follow
10/01/23 07:01 Blood Culture - Pending
Blood/Venous
09/28/23 06:44 Blood Culture - Preliminary
Blood/Venous Staph aureus MRSA
Gram Stain - Preliminary
09/27/23 07:48 Blood Culture - Preliminary
Blood/Venous Staph aureus MRSA
Gram Stain - Preliminary
09/25/23 07:39 Blood Culture - Preliminary
Blood/Venous Staph aureus MRSA
Gram Stain - Preliminary
09/26/23 07:20 Blood Culture - Preliminary
Blood/Venous Staph aureus MRSA
Gram Stain - Preliminary
09/23/23 12:56 Blood Culture - Final
Blood/Venous Staph aureus MRSA
Gram Stain - Final
09/23/23 12:56 Blood Culture - Final
Blood/Venous Staph aureus MRSA
Gram Stain - Final
09/23/23 12:56 Urine Culture - Final
Urine Citrobacter koseri
09/23/23 CXR: There is borderline cephalization of the pulmonary vasculature. Correlation with the patient's BNP is recommended
The lungs are otherwise clear.
09/23/23 Renal US: Suspected 2.3 cm mass in the lower pole of the left kidney. Diagnostic possibilities are (1) lobular renal parenchyma, (2) a complex cyst, or (3) a hypovascular renal cell carcinoma.
[2023-10-01 15:00] VITALS: BP 153/89
[2023-10-01] MEDS: ATIVAN 1 MG IV (16:12)
[2023-10-01] MEDS: NSS (PRESERVATIVE FREE) 0.5 ML IV (16:12)
[2023-10-01 18:06] LABS: Glucose - Point of Care 141 mg/dl (70-99)
[2023-10-01] MEDS: LMX 4 1 APPLIC TOPICAL (19:12)
[2023-10-01 19:30] VITALS: BP 147/81
[2023-10-01] MEDS: TYLENOL 1000 MG PO (21:10)
[2023-10-01 21:18] LABS: Glucose - Point of Care 233 mg/dl (70-99)
[2023-10-01 23:03] VITALS: BP 114/74
[2023-10-02] VITALS (7 sets, daily range): BP systolic 131–150; BP diastolic 66–92; PULSE 104; O2SAT 96; BMI 37.0
[2023-10-02 07:20] LABS: Glucose - Point of Care 125 mg/dl (70-99)
[2023-10-02] MEDS: NOVOLOG FLEXPEN-MODERATE RESISTANCE SC (08:07)
[2023-10-02] MEDS: CARDIZEM CD 240 MG PO (08:08)
[2023-10-02] MEDS: MUCINEX 600 MG PO ×2 (08:08→21:18)
[2023-10-02] MEDS: ELIQUIS 2.5 MG PO ×2 (08:08→21:18)
[2023-10-02] MEDS: INDERAL LA 60 MG PO (08:09)
[2023-10-02] MEDS: ZITHROMAX 250 MG PO (08:09)
[2023-10-02] MEDS: IMDUR (EXTENDED RELEASE) 120 MG PO (08:09)
[2023-10-02] MEDS: KCL 20 MEQ PO (08:09)
[2023-10-02] MEDS: LANTUS 0.119999999999999996 UNITS SC (08:11)
[2023-10-02 08:17] LABS: % Basophils 0.4 % (0-2); % Eosinophils 0.5 % (0-6); % Immature Granulocytes 0.8 % (0-0.5); % Lymphocytes 9.6 % (20.5-51.1); % Monocytes 6.5 % (1.7-9.3); % Neutrophils 82.2 % (42.2-75.2); Absolute Immature Granulocytes 0.1 10^3/uL (0-0.05); Absolute Lymphocytes 0.7 10^3/uL (1.2-3.4); Absolute Monocytes 0.5 10^3/uL (0.1-0.6); Absolute Neutrophils 6.2 10^3/uL (1.4-6.5); Hematocrit 30.6 % (37.0-47.0); Mean Corp Hgb Conc. 32.7 g/dL (33.0-37.0); Mean Corpuscular Hgb 30.5 pg (27.0-31.0); Mean Corpuscular Volume 93.3 fL (81.0-99.0); Mean Platelet Volume 9.3 fL (7.4-10.4); Nucleated Red Blood Cells % 0 %; Platelet Count 233 10^3/uL (130-400); Red Blood Cell Count 3.28 10^6/uL (4.20-5.40); Red Cell Dist. Width 13.7 % (11.5-14.5); White Blood Cell Count 7.5 10^3/uL (4.8-10.8)
[2023-10-02] MEDS: SPIRIVA RESPIMAT 2.5 MCG 2 PUFF INH (08:24)
[2023-10-02] MEDS: ADVAIR HFA 230/21 MCG INHALER 2 PUFF INH ×2 (08:24→19:29)
[2023-10-02 08:57] LABS: Blood Urea Nitrogen 28 mg/dl (7-17); Calcium 9.5 mg/dl (8.4-10.2); Carbon Dioxide 33 mmol/L (22-30); Chloride 98 mmol/L (98-107); Estimated Creatinine Clearance 26 ml/min; Glucose 135 mg/dl (70-99); Sodium 133 mmol/L (135-145); eGFR 30.83
--- NOTE | 2023-10-02 10:34 | W.PN.ID1 ---
Date of Service
Date of Service: October 02, 2023
Today's Communication
See below.
Assessment / Plan
# Complicated MRSA bacteremia (09/22 to 09/27)
# JASWANT, improving
- Unclear source of bacteremia
- ABENA: No evidence of infectious endocarditis. 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
- MRI nondiagnostic as patient too agitated despite Ativan.
- CT lumbar spine wo contrast (due to JASWANT) negative discitis/osteo, but poor sensitivity
- MRI left shoulder wo contrast: +motion artifacts, probable bursitis, tendinosis and partial-thickness tearing of the supraspinatus tendon
- Blood cultures appears to be clearing from 09/29/23
- Vancomycin changed to dapto on 09/28
-CRP improved from >270 to 142.
- Still highly concern about acute low back pain. Failed attempt to evaluate for discitis/osteo/abscess due to patient unable to tolerate MRI despite sedation with Ativan.
- Discussed another attempt at MRI. Patient adamantly declines. She and her son understand my concern about the potential consequences of not diagnosing spine infection, including paralysis.
Patient continues to refuse further work-up. She and family will monitor for worsening back pain. She and family understand development of LE weakness, stool/urinary incontinence are an emergency.
Patient states she will come back if she develop any of those symptoms.
- Continue Daptomycin 1000mg IV q48H through 11/09/23, followed by doxycycline 100mg po bid x another 4 weeks.
Weekly CBC, CMP, CRP, CK
If Crcl continues improves to >30, adjust daptomycin dose 1000 mg IV q24.
Hold atorvastatin while on Daptomycin.
# Citrobacter bacteruria
- Completed 3d of ceftriaxone.
# COPD on maintenance azithromycin, per telephone maintenance mechanic
#Additional Past Medical History:
DM 2
New onset A-fib September 2023
chronic COPD
interstitial lung disease
chronic hypoxemic respiratory failure on 4-5L O2
asthma
latent tuberculosis, treated in remote past
JELLY on CPAP
GERD/GI bleed
HTN
known pulmonary nodule
TIA/CVA
CAD
HLD
diverticulosis
fatty liver
glaucoma
adrenal nodule
vitamin D deficiency
Right TKR
Cholecystectomy
Appendectomy
Bilateral leg vein stripping
Bilateral cataract extraction
Loop recorder placed
Laser surgery cataract
Chief Complaint
-: Bacteremia
Subjective / Review of Systems
Family at bedside. She ambulated with walker to the door. + left lower back pain with ambulation. Pain better laying down.
Vital Signs / Physical Exam
Vital Signs
Vital Signs
Temp Pulse Resp BP Pulse Ox
97.9 F 92 18 144/72 96
10/02/23 07:30 10/02/23 08:08 10/02/23 07:30 10/02/23 08:08 10/02/23 07:30
Physical Exam
Constitutional: No Acute Distress
Gastrointestinal: Soft, Non Tender and Non Distended
Extremities: Negative Edema
Neurological: AO x 3 and No Motor Deficits
Objective Data
Lab Data
Lab Results
10/02/23 08:02
10/02/23 08:02
ESR Cancelled 09/24/23 14:48
Estimated Creat Clear 26 ml/min 10/02/23 08:02
Lactic Acid 2.2 mmol/L (0.7-2.0) H 09/23/23 15:34
Total Bilirubin 0.5 mg/dl (0.2-1.3) 09/27/23 07:48
AST 35 U/L (14-36) 09/27/23 07:48
ALT 22 U/L (0-35) 09/27/23 07:48
Alkaline Phosphatase 111 U/L (38-126) 09/27/23 07:48
C-Reactive Protein 142.40 mg/L (0.0-10.00) H 10/02/23 08:02
Most recent labs reviewed.
Micro Results:
10/02/23 08:02 Blood Culture - Pending
Blood/Venous
09/30/23 07:28 Blood Culture - Preliminary
Blood/Venous No Growth in 48 hours- Final report to follow
09/29/23 07:45 Blood Culture - Preliminary
Blood/Venous No Growth in 72 hours- Final report to follow
10/01/23 07:01 Blood Culture - Preliminary
Blood/Venous No Growth in 24 hours- Final report to follow
09/24/23 09:08 Blood Culture - Final
Blood/Venous Staph aureus MRSA
Gram Stain - Final
09/24/23 08:27 Blood Culture - Final
Blood/Venous Staph aureus MRSA
Gram Stain - Final
09/28/23 06:44 Blood Culture - Preliminary
Blood/Venous Staph aureus MRSA
Gram Stain - Preliminary
09/27/23 07:48 Blood Culture - Preliminary
Blood/Venous Staph aureus MRSA
Gram Stain - Preliminary
09/25/23 07:39 Blood Culture - Preliminary
Blood/Venous Staph aureus MRSA
Gram Stain - Preliminary
09/26/23 07:20 Blood Culture - Preliminary
Blood/Venous Staph aureus MRSA
Gram Stain - Preliminary
09/23/23 12:56 Blood Culture - Final
Blood/Venous Staph aureus MRSA
Gram Stain - Final
09/23/23 12:56 Blood Culture - Final
Blood/Venous Staph aureus MRSA
Gram Stain - Final
09/23/23 12:56 Urine Culture - Final
Urine Citrobacter koseri
09/23/23 CXR: There is borderline cephalization of the pulmonary vasculature. Correlation with the patient's BNP is recommended
The lungs are otherwise clear.
09/23/23 Renal US: Suspected 2.3 cm mass in the lower pole of the left kidney. Diagnostic possibilities are (1) lobular renal parenchyma, (2) a complex cyst, or (3) a hypovascular renal cell carcinoma.
Care Review
Plan reviewed with: Physician (Dr. del valle)
[2023-10-02 11:16] LABS: Glucose - Point of Care 199 mg/dl (70-99)
[2023-10-02] MEDS: NOVOLOG FLEXPEN-MODERATE RESISTANCE 1 UNITS SC (11:59)
--- NOTE | 2023-10-02 12:03 | W.PN.HOSP.TC ---
Today's Communication/Plan
-
Monitor vital signs and see plan
Pain control
Continue with IV antibiotic per infectious disease
PT/OT
Monitor renal function
Discharge planning
Updated family over the phone
Assessment / Plan
Assessment / Plan
Physical Exam
General: she looks better today, more alert, not in respiratory distress
HEENT: Normocephalic, Anicteric, PERRLA, [place] Conjunctivae, No Ptosis and Oxygen (4 L nasal cannula dependent)
Respiratory: no wheezing
Cardiac: S1/S2 and Regular Rhythm; + murmur
GI: Soft, Non Distended, Normal Bowel Sounds, Tender (Suprapubic)
Rectal: no bleeding
Genito-urinary: no Donovan
Musculoskeletal: No Clubbing, No Cyanosis and No Edema
Skin: Warm and Dry; No Rash or Jaundice
Neuro: Awake, mumbling , known to have expressive aphasia. She followed commands
Psych: Calm
# MRSA Bacteremia, persistent. Culture of 09/25& 09/26 are positive. Culture of 09/27 is sent
TTE no vegetation
No fevers
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 No other joint swelling. no toothache although one left lower molar looked black.
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
Will do MRI of left shoulder to rule out effusion. Unable to be obtained since patient could not tolerate MRI. Currently her pain is getting better
Unable to do CT with contrast study due to JASWANT. Without contrast , the study will be very limited. NO GI problems.
per ID, expect 6-8 weeks of abx; antibiotics now changed to Dapto
Appreciate ID & cardiology help
Back pain and left shoulder pain, MRI back had artifacts due to patient agitation; she was given ativan prior. shoulder MRI showed bursitis however still had artifacts. No jory abscess noted on examination. CT lumbar spine with multilevel lumbar
degenerative disease. Was done without contrast given patient has acute kidney injury
Patient does not want any further MRI's
instruction by ID: Continue Daptomycin 1000mg IV q48H through 11/09/23, followed by doxycycline 100mg po bid x another 4 weeks.
Weekly CBC, CMP, CRP, CK
If Crcl continues improves to >30, adjust daptomycin dose 1000 mg IV q24.
Hold atorvastatin while on Daptomycin.
# Toxic metabolic encephalopathy due to infection/ sepsis
Her mental status seems to be better , she is following commands and answering questions, recognized her family.
History of strokes in the past. CAT scan of the head showed signs of atrophy with no acute changes. Hold off on MRI
c/ w supportive care and treating the infection.
# Severe sepsis POA, resolved.
with leukocytosis, bacteremia, lactic acidosis, confusion upon admission.
# UTI with Citrobacter Koseri
No Dysuria
No gross hematuria
Finished 3 days of Rocephin
Renal ultrasound no hydronephrosis or nephrolithiasis
Appreciate ID input
#Hyponatremia, improving
c/w fluid restriction, pt is doing it with family supervision.
#Acute kidney injury , Creatinine down to 1.6
metabolic acidosis
Seems consistent with acute interstitial nephritis
Patient had normal kidney function on 09/13/23
now voiding after donovan removal 09/28
Avoid nephrotoxic
Renal ultrasound no hydronephrosis or nephrolithiasis, consistent with chronic renal disease. Possible underlying diabetic nephropathy
Appreciate nephrology input
Renal ultrasound with suspected 2.3 cm mass in the left lower pole of the kidney. Could be possible lobular renal parenchyma, complex cyst or renal cell carcinoma. Patient to get repeat ultrasound outpatient in 3 months. per patient she does not
want any aggressive measures regarding this.
# Paroxysmal A-fib, continue Eliquis but adjust the dose,
Continue with oral medication. Rate is well-controlled.
History of GI bleeding and aspirin was stopped. On low-dose Eliquis.- Continue Eliquis at 2.5 mg twice daily instead of 5 mg twice daily due to CrCl 27, CrCl was 34 on discharge 09/22/2023
Monitor for GI bleeding
TT echocardiogram 07/15/23 reviewed with 65% EF and mildly elevated PASP
# Acute on Chronic hypoxic respiratory failure combination of obstructive sleep apnea, COPD
pain could have contributed to her symptoms of increased oxygenation. Now on baseline O2
Baseline oxygen requirement 4 to 5 L. On prophylactic Zithromax
Hyponatremia
monitor
She is feeling better, less cough
Continue with Spiriva and Advair. As needed DuoNeb
Swallow evaluation. No aspiration Chest x-ray did not show acute changes
c/w Mucinex
Primary cloth weaver Dr. Murguia
cortisol level in a.m. was normal.
#JELLY on CPAP
-cont setting 7 with 4 liters nc
#HTN�benign
No hypotension.
-Continue propranolol 60 mg ER
-Continue oral diltiazem
# hypokalemia, replace
Anemia
Continue to monitor
#Gastroesophageal reflux disease
#GI bleed by history
- continue H2 gene;
#Type 2 diabetes mellitus
#Hyperglycemia hx
- A1c is 9.4%
- Low-dose scale coverage
- continue Lantus 12 units
-Hold metformin 750mg BID, Januvia
#Pulmonary Nodule
- Follow-up with pulmonary
#Prior TIA/CVA
- Clopidogrel was stopped during recent admission due to need for Eliquis for A-fib
#CAD
-No chest pain
-Continue beta-gene
#History latent TB
#Obesity due to excess calorie consumption
-Weight loss recommended
#Hyperlipidemia
-Hold current statin
#Ambulatory dysfunction secondary to recent hospitalization
-Continue PT/OT
Other PMH:
#Diverticulosis.
Fatty liver
Glaucoma
Adrenal nodule
Vitamin D deficiency-continue vitamin D
DVT proph
-Continue oral Eliquis
Total time spent to see patient, examine the patient on the floor, review data and lab results, discuss treatment plan with patient, family, nursing staff around 52 minutes
Anticipated Discharge: Within 24 hours
Subjective/Interval History
-
Date of Service: October 02, 2023
has some pain at times
Objective Data
-
Labs:
Laboratory Results
10/02/23
08:02
WBC 7.5
Hgb 10.0 L
Hct 30.6 L
Plt Count 233
Sodium 133 L
Potassium 4.0
Chloride 98
Carbon Dioxide 33 H
BUN 28 H
Creatinine 1.6 H
Glucose 135 H
Calcium 9.5
Vital Signs:
Vital Signs
Temp Pulse Resp BP Pulse Ox
97.6 F 87 18 150/92 97
10/02/23 11:30 10/02/23 11:30 10/02/23 11:30 10/02/23 11:30 10/02/23 11:30
I&O
10/01/23 10/02/23 10/03/23
06:59 06:59 06:59
Intake Total 240 / 240 960 / 960
Output Total 300 / 300 590 / 590
Balance -60 / -60 370 / 370
--- NOTE | 2023-10-02 12:34 | CM ---
Spoke with ID re IV anbx.
[facility] unable to accommodate Daptomycin due to cost.
TC to IBC re carve- out for Daptomycin 1000 mg IV q 48 hours (if CrCl improves to >30, Incre Daptomycin to 1000 mg IV q 24 hours).
Per IBC 1800-ask blue, if the skilled facility does not have written into their contract that they can bill separately for medications then a carve our cannot be done.
Will update ID and patients family.
Plan: TBD.
[2023-10-02] MEDS: TYLENOL 650 MG PO (12:48)
[2023-10-02 15:07] LABS: Glucose - Point of Care 268 mg/dl (70-99)
--- NOTE | 2023-10-02 15:17 | W.PN.NEPH.PH ---
Today's Communication / Plan
-
follow bmp
Assessment/Plan
-
Impression:
TME likely due to evolving sepsis vs embolic event
MRSA bacteremia (unclear source)
Acute kidney
Hyponatremia
Paroxysmal atrial fibrillation
Chronic COPD and interstitial lung disease
Hypertension
Type 2 diabetes
History of TIA and stroke
Coronary artery disease
History of latent TB
Plan:
follow BMP, creatinine down to 1.6
follow PVR as weight is increasing and urine output appears to be 200
no metformin for now in setting of JASWANT
Daptomycin continues for persistent MRSA bacteremia
?2.2cm mass left kidney. should repeat US in 3 months, discussed with pt and family. she does not want aggressive w/u for it
-
-
Date of Service: October 02, 2023
CC / HPI / ROS
-
Chief Complaint:
JASWANT
History of Present Illness:
mental status back to baseline
JASWANT (bl Cr 0.8, but has gotten as high as 1.5 in outpatient setting due to pre-renal disease), down to 1.6
remains on O2
donovan out, PVR wnl
Review of Systems:
Mental status back to baseline
states that she is feeling better
Urine output not recorded but PVR without significant residual
Weights rising
Labs
-
Labs:
WBC 7.5 10^3/uL (4.8-10.8) 10/02/23 08:02
RBC 3.28 10^6/uL (4.20-5.40) L 10/02/23 08:02
Hgb 10.0 g/dL (12.0-16.0) L 10/02/23 08:02
Hct 30.6 % (37.0-47.0) L 10/02/23 08:02
Plt Count 233 10^3/uL (130-400) 10/02/23 08:02
Sodium 133 mmol/L (135-145) L 10/02/23 08:02
Potassium 4.0 mmol/L (3.5-5.1) 10/02/23 08:02
Chloride 98 mmol/L (98-107) 10/02/23 08:02
Carbon Dioxide 33 mmol/L (22-30) H 10/02/23 08:02
BUN 28 mg/dl (7-17) H 10/02/23 08:02
Creatinine 1.6 mg/dL (0.6-1.0) H 10/02/23 08:02
eGFR 30.83 10/02/23 08:02
Glucose 135 mg/dl (70-99) H 10/02/23 08:02
Calcium 9.5 mg/dl (8.4-10.2) 10/02/23 08:02
Nih-A-Jjvnldzsjcb Pept 7880 pg/ml 09/23/23 14:19
Albumin 2.7 g/dl (3.5-5.0) L 09/27/23 07:48
Physical Exam
-
Vital Signs:
Vital Signs
Temp Pulse Resp BP Pulse Ox
97.6 F 87 18 150/92 97
10/02/23 11:30 10/02/23 11:30 10/02/23 11:30 10/02/23 11:30 10/02/23 11:30
Cardiovascular:: Regular rate and rhythm
Respiratory:: Bilateral: CTA
Lung Excursion:: Normal
Abdomen:: Nontender
Bowel Sounds:: Normal
Extremity Edema:: None: Bilateral:
Donovan Catheter: No
[2023-10-02] MEDS: NOVOLOG FLEXPEN-MODERATE RESISTANCE 5 UNITS SC (16:31)
[2023-10-02] MEDS: TYLENOL 1000 MG PO (21:18)
[2023-10-02 21:39] LABS: Glucose - Point of Care 155 mg/dl (70-99)
[2023-10-03 03:56] VITALS: BP 163/88
[2023-10-03 05:24] VITALS: BMI 35.1
[2023-10-03 06:20] LABS: % Basophils 0.3 % (0-2); % Eosinophils 0.5 % (0-6); % Immature Granulocytes 0.6 % (0-0.5); % Lymphocytes 11.4 % (20.5-51.1); % Neutrophils 79.2 % (42.2-75.2); Absolute Lymphocytes 0.7 10^3/uL (1.2-3.4); Absolute Monocytes 0.5 10^3/uL (0.1-0.6); Absolute Neutrophils 4.9 10^3/uL (1.4-6.5); Hematocrit 28.7 % (37.0-47.0); Hemoglobin 9.3 g/dL (12.0-16.0); Mean Corp Hgb Conc. 32.4 g/dL (33.0-37.0); Mean Corpuscular Hgb 30.5 pg (27.0-31.0); Mean Corpuscular Volume 94.1 fL (81.0-99.0); Mean Platelet Volume 9.7 fL (7.4-10.4); Nucleated Red Blood Cells % 0 %; Platelet Count 202 10^3/uL (130-400); Red Blood Cell Count 3.05 10^6/uL (4.20-5.40); Red Cell Dist. Width 13.6 % (11.5-14.5); White Blood Cell Count 6.2 10^3/uL (4.8-10.8)
[2023-10-03 06:59] LABS: Blood Urea Nitrogen 27 mg/dl (7-17); Calcium 9.4 mg/dl (8.4-10.2); Carbon Dioxide 29 mmol/L (22-30); Chloride 99 mmol/L (98-107); Estimated Creatinine Clearance 27 ml/min; Glucose 122 mg/dl (70-99); Sodium 134 mmol/L (135-145); eGFR 33.31
[2023-10-03 07:23] LABS: Glucose - Point of Care 123 mg/dl (70-99)
[2023-10-03 07:30] VITALS: BP 136/76
[2023-10-03] MEDS: ADVAIR HFA 230/21 MCG INHALER 2 PUFF INH (08:58)
[2023-10-03] MEDS: SPIRIVA RESPIMAT 2.5 MCG 2 PUFF INH (08:59)
[2023-10-03] MEDS: NOVOLOG FLEXPEN-MODERATE RESISTANCE SC (10:12)
[2023-10-03] MEDS: MUCINEX 600 MG PO (10:12)
[2023-10-03] MEDS: IMDUR (EXTENDED RELEASE) 120 MG PO (10:13)
[2023-10-03] MEDS: INDERAL LA 60 MG PO (10:16)
[2023-10-03] MEDS: ELIQUIS 2.5 MG PO (10:16)
[2023-10-03] MEDS: KCL 20 MEQ PO (10:16)
[2023-10-03] MEDS: CARDIZEM CD 240 MG PO (10:16)
[2023-10-03] MEDS: LANTUS 0.119999999999999996 UNITS SC (10:17)
[2023-10-03] MEDS: TYLENOL 650 MG PO (10:24)
--- NOTE | 2023-10-03 10:43 | W.PN.ID1 ---
Date of Service
Date of Service: October 03, 2023
Today's Communication
Continue daptomycin.
Assessment / Plan
# Complicated MRSA bacteremia (09/22 to 09/27)
# JASWANT, improving
- Unclear source of bacteremia
- ABENA: No evidence of infectious endocarditis. 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
- MRI nondiagnostic as patient too agitated despite Ativan.
- CT lumbar spine wo contrast (due to JASWANT) negative discitis/osteo, but poor sensitivity
- MRI left shoulder wo contrast: +motion artifacts, probable bursitis, tendinosis and partial-thickness tearing of the supraspinatus tendon
- Blood cultures appears to be clearing from 09/29/23
- Vancomycin changed to dapto on 09/28
-CRP improved from >270 to 142.
- Still highly concern about acute low back pain. Failed attempt to evaluate for discitis/osteo/abscess due to patient unable to tolerate MRI despite sedation with Ativan.
- On 10/01 Dr. Cesar discussed another attempt at MRI. Patient adamantly declines. She and her son understand my concern about the potential consequences of not diagnosing spine infection, including paralysis.
Patient continues to refuse further work-up. She and family will monitor for worsening back pain. She and family understand development of LE weakness, stool/urinary incontinence are an emergency.
Patient states she will come back if she develop any of those symptoms.
- Continue Daptomycin 1000mg IV q48H through 11/09/23, followed by doxycycline 100mg po bid x another 4 weeks.
Weekly CBC, CMP, CRP, CK
If Crcl continues improves to >30, adjust daptomycin dose 1000 mg IV q24.
Hold atorvastatin while on Daptomycin.
- Appreciate correctional case records supervisor working hard to find SNF that will accept daptomycin.
# Citrobacter bacteruria
- Completed 3d of ceftriaxone.
# COPD on maintenance azithromycin, per varnish cooker
#Additional Past Medical History:
DM 2
New onset A-fib September 2023
chronic COPD
interstitial lung disease
chronic hypoxemic respiratory failure on 4-5L O2
asthma
latent tuberculosis, treated in remote past
JELLY on CPAP
GERD/GI bleed
HTN
known pulmonary nodule
TIA/CVA
CAD
HLD
diverticulosis
fatty liver
glaucoma
adrenal nodule
vitamin D deficiency
Right TKR
Cholecystectomy
Appendectomy
Bilateral leg vein stripping
Bilateral cataract extraction
Loop recorder placed
Laser surgery cataract
Chief Complaint
-: Bacteremia
Subjective / Review of Systems
Feels weak.
Vital Signs / Physical Exam
Vital Signs
Vital Signs
Temp Pulse Resp BP Pulse Ox
97.4 F 89 20 136/76 97
10/03/23 07:30 10/03/23 10:16 10/03/23 09:10 10/03/23 10:16 10/03/23 09:10
Physical Exam
Gastrointestinal: Soft and Non Tender
Neurological: AO x 3 and No Motor Deficits
Objective Data
Lab Data
Lab Results
10/03/23 05:55
10/03/23 05:55
ESR Cancelled 09/24/23 14:48
Estimated Creat Clear 27 ml/min 10/03/23 05:55
Lactic Acid 2.2 mmol/L (0.7-2.0) H 09/23/23 15:34
Total Bilirubin 0.5 mg/dl (0.2-1.3) 09/27/23 07:48
AST 35 U/L (14-36) 09/27/23 07:48
ALT 22 U/L (0-35) 09/27/23 07:48
Alkaline Phosphatase 111 U/L (38-126) 09/27/23 07:48
C-Reactive Protein 142.40 mg/L (0.0-10.00) H 10/02/23 08:02
Most recent labs reviewed.
Micro Results:
10/02/23 08:02 Blood Culture - Preliminary
Blood/Venous No Growth in 24 hours- Final report to follow
09/30/23 07:28 Blood Culture - Preliminary
Blood/Venous No Growth in 72 hours- Final report to follow
10/03/23 07:04 Blood Culture - Pending
Blood/Venous
09/29/23 07:45 Blood Culture - Preliminary
Blood/Venous No Growth in 4 days- Final report to follow
10/01/23 07:01 Blood Culture - Preliminary
Blood/Venous No Growth in 48 hours- Final report to follow
09/25/23 07:39 Blood Culture - Final
Blood/Venous Staph aureus MRSA
Gram Stain - Final
09/24/23 09:08 Blood Culture - Final
Blood/Venous Staph aureus MRSA
Gram Stain - Final
09/24/23 08:27 Blood Culture - Final
Blood/Venous Staph aureus MRSA
Gram Stain - Final
09/28/23 06:44 Blood Culture - Preliminary
Blood/Venous Staph aureus MRSA
Gram Stain - Preliminary
09/27/23 07:48 Blood Culture - Preliminary
Blood/Venous Staph aureus MRSA
Gram Stain - Preliminary
09/26/23 07:20 Blood Culture - Preliminary
Blood/Venous Staph aureus MRSA
Gram Stain - Preliminary
09/23/23 12:56 Blood Culture - Final
Blood/Venous Staph aureus MRSA
Gram Stain - Final
09/23/23 12:56 Blood Culture - Final
Blood/Venous Staph aureus MRSA
Gram Stain - Final
09/23/23 12:56 Urine Culture - Final
Urine Citrobacter koseri
09/23/23 CXR: There is borderline cephalization of the pulmonary vasculature. Correlation with the patient's BNP is recommended
The lungs are otherwise clear.
09/23/23 Renal US: Suspected 2.3 cm mass in the lower pole of the left kidney. Diagnostic possibilities are (1) lobular renal parenchyma, (2) a complex cyst, or (3) a hypovascular renal cell carcinoma.
--- NOTE | 2023-10-03 11:41 | W.PN.HOSP.TC ---
Addendum entered and electronically signed by Robert Lucia MD 10/03/23 11:54:
time of discharge 37 minutes
Original Note:
Today's Communication/Plan
-
monitor vitals
see plan
wean o2 as tolerated
cw abx per ID
Creatinine proving and now 1.5, BMP at SNF
Possible discharge today if has placement
Daughter updated over the phone
Assessment / Plan
Assessment / Plan
Physical Exam
General: not in respiratory distress
HEENT: Normocephalic, Anicteric, PERRLA, [place] Conjunctivae, No Ptosis and Oxygen (4 L nasal cannula dependent)
Respiratory: no wheezing
Cardiac: S1/S2 and Regular Rhythm; + murmur
GI: Soft, Non Distended, Normal Bowel Sounds, non tender
Rectal: no bleeding
Genito-urinary: no Donovan
Musculoskeletal: No Clubbing, No Cyanosis and No Edema
Skin: Warm and Dry; No Rash or Jaundice
Neuro: Awake, known to have expressive aphasia. She followed commands
Psych: Calm
# MRSA Bacteremia, persistent. Culture of 09/25& 09/26 are positive. Culture of 09/27 is sent
TTE no vegetation
No fevers
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 No other joint swelling. no toothache although one left lower molar looked black.
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
Will do MRI of left shoulder to rule out effusion. Unable to be obtained since patient could not tolerate MRI. Currently her pain is getting better
Unable to do CT with contrast study due to JASWANT. Without contrast , the study will be very limited. NO GI problems.
per ID, expect 6-8 weeks of abx; antibiotics now changed to Dapto
Appreciate ID & cardiology help
Back pain and left shoulder pain, MRI back had artifacts due to patient agitation; she was given ativan prior. shoulder MRI showed bursitis however still had artifacts. No jory abscess noted on examination. CT lumbar spine with multilevel lumbar
degenerative disease. Was done without contrast given patient has acute kidney injury
Patient does not want any further MRI's
instruction by ID: Continue Daptomycin 1000mg IV q48H through 11/09/23, followed by doxycycline 100mg po bid x another 4 weeks.
Weekly CBC, CMP, CRP, CK
If Crcl continues improves to >30, adjust daptomycin dose 1000 mg IV q24.
Hold atorvastatin while on Daptomycin.
# Toxic metabolic encephalopathy due to infection/ sepsis
Her mental status seems to be better , she is following commands and answering questions, recognized her family.
History of strokes in the past. CAT scan of the head showed signs of atrophy with no acute changes. Hold off on MRI
c/ w supportive care and treating the infection.
# Severe sepsis POA, resolved.
with leukocytosis, bacteremia, lactic acidosis, confusion upon admission.
# UTI with Citrobacter Koseri
No Dysuria
No gross hematuria
Finished 3 days of Rocephin
Renal ultrasound no hydronephrosis or nephrolithiasis
Appreciate ID input
#Hyponatremia, improving
c/w fluid restriction, pt is doing it with family supervision.
#Acute kidney injury , Creatinine down to 1.5
metabolic acidosis
Seems consistent with acute interstitial nephritis
Patient had normal kidney function on 09/13/23
now voiding after donovan removal 09/28
Avoid nephrotoxic
Renal ultrasound no hydronephrosis or nephrolithiasis, consistent with chronic renal disease. Possible underlying diabetic nephropathy
Appreciate nephrology input
Renal ultrasound with suspected 2.3 cm mass in the left lower pole of the kidney. Could be possible lobular renal parenchyma, complex cyst or renal cell carcinoma. Patient to get repeat ultrasound outpatient in 3 months. per patient she does not
want any aggressive measures regarding this.
# Paroxysmal A-fib, continue Eliquis but adjust the dose,
Continue with oral medication. Rate is well-controlled.
History of GI bleeding and aspirin was stopped. On low-dose Eliquis.- Continue Eliquis at 2.5 mg twice daily instead of 5 mg twice daily due to CrCl 27, CrCl was 34 on discharge 09/22/2023
Monitor for GI bleeding
TT echocardiogram 07/15/23 reviewed with 65% EF and mildly elevated PASP
# Acute on Chronic hypoxic respiratory failure combination of obstructive sleep apnea, COPD
pain could have contributed to her symptoms of increased oxygenation. Now on baseline O2
Baseline oxygen requirement 5-6 L. On prophylactic Zithromax
Hyponatremia
monitor
She is feeling better, less cough
Continue with Spiriva and Advair. As needed DuoNeb
Swallow evaluation. No aspiration Chest x-ray did not show acute changes
c/w Mucinex
Primary professor of sport management Dr. Murguia
cortisol level in a.m. was normal.
#JELLY on CPAP
-cont setting 7 with 4 liters nc
#HTN�benign
No hypotension.
-Continue propranolol 60 mg ER
-Continue oral diltiazem
# hypokalemia, replace
Anemia
Continue to monitor
#Gastroesophageal reflux disease
#GI bleed by history
- continue H2 gene;
#Type 2 diabetes mellitus
#Hyperglycemia hx
- A1c is 9.4%
- Low-dose scale coverage
- continue Lantus 12 units
-Hold metformin 750mg BID, Januvia
#Pulmonary Nodule
- Follow-up with pulmonary
#Prior TIA/CVA
- Clopidogrel was stopped during recent admission due to need for Eliquis for A-fib
#CAD
-No chest pain
-Continue beta-gene
#History latent TB
#Obesity due to excess calorie consumption
-Weight loss recommended
#Hyperlipidemia
-Hold current statin
#Ambulatory dysfunction secondary to recent hospitalization
-Continue PT/OT
Other PMH:
#Diverticulosis.
Fatty liver
Glaucoma
Adrenal nodule
Vitamin D deficiency-continue vitamin D
DVT proph
-Continue oral Eliquis
Anticipated Discharge: Today
Subjective/Interval History
-
Date of Service: October 03, 2023
feels pain is better
Objective Data
-
Labs:
Laboratory Results
10/03/23
05:55
WBC 6.2
Hgb 9.3 L
Hct 28.7 L
Plt Count 202
Sodium 134 L
Potassium 4.0
Chloride 99
Carbon Dioxide 29
BUN 27 H
Creatinine 1.5 H
Glucose 122 H
Calcium 9.4
Vital Signs:
Vital Signs
Temp Pulse Resp BP Pulse Ox
97.4 F 89 20 136/76 97
10/03/23 07:30 10/03/23 10:16 10/03/23 09:10 10/03/23 10:16 10/03/23 09:10
I&O
10/02/23 10/03/23 10/04/23
06:59 06:59 06:59
Intake Total 960 / 960 540 / 540
Output Total 590 / 590 350 / 350
Balance 370 / 370 190 / 190
--- NOTE | 2023-10-03 11:55 | W.DCSUMMARY ---
Discharge Summary
Discharge Data
Date of Admission: 09/23/23
Date of Discharge: 10/03/23
-
Pending Results: No
Hospital Course
88-year-old female with past medical history of A-fib, CHF, sleep apnea, COPD, hypertension, GERD, type 2 diabetes mellitus, pulmonary nodule, TIA/CVA, CAD, latent TB, obesity, hyperlipidemia, ambulatory dysfunction, fatty liver disease, GERD,,
adrenal nodule came to the hospital with MRSA bacteremia. Patient was seen by infectious disease throughout hospitalization. Patient also had echocardiogram which did not show any signs of vegetation. There was no clear source found for patient
with MRSA bacteremia. Patient did had back pain for which MRI was done however patient was not able to tolerate MRI and there were a lot of artifacts. MRI shoulder was also done which showed bursitis. CT scan was done however without contrast due
to acute kidney injury which did not show any signs of discitis/abscess. Patient did not wanted any further attempt of the MRI. Patient was switched to IV daptomycin by infectious disease. Patient also had toxic metabolic encephalopathy which
over time was improving. For her acute kidney injury her creatinine continue to trend down and was 1.5 on discharge. Renal ultrasound showed suspected 2.3 cm mass in the left lower pole of the kidney for which patient did not wanted to follow-up
outpatient and did not want any aggressive measures. Patient was evaluated by physical therapy who recommended SNF. Once patient symptoms were improving, she was then discharged to SNF on IV antibiotics and instructions to follow-up with all her
physicians outpatient.
Discharge Plan
-
Patient Disposition: Group Home/SNF
Discharge Diagnosis/Procedures: Methicillin resistant Staph aureus bacteremia
Urinary tract infection
Intractable back pain, intolerance to MRI
Toxic metabolic encephalopathy
Severe sepsis
Acute kidney injury
Acute on chronic hypoxic respiratory failure
Renal ultrasound with suspected 2.3 cm mass in the left lower pole of the kidney
Anemia
Diet: Diabetic, Carb Controlled
Activity: As tolerated
Driving Restrictions: Not until seen by your Dr
Bathing Restrictions: None
Blood Work: CBC and BMP at rehab
Activity Restrictions/Additional Instructions:
instruction by ID: Continue Daptomycin 1000mg IV q48H through 11/09/23, followed by doxycycline 100mg po bid x another 4 weeks.
Weekly CBC, CMP, CRP, CK
If Crcl continues improves to >30, adjust daptomycin dose 1000 mg IV q24.
Hold atorvastatin while on Daptomycin.
Referrals:
Juan Alberto Bowles MD [Family Provider] -
Lauren Cesar MD [Active] - in three to four weeks
Prescriptions:
New
polyethylene glycol 3350 [HealthyLax] 17 gram Powder In Packet
17 g PO DAILYPRN PRN (Reason: constipation) Qty: 0 0RF
potassium chloride 20 mEq Tablet,Er Particles/Crystals
20 meq PO DAILY Qty: 0 0RF
DAPTOmycin [Cubicin] 1000 MG
Syringe [Syringe-Pump] 0 ML
As Directed mls/hr IV Q48H
Ordered By: Robert Lucia MD
Last Taken: 10/03/23 12:57 20 mls
Continued
propranolol 60 MG capsule,extended release 24 hr
60 mg PO DAILY
cranberry 400 MG capsule
400 mg PO BID
isosorbide mononitrate 120 mg Tablet Extended Release 24 Hr
120 mg PO DAILY
cyanocobalamin (vitamin B-12) 500 mcg Tablet
500 mcg PO HS
cholecalciferol (vitamin D3) 125 mcg (5,000 unit) Tablet
125 mcg PO DAILY
loperamide 2 mg Capsule
2 mg PO DAILYPRN PRN (Reason: diarrhea)
ipratropium-albuterol 0.5 mg-3 mg(2.5 mg base)/3 mL Solution For Nebulization
3 ml inhalation R Q4HPRN PRN (Reason: shortness of breath) Qty: 90 0RF
acetaminophen [Tylenol] 325 mg Tablet
650 mg PO Q4H MDD 3000 mg PRN (Reason: fever>100)
acetaminophen 500 mg Tablet
1,000 mg PO HS
acetaminophen 500 mg Tablet
1,000 mg PO DAILYPRN PRN (Reason: mild pain)
magnesium hydroxide [Milk of Magnesia] 400 mg/5 mL Suspension
30 ml PO DAILY PRN (Reason: if no BM x 4 days)
bisacodyl [Dulcolax (bisacodyl)] 10 mg Suppository
10 mg ID DAILY PRN (Reason: constipation)
Fleet Enema 19-7 gram/118 mL Enema
118 ml ID DAILYPRN PRN (Reason: constipation)
insulin glargine [Lantus Solostar U-100 Insulin] 100 unit/mL (3 mL) Insulin Pen
12 unit SC DAILY
guaifenesin [Mucinex] 600 mg Tablet Extended Release 12hr
600 mg PO BID PRN (Reason: congestion)
azithromycin 250 mg tablet
250 mg PO Q48H
diltiazem HCl 240 mg capsule,extended release 24hr
240 mg PO DAILY
pantoprazole 40 mg tablet,delayed release (DR/EC)
40 mg PO DAILY
fluticasone propion-salmeterol 230-21 mcg/actuation HFA aerosol inhaler
2 puff inhalation R BID
Januvia 100 mg tablet
100 mg PO DAILY
Spiriva Respimat 2.5 mcg/actuation mist
2 puff inhalation R DAILY
Changed
Eliquis 5 mg tablet
2.5 mg PO BID Qty: 0 0RF
Held
rosuvastatin 40 mg Tablet
40 mg PO HS
Hold Instructions: I until done with daptomycin
Discontinued
metformin 750 mg Tablet Extended Release 24 Hr
750 mg PO BID
Discharge Orders:
Discharge Patient (As Directed); Ordered 10/03/23
Ordered By: Robert Lucia
Discharge Date and Time
Discharge Date/Time: 10/03/23 17:09
Print Language: TAIWANESE
[2023-10-03 12:24] LABS: Glucose - Point of Care 150 mg/dl (70-99)
[2023-10-03] MEDS: NOVOLOG FLEXPEN-MODERATE RESISTANCE 1 UNITS SC (12:56)
[2023-10-03] MEDS: CUBICIN 20 MG IV (12:57)
[2023-10-03 13:31] LABS: COVID-19 Antigen Negative (Negative)
--- NOTE | 2023-10-03 13:32 | CM ---
Addendum entered by Kassie Prado 10/03/23 16:19:
Correction: report number [phone]
Original Note:
Patient seen bedside.
Patient accepted for skilled rehab at [facility].
Patient and daughter Mark in agreement.
IMM reviewed with Mark via phone.
Requested family to bring CPAP machine to [facility].
Covid neg.
[employer] authorization received
Auth# [id number]
Approved skilled level 1
Approved 7 days
Start date 10/03/23 LCD and NRD 10/09/23
Updates to fax# [phone]
[facility]
Report# [phone]
--- NOTE | 2023-10-03 13:44 | W.PN.NEPH.PH ---
Today's Communication / Plan
-
follow BMP
Assessment/Plan
-
Impression:
TME likely due to evolving sepsis vs embolic event
MRSA bacteremia (unclear source)
Acute kidney
Hyponatremia
Paroxysmal atrial fibrillation
Chronic COPD and interstitial lung disease
Hypertension
Type 2 diabetes
History of TIA and stroke
Coronary artery disease
History of latent TB
Plan:
abx per primary team
follow BMP
?2.2cm mass left kidney. should repeat US in 3 months, discussed with pt and family. she does not want aggressive w/u for it
dc planning
-
-
Date of Service: October 03, 2023
CC / HPI / ROS
-
Chief Complaint:
JASWANT
History of Present Illness:
mental status back to baseline
JASWANT (bl Cr 0.8, but has gotten as high as 1.5 in outpatient setting due to pre-renal disease), down to 1.5
remains on O2
donovan out, PVR wnl
Na stable 134
Review of Systems:
Mental status back to baseline
states that she is feeling better
Urine output not recorded but PVR without significant residual
Labs
-
Labs:
WBC 6.2 10^3/uL (4.8-10.8) 10/03/23 05:55
RBC 3.05 10^6/uL (4.20-5.40) L 10/03/23 05:55
Hgb 9.3 g/dL (12.0-16.0) L 10/03/23 05:55
Hct 28.7 % (37.0-47.0) L 10/03/23 05:55
Plt Count 202 10^3/uL (130-400) 10/03/23 05:55
Sodium 134 mmol/L (135-145) L 10/03/23 05:55
Potassium 4.0 mmol/L (3.5-5.1) 10/03/23 05:55
Chloride 99 mmol/L (98-107) 10/03/23 05:55
Carbon Dioxide 29 mmol/L (22-30) 10/03/23 05:55
BUN 27 mg/dl (7-17) H 10/03/23 05:55
Creatinine 1.5 mg/dL (0.6-1.0) H 10/03/23 05:55
eGFR 33.31 10/03/23 05:55
Glucose 122 mg/dl (70-99) H 10/03/23 05:55
Calcium 9.4 mg/dl (8.4-10.2) 10/03/23 05:55
Erj-F-Qnjphlojnir Pept 7880 pg/ml 09/23/23 14:19
Albumin 2.7 g/dl (3.5-5.0) L 09/27/23 07:48
Physical Exam
-
Vital Signs:
Vital Signs
Temp Pulse Resp BP Pulse Ox
97.4 F 89 20 136/76 97
10/03/23 07:30 10/03/23 10:16 10/03/23 09:10 10/03/23 10:16 10/03/23 09:10
Cardiovascular:: Regular rate and rhythm
Respiratory:: Bilateral: Coarse
Lung Excursion:: Normal
Abdomen:: Nontender and Soft
Bowel Sounds:: Normal
Extremity Edema:: None: Bilateral:
[2023-10-03 15:30] VITALS: BP 126/80
== END 2023-10-03 17:09 | DRG 871 ==
LOC: 4 WEST ACU 15:07
PROVIDERS: Clinical Nurse Specialist Family Health; Internal Medicine Cardiovascular Disease; Radiology Diagnostic Radiology; Registered Nurse; Student in an Organized Health Care Education/Training Program; ADMITTING PHYSICIAN Internal Medicine; ATTENDING PHYSICIAN Internal Medicine; CONSULT PHYSICIAN Specialist; EMERGENCY PHYSICIAN Emergency Medicine; FAMILY PHYSICIAN Family Medicine; OTHER PHYSICIAN Internal Medicine; OTHER PHYSICIAN Internal Medicine Infectious Disease
PROC: 02HV33Z Insertion of Infusion Device into Superior Vena Cava, Percutaneous Approach (ICD-10-PCS; 2023-09-23)
PROC: B24BZZ4 Ultrasonography of Heart with Aorta, Transesophageal (ICD-10-PCS; 2023-09-26)
PROC: 5A09357 Assistance with Respiratory Ventilation, Less than 24 Consecutive Hours, Continuous Positive Airway Pressure (ICD-10-PCS; 2023-09-28)
DX: A41.02 Sepsis due to Methicillin resistant Staphylococcus aureus (principal); G92.8 Other toxic encephalopathy; J96.21 Acute and chronic respiratory failure with hypoxia; N17.9 Acute kidney failure, unspecified; I48.19 Other persistent atrial fibrillation; J84.9 Interstitial pulmonary disease, unspecified; E87.1 Hypo-osmolality and hyponatremia; N39.0 Urinary tract infection, site not specified; I5A Non-ischemic myocardial injury (non-traumatic); N10 Acute pyelonephritis; G47.33 Obstructive sleep apnea (adult) (pediatric); I25.118 Atherosclerotic heart disease of native coronary artery with other forms of angina pectoris; J44.89 Other specified chronic obstructive pulmonary disease; E78.00 Pure hypercholesterolemia, unspecified; E11.36 Type 2 diabetes mellitus with diabetic cataract; K21.9 Gastro-esophageal reflux disease without esophagitis; R91.1 Solitary pulmonary nodule; K76.0 Fatty (change of) liver, not elsewhere classified; I08.1 Rheumatic disorders of both mitral and tricuspid valves; E11.65 Type 2 diabetes mellitus with hyperglycemia; E55.9 Vitamin D deficiency, unspecified; I10 Essential (primary) hypertension; E66.09 Other obesity due to excess calories; E27.8 Other specified disorders of adrenal gland; R65.20 Severe sepsis without septic shock; E86.1 Hypovolemia; R26.2 Difficulty in walking, not elsewhere classified; E87.6 Hypokalemia; G89.29 Other chronic pain; L89.151 Pressure ulcer of sacral region, stage 1; M54.50 Low back pain, unspecified; K57.30 Diverticulosis of large intestine without perforation or abscess without bleeding; H40.9 Unspecified glaucoma; W18.30XA Fall on same level, unspecified, initial encounter; Y93.9 Activity, unspecified; Y92.129 Unspecified place in nursing home as the place of occurrence of the external cause; Z86.73 Personal history of transient ischemic attack (TIA), and cerebral infarction without residual deficits; Z79.4 Long term (current) use of insulin; Z87.891 Personal history of nicotine dependence; Z66 Do not resuscitate; Z22.7 Latent tuberculosis; Z91.012 Allergy to eggs; Z79.01 Long term (current) use of anticoagulants; Z79.51 Long term (current) use of inhaled steroids; Z79.84 Long term (current) use of oral hypoglycemic drugs; Z86.14 Personal history of Methicillin resistant Staphylococcus aureus infection; Z96.651 Presence of right artificial knee joint; Z11.52 Encounter for screening for COVID-19; Z68.35 Body mass index [BMI] 35.0-35.9, adult
CPT/HCPCS: 93308; 51701; 70450; 71045; 72131; 72148; 73221; 76775; 80048; 80053; 80202; 81003; 81015; 81099; 82533; 82550; 82570; 82784; 82962; 83521; 83605; 83880; 83935; 84155; 84165; 84300; 84443; 84484; 85025; 85027; 85652; 86038; 86039; 86140; 86160; 86334; 87040; 87077; 87086; 87147; 87150; 87186; 87205; 87811; 92526; 92610; 93005; 93312; 93320; 93321; 93325; 94640; 96361; 96365; 97163; 97166; 97530; 97535; 99285; J0878; J7030

== ENCOUNTER 2023-10-05 17:39 | Inpatient (IN) | payer OTHER, SELFPAY ==
[2023-10-05 15:41] VITALS: BMI 39.4
[2023-10-05] MEDS: VENTOLIN NEBULES 7.5 MG INH (15:57)
[2023-10-05] MEDS: DUONEB 3 ML INH (15:58)
[2023-10-05] MEDS: DECADRON 8 MG IV (16:04)
[2023-10-05 16:07] VITALS: BP 118/56
[2023-10-05 16:17] LABS: % Basophils 0.3 % (0-2); % Immature Granulocytes 0.5 % (0-0.5); % Lymphocytes 8.2 % (20.5-51.1); % Monocytes 7.6 % (1.7-9.3); % Neutrophils 83.4 % (42.2-75.2); Absolute Lymphocytes 0.6 10^3/uL (1.2-3.4); Absolute Monocytes 0.6 10^3/uL (0.1-0.6); Absolute Neutrophils 6.4 10^3/uL (1.4-6.5); Mean Corp Hgb Conc. 33.3 g/dL (33.0-37.0); Mean Corpuscular Hgb 30.8 pg (27.0-31.0); Mean Corpuscular Volume 92.3 fL (81.0-99.0); Mean Platelet Volume 9.5 fL (7.4-10.4); Nucleated Red Blood Cells % 0 %; Platelet Count 293 10^3/uL (130-400); Red Blood Cell Count 3.25 10^6/uL (4.20-5.40); White Blood Cell Count 7.7 10^3/uL (4.8-10.8)
[2023-10-05 16:28] LABS: Lactic Acid 1.4 mmol/L (0.7-2.0)
[2023-10-05 16:30] LABS: Blood Urea Nitrogen 26 mg/dl (7-17); Calcium 9.7 mg/dl (8.4-10.2); Carbon Dioxide 29 mmol/L (22-30); Chloride 98 mmol/L (98-107); Estimated Creatinine Clearance 24 ml/min; Glucose 141 mg/dl (70-99); Potassium 4.6 mmol/L (3.5-5.1); Sodium 135 mmol/L (135-145); eGFR 28.67
[2023-10-05 16:32] LABS: COVID-19 Antigen Negative (Negative)
[2023-10-05 16:38] LABS: NT-proBNP 5280 pg/ml
[2023-10-05 17:00] VITALS: BP 123/66
--- NOTE | 2023-10-05 17:35 | HPS.HSE ---
Family Physician
-
Family Physician: Ana Rosa Min MD
Chief Complaint
-
sob
History of Present Illness
88-year-old female with recent admission for MRSA bacteremia of unknown cause and dced 2 days ago, and past medical history of A-fib, CHF, sleep apnea, COPD and chronic hypoxemic respiratory failure on 5-6L O2, hypertension, GERD, type 2 diabetes
mellitus, pulmonary nodule, renal mass(does not want follow up), TIA/CVA, CAD, latent TB, obesity, hyperlipidemia, ambulatory dysfunction, fatty liver disease, GERD,, adrenal nodule now presenting worsening shortness of breath at facility most
likely CHF exacerbation. Almost back to baseline o2 requirement upon ED eval. States she noted it was harder for her to breath. Patient noted to be 83% on 6 L nasal cannula, tachypneic to 32, pulse 101, afebrile., Normotensive. Lungs with no
gross audible wheeze. X-ray with probable mild CHF with small right pleural effusion and mild cardiomegaly. This is new. On labs, creatinine 1.7 approximately baseline, proBNP 5280 (7880 approximate 10 days ago although had worsening JASWANT at that
point). Transesophageal echo was performed for bacteremia on 09/25 showing EF of 55 to 60%, no regional wall motion abnormalities, although mild to moderate tricuspid regurgitation and thickened tricuspid aortic valve with adequate leaflet
excursion, consistent with Lambl's excrescence. ED provided steroids, DuoNebs, Lasix.
Medical History
Past Medical History
Past Medical History: Reports Other
Additional Past Medical History:
New onset A-fib September 2023
chronic COPD
interstitial lung disease
asthma
former smoker
latent tuberculosis
JELLY on CPAP
GERD/GI bleed
DM 2
HTN
known pulmonary nodule
TIA/CVA
CAD
HLD
diverticulosis
fatty liver
glaucoma
adrenal nodule
vitamin D deficiency
Past Surgical History: Reports Other
Additional Past Surgical History:
Right TKR
Cholecystectomy
Bilateral leg vein stripping
Bilateral cataract extraction
Loop recorder placed
Laser surgery cataract
Social History
Tobacco: Former Smoker
Alcohol: Occasional (Would have occasional alcohol once twice a week prior to recent admission in September)
Drug: None
Personal: Single
Living: Alone
Employment: Retired
Family History
Family History: Not pertinent
Allergies / Home Medications
Allergies reflects when Allergies were last updated in [facility].
Home Medications with original date entered in [facility]
Allergy/Medication List:
Allergies
Allergy/AdvReac Type Severity Reaction Status Date / Time
egg Allergy Hives Verified 10/05/23 15:44
Home Medications
propranolol 60 mg capsule,24 hr,extended release 60 mg PO DAILY Blood Pressure 04/27/15
cholecalciferol (vitamin D3) 125 mcg (5,000 unit) tablet 125 mcg PO DAILY Supplement 09/12/23
cyanocobalamin (vitamin B-12) 500 mcg tablet 500 mcg PO HS Supplement 09/12/23
isosorbide mononitrate 120 mg tablet,extended release 24 hr 120 mg PO DAILY Heart Disease/Condition 09/12/23
loperamide 2 mg capsule 2 mg PO DAILYPRN PRN diarrhea 09/12/23
rosuvastatin 40 mg tablet 40 mg PO HS High Cholesterol 09/12/23
ipratropium 0.5 mg-albuterol 3 mg (2.5 mg base)/3 mL nebulization soln 3 ml inhalation R Q4HPRN PRN shortness of breath #90 mL 09/22/23
acetaminophen 500 mg tablet 1,000 mg PO DAILYPRN PRN mild pain 09/23/23
acetaminophen 500 mg tablet 1,000 mg PO HS Pain 09/23/23
azithromycin 250 mg tablet 250 mg PO Q48H prophylaxis 09/23/23
bisacodyl 10 mg rectal suppository (Dulcolax (bisacodyl)) 10 mg OR DAILY PRN if no bm aftr mom 09/23/23
diltiazem HCl 240 mg capsule,extended release 24 hr 240 mg PO DAILY Blood Pressure 09/23/23
fluticasone propionate 230 mcg-salmeterol 21 mcg/actuation HFA inhaler 2 puff inhalation R BID Lung/Breathing Issues 09/23/23
guaifenesin 600 mg tablet, extended release 12 hr (Mucinex) 600 mg PO BIDPRN PRN congestion 09/23/23
insulin glargine 100 unit/mL (3 mL) subcutaneous pen (Lantus Solostar U-100 Insulin) 12 unit SC DAILY Diabetes 09/23/23
magnesium hydroxide 400 mg/5 mL oral suspension (Milk of Magnesia) 30 ml PO [id number] PRN no bm in 2 days 09/23/23
pantoprazole 40 mg tablet,delayed release 40 mg PO DAILY Gastrointestinal Issue 09/23/23
sodium phosphates 19 gram-7 gram/118 mL enema (Fleet Enema) 118 ml OR DAILYPRN PRN if no bm aftr dulcolax 09/23/23
tiotropium bromide 2.5 mcg/actuation mist for inhalation (Spiriva Respimat) 2 puff inhalation R DAILY Lung/Breathing Issues 09/23/23
DAPTOmycin [Cubicin] 1,000 mg As Directed mls/hr IV Q48H 10/03/23
polyethylene glycol 3350 17 gram oral powder packet (HealthyLax) 17 g PO DAILYPRN PRN constipation #0 ea 10/03/23
potassium chloride 20 mEq tablet,extended release(part/cryst) 20 meq PO DAILY #0 tabs 10/03/23
apixaban 2.5 mg tablet (Eliquis) 2.5 mg PO BID 10/05/23
saxagliptin 5 mg tablet 5 mg PO DAILY 10/05/23
sodium chloride 0.65 % nasal spray aerosol 1 spray intranasal Q4HPRN PRN dryness 10/05/23
trazodone 50 mg tablet 25 mg PO HS 10/05/23
Review of Systems
-
History Source: Patient
A 12 point ROS was completed and negative except as noted: Yes
Physical Exam
Vital Signs
Vital Signs
Temp Pulse Resp BP Pulse Ox
98.2 F 97 19 123/66 95
10/05/23 15:41 10/05/23 17:00 10/05/23 16:07 10/05/23 17:00 10/05/23 17:00
Physical Exam
General: Well Developed, Well Nourished and No Apparent Distress
HEENT: NormoCephalic
Respiratory: Other (aerosolized mask)
Cardiac: S1/S2
GI: Soft, Non Tender and Non Distended
Musculoskeletal: No Clubbing
Skin: Warm
Neuro: Awake, Alert and Oriented
Psych: Calm
Laboratory Results
-
10/05/23 16:05
10/05/23 16:05
Laboratory Results
Lactic Acid Cancelled 10/05/23 20:00
Data Reviewed
-
Diagnostic Radiology: Image Personally Visualized and interpreted and Report Reviewed by me
Lab Data: Labs Reviewed by me
Impression/Plan
-
IMPRESSION:
88-year-old female with recent admission for MRSA bacteremia of unknown cause and dced 2 days ago, and past medical history of A-fib, CHF, sleep apnea, COPD and chronic hypoxemic respiratory failure on 5-6L O2, hypertension, GERD, type 2 diabetes
mellitus, pulmonary nodule, renal mass(does not want follow up), TIA/CVA, CAD, latent TB, obesity, hyperlipidemia, ambulatory dysfunction, fatty liver disease, GERD,, adrenal nodule now presenting worsening shortness of breath at facility most
likely CHF exacerbation.
#Acute on chronic hypoxic respiratory failure, � Baseline O2 is 5- 6 L
� Continue 40 mg IV Lasix daily and continue to monitor BMP
- Almost back to baseline upon ED evaluation
� Recent echo already performed with no evidence of significant EF reduction, therefore most likely secondary to volume overload/HFpEF and probable pulmonary hypertension; can assess echo again to see if any changes although doubt
� continue to wean O2 as tolerated; O2 goal greater than 88%
�Does not appear to be COPD exacerbation at this time - received steroids in the ED with no sig wheezing upon eval; if no improvement - can trial steroids although would want to avoid due to bacteremia/and anxiety thereafter. Cont to monitor for
possible initation.
-Speech eval - has been having chronic cough
-F/u Trops
# MRSA Bacteremia, persistent. No obvious source
-TTE no vegetation
-No fevers
- Continue Daptomycin 1000mg IV q48H through 11/09/23, followed by doxycycline 100mg po bid x another 4 weeks.
-Weekly CBC, CMP, CRP, CK
- If Crcl continues improves to >30, adjust daptomycin dose 1000 mg IV q24.
- Hold atorvastatin while on Daptomycin.
#?Acute HFpEF
-continue to monitor clinical status with diuresis
#Acute kidney injury on CKD
Renal ultrasound with suspected 2.3 cm mass in the left lower pole of the kidney.
Could be possible lobular renal parenchyma, complex cyst or renal cell carcinoma.
Should plan for ultrasound outpatient in 3 months. although she does not want any aggressive measures regarding this.
# Paroxysmal A-fib
-continue Eliquis but adjust the dose,
-Continue with oral medication. Rate is well-controlled.
-History of GI bleeding and aspirin was stopped. On low-dose Eliquis.- Continue Eliquis at 2.5 mg twice daily--
#COPD
-on ppx azithromycin
-Duonebs PRN
-Advair Spiriva
Primary staff radiation therapist Dr. Murguia
#JELLY on CPAP
-CPAP of 7, 4L
#HTN�benign
-Continue propranolol 60 mg ER
-Continue oral diltiazem
Anemia
Continue to monitor
#Gastroesophageal reflux disease
#GI bleed by history
- continue H2 gene;
#Type 2 diabetes mellitus
#Hyperglycemia hx
- A1c is 9.4%
- Low-dose scale coverage
- continue Lantus 12 units
-Hold metformin 750mg BID, Januvia
#Pulmonary Nodule
- Follow-up with pulmonary
#Prior TIA/CVA
- Clopidogrel was stopped during recent admission due to need for Eliquis for A-fib
#CAD
-No chest pain
-Continue beta-gene
#History latent TB
#Obesity due to excess calorie consumption
-Weight loss recommended
#Hyperlipidemia
-Hold current statin
#Ambulatory dysfunction secondary to recent hospitalization
-Continue PT/OT
DVT ppx
-Eliquis
[2023-10-05] MEDS: LASIX 40 MG IV (17:46)
[2023-10-05 18:00] VITALS: BP 123/67
[2023-10-05 19:13] VITALS: BP 140/86
[2023-10-05 19:55] VITALS: BP 148/85
[2023-10-05 20:26] LABS: Troponin I 0.028 ng/ml
[2023-10-05] MEDS: ADVAIR HFA 230/21 MCG INHALER 2 PUFF INH (20:39)
[2023-10-05 20:46] LABS: TSH 1.35 uIU/ml (0.47-4.68)
[2023-10-05] MEDS: ELIQUIS 2.5 MG PO (21:11)
[2023-10-05] MEDS: TYLENOL 1000 MG PO (21:11)
[2023-10-05] MEDS: ZITHROMAX 250 MG PO (21:11)
[2023-10-05] MEDS: CUBICIN 20 MG IV (21:13)
[2023-10-05] MEDS: DESYREL 25 MG PO (22:48)
[2023-10-05 23:07] VITALS: BP 129/73
[2023-10-06 01:25] LABS: Troponin I 0.037 ng/ml
[2023-10-06 03:22] VITALS: BP 138/97
[2023-10-06] MEDS: ADVAIR HFA 230/21 MCG INHALER 2 PUFF INH ×2 (07:25→20:08)
[2023-10-06] MEDS: SPIRIVA RESPIMAT 2.5 MCG 2 PUFF INH (07:25)
--- NOTE | 2023-10-06 07:25 | CON.PUL ---
Consultation
Consultation Request
Date/Time Consultation Requested: 10/05
Date/Time Consultation Performed: 10/05
Reason for Consultation: Shortness of breath
Medical History
-
History of Present Illness:
History obtained from the patient, daughter at bedside, reviewing outpatient records and hospital stays. Patient with complex medical history. She is an 88-year-old female with history of atrial fibrillation on chronic anticoagulation, diabetes,
COPD, had recent MRSA bacteremia, discharged 10/03/2023. Patient also had issues with bursitis but unable to get complete imaging with MRI due to artifactual. Patient was given IV daptomycin at that time, renal insufficiency was noted. Creatinine
trended down to 1.5. She was discharged to SNF. She was noted to be short of breath, 83% on 6 L with tachypnea. Per ED/admission records, there was questionable small pleural effusion and possible heart failure. proBNP was 50-80. Patient was
given steroids and nebulized therapy and Lasix in the ED and admitted for worsening hypoxia. Throughout this she denies chest pain, chest tightness but admits to getting anxious and panic attacks. Family at bedside states she was able to walk but
complete ADLs before but over the past few weeks, has been point where she cannot take a few steps without getting short of breath. She denies significant swallowing or choking. She has productive cough with no hemoptysis. She did have a recent
fall but no head trauma. She is unaware of any significant weight changes. We are asked to help from pulmonary standpoint 10/06/2023
.
PMH: Asthma, history of pulmonary nodules, latent tuberculosis, interstitial disease, severe gas exchange defect with DLCO 44%, chronic COPD on 5 L of oxygen, obstructive sleep apnea on CPAP, history of stroke, hypertension, hyperlipidemia, atrial
fibrillation on anticoagulation, GERD, adrenal nodule, recently identified renal lesion. History of appendectomy, cholecystectomy, right total knee replacement, vein stripping
Past Medical History
Past Medical History: None (See above)
Past Surgical History: None (See above)
Social History
Tobacco: Former Smoker (Distant tobacco history)
Alcohol: None
Drug: None
Living: With Family and Jail (Recently from [facility])
Employment: Retired
Family History
Family History: Other (Father from tuberculosis at age 39, he was an alcoholic. Mother at age 93. 1 son with renal cell cancer, 2 sisters from lung cancer and COPD.)
Allergies / Home Medications
Allergies
Allergy/AdvReac Type Severity Reaction Status Date / Time
egg Allergy Hives Verified 10/05/23 15:44
Home Medications
�Medication �Instructions �Recorded �Confirmed �Last Taken �Type
propranolol 60 mg capsule,24 60 mg PO DAILY Blood Pressure 04/27/15 10/05/23 09/12/23 History
hr,extended release
cholecalciferol (vitamin D3) 125 125 mcg PO DAILY Supplement 09/12/23 10/05/23 09/12/23 History
mcg (5,000 unit) tablet
cyanocobalamin (vitamin B-12) 500 500 mcg PO HS Supplement 09/12/23 10/05/23 09/11/23 History
mcg tablet
isosorbide mononitrate 120 mg 120 mg PO DAILY Heart 09/12/23 10/05/23 09/12/23 History
tablet,extended release 24 hr Disease/Condition
loperamide 2 mg capsule 2 mg PO DAILYPRN PRN diarrhea 09/12/23 10/05/23 09/11/23 History
rosuvastatin 40 mg tablet 40 mg PO HS High Cholesterol 09/12/23 10/05/23 09/11/23 History
ipratropium 0.5 mg-albuterol 3 mg 3 ml inhalation R Q4HPRN PRN 09/22/23 10/05/23 Unknown Rx
(2.5 mg base)/3 mL nebulization shortness of breath #90 mL
soln
acetaminophen 500 mg tablet 1,000 mg PO DAILYPRN PRN mild pain 09/23/23 10/05/23 Unknown History
acetaminophen 500 mg tablet 1,000 mg PO HS Pain 09/23/23 10/05/23 Unknown History
azithromycin 250 mg tablet 250 mg PO Q48H prophylaxis 09/23/23 10/05/23 Unknown History
bisacodyl 10 mg rectal suppository 10 mg NJ DAILY PRN if no bm aftr 09/23/23 10/05/23 Unknown History
(Dulcolax (bisacodyl)) mom
diltiazem HCl 240 mg 240 mg PO DAILY Blood Pressure 09/23/23 10/05/23 Unknown History
capsule,extended release 24 hr
fluticasone propionate 230 2 puff inhalation R BID 09/23/23 10/05/23 Unknown History
mcg-salmeterol 21 mcg/actuation Lung/Breathing Issues
HFA inhaler
guaifenesin 600 mg tablet, 600 mg PO BIDPRN PRN congestion 09/23/23 10/05/23 Unknown History
extended release 12 hr (Mucinex)
insulin glargine 100 unit/mL (3 12 unit SC DAILY Diabetes 09/23/23 10/05/23 Unknown History
mL) subcutaneous pen (Lantus
Solostar U-100 Insulin)
magnesium hydroxide 400 mg/5 mL 30 ml PO [id number] PRN no bm in 2 09/23/23 10/05/23 Unknown History
oral suspension (Milk of Magnesia) days
pantoprazole 40 mg tablet,delayed 40 mg PO DAILY Gastrointestinal 09/23/23 10/05/23 Unknown History
release Issue
sodium phosphates 19 gram-7 118 ml NJ DAILYPRN PRN if no bm 09/23/23 10/05/23 Unknown History
gram/118 mL enema (Fleet Enema) aftr dulcolax
tiotropium bromide 2.5 2 puff inhalation R DAILY 09/23/23 10/05/23 Unknown History
mcg/actuation mist for inhalation Lung/Breathing Issues
(Spiriva Respimat)
DAPTOmycin [Cubicin] 1,000 mg As Directed mls/hr IV Q48H 10/03/23 10/06/23 10/05/23 Rx
polyethylene glycol 3350 17 gram 17 g PO DAILYPRN PRN constipation 10/03/23 10/05/23 Unknown Rx
oral powder packet (HealthyLax) #0 ea
potassium chloride 20 mEq 20 meq PO DAILY #0 tabs 10/03/23 10/05/23 Unknown Rx
tablet,extended release(part/cryst)
apixaban 2.5 mg tablet (Eliquis) 2.5 mg PO BID Blood Clot 10/05/23 10/05/23 Unknown History
Prevention/Tx
saxagliptin 5 mg tablet 5 mg PO DAILY Diabetes 10/05/23 10/05/23 Unknown History
sodium chloride 0.65 % nasal spray 1 spray intranasal Q4HPRN PRN 10/05/23 10/05/23 Unknown History
aerosol dryness
trazodone 50 mg tablet 25 mg PO HS sleep 10/05/23 10/05/23 Unknown History
Review of Systems
Vitals / Labs / Diagnostic Testing
Vital Signs
Temp Pulse Resp BP Pulse Ox
97.7 F 85 16 138/97 94
10/06/23 03:22 10/06/23 03:22 10/06/23 03:22 10/06/23 03:22 10/06/23 03:22
Microbiology
10/05/23 16:09 Nasal Swab Influenza Types A & B (CATHY) - Final
Negative for Influenza A & B, NAAT
Negative results must be combined with clinical observations
and patient history.
Nucleic Acid Amplification test (NAAT)performed on the
[employer] platform.
Diagnostic Testing:
Physical Exam
-
HEENT: Normocephalic and Anicteric
Cardiovascular: S1/S2, Irregular Rhythm, Murmur (nn), Rub (n) and Peripheral Edema (n)
Respiratory: Wheeze (n), Rales (n), Rhonchi (few) and Non-Labored Respirations
GI: Soft, Non Distended and Non Tender
Neurology: Awake, Alert and No Motor Deficits (Left shoulder pain, decreased range of motion)
Skin: Good Color
General: Comfortable
Assessment
-
88-year-old female with a history of COPD on chronic 5 L oxygen, followed by Dr. Murguia, hypertension, hyperlipidemia, previous CVA as well as diabetes and presented with hypoxia, 83% on 6 L. Baseline is 5 L at home. She had a recent prolonged
hospital stay for MRSA bacteremia/sepsis. We are asked to comment on her pulmonary process 10/06/2023
Acute hypoxic respiratory insufficiency, 83% on 6 L
Baseline 5 L at home
Bilateral interstitial changes, likely chronic
Cannot rule out component of heart failure
Small right pleural effusion
Wheezing on presentation, now resolved
Mildly elevated troponin
Hyponatremia
Leukopenia, white count 4.0
Anemia
History of atrial fibrillation on anticoagulation
Hyperglycemia
Abnormal UA
Conditions present prior to admission:
COPD-on chronic 5 L oxygen
Decreased diffusing capacity-, DLCO 44%
Former smoker.
Asthma
Pulmonary nodule- Chest x-ray revealed 3.[address] chest confirmed this-no change 06/2023, possibility of malignancy discussed, patient does not want aggressive workup or treatment
Interstitial lung disease.
History latent TB
Obesity.
JELLY on CPAP
CAD
CVA
GERD.
Hypertension.
Hyperlipidemia.
Diabetes.
GERD.
Diverticulosis.
Fatty liver.
Glaucoma.
Adrenal nodule.
Vitamin D deficiency.
Cholecystectomy. Appendectomy. Right TKR. Loop recorder implanted. Vista teeth. Vein stripping. Laser surgery for glaucoma.
Plan/recommendations
At this time, patient appears to be comfortable. She is presently on 5 L, this is her baseline
Chest exam is with few rhonchi
I cannot appreciate any significant wheezing
Patient admits to occasional coughing with eating but denies jory aspiration
I have less of a suspicion for an acute pulmonary process at this time, especially infectious given the fact that she has been on IV daptomycin. However patient is at risk for hospital-acquired process
Abnormal urinalysis is noted
Wonder if sepsis may be a cause of her worsening hypoxia
She is not wheezing on exam and appears comfortable at this time
Moving forward
She will continue her outpatient regimen which includes Spiriva/Advair. We can use albuterol as needed but I see no indication for more aggressive management than that. There is no indication for steroids at this time.
Agree with hospitalist assessment regarding fluid status, diuresis.
Creatinine noted, 1.7.
Defer need for repeat echocardiogram to primary service
Mildly elevated troponin noted. Patient is on outpatient Eliquis therapy. 2.5 mg twice a day noted
Low suspicion for thromboembolic disease but patient does have many risk factors
Depending on how she does, will consider Doppler studies but for now we will hold off
Suggest urine culture
Lastly, recent ultrasound identifies 2.3 cm mass in the left kidney
Family history of renal cell cancer and lung cancer noted
She has a known lung lesion which has been suspicious but patient has related as outpatient she does not want aggressive workup
Monitor blood sugar. Hyperglycemia noted on admission
Insulin supplementation as needed.
DVT prophylaxis: On Eliquis 2.5 mg twice a day.
PT/OT as able
Outpatient pulmonary FU recommended
Last saw pulmonary-Dr. Murguia 07/04/23
Reviewed with patient, family at bedside
Diagnostic Data
CXR 09/15/23: Mild patchy interstitial changes, suspected heart failure with small right pleural effusion
Chest x-ray 09/12/23-Mild or early CHF overlying COPD and moderate hiatal hernia.
Chest x-ray 08/19/23-NAD, stable mild cardiomegaly
CT chest 04/16/23-right lower lobe opacification, most likely infectious or inflammatory, but pulmonary neoplasm cannot be excluded, moderate hiatal hernia
Echocardiogram 07/15/23-EF 65-70%, PA systolic 44
Echo 04/08/22: normal biventricular function, PA pressure 47, aortic sclerosis�������
Echo 10/21/20: normal biventricular function, no significant valvular disease, right heart pressures could not be determined, technically difficult�������
Echo 07/31/19: Normal biventricular function,no significant valvular disease, right heart pressures could not be determined�������
ECHO 07/07/18: Aortic sclerosis, normal biventricular function, nl PASP.
PFT 11/14/20: FVC 1.89/95%, FEV1 1.49/103%, ratio 79, TLC 3.44/79%, DLCO 7.43/44%���
Zev 12/20/19: FVC 1.70/82%, FEV1 1.28/84%, ratio 77������
PFT 07/16/19: FVC 1.92/92%, FEV1 1.45/95%, ratio 76, TLC 3.06/69%, DLCO 7.91/45%.����
PFT 12/28/18: FVC 1.85/87%, FEV1 1.31/84%, ratio 71, TLC 3.33/75%, DLCO 8.68/50%.
HST 08/05/19-AHI-17.7, desaturation bucky 71%, CPAP with 4 L oxygen
All relevant imaging reviewed.
[2023-10-06 07:58] LABS: Glucose - Point of Care 221 mg/dl (70-99)
[2023-10-06 08:08] VITALS: BP 159/98
[2023-10-06] MEDS: INDERAL LA 60 MG PO (08:11)
[2023-10-06] MEDS: LASIX 40 MG IV (08:12)
[2023-10-06] MEDS: LANTUS 0.119999999999999996 UNITS SC (08:13)
[2023-10-06] MEDS: KCL 20 MEQ PO (08:13)
[2023-10-06] MEDS: PROTONIX 40 MG PO (08:13)
[2023-10-06] MEDS: VITAMIN D3 (cholecalciferol) 125 MCG PO (08:13)
[2023-10-06] MEDS: CARDIZEM CD 240 MG PO (08:13)
[2023-10-06] MEDS: ELIQUIS 2.5 MG PO ×2 (08:14→20:22)
[2023-10-06] MEDS: NOVOLOG FLEXPEN-MODERATE RESISTANCE 3 UNITS SC ×3 (08:14→17:45)
[2023-10-06] MEDS: IMDUR (EXTENDED RELEASE) 120 MG PO (08:15)
[2023-10-06] MEDS: OCEAN, SALINE MIST 1 SPRAYS NASAL (08:15)
[2023-10-06 08:53] LABS: Hematocrit 28.3 % (37.0-47.0); Hemoglobin 9.5 g/dL (12.0-16.0); Mean Corp Hgb Conc. 33.6 g/dL (33.0-37.0); Mean Corpuscular Hgb 31.3 pg (27.0-31.0); Mean Corpuscular Volume 93.1 fL (81.0-99.0); Mean Platelet Volume 9.6 fL (7.4-10.4); Platelet Count 271 10^3/uL (130-400); Red Blood Cell Count 3.04 10^6/uL (4.20-5.40); Red Cell Dist. Width 13.9 % (11.5-14.5)
[2023-10-06 09:25] LABS: Troponin I 0.037 ng/ml
[2023-10-06 09:28] LABS: Blood Urea Nitrogen 29 mg/dl (7-17); Carbon Dioxide 28 mmol/L (22-30); Chloride 96 mmol/L (98-107); Estimated Creatinine Clearance 24 ml/min; Glucose 277 mg/dl (70-99); Magnesium 1.7 mg/dl (1.6-2.3); Potassium 4.6 mmol/L (3.5-5.1); Sodium 132 mmol/L (135-145); eGFR 28.67
--- NOTE | 2023-10-06 10:41 | W.PN.HOSP.TC ---
Today's Communication/Plan
-
d/w family and pulmonary
Assessment / Plan
Assessment / Plan
Physical Exam
General: Well Developed, Well Nourished and No Apparent Distress
HEENT: NormoCephalic
Respiratory: Other (aerosolized mask)
Cardiac: S1/S2
GI: Soft, Non Tender and Non Distended
Musculoskeletal: No Clubbing
Skin: Warm
Neuro: Awake, Alert and Oriented, she followed commands.
Psych: Calm
88-year-old female with recent admission for MRSA bacteremia of unknown cause and dced 2 days ago, and past medical history of A-fib, CHF, sleep apnea, COPD and chronic hypoxemic respiratory failure on 5-6L O2, hypertension, GERD, type 2 diabetes
mellitus, pulmonary nodule, renal mass(does not want follow up), TIA/CVA, CAD, latent TB, obesity, hyperlipidemia, ambulatory dysfunction, fatty liver disease, GERD,, adrenal nodule now presenting worsening shortness of breath at facility most
likely CHF exacerbation.
#Acute on chronic hypoxic respiratory failure, � Baseline O2 is 5- 6 L
� Continue 40 mg IV Lasix daily and continue to monitor BMP
- Almost back to baseline upon ED evaluation
� Recent echo already performed with no evidence of significant EF reduction, therefore most likely secondary to volume overload/HFpEF and probable pulmonary hypertension; can assess echo again to see if any changes although doubt
� continue to wean O2 as tolerated; O2 goal greater than 88%
�Does not appear to be COPD exacerbation at this time - received steroids in the ED with no sig wheezing upon eval; if no improvement - can trial steroids although would want to avoid due to bacteremia/and anxiety thereafter. Cont to monitor for
possible initiation.
-Speech eval last admission, no aspiration
Appreciate pul input
# MRSA Bacteremia,resolved. No obvious source
-TTE no vegetation
-No fevers
- Continue Daptomycin 1000mg IV q48H through 11/09/23, followed by doxycycline 100mg po bid x another 4 weeks.
-Weekly CBC, CMP, CRP, CK
- If Crcl continues improves to >30, adjust daptomycin dose 1000 mg IV q24.
- Hold atorvastatin while on Daptomycin.
#Acute HFpEF
-continue to monitor clinical status with diuresis
#Acute kidney injury on CKD
Renal ultrasound with suspected 2.3 cm mass in the left lower pole of the kidney.
Could be possible lobular renal parenchyma, complex cyst or renal cell carcinoma.
Should plan for ultrasound outpatient in 3 months. although she does not want any aggressive measures regarding this.
# Paroxysmal A-fib
-continue Eliquis but adjust the dose,
-Continue with oral medication. Rate is well-controlled.
-History of GI bleeding and aspirin was stopped. On low-dose Eliquis.- Continue Eliquis at 2.5 mg twice daily--
#COPD
-on ppx azithromycin
-Duonebs PRN
-Advair, Spiriva
Primary gauger delivery Dr. Murguia
#JELLY on CPAP
-CPAP of 7, 4L
#HTN�benign
-Continue propranolol 60 mg ER
-Continue oral diltiazem
Anemia
Continue to monitor
#Gastroesophageal reflux disease
#GI bleed by history
- continue H2 gene;
#Type 2 diabetes mellitus
#Hyperglycemia hx
- A1c is 9.4%
- Low-dose scale coverage
- continue Lantus 12 units
-Hold metformin 750mg BID, Januvia
#Pulmonary Nodule
- Follow-up with pulmonary
#Prior TIA/CVA
- Clopidogrel was stopped during recent admission due to need for Eliquis for A-fib
#CAD
-No chest pain
-Continue beta-gene
#History latent TB
#Obesity due to excess calorie consumption
-Weight loss recommended
#Hyperlipidemia
-Hold current statin
#Ambulatory dysfunction secondary to recent hospitalization
-Continue PT/OT
DVT ppx
-Eliquis
Total time spent to see the patient, examine the patient, review data and lab results, discuss treatment plan with patient, nursing staff around 55 minutes
Anticipated Discharge: > 48 hours
Subjective/Interval History
-
Date of Service: October 06, 2023
Objective Data
-
Labs:
Laboratory Results
10/06/23
08:47
WBC 4.0 L
Hgb 9.5 L
Hct 28.3 L
Plt Count 271
Sodium 132 L
Potassium 4.6
Chloride 96 L
Carbon Dioxide 28
BUN 29 H
Creatinine 1.7 H
Glucose 277 H
Calcium 9.0
Vital Signs:
Vital Signs
Temp Pulse Resp BP Pulse Ox
97.1 F 73 16 159/98 97
10/06/23 08:08 10/06/23 08:13 10/06/23 08:08 10/06/23 08:13 10/06/23 08:08
I&O
10/05/23 10/06/23 10/07/23
06:59 06:59 06:59
Output Total 200 / 200
Balance -200 / -200
[2023-10-06 11:31] VITALS: BP 137/75
[2023-10-06 12:57] LABS: Glucose - Point of Care 213 mg/dl (70-99)
--- NOTE | 2023-10-06 14:13 | PTOTSP ---
ST Acute Care Evaluation
Pt presents with suspected mild pharyngeal dysphagia as evidenced by coughing s/p ingestion of liquids and inability to take more than one sip at a time.
Recommendations:
- Continue with PO diet of regular solids, thin liquids, with meds as able (1-2 at a time).
- General aspiration precautions: HOB upright for all PO intake, choose softer foods, cut foods into small bite-sizes, take smaller sips, reduce distractions during PO intake, etc.
- Reflux precautions - HOB upright for at least an hour after eating/drinking.
- Video fluoroscopic swallow study for more information, given pt's tenuous respiratory status and pt reports of dysphagia.
- TOUR DIRECTOR to continue to follow and will make further recommendations upon the completion of the VFSS.
[2023-10-06 14:49] VITALS: BMI 39.4
[2023-10-06 16:08] VITALS: BP 128/68
--- NOTE | 2023-10-06 16:14 | CM ---
Initial assessment completed with son. Patient was discharged from to [facility] on 10/03/23 and readmitted to on 10/05/23. Patient's baseline is independent, living alone in a 1 story home with 1 step to enter, she drove and used continuous
O2 @ 5L and has a CPAP. O2 company is [employer], no other DME. Pharmacy is [facility] in [place] and PCP is Dr. Ana Rosa Min. Discharge Plan of Care: Return to [facility] if bed available.
[2023-10-06 16:36] LABS: Glucose - Point of Care 233 mg/dl (70-99)
[2023-10-06 19:13] VITALS: BP 119/71
[2023-10-06 21:28] LABS: Glucose - Point of Care 206 mg/dl (70-99)
[2023-10-06] MEDS: DESYREL 25 MG PO (21:31)
[2023-10-06] MEDS: TYLENOL 1000 MG PO (21:31)
[2023-10-06 23:05] VITALS: BP 144/80
[2023-10-07] VITALS (8 sets, daily range): BP systolic 104–154; BP diastolic 64–96; PULSE 99; O2SAT 96; BMI 37.4
[2023-10-07 06:39] LABS: Hematocrit 27.1 % (37.0-47.0); Hemoglobin 8.9 g/dL (12.0-16.0); Mean Corp Hgb Conc. 32.8 g/dL (33.0-37.0); Mean Corpuscular Hgb 30.9 pg (27.0-31.0); Mean Corpuscular Volume 94.1 fL (81.0-99.0); Platelet Count 315 10^3/uL (130-400); Red Blood Cell Count 2.88 10^6/uL (4.20-5.40); Red Cell Dist. Width 13.9 % (11.5-14.5); White Blood Cell Count 6.3 10^3/uL (4.8-10.8)
[2023-10-07 07:01] LABS: Blood Urea Nitrogen 35 mg/dl (7-17); Calcium 8.9 mg/dl (8.4-10.2); Carbon Dioxide 31 mmol/L (22-30); Chloride 95 mmol/L (98-107); Estimated Creatinine Clearance 22 ml/min; Glucose 176 mg/dl (70-99); Potassium 4.5 mmol/L (3.5-5.1); Sodium 133 mmol/L (135-145); eGFR 26.77
[2023-10-07 07:51] LABS: Glucose - Point of Care 181 mg/dl (70-99)
[2023-10-07] MEDS: ADVAIR HFA 230/21 MCG INHALER 2 PUFF INH ×2 (07:54→20:22)
[2023-10-07] MEDS: SPIRIVA RESPIMAT 2.5 MCG 2 PUFF INH (07:54)
[2023-10-07] MEDS: LANTUS 0.119999999999999996 UNITS SC (08:40)
[2023-10-07] MEDS: NOVOLOG FLEXPEN-MODERATE RESISTANCE 1 UNITS SC (08:40)
[2023-10-07] MEDS: INDERAL LA 60 MG PO (09:15)
[2023-10-07] MEDS: OCEAN, SALINE MIST 1 SPRAYS NASAL (09:15)
--- NOTE | 2023-10-07 09:15 | W.PN.HOSP.TC ---
Addendum entered and electronically signed by Vinod Turpin MD 10/07/23 09:26:
Addendum
HGB dropped to 8.9 from 10. Seems combination of anemia of chronic disease with acute stress
Check iron level in a.m.
No melena
Original Note:
Today's Communication/Plan
-
.
Assessment / Plan
Assessment / Plan
Physical Exam
General: Well Developed, Well Nourished and No Apparent Distress
HEENT: NormoCephalic
Respiratory: limited with expiratory wheezes ( mild)
Cardiac: S1/S2
GI: Soft, Non Tender and Non Distended
Musculoskeletal: No Clubbing
Skin: Warm
Neuro: Awake, Alert and Oriented, she followed commands.
Psych: Calm
88-year-old female with recent admission for MRSA bacteremia of unknown cause and dced 2 days ago, and past medical history of A-fib, CHF, sleep apnea, COPD and chronic hypoxemic respiratory failure on 5-6L O2, hypertension, GERD, type 2 diabetes
mellitus, pulmonary nodule, renal mass(does not want follow up), TIA/CVA, CAD, latent TB, obesity, hyperlipidemia, ambulatory dysfunction, fatty liver disease, GERD,, adrenal nodule now presenting worsening shortness of breath at facility most
likely CHF exacerbation.
#Acute on chronic hypoxic respiratory failure, � Baseline O2 is 5- 6 L
� Continue 40 mg IV Lasix daily and continue to monitor BMP
- pt feels better with no sob although lung exam sounded limited today. d/w speech, would rather do video swallow to rule out silent aspiration.
� Recent echo already performed with no evidence of significant EF reduction, therefore most likely secondary to volume overload/HFpEF and probable pulmonary hypertension; can assess echo again to see if any changes although doubt
� continue to wean O2 as tolerated; O2 goal greater than 88%
�d/w Pulmonary doctor, no COPD exacerbation. Primary wheel blocker Dr Murguia.
Appreciate pul input
# MRSA Bacteremia,resolved. No obvious source
-TTE no vegetation
-No fevers
- Continue Daptomycin 1000mg IV q48H through 11/09/23, followed by doxycycline 100mg po bid x another 4 weeks.
-Weekly CBC, CMP, CRP, CK
- If Crcl continues improves to >30, adjust daptomycin dose 1000 mg IV q24.
- Hold atorvastatin while on Daptomycin.
#Acute HFpEF
c/w IV Lasix to approach dry weight. Monitor renal function with daily BMP.
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 She has JASWANT last admission which was though secondary to MRSA bacteremia. She was followed by kidney doctor. Her creatinine seems to stabilize now.
Renal ultrasound with suspected 2.3 cm mass in the left lower pole of the kidney.
Could be possible lobular renal parenchyma, complex cyst or renal cell carcinoma.
Should plan for ultrasound outpatient in 3 months. although she does not want any aggressive measures regarding this.
# Paroxysmal A-fib
-continue Eliquis but adjust the dose,
-Continue with oral medication. Rate is well-controlled.
-History of GI bleeding and aspirin was stopped. On low-dose Eliquis.- Continue Eliquis at 2.5 mg twice daily--
#COPD
-on ppx azithromycin
-DuoNeb PRN
-Advair, Spiriva
Primary wheel blocker Dr. Murguia
#JELLY on CPAP
-CPAP of 7, 4L
#HTN�benign
-Continue propranolol 60 mg ER
-Continue oral diltiazem
# Anemia of chronic disease
Continue to monitor
#Gastroesophageal reflux disease
#GI bleed by history
- continue H2 gene;
#Type 2 diabetes mellitus
#Hyperglycemia hx
- A1c is 9.4%
- Low-dose scale coverage
- continue Lantus 12 units
-Hold metformin 750mg BID, Januvia
#Pulmonary Nodule
- Follow-up with pulmonary
#Prior TIA/CVA
- Clopidogrel was stopped during recent admission due to need for Eliquis for A-fib
#CAD
-No chest pain
-Continue beta-gene
#History latent TB
#Obesity due to excess calorie consumption
-Weight loss recommended
#Hyperlipidemia
-Hold current statin
#Ambulatory dysfunction secondary to recent hospitalization
-Continue PT/OT
DVT ppx
-Eliquis
Total time spent to see the patient, examine the patient, review data and lab results, discuss treatment plan with patient, family, nursing staff around 57 minutes
Anticipated Discharge: 24 - 48 hours
Subjective/Interval History
-
Date of Service: October 07, 2023
No sob
No chest pain
No fevers
Night team: no events
Objective Data
-
Labs:
Laboratory Results
10/07/23
05:29
WBC 6.3
Hgb 8.9 L
Hct 27.1 L
Plt Count 315
Sodium 133 L
Potassium 4.5
Chloride 95 L
Carbon Dioxide 31 H
BUN 35 H
Creatinine 1.8 H
Glucose 176 H
Calcium 8.9
Vital Signs:
Vital Signs
Temp Pulse Resp BP Pulse Ox
97.4 F 82 20 143/85 95
10/07/23 08:00 10/07/23 08:00 10/07/23 08:00 10/07/23 08:00 10/07/23 08:00
I&O
10/06/23 10/07/23 10/08/23
06:59 06:59 06:59
Intake Total 1560 / 1560
Output Total 200 / 200 1200 / 1200
Balance -200 / -200 360 / 360
[2023-10-07] MEDS: VITAMIN D3 (cholecalciferol) 125 MCG PO (09:16)
[2023-10-07] MEDS: IMDUR (EXTENDED RELEASE) 120 MG PO (09:16)
[2023-10-07] MEDS: PROTONIX 40 MG PO (09:16)
[2023-10-07] MEDS: CARDIZEM CD 240 MG PO (09:16)
[2023-10-07] MEDS: KCL 20 MEQ PO (09:16)
[2023-10-07] MEDS: LASIX 40 MG IV (09:17)
[2023-10-07] MEDS: ELIQUIS 2.5 MG PO ×2 (09:38→19:57)
[2023-10-07 12:12] LABS: Glucose - Point of Care 228 mg/dl (70-99)
--- NOTE | 2023-10-07 12:27 | PTOTSP ---
Video Swallow Study
Summary: Patient presents with WFL oral/pharyngeal stages of swallowing. No penetration or aspiration occurred. Please see patient care note for full details of swallowing physiology.
Recommend:
1. Regular solids, Thin Liquids
2. Medications as best tolerated
3. Strategies: upright to 90 degrees, small SINGLE sips/bites, SLOW RATE with breaks for breathing (given hx COPD), remain upright for 30 minutes after PO intake (given hx GERD)
4. No further dysphagia therapy warranted. Please reconsult as appropriate.
[2023-10-07] MEDS: NOVOLOG FLEXPEN-MODERATE RESISTANCE 3 UNITS SC ×2 (12:57→18:31)
--- NOTE | 2023-10-07 14:15 | W.PN.PUL3 ---
Today's Communication / Plan
-
Continue antibiotics, continue Lasix
Follow creatinine
Aspiration risk noted, continue aspiration precautions
Consider repeat chest x-ray in the next 48 hours
Assessment
-
88-year-old female with a history of COPD on chronic 5 L oxygen, followed by Dr. Murguia, hypertension, hyperlipidemia, previous CVA as well as diabetes and presented with hypoxia, 83% on 6 L. Baseline is 5 L at home. She had a recent prolonged
hospital stay for MRSA bacteremia/sepsis. We are asked to comment on her pulmonary process 10/06/2023
Acute hypoxic respiratory insufficiency, 83% on 6 L
Baseline 5 L at home
Bilateral interstitial changes, likely chronic
Cannot rule out component of heart failure
Small right pleural effusion
Wheezing on presentation, now resolved
Mildly elevated troponin
Hyponatremia
Leukopenia, white count 4.0
Anemia
History of atrial fibrillation on anticoagulation
Hyperglycemia
Abnormal UA
Conditions present prior to admission:
COPD-on chronic 5 L oxygen
Decreased diffusing capacity-, DLCO 44%
Former smoker.
Asthma
Pulmonary nodule- Chest x-ray revealed 3.[address] chest confirmed this-no change 06/2023, possibility of malignancy discussed, patient does not want aggressive workup or treatment
Interstitial lung disease.
History latent TB
Obesity.
JELLY on CPAP
CAD
CVA
GERD.
Hypertension.
Hyperlipidemia.
Diabetes.
GERD.
Diverticulosis.
Fatty liver.
Glaucoma.
Adrenal nodule.
Vitamin D deficiency.
Cholecystectomy. Appendectomy. Right TKR. Loop recorder implanted. [place] teeth. Vein stripping. Laser surgery for glaucoma.
Plan/recommendations
At this time, patient appears to be comfortable. She is presently on 5 L, this is her baseline
Chest exam is presently clear
I cannot appreciate any significant wheezing
Patient admits to occasional coughing with eating but denies jory aspiration
VSE confirms risk of aspiration
I have less of a suspicion for an acute pulmonary process at this time, especially infectious given the fact that she has been on IV daptomycin. However patient is at risk for hospital-acquired process
Abnormal urinalysis is noted
Presently on daptomycin and azithromycin
Moving forward
She will continue her outpatient regimen which includes Spiriva/Advair. We can use albuterol as needed but I see no indication for more aggressive management than that. There is no indication for steroids at this time.
Agree with hospitalist assessment regarding fluid status, diuresis.
Creatinine noted, stable at 1.8
Defer need for repeat echocardiogram to primary service
Will consider repeat chest x-ray prior to discharge as indicated
Mildly elevated troponin noted. Patient is on outpatient Eliquis therapy. 2.5 mg twice a day noted
Low suspicion for thromboembolic disease but patient does have many risk factors
Depending on how she does, will consider Doppler studies but for now we will hold off
Blood cultures negative to date. Recent MRSA bacteremia noted
Lastly, recent ultrasound identifies 2.3 cm mass in the left kidney
Family history of renal cell cancer and lung cancer noted
She has a known lung lesion which has been suspicious but patient has related as outpatient she does not want aggressive workup
Monitor blood sugar. Hyperglycemia noted on admission
Insulin supplementation as needed.
DVT prophylaxis: On Eliquis 2.5 mg twice a day.
PT/OT as able
Outpatient pulmonary FU recommended
Last saw pulmonary-Dr. Murguia 07/04/23
Reviewed with patient
Diagnostic Data
CXR 09/15/23: Mild patchy interstitial changes, suspected heart failure with small right pleural effusion
Chest x-ray 09/12/23-Mild or early CHF overlying COPD and moderate hiatal hernia.
Chest x-ray 08/19/23-NAD, stable mild cardiomegaly
CT chest 04/16/23-right lower lobe opacification, most likely infectious or inflammatory, but pulmonary neoplasm cannot be excluded, moderate hiatal hernia
Echocardiogram 07/15/23-EF 65-70%, PA systolic 44
Echo 04/08/22: normal biventricular function, PA pressure 47, aortic sclerosis�������
Echo 10/21/20: normal biventricular function, no significant valvular disease, right heart pressures could not be determined, technically difficult�������
Echo 07/31/19: Normal biventricular function,no significant valvular disease, right heart pressures could not be determined�������
ECHO 07/07/18: Aortic sclerosis, normal biventricular function, nl PASP.
PFT 11/14/20: FVC 1.89/95%, FEV1 1.49/103%, ratio 79, TLC 3.44/79%, DLCO 7.43/44%���
Zev 12/20/19: FVC 1.70/82%, FEV1 1.28/84%, ratio 77������
PFT 07/16/19: FVC 1.92/92%, FEV1 1.45/95%, ratio 76, TLC 3.06/69%, DLCO 7.91/45%.����
PFT 12/28/18: FVC 1.85/87%, FEV1 1.31/84%, ratio 71, TLC 3.33/75%, DLCO 8.68/50%.
HST 08/05/19-AHI-17.7, desaturation bucky 71%, CPAP with 4 L oxygen
All relevant imaging reviewed.
Subjective Data
-
Date of Service:
Date of Service: October 07, 2023
Subjective:
Patient feels improved. Less short of breath, denies chest pain, significant cough, hemoptysis.
Objective Data
Data Reviewed
Vital Signs / I&O / Oxygen:
Vital Signs
Temp Pulse Resp BP Pulse Ox
97.9 F 86 20 122/72 94
10/07/23 11:30 10/07/23 11:30 10/07/23 11:30 10/07/23 11:30 10/07/23 11:30
Intake and Output
10/06/23 10/07/23 10/08/23
06:59 06:59 06:59
Intake Total 1560 / 1560
Output Total 200 / 200 1200 / 1200
Balance -200 / -200 360 / 360
SaO2 94
Nasal Cannula flow liters per 5
minute
Physical Exam
General: Comfortable
HEENT: Normocephalic and Anicteric
Cardiovascular: S1-S2, Regular Rhythm, Murmur (n) and Rub (n)
Respiratory: Wheeze (n), Crackles (Mild at base), Rhonchi (n) and Non-Labored Respirations
GI: Soft, Non Distended (Obese) and Non Tender
Neurology: Awake, Alert and No Motor Deficits
Skin: Cyanosis (n), Jaundice (n), Rash (n) and Bruising (Few)
Labs/Micro/Reports
Lab Data
10/07/23 05:29
10/07/23 05:29
Microbiology
10/05/23 16:25 Blood/Venous Blood Culture - Preliminary
No Growth in 24 hours- Final report to follow
10/05/23 16:05 Blood/Venous Blood Culture - Preliminary
No Growth in 24 hours- Final report to follow
10/05/23 16:09 Nasal Swab Influenza Types A & B (CATHY) - Final
Negative for Influenza A & B, NAAT
Negative results must be combined with clinical observations
and patient history.
Nucleic Acid Amplification test (NAAT)performed on the
[employer] platform.
--- NOTE | 2023-10-07 15:20 | PN.CDI ---
Addendum entered and electronically signed by Vinod Turpin MD 10/07/23 16:58:
Elevated troponin only
Original Note:
CDI
- -
CDI:
Physician Documentation Request
Admit Date: 10/05/23 17:39
Dear Doctor Papi,
Clinical Indicators:
Patient admitted with acute on chronic hypoxic respiratory failure with Acute HFpEF.
10/04 EKG: no significant change from 09/22
Troponin trend:
10/05/23 10/06/23 10/06/23
19:53 00:42 08:47
Troponin I 0.028 0.037 H* D 0.037 H*
Based on the above, could you clarify in the progress notes, the appropriate diagnosis, if significant, that supports the above abnormalities and additional evaluation, monitoring and/or treatment rendered:
Non ischemic myocardial injury
Elevated troponin only
Other, please specify
Use of terms such as suspected, likely, concern for, or probable (associated with a specific diagnosis that is being evaluated, monitored, or treated as if it exists) are acceptable and can be coded in the inpatient setting, when documented at the
time of discharge.
Thank you,
GISSELL Tirado RN
CDI Specialist
available via tiger text
Please use your independent medical judgment in providing your response.
[2023-10-07 17:23] LABS: Glucose - Point of Care 247 mg/dl (70-99)
[2023-10-07] MEDS: ZITHROMAX 250 MG PO (18:31)
[2023-10-07] MEDS: DESYREL 25 MG PO ×2 (19:57→21:53)
[2023-10-07] MEDS: CUBICIN 20 MG IV (19:58)
[2023-10-07 21:22] LABS: Glucose - Point of Care 230 mg/dl (70-99)
[2023-10-07] MEDS: TYLENOL 1000 MG PO (21:53)
[2023-10-08 03:05] VITALS: BP 133/73
[2023-10-08 05:34] LABS: Blood Urea Nitrogen 45 mg/dl (7-17); Calcium 9.1 mg/dl (8.4-10.2); Carbon Dioxide 32 mmol/L (22-30); Chloride 97 mmol/L (98-107); Estimated Creatinine Clearance 25 ml/min; Glucose 160 mg/dl (70-99); Iron 56 ug/dl (37-170); Sodium 135 mmol/L (135-145); eGFR 30.83
[2023-10-08 05:57] VITALS: BMI 35.9
[2023-10-08 07:05] VITALS: BP 145/85
--- NOTE | 2023-10-08 07:20 | W.PN.PUL3 ---
Today's Communication / Plan
-
Continue with diuresis per primary service. Weight down
Chest exam much improved
Ambulate and assess adequacy of 5 L with activity
Aspiration precautions
Assessment
-
88-year-old female with a history of COPD on chronic 5 L oxygen, followed by Dr. Murguia, hypertension, hyperlipidemia, previous CVA as well as diabetes and presented with hypoxia, 83% on 6 L. Baseline is 5 L at home. She had a recent prolonged
hospital stay for MRSA bacteremia/sepsis. We are asked to comment on her pulmonary process 10/06/2023
Acute hypoxic respiratory insufficiency, 83% on 6 L
Baseline 5 L at home
Bilateral interstitial changes, likely chronic
Cannot rule out component of heart failure
Small right pleural effusion
Wheezing on presentation, now resolved
Mildly elevated troponin
Hyponatremia
Leukopenia, white count 4.0
Anemia
History of atrial fibrillation on anticoagulation
Hyperglycemia
Abnormal UA
Conditions present prior to admission:
COPD-on chronic 5 L oxygen
Decreased diffusing capacity-, DLCO 44%
Former smoker.
Asthma
Pulmonary nodule- Chest x-ray revealed 3.[address] chest confirmed this-no change 06/2023, possibility of malignancy discussed, patient does not want aggressive workup or treatment
Interstitial lung disease.
History latent TB
Obesity.
JELLY on CPAP
CAD
CVA
GERD.
Hypertension.
Hyperlipidemia.
Diabetes.
GERD.
Diverticulosis.
Fatty liver.
Glaucoma.
Adrenal nodule.
Vitamin D deficiency.
Cholecystectomy. Appendectomy. Right TKR. Loop recorder implanted. [place] teeth. Vein stripping. Laser surgery for glaucoma.
Plan/recommendations
At this time, patient appears to be comfortable. She is presently on 5 L, this is her baseline
Chest exam is presently clear
I cannot appreciate any significant wheezing, minimal crackles
Patient admits to occasional coughing with eating but denies jory aspiration
VSE confirms risk of aspiration
I have less of a suspicion for an acute pulmonary process at this time, especially infectious given the fact that she has been on IV daptomycin. However patient is at risk for hospital-acquired process
Abnormal urinalysis is noted
Presently on daptomycin and azithromycin
Moving forward
She will continue her outpatient regimen which includes Spiriva/Advair. We can use albuterol as needed but I see no indication for more aggressive management than that. There is no indication for steroids at this time.
Agree with hospitalist assessment regarding fluid status, diuresis.
Creatinine noted, down to 1.6
Defer need for repeat echocardiogram to primary service
Will consider repeat chest x-ray prior to discharge as indicated
Weight is down 6 to 8 kg since admission
Mildly elevated troponin noted. Patient is on outpatient Eliquis therapy. 2.5 mg twice a day noted
Low suspicion for thromboembolic disease but patient does have many risk factors
Depending on how she does, will consider Doppler studies but for now we will hold off
Blood cultures negative to date. Recent MRSA bacteremia noted
Lastly, recent ultrasound identifies 2.3 cm mass in the left kidney
Family history of renal cell cancer and lung cancer noted
She has a known lung lesion which has been suspicious but patient has related as outpatient she does not want aggressive workup
Monitor blood sugar. Hyperglycemia noted on admission
Insulin supplementation as needed.
DVT prophylaxis: On Eliquis 2.5 mg twice a day.
PT/OT as able
Outpatient pulmonary FU recommended
Last saw pulmonary-Dr. Murguia 07/04/23
Reviewed with patient, and family members at bedside
Diagnostic Data
CXR 09/15/23: Mild patchy interstitial changes, suspected heart failure with small right pleural effusion
Chest x-ray 09/12/23-Mild or early CHF overlying COPD and moderate hiatal hernia.
Chest x-ray 08/19/23-NAD, stable mild cardiomegaly
CT chest 04/16/23-right lower lobe opacification, most likely infectious or inflammatory, but pulmonary neoplasm cannot be excluded, moderate hiatal hernia
Echocardiogram 07/15/23-EF 65-70%, PA systolic 44
Echo 04/08/22: normal biventricular function, PA pressure 47, aortic sclerosis�������
Echo 10/21/20: normal biventricular function, no significant valvular disease, right heart pressures could not be determined, technically difficult�������
Echo 07/31/19: Normal biventricular function,no significant valvular disease, right heart pressures could not be determined�������
ECHO 07/07/18: Aortic sclerosis, normal biventricular function, nl PASP.
PFT 11/14/20: FVC 1.89/95%, FEV1 1.49/103%, ratio 79, TLC 3.44/79%, DLCO 7.43/44%���
Zev 12/20/19: FVC 1.70/82%, FEV1 1.28/84%, ratio 77������
PFT 07/16/19: FVC 1.92/92%, FEV1 1.45/95%, ratio 76, TLC 3.06/69%, DLCO 7.91/45%.����
PFT 12/28/18: FVC 1.85/87%, FEV1 1.31/84%, ratio 71, TLC 3.33/75%, DLCO 8.68/50%.
HST 08/05/19-AHI-17.7, desaturation bucky 71%, CPAP with 4 L oxygen
All relevant imaging reviewed.
Subjective Data
-
Date of Service:
Date of Service: October 08, 2023
Subjective:
Patient continues to feel improved from a respiratory standpoint. She slept well overnight. She remains on 5 L. Denies chest pain, significant cough, nausea, abdominal pain. Family at bedside
Objective Data
Data Reviewed
Vital Signs / I&O / Oxygen:
Vital Signs
Temp Pulse Resp BP Pulse Ox
96.7 F L 82 16 133/73 96
10/08/23 03:05 10/08/23 03:05 10/08/23 03:05 10/08/23 03:05 10/08/23 03:05
Intake and Output
10/07/23 10/08/23 10/09/23
06:59 06:59 06:59
Intake Total 1560 / 1560 1320 / 1320
Output Total 1200 / 1200
Balance 360 / 360 1320 / 1320
SaO2 96
Nasal Cannula flow liters per 5
minute
Physical Exam
General: Comfortable
HEENT: Normocephalic and Anicteric
Cardiovascular: S1-S2, Regular Rhythm, Murmur (n) and Rub (n)
Respiratory: Wheeze (n), Crackles (Mild at base), Rhonchi (n) and Non-Labored Respirations
GI: Soft, Non Distended (Obese) and Non Tender
Neurology: Awake, Alert and No Motor Deficits
Skin: Cyanosis (n), Jaundice (n), Rash (n) and Bruising (Few)
Labs/Micro/Reports
Lab Data
10/07/23 05:29
10/08/23 04:54
Microbiology
10/05/23 16:25 Blood/Venous Blood Culture - Preliminary
No Growth in 48 hours- Final report to follow
10/05/23 16:05 Blood/Venous Blood Culture - Preliminary
No Growth in 48 hours- Final report to follow
10/05/23 16:09 Nasal Swab Influenza Types A & B (CATHY) - Final
Negative for Influenza A & B, NAAT
Negative results must be combined with clinical observations
and patient history.
Nucleic Acid Amplification test (NAAT)performed on the
[employer] platform.
[2023-10-08] MEDS: SPIRIVA RESPIMAT 2.5 MCG 2 PUFF INH (07:52)
[2023-10-08] MEDS: ADVAIR HFA 230/21 MCG INHALER 2 PUFF INH ×2 (07:52→19:53)
--- NOTE | 2023-10-08 08:21 | W.PN.HOSP.TC ---
Today's Communication/Plan
-
Likely dc on Friday to SNF
Assessment / Plan
Assessment / Plan
Physical Exam
General: Well Developed, Well Nourished and No Apparent Distress
HEENT: NormoCephalic
Respiratory: limited with expiratory wheezes ( mild)
Cardiac: S1/S2
GI: Soft, Non Tender and Non Distended
Musculoskeletal: No Clubbing
Skin: Warm
Neuro: Awake, Alert and Oriented, she followed commands.
Psych: Calm
88-year-old female with recent admission for MRSA bacteremia of unknown cause and dced 2 days ago, and past medical history of A-fib, CHF, sleep apnea, COPD and chronic hypoxemic respiratory failure on 5-6L O2, hypertension, GERD, type 2 diabetes
mellitus, pulmonary nodule, renal mass(does not want follow up), TIA/CVA, CAD, latent TB, obesity, hyperlipidemia, ambulatory dysfunction, fatty liver disease, GERD,, adrenal nodule now presenting worsening shortness of breath at facility most
likely CHF exacerbation.
#Acute on chronic hypoxic respiratory failure, � Baseline O2 is 5- 6 L
� Continue 40 mg IV Lasix daily and continue to monitor BMP, intend to dc to SNF on low dose Lasix.
- pt feels better with no sob although lung exam sounded limited today. d/w speech, would rather do video swallow to rule out silent aspiration.
� Recent echo already performed with no evidence of significant EF reduction, therefore most likely secondary to volume overload/HFpEF and probable pulmonary hypertension; can assess echo again to see if any changes although doubt
� continue to wean O2 as tolerated; O2 goal greater than 88%
�d/w Pulmonary doctor, no COPD exacerbation. Primary director of knowledge management Dr Murguia.
Appreciate pul input
# MRSA Bacteremia,resolved. No obvious source
-TTE no vegetation
-No fevers
- Blood cultures NGTD
- Continue Daptomycin 1000mg IV q48H through 11/09/23, followed by doxycycline 100mg po bid x another 4 weeks.
-Weekly CBC, CMP, CRP, CK
- Hold atorvastatin while on Daptomycin.
#Acute HFpEF
c/w IV Lasix to approach dry weight. Monitor renal function with daily BMP.
Creatinine at 1.6
dc on Lasix 20 mg QD
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 She has JASWANT last admission which was though secondary to MRSA bacteremia. She was followed by kidney doctor. Her creatinine seems to stabilize now around 1-5-1.9.
Renal ultrasound with suspected 2.3 cm mass in the left lower pole of the kidney.
Could be possible lobular renal parenchyma, complex cyst or renal cell carcinoma.
Should plan for ultrasound outpatient in 3 months. although she does not want any aggressive measures regarding this.
# Paroxysmal A-fib
-continue Eliquis but adjust the dose,
-Continue with oral medication. Rate is well-controlled.
-History of GI bleeding and aspirin was stopped. On low-dose Eliquis.- Continue Eliquis at 2.5 mg twice daily--
#COPD
-on ppx azithromycin
-DuoNeb PRN
-Advair, Spiriva
Primary director of knowledge management Dr. Murguia
#JELLY on CPAP
-CPAP of 7, 4L
#HTN�benign
-Continue propranolol 60 mg ER
-Continue oral diltiazem
# Anemia of chronic disease
HGB around 9
Normal iron level. Anemia c/w anemia of chronic disease.
#Gastroesophageal reflux disease
#GI bleed by history
- resumed Protonix.
#Type 2 diabetes mellitus
#Hyperglycemia hx
- A1c is 9.4% on 09/13/23
- Low-dose scale coverage
- continue Lantus 12 units but higher BS , will increase Lantus to 16 units.
-Hold metformin 750mg BID, Januvia
#Pulmonary Nodule
- Follow-up with pulmonary
#Prior TIA/CVA
- Clopidogrel was stopped during recent admission due to need for Eliquis for A-fib
#CAD
-No chest pain
-Continue beta-gene
#History latent TB
#Obesity due to excess calorie consumption
-Weight loss recommended
#Hyperlipidemia
-Hold current statin
#Ambulatory dysfunction secondary to recent hospitalization
-Continue PT/OT
DVT ppx
-Eliquis
Total time spent to see the patient, examine the patient, review data and lab results, discuss treatment plan with patient, family, nursing staff around 57 minutes
Anticipated Discharge: 24 - 48 hours
Subjective/Interval History
-
Date of Service: October 08, 2023
She feels better
no chest pain
No sob
Objective Data
-
Labs:
Laboratory Results
10/08/23
04:54
Sodium 135
Potassium 4.0
Chloride 97 L
Carbon Dioxide 32 H
BUN 45 H
Creatinine 1.6 H
Glucose 160 H
Calcium 9.1
Vital Signs:
Vital Signs
Temp Pulse Resp BP Pulse Ox
97.1 F 90 16 145/85 96
10/08/23 07:05 10/08/23 07:05 10/08/23 07:05 10/08/23 07:05 10/08/23 07:05
I&O
10/07/23 10/08/23 10/09/23
06:59 06:59 06:59
Intake Total 1560 / 1560 1320 / 1320
Output Total 1200 / 1200
Balance 360 / 360 1320 / 1320
[2023-10-08 08:43] LABS: Glucose - Point of Care 187 mg/dl (70-99)
[2023-10-08] MEDS: ELIQUIS 2.5 MG PO ×2 (09:13→20:36)
[2023-10-08] MEDS: PROTONIX 40 MG PO (09:14)
[2023-10-08] MEDS: IMDUR (EXTENDED RELEASE) 120 MG PO (09:14)
[2023-10-08] MEDS: INDERAL LA 60 MG PO (09:14)
[2023-10-08] MEDS: KCL 20 MEQ PO (09:14)
[2023-10-08] MEDS: LASIX 40 MG IV (09:15)
[2023-10-08] MEDS: CARDIZEM CD 240 MG PO (09:15)
[2023-10-08] MEDS: LANTUS 0.119999999999999996 UNITS SC (09:16)
[2023-10-08] MEDS: NOVOLOG FLEXPEN-MODERATE RESISTANCE 1 UNITS SC (09:17)
[2023-10-08] MEDS: VITAMIN D3 (cholecalciferol) 125 MCG PO (09:17)
[2023-10-08] MEDS: OCEAN, SALINE MIST 1 SPRAYS NASAL (09:18)
[2023-10-08 11:00] VITALS: BP 127/94
[2023-10-08 13:11] LABS: Glucose - Point of Care 287 mg/dl (70-99)
[2023-10-08] MEDS: NOVOLOG FLEXPEN-MODERATE RESISTANCE 3 UNITS SC (13:13)
[2023-10-08 15:00] VITALS: BP 124/75
--- NOTE | 2023-10-08 15:20 | CM ---
Discharge Plan of Care: Came from [facility]. Therapy recommendation is Home with HH vs SNF. Will need Auth for SNF. Referral placed to [facility].
--- NOTE | 2023-10-08 15:48 | ED.GENMED ---
History of Present Illness
General
Chief Complaint: Breathing Problem
Source: patient and records
Time Seen by Provider: 10/05/23 15:44
Travel History
Have you had any contact with someone who has COVID-19?: No
Do you have any symptoms of coronavirus? Fever > 100 degrees, chills, cough, shortness of breath, sore throat, loss of taste or smell, muscle aches, or headache?: Yes
Symptoms:: sob
History of Present Illness
History of Present Illness:
88-year-old female presents with increased shortness of breath. Noted to be hypoxic on 6 L nasal cannula tachycardic. No chest pain no fever no other complaints
Past History
Past History
ED Past Medical History: COPD, CVA, GERD, HTN, Hypercholesterolemia, IDDM, Renal failure and Other (TIA. GI bleed)
ED Past Surgical History: Cholecystectomy, Orthopedic and Other
Social History
Tobacco: Former smoker
Alcohol: None
Drug: None
Personal:
Living: assisted living (Independent living)
Employment: Retired
Family History
Family History: Other (Reviewed and non-contributory)
Review of Systems
Review of Systems
All Other Systems: Not applicable
Constitutional: Denies fever
Cardiac: Denies chest pain
Phy Exam
Physical Exam
Physical Exam:
GENERAL: Alert and oriented in no apparent distress
EYE: Orbits normal.
NECK: Supple
CARDIAC: Regular rate and rhythm without any obvious murmurs.
LUNGS: Mild tachypnea with rhonchi in the bases.
ABDOMEN: Soft, without focal tenderness or distention
NEUROLOGICAL: Alert and oriented , grossly non-focal
SKIN: Warm and dry, no rash or lesion, no discoloration, skin intact.
MUSCULOSKELETAL: No edema,no deformity.Good color
PSYCH: Normal and appropriate interaction.
Scores
Heart Failure Risk
Heart Failure Risk Score: Not Applicable
Course
Orders/Labs/Results
Orders:
Orders
10/05/23 Breakfast
Cholesterol Lowering
At Your Request: Full Participation
Fluid Restriction: 1500 mL/day (50 oz)
Cholesterol Lowering: Sodium, 2 Gram
10/05/23 15:45
ECG [Electrocardiogram (*1)] Urgent
Reason for Study: Shortness of Breath
EKG- Treatment ONCE
10/05/23 15:48
IV Insert/Care/Rem.- Treatment PRN
Albuterol Sulfate [Ventolin Nebules] 7.5 mg INH R NOW STA
Dexamethasone Sod Phosphate [Decadron] 8 mg IV NOW STA
Ipratropium/Albuterol Sulfate [Duoneb] 3 ml INH R NOW STA
CR Chest Portable - 1 View Urgent
Comment:
Reason For Exam: sob
Reason Study Needs to be Portable: Unable to Transport
O2 Therapy [RESP] Stat
Titrate/Wean O2 to maintain O2 sat greater than (%): 92
Pulse Ox/cont/shift [RESP] Stat
Quantity: 1
10/05/23 16:05
Basic Metabolic Panel Urgent
Complete Blood Count/With Diff Urgent
Lactate Level [Lactic Acid] Q4H
NT-proBNP Urgent
Blood Culture Q30M
JEOVANY Source: Blood/Venous
Specimen Description:
10/05/23 16:09
COVID-19 Antigen Urgent
Source: Nasal Swab
Influenza A+B Rapid Molecular Urgent
JEOVANY Source: Nasal Swab
Specimen Description:
10/05/23 16:25
Blood Culture Q30M
JEOVANY Source: Blood/Venous
Specimen Description:
10/05/23 17:13
Furosemide [Lasix] 40 mg IV NOW STA
10/05/23 17:21
Admit/Transfer Patient As Directed
Co-Sign Provider:
Level of Care: Inpatient admission
Assign to:: Telemetry
Physician / Group: pasricha/medicine
Diagnosis: Acute hypoxic respiratory failure
Reason for Telemetry: Arrhythmia
Date to Stop Telemetry: 10/08/23
Time to Stop Telemetry: 11:00
Reason for Hospitalization: Acute hypoxic respiratory failure
Expected length of stay greater than two midnights?: Yes
ELOS- Estimated Length of Stay in days: 3
I certify the patient meets the requirements for IP care: Yes
10/05/23 17:28
Code Status As Directed
Resuscitation Status: Do not resuscitate
Reached after discussion with pt or family/Healthcare POA: Yes
10/05/23 17:30
DNR Bracelet Application ONCE
10/05/23 18:38
Acetaminophen [Tylenol] 1,000 mg PO DAILYPRN PRN
Azithromycin [Zithromax] 250 mg PO Q48H
Bisacodyl [Dulcolax] 10 mg RECTAL DAILY PRN
DAPTOmycin [Cubicin] 1,000 mg Syringe [Syringe-Pump] 0 ml IV Q24H
Docusate W/Senna [Senokot-S] 1 tablet PO BIDPRN PRN
Guaifenesin [Mucinex] 600 mg PO BIDPRN PRN
Ipratropium/Albuterol Sulfate [Duoneb] 3 ml INH R Q4HPRN PRN
Loperamide [Imodium] 2 mg PO DAILYPRN PRN
Magnesium Hydroxide [Milk of Magnesia] 30 ml PO [id number] PRN
Phosphate Enema [Fleet Phosphate Enema-Adult] 118 ml RECTAL DAILYPRN PRN
Polyethylene Glycol Powder [Miralax] 17 grams PO DAILYPRN PRN
10/05/23 18:38
HF DIETARY CONSULT Routine
HF EDUCATOR CONSULT Routine
Comment:
Activity As Directed
Activity Level: As Tolerated
Intake/ Output As Directed
Frequency: q12h
Patient Education As Directed
Type: CHF folder
Comment: give on admission. Document in Interdisciplinary Education record
Vital Signs As Directed
Frequency: Per unit guidelines
Weight As Directed
Frequency: Daily
Type of Scale: Standing Scale
Comment: Daily morning weight. If unable to stand, use balanced bed scale.
Weight As Directed
Frequency: Once
Type of Scale: Standing Scale
Comment: Upon Admission. If unable to stand, use balanced bed scale.
Pulse Ox/cont/shift [RESP] Routine
Quantity: 1
Special Instructions: Daily pulse oximetry at rest. If greater than 92% at rest also obtain pulse oximetry
while ambulating as tolerated.
Pulse Ox/spot Check [RESP] Routine
Quantity: 1
Rx Incentive Spirometry [RESP] Routine
Frequency: q1h while awake
Speech Therapy Eval & Treat Routine
10/05/23 19:15
Sodium Chloride [[place], Saline Mist] 1 sprays NASAL Q4HPRN PRN
10/05/23 19:53
TSH Routine
Troponin I Q6H
10/05/23 20:00
Apixaban [Eliquis] 2.5 mg PO BID
Fluticasone/Salmeterol 230/21 [Advair Hfa 230/21 Mcg Inhaler] 2 puff INH R BID
10/05/23 22:00
Acetaminophen [Tylenol] 1,000 mg PO HS
Rosuvastatin Calcium [Crestor] 40 mg PO HS
Trazodone [Desyrel] 25 mg PO HS
10/06/23 00:42
Troponin I Q6H
10/06/23 08:00
Cholecalciferol (Vitamin D3) [VITAMIN D3 (cholecalciferol)] 125 mcg PO DAILY
Diltiazem Extended Release [Cardizem Cd] 240 mg PO DAILY
Furosemide [Lasix] 40 mg IV DAILY
Pantoprazole [Protonix] 40 mg PO DAILY
Potassium Chloride [KCl] 20 meq PO DAILY
Propranolol Extended Release [Inderal LA] 60 mg PO DAILY
Tiotropium [place] 2.5 Mcg [Spiriva Respimat 2.5 Mcg] 2 puff INH R DAILY
insulin glargine [Lantus Solostar U-100 Insulin] 12 unit SC DAILY
isosorbide mononitrate 120 mg PO DAILY
10/06/23 08:47
Basic Metabolic Panel IN AM
Complete Blood Count/No Diff IN AM
Magnesium IN AM
Troponin I Q6H
10/07/23 05:29
Basic Metabolic Panel IN AM
Complete Blood Count/No Diff IN AM
10/08/23 04:54
Basic Metabolic Panel IN AM
10/08/23 11:00
DC Protocol for Telemetry ONCE
Abnormal Lab Results
10/05/23
16:05
RBC 3.25 L 10^6/uL
(4.20-5.40)
Hgb 10.0 L g/dL
(12.0-16.0)
Hct 30.0 L %
(37.0-47.0)
Absolute Lymphs (auto) 0.6 L 10^3/uL
(1.2-3.4)
Neutrophils % 83.4 H %
(42.2-75.2)
Lymphocytes % 8.2 L %
(20.5-51.1)
BUN 26 H mg/dl
(7-17)
Creatinine 1.7 H mg/dL
(0.6-1.0)
Glucose 141 H mg/dl
(70-99)
10/05/23 16:05
10/05/23 16:05
Vital Signs
Initial and Last Documented VS:
Initial Vital Signs
Temp Pulse Resp Pulse Ox
98.2 F 101 32 83
10/05/23 15:41 10/05/23 15:41 10/05/23 15:41 10/05/23 15:41
Last Documented Vital Signs
Temp Pulse Resp BP Pulse Ox
96.6 F L 92 14 127/94 95
10/08/23 11:00 10/08/23 11:00 10/08/23 11:00 10/08/23 11:00 10/08/23 11:00
MDM/Problems Addressed
Differential Diagnosis Includes:
Progressive shortness of breath with likely CHF exacerbation. Admission for further care
*Critical Care Note
Total Time (30-74mins, 75-104mins- exclusive of procedures): Not Applicable
Data Reviewed
Review of Other/Old Records Reveals: Labs, Records and Testing
ED Attending Note
-
Portions of this chart may have been created with voice recognition software.� Occasional wrong word or��sound alike� substitutions may have occurred due to the inherent limitations of voice recognition software.
Discharge Plan
Departure
Patient Disposition: Admit
Date of Disposition: 10/05/23
Time of Disposition: 17:14
Presentation/result/management discussed w/ accepting MD/DO: Hospitalist
Discharge Problem:
Acute on chronic hypoxic respiratory failure, CHF
Interventions
Interventions:
*Risk Screen - Suicide Last Done: 10/05/23 16:30
*General Assessment Last Done: 10/05/23 16:30
*Neglect/Abuse Screening Last Done: 10/05/23 16:30
ED- Fall Risk Assessment Last Done: 10/05/23 16:30
*ED COVID-19 Vaccine History Last Done: 10/05/23 16:30
*Nursing Disposition Last Done: 10/05/23 18:35
ED- Cardiac Assessment Last Done: 10/05/23 16:30
ED- Pulmonary Assessment Last Done: 10/05/23 16:30
Discharge Date and Time
Discharge Date/Time: 10/05/23 18:35
[2023-10-08 17:05] LABS: Glucose - Point of Care 149 mg/dl (70-99)
[2023-10-08] MEDS: NOVOLOG FLEXPEN-MODERATE RESISTANCE SC (17:08)
[2023-10-08 19:27] VITALS: BP 132/62
[2023-10-08 21:32] LABS: Glucose - Point of Care 301 mg/dl (70-99)
[2023-10-08] MEDS: TYLENOL 1000 MG PO (22:15)
[2023-10-08] MEDS: DESYREL 25 MG PO (22:15)
[2023-10-08] MEDS: NOVOLOG FLEXPEN 7 UNITS SC (22:16)
[2023-10-08 23:05] VITALS: BP 137/80
[2023-10-09] VITALS (7 sets, daily range): BP systolic 115–159; BP diastolic 61–87; PULSE 82; O2SAT 96; BMI 35.7
[2023-10-09 00:17] LABS: Glucose - Point of Care 210 mg/dl (70-99)
[2023-10-09 06:23] LABS: Hematocrit 27.9 % (37.0-47.0); Hemoglobin 9.2 g/dL (12.0-16.0); Mean Corpuscular Hgb 31.1 pg (27.0-31.0); Mean Corpuscular Volume 94.3 fL (81.0-99.0); Mean Platelet Volume 9.7 fL (7.4-10.4); Platelet Count 305 10^3/uL (130-400); Red Blood Cell Count 2.96 10^6/uL (4.20-5.40); Red Cell Dist. Width 13.8 % (11.5-14.5); White Blood Cell Count 5.3 10^3/uL (4.8-10.8)
[2023-10-09 06:53] LABS: Blood Urea Nitrogen 41 mg/dl (7-17); Calcium 9.3 mg/dl (8.4-10.2); Carbon Dioxide 31 mmol/L (22-30); Chloride 96 mmol/L (98-107); Estimated Creatinine Clearance 21 ml/min; Glucose 138 mg/dl (70-99); Sodium 135 mmol/L (135-145); eGFR 26.77
[2023-10-09 07:10] LABS: Glucose - Point of Care 144 mg/dl (70-99)
[2023-10-09] MEDS: SPIRIVA RESPIMAT 2.5 MCG 2 PUFF INH (07:27)
[2023-10-09] MEDS: ADVAIR HFA 230/21 MCG INHALER 2 PUFF INH ×2 (07:27→20:02)
--- NOTE | 2023-10-09 09:05 | W.PN.HOSP.TC ---
Today's Communication/Plan
-
dc in am
Assessment / Plan
Assessment / Plan
Physical Exam
General: Well Developed, Well Nourished and No Apparent Distress
HEENT: NormoCephalic
Respiratory: limited with expiratory wheezes ( mild)
Cardiac: S1/S2
GI: Soft, Non Tender and Non Distended
Musculoskeletal: No Clubbing
Skin: Warm
Neuro: Awake, Alert and Oriented, she followed commands.
Psych: Calm
88-year-old female with recent admission for MRSA bacteremia of unknown cause and dced 2 days ago, and past medical history of A-fib, CHF, sleep apnea, COPD and chronic hypoxemic respiratory failure on 5-6L O2, hypertension, GERD, type 2 diabetes
mellitus, pulmonary nodule, renal mass(does not want follow up), TIA/CVA, CAD, latent TB, obesity, hyperlipidemia, ambulatory dysfunction, fatty liver disease, GERD,, adrenal nodule now presenting worsening shortness of breath at facility most
likely CHF exacerbation.
#Acute on chronic hypoxic respiratory failure, � Baseline O2 is 5- 6 L
� Continue 40 mg IV Lasix daily and continue to monitor BMP, intend to dc to SNF on low dose Lasix.
- pt feels better with no sob although lung exam sounded limited today. d/w speech, would rather do video swallow to rule out silent aspiration.
� Recent echo already performed with no evidence of significant EF reduction, therefore most likely secondary to volume overload/HFpEF and probable pulmonary hypertension; can assess echo again to see if any changes although doubt
� continue to wean O2 as tolerated; O2 goal greater than 88%
�d/w Pulmonary doctor, no COPD exacerbation. Primary director of development and marketing Dr Murguia.
Appreciate pul input
# Confusion at night
noticed by her son
Trazodone was added after last dc from our hospital. WIll hold it for now
will verify with family
# MRSA Bacteremia,resolved. No obvious source
-TTE no vegetation
-No fevers
- Blood cultures NGTD
- Continue Daptomycin 1000mg IV q48H through 11/09/23, followed by doxycycline 100mg po bid x another 4 weeks.
-Weekly CBC, CMP, CRP, CK
- Hold atorvastatin while on Daptomycin.
#Acute HFpEF
c/w IV Lasix to approach dry weight. Monitor renal function with daily BMP.
Creatinine at 1.6
dc on Lasix 20 mg QD
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 She has JASWANT last admission which was though secondary to MRSA bacteremia. She was followed by kidney doctor. Her creatinine seems to stabilize now around 1-5-1.9.
Renal ultrasound with suspected 2.3 cm mass in the left lower pole of the kidney.
Could be possible lobular renal parenchyma, complex cyst or renal cell carcinoma.
Should plan for ultrasound outpatient in 3 months. although she does not want any aggressive measures regarding this.
# Paroxysmal A-fib
-continue Eliquis but adjust the dose,
-Continue with oral medication. Rate is well-controlled.
-History of GI bleeding and aspirin was stopped. On low-dose Eliquis.- Continue Eliquis at 2.5 mg twice daily--
#COPD
-on ppx azithromycin
-DuoNeb PRN
-Advair, Spiriva
Primary director of development and marketing Dr. Murguia
#JELLY on CPAP
-CPAP of 7, 4L
#HTN�benign
-Continue propranolol 60 mg ER
-Continue oral diltiazem
# Anemia of chronic disease
HGB around 9
Normal iron level. Anemia c/w anemia of chronic disease.
#Gastroesophageal reflux disease
#GI bleed by history
- resumed Protonix.
#Type 2 diabetes mellitus
#Hyperglycemia hx
- A1c is 9.4% on 09/13/23
- Low-dose scale coverage
- continue Lantus 12 units but higher BS , will increase Lantus to 16 units.
-Hold metformin 750mg BID, Januvia
#Pulmonary Nodule
- Follow-up with pulmonary
#Prior TIA/CVA
- Clopidogrel was stopped during recent admission due to need for Eliquis for A-fib
#CAD
-No chest pain
-Continue beta-gene
#History latent TB
#Obesity due to excess calorie consumption
-Weight loss recommended
#Hyperlipidemia
-Hold current statin
#Ambulatory dysfunction secondary to recent hospitalization
-Continue PT/OT
DVT ppx
-Eliquis
Total time spent to see the patient, examine the patient, review data and lab results, discuss treatment plan with patient, family, nursing staff around 57 minutes
Anticipated Discharge: Within 24 hours
Subjective/Interval History
-
Date of Service: October 09, 2023
No sob
No chest pain
No fevers
Objective Data
-
Labs:
Laboratory Results
10/09/23
05:36
WBC 5.3
Hgb 9.2 L
Hct 27.9 L
Plt Count 305
Sodium 135
Potassium 4.0
Chloride 96 L
Carbon Dioxide 31 H
BUN 41 H
Creatinine 1.8 H
Glucose 138 H
Calcium 9.3
Vital Signs:
Vital Signs
Temp Pulse Resp BP Pulse Ox
97.9 F 82 16 159/86 95
10/09/23 07:05 10/09/23 07:36 10/09/23 07:36 10/09/23 07:05 10/09/23 07:36
I&O
10/08/23 10/09/23 10/10/23
06:59 06:59 06:59
Intake Total 1320 / 1320 1260 / 1260
Balance 1320 / 1320 1260 / 1260
--- NOTE | 2023-10-09 09:25 | W.PN.PUL3 ---
Today's Communication / Plan
-
Tachycardia 140s noted with simple ambulation with physical therapy/walker
88% on 5 L
Continue with management per cardiology
Chest exam is clear
Continue with aspiration precautions
Assessment
-
88-year-old female with a history of COPD on chronic 5 L oxygen, followed by Dr. Murguia, hypertension, hyperlipidemia, previous CVA as well as diabetes and presented with hypoxia, 83% on 6 L. Baseline is 5 L at home. She had a recent prolonged
hospital stay for MRSA bacteremia/sepsis. We are asked to comment on her pulmonary process 10/06/2023
Acute hypoxic respiratory insufficiency, 83% on 6 L
Baseline 5 L at home
Bilateral interstitial changes, likely chronic
Cannot rule out component of heart failure
Small right pleural effusion
Wheezing on presentation, now resolved
Mildly elevated troponin
Hyponatremia
Leukopenia, white count 4.0
Anemia
History of atrial fibrillation on anticoagulation
Hyperglycemia
Abnormal UA
Conditions present prior to admission:
COPD-on chronic 5 L oxygen
Decreased diffusing capacity-, DLCO 44%
Former smoker.
Asthma
Pulmonary nodule- Chest x-ray revealed 3.[address] chest confirmed this-no change 06/2023, possibility of malignancy discussed, patient does not want aggressive workup or treatment
Interstitial lung disease.
History latent TB
Obesity.
JELLY on CPAP
CAD
CVA
GERD.
Hypertension.
Hyperlipidemia.
Diabetes.
GERD.
Diverticulosis.
Fatty liver.
Glaucoma.
Adrenal nodule.
Vitamin D deficiency.
Cholecystectomy. Appendectomy. Right TKR. Loop recorder implanted. [place] teeth. Vein stripping. Laser surgery for glaucoma.
Plan/recommendations
At this time, patient appears to be comfortable. She is presently on 5 L, this is her baseline
Chest exam is presently clear
I cannot appreciate any significant wheezing, minimal crackles
Patient admits to occasional coughing with eating but denies jory aspiration
VSE confirms risk of aspiration
Ambulated with PT on 5L, HR 140's, sats 88%
I have less of a suspicion for an acute pulmonary process at this time, especially infectious given the fact that she has been on IV daptomycin. However patient is at risk for hospital-acquired process
Abnormal urinalysis is noted
Presently on daptomycin and azithromycin
Moving forward
She will continue her outpatient regimen which includes Spiriva/Advair. We can use albuterol as needed but I see no indication for more aggressive management than that. There is no indication for steroids at this time.
Agree with hospitalist assessment regarding fluid status, diuresis.
Creatinine noted, down to 1.6
Defer need for repeat echocardiogram to primary service
Unfortunately, she still has significant tachycardia with simple ambulation with physical therapy, heart rate 140s. Wonder if she needs better rate control
Cardiology following
Will consider repeat chest x-ray prior to discharge as indicated
Weight is down 6 to 8 kg since admission
Mildly elevated troponin noted. Patient is on outpatient Eliquis therapy. 2.5 mg twice a day noted
Low suspicion for thromboembolic disease but patient does have many risk factors
Depending on how she does, will consider Doppler studies but for now we will hold off
Blood cultures negative to date. Recent MRSA bacteremia noted
Lastly, recent ultrasound identifies 2.3 cm mass in the left kidney
Family history of renal cell cancer and lung cancer noted
She has a known lung lesion which has been suspicious but patient has related as outpatient she does not want aggressive workup
Monitor blood sugar. Hyperglycemia noted on admission
Insulin supplementation as needed.
DVT prophylaxis: On Eliquis 2.5 mg twice a day.
PT/OT as able
Outpatient pulmonary FU recommended
Last saw pulmonary-Dr. Murguia 07/04/23
Reviewed with patient, and family members at bedside
Diagnostic Data
CXR 09/15/23: Mild patchy interstitial changes, suspected heart failure with small right pleural effusion
Chest x-ray 09/12/23-Mild or early CHF overlying COPD and moderate hiatal hernia.
Chest x-ray 08/19/23-NAD, stable mild cardiomegaly
CT chest 04/16/23-right lower lobe opacification, most likely infectious or inflammatory, but pulmonary neoplasm cannot be excluded, moderate hiatal hernia
Echocardiogram 07/15/23-EF 65-70%, PA systolic 44
Echo 04/08/22: normal biventricular function, PA pressure 47, aortic sclerosis�������
Echo 10/21/20: normal biventricular function, no significant valvular disease, right heart pressures could not be determined, technically difficult�������
Echo 07/31/19: Normal biventricular function,no significant valvular disease, right heart pressures could not be determined�������
ECHO 07/07/18: Aortic sclerosis, normal biventricular function, nl PASP.
PFT 11/14/20: FVC 1.89/95%, FEV1 1.49/103%, ratio 79, TLC 3.44/79%, DLCO 7.43/44%���
[place] 12/20/19: FVC 1.70/82%, FEV1 1.28/84%, ratio 77������
PFT 07/16/19: FVC 1.92/92%, FEV1 1.45/95%, ratio 76, TLC 3.06/69%, DLCO 7.91/45%.����
PFT 12/28/18: FVC 1.85/87%, FEV1 1.31/84%, ratio 71, TLC 3.33/75%, DLCO 8.68/50%.
HST 08/05/19-AHI-17.7, desaturation bucky 71%, CPAP with 4 L oxygen
All relevant imaging reviewed.
Subjective Data
-
Date of Service:
Date of Service: October 09, 2023
Subjective:
feeling better
less cough, nursing agency manager CP
Objective Data
Data Reviewed
Vital Signs / I&O / Oxygen:
Vital Signs
Temp Pulse Resp BP Pulse Ox
97.9 F 82 16 159/86 95
10/09/23 07:05 10/09/23 07:36 10/09/23 07:36 10/09/23 07:05 10/09/23 07:36
Intake and Output
10/08/23 10/09/23 10/10/23
06:59 06:59 06:59
Intake Total 1320 / 1320 1260 / 1260
Balance 1320 / 1320 1260 / 1260
SaO2 95
Nasal Cannula flow liters per 5
minute
Physical Exam
General: Comfortable
HEENT: Normocephalic and Anicteric
Cardiovascular: S1-S2, Regular Rhythm, Murmur (n) and Rub (n)
Respiratory: Wheeze (n), Crackles (Mild at base), Rhonchi (n) and Non-Labored Respirations
GI: Soft, Non Distended (Obese) and Non Tender
Neurology: Awake, Alert and No Motor Deficits
Skin: Cyanosis (n), Jaundice (n), Rash (n) and Bruising (Few)
Labs/Micro/Reports
Lab Data
10/09/23 05:36
10/09/23 05:36
Microbiology
10/05/23 16:25 Blood/Venous Blood Culture - Preliminary
No Growth in 72 hours- Final report to follow
10/05/23 16:05 Blood/Venous Blood Culture - Preliminary
No Growth in 72 hours- Final report to follow
[2023-10-09] MEDS: NOVOLOG FLEXPEN-MODERATE RESISTANCE SC (09:49)
[2023-10-09] MEDS: KCL 20 MEQ PO (10:01)
[2023-10-09] MEDS: IMDUR (EXTENDED RELEASE) 120 MG PO (10:01)
[2023-10-09] MEDS: CARDIZEM CD 240 MG PO (10:01)
[2023-10-09] MEDS: PROTONIX 40 MG PO (10:01)
[2023-10-09] MEDS: LANTUS 0.160000000000000003 UNITS SC (10:01)
[2023-10-09] MEDS: LASIX 20 MG PO (10:01)
[2023-10-09] MEDS: ELIQUIS 2.5 MG PO ×2 (10:02→20:36)
[2023-10-09] MEDS: VITAMIN D3 (cholecalciferol) 125 MCG PO (10:02)
[2023-10-09] MEDS: INDERAL LA 60 MG PO (10:02)
[2023-10-09 12:05] LABS: Glucose - Point of Care 210 mg/dl (70-99)
[2023-10-09] MEDS: NOVOLOG FLEXPEN-MODERATE RESISTANCE 3 UNITS SC (12:17)
--- NOTE | 2023-10-09 16:18 | CM ---
Patient was at [facility] for STR. [facility] does not have a bed until possibly next week. [employer] list explained and given to patient and daughter. Family will choose additional preferences. Barrier is Daptomycin cost.
--- NOTE | 2023-10-09 16:22 | CM ---
Therapy recommending PT vs SNF. SNF referrals previously forwarded. Will await final recommendation. Patient does live alone. Currently on IV/Dapto. Will need to determine if IV/AB after discharge. Barrier: Dapto cost for some SNF's.
[2023-10-09 16:39] LABS: Glucose - Point of Care 180 mg/dl (70-99)
[2023-10-09] MEDS: NOVOLOG FLEXPEN-MODERATE RESISTANCE 1 UNITS SC (17:05)
[2023-10-09] MEDS: ZITHROMAX 250 MG PO (17:06)
[2023-10-09] MEDS: TYLENOL 1000 MG PO ×2 (17:09→23:02)
[2023-10-09] MEDS: CUBICIN 20 MG IV (20:36)
[2023-10-09 21:27] LABS: Glucose - Point of Care 341 mg/dl (70-99)
[2023-10-09] MEDS: DESYREL 25 MG PO (23:03)
[2023-10-09] MEDS: NOVOLOG FLEXPEN 7 UNITS SC (23:03)
[2023-10-10 03:03] VITALS: BP 141/90
[2023-10-10 03:10] LABS: Glucose - Point of Care 101 mg/dl (70-99)
[2023-10-10 05:58] VITALS: BMI 35.8
[2023-10-10 07:05] VITALS: BP 141/90
[2023-10-10] MEDS: ADVAIR HFA 230/21 MCG INHALER 2 PUFF INH (07:30)
[2023-10-10] MEDS: SPIRIVA RESPIMAT 2.5 MCG 2 PUFF INH (07:30)
[2023-10-10] MEDS: NOVOLOG FLEXPEN-MODERATE RESISTANCE SC ×3 (08:08→18:08)
[2023-10-10] MEDS: LASIX 20 MG PO (08:09)
[2023-10-10] MEDS: IMDUR (EXTENDED RELEASE) 120 MG PO (08:09)
[2023-10-10] MEDS: INDERAL LA 60 MG PO (08:09)
[2023-10-10] MEDS: KCL 20 MEQ PO (08:09)
[2023-10-10] MEDS: CARDIZEM CD 240 MG PO (08:09)
[2023-10-10] MEDS: PROTONIX 40 MG PO (08:09)
[2023-10-10] MEDS: LANTUS 0.160000000000000003 UNITS SC (08:09)
[2023-10-10] MEDS: ELIQUIS 2.5 MG PO (08:09)
[2023-10-10] MEDS: VITAMIN D3 (cholecalciferol) 125 MCG PO (08:09)
[2023-10-10 08:14] LABS: Glucose - Point of Care 108 mg/dl (70-99)
--- NOTE | 2023-10-10 09:33 | W.PN.HOSP.TC ---
Today's Communication/Plan
-
dc
Assessment / Plan
Assessment / Plan
Physical Exam
General: Well Developed, Well Nourished and No Apparent Distress
HEENT: NormoCephalic
Respiratory: limited with expiratory wheezes ( mild)
Cardiac: S1/S2
GI: Soft, Non Tender and Non Distended
Musculoskeletal: No Clubbing
Skin: Warm
Neuro: Awake, Alert and Oriented, she followed commands.
Psych: Calm
88-year-old female with recent admission for MRSA bacteremia of unknown cause and dced 2 days ago, and past medical history of A-fib, CHF, sleep apnea, COPD and chronic hypoxemic respiratory failure on 5-6L O2, hypertension, GERD, type 2 diabetes
mellitus, pulmonary nodule, renal mass(does not want follow up), TIA/CVA, CAD, latent TB, obesity, hyperlipidemia, ambulatory dysfunction, fatty liver disease, GERD,, adrenal nodule now presenting worsening shortness of breath at facility most
likely CHF exacerbation.
#Acute on chronic hypoxic respiratory failure, � Baseline O2 is 5- 6 L
� Continue 40 mg IV Lasix daily and continue to monitor BMP, intend to dc to SNF on low dose Lasix.
- pt feels better with no sob although lung exam sounded limited today. d/w speech, would rather do video swallow to rule out silent aspiration.
� Recent echo already performed with no evidence of significant EF reduction, therefore most likely secondary to volume overload/HFpEF and probable pulmonary hypertension; can assess echo again to see if any changes although doubt
� continue to wean O2 as tolerated; O2 goal greater than 88%
�d/w Pulmonary doctor, no COPD exacerbation. [facility] programs director Dr Murguia.
Appreciate pul input
# Confusion at night
noticed by her son
Trazodone was added after last dc from our hospital. WIll hold it for now
will verify with family
# MRSA Bacteremia,resolved. No obvious source
-TTE no vegetation
-No fevers
- Blood cultures NGTD
- Continue Daptomycin 1000mg IV q48H through 11/09/23, followed by doxycycline 100mg po bid x another 4 weeks.
-Weekly CBC, CMP, CRP, CK
- Hold atorvastatin while on Daptomycin.
#Acute HFpEF
c/w IV Lasix to approach dry weight. Monitor renal function with daily BMP.
Creatinine at 1.6
dc on Lasix 20 mg QD
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 She has JASWANT last admission which was though secondary to MRSA bacteremia. She was followed by kidney doctor. Her creatinine seems to stabilize now around 1-5-1.9.
Renal ultrasound with suspected 2.3 cm mass in the left lower pole of the kidney.
Could be possible lobular renal parenchyma, complex cyst or renal cell carcinoma.
Should plan for ultrasound outpatient in 3 months. although she does not want any aggressive measures regarding this.
# Paroxysmal A-fib
-continue Eliquis but adjust the dose,
-Continue with oral medication. Rate is well-controlled.
-History of GI bleeding and aspirin was stopped. On low-dose Eliquis.- Continue Eliquis at 2.5 mg twice daily--
#COPD
-on ppx azithromycin
-DuoNeb PRN
-Advair, Spiriva
[facility] programs director Dr. Murguia
#JELLY on CPAP
-CPAP of 7, 4L
#HTN�benign
-Continue propranolol 60 mg ER
-Continue oral diltiazem
# Anemia of chronic disease
HGB around 9
Normal iron level. Anemia c/w anemia of chronic disease.
#Gastroesophageal reflux disease
#GI bleed by history
- resumed Protonix.
#Type 2 diabetes mellitus
#Hyperglycemia hx
- A1c is 9.4% on 09/13/23
- Low-dose scale coverage
- continue Lantus 12 units but higher BS , will increase Lantus to 16 units.
-Hold metformin 750mg BID, Januvia
#Pulmonary Nodule
- Follow-up with pulmonary
#Prior TIA/CVA
- Clopidogrel was stopped during recent admission due to need for Eliquis for A-fib
#CAD
-No chest pain
-Continue beta-gene
#History latent TB
#Obesity due to excess calorie consumption
-Weight loss recommended
#Hyperlipidemia
-Hold current statin
#Ambulatory dysfunction secondary to recent hospitalization
-Continue PT/OT
DVT ppx
-Eliquis
Total time spent to see the patient, examine the patient, review data and lab results, discuss treatment plan with patient, family, nursing staff around 57 minutes
Anticipated Discharge: Today
Subjective/Interval History
-
Date of Service: October 10, 2023
No complaints
Objective Data
-
Vital Signs:
Vital Signs
Temp Pulse Resp BP Pulse Ox
97.4 F 89 16 141/90 95
10/10/23 07:05 10/10/23 07:37 10/10/23 07:37 10/10/23 07:05 10/10/23 07:37
I&O
10/09/23 10/10/23 10/11/23
06:59 06:59 06:59
Intake Total 1260 / 1260 1020 / 1020
Balance 1260 / 1260 1020 / 1020
--- NOTE | 2023-10-10 10:13 | W.PN.PUL3 ---
Today's Communication / Plan
-
Continue inhaler regimen
Remains on antibiotics, daptomycin chronically
GERD therapy
Aspiration precautions
Diuresis per primary service
Reviewed at length limitations, maintain saturation greater than 89%
Disposition efforts noted. Unfortunately patient high risk for readmission
Therapeutic options are lacking at this time
Follow-up with pulmonary. Information left in chart
We will sign off. Please call with questions
Assessment
-
88-year-old female with a history of COPD on chronic 5 L oxygen, followed by Dr. Murguia, hypertension, hyperlipidemia, previous CVA as well as diabetes and presented with hypoxia, 83% on 6 L. Baseline is 5 L at home. She had a recent prolonged
hospital stay for MRSA bacteremia/sepsis. We are asked to comment on her pulmonary process 10/06/2023
Acute hypoxic respiratory insufficiency, 83% on 6 L
Baseline 5 L at home
Bilateral interstitial changes, likely chronic
Cannot rule out component of heart failure
Small right pleural effusion
Wheezing on presentation, now resolved
Mildly elevated troponin
Hyponatremia
Leukopenia, white count 4.0
Anemia
History of atrial fibrillation on anticoagulation
Hyperglycemia
Abnormal UA
Conditions present prior to admission:
COPD-on chronic 5 L oxygen
Decreased diffusing capacity-, DLCO 44%
Former smoker.
Asthma
Pulmonary nodule- Chest x-ray revealed 3.[address] chest confirmed this-no change 06/2023, possibility of malignancy discussed, patient does not want aggressive workup or treatment
Interstitial lung disease.
History latent TB
Obesity.
JELLY on CPAP
CAD
CVA
GERD.
Hypertension.
Hyperlipidemia.
Diabetes.
GERD.
Diverticulosis.
Fatty liver.
Glaucoma.
Adrenal nodule.
Vitamin D deficiency.
Cholecystectomy. Appendectomy. Right TKR. Loop recorder implanted. [place] teeth. Vein stripping. Laser surgery for glaucoma.
Plan/recommendations
At this time, patient appears to be comfortable. She is presently on 5 L, this is her baseline
Chest exam is presently clear
I cannot appreciate any significant wheezing, minimal crackles
Patient admits to occasional coughing with eating but denies jory aspiration
VSE confirms risk of aspiration
Ambulated with PT on 5L, HR 140's, sats 88%
chest x-ray today with chronic interstitial changes, suspected pulmonary edema, no change
I have less of a suspicion for an acute pulmonary process at this time, especially infectious given the fact that she has been on IV daptomycin. However patient is at risk for hospital-acquired process
Abnormal urinalysis is noted
Presently on daptomycin and azithromycin
Moving forward
She will continue her outpatient regimen which includes Spiriva/Advair. We can use albuterol as needed but I see no indication for more aggressive management than that. There is no indication for steroids at this time.
Agree with hospitalist assessment regarding fluid status, diuresis.
Creatinine noted, down to 1.8
Defer need for repeat echocardiogram to primary service
Unfortunately, she still has significant tachycardia with simple ambulation with physical therapy, heart rate 140s. Wonder if she needs better rate control
Cardiology following
Reviewed importance of minimizing
Weight is down 6 to 8 kg since admission
Mildly elevated troponin noted. Patient is on outpatient Eliquis therapy. 2.5 mg twice a day noted
Low suspicion for thromboembolic disease but patient does have many risk factors
Depending on how she does, will consider Doppler studies but for now we will hold off
Blood cultures negative to date. Recent MRSA bacteremia noted
Lastly, recent ultrasound identifies 2.3 cm mass in the left kidney
Family history of renal cell cancer and lung cancer noted
She has a known lung lesion which has been suspicious but patient has related as outpatient she does not want aggressive workup
Monitor blood sugar. Hyperglycemia noted on admission
Insulin supplementation as needed.
DVT prophylaxis: On Eliquis 2.5 mg twice a day.
PT/OT as able
Outpatient pulmonary FU recommended
Last saw pulmonary-Dr. Murguia 07/04/23
Reviewed with patient, and family members at bedside
Activity and not overdoing things. Okay to do simple arm and leg exercises and walk 10-20 steps with 5 L
Disposition efforts noted
Diagnostic Data
CXR 09/15/23: Mild patchy interstitial changes, suspected heart failure with small right pleural effusion
Chest x-ray 09/12/23-Mild or early CHF overlying COPD and moderate hiatal hernia.
Chest x-ray 08/19/23-NAD, stable mild cardiomegaly
CT chest 04/16/23-right lower lobe opacification, most likely infectious or inflammatory, but pulmonary neoplasm cannot be excluded, moderate hiatal hernia
Echocardiogram 07/15/23-EF 65-70%, PA systolic 44
Echo 04/08/22: normal biventricular function, PA pressure 47, aortic sclerosis�������
Echo 10/21/20: normal biventricular function, no significant valvular disease, right heart pressures could not be determined, technically difficult�������
Echo 07/31/19: Normal biventricular function,no significant valvular disease, right heart pressures could not be determined�������
ECHO 07/07/18: Aortic sclerosis, normal biventricular function, nl PASP.
PFT 11/14/20: FVC 1.89/95%, FEV1 1.49/103%, ratio 79, TLC 3.44/79%, DLCO 7.43/44%���
[place] 12/20/19: FVC 1.70/82%, FEV1 1.28/84%, ratio 77������
PFT 07/16/19: FVC 1.92/92%, FEV1 1.45/95%, ratio 76, TLC 3.06/69%, DLCO 7.91/45%.����
PFT 12/28/18: FVC 1.85/87%, FEV1 1.31/84%, ratio 71, TLC 3.33/75%, DLCO 8.68/50%.
HST 08/05/19-AHI-17.7, desaturation bucky 71%, CPAP with 4 L oxygen
All relevant imaging reviewed.
Subjective Data
-
Date of Service:
Date of Service: October 10, 2023
Subjective:
Patient continues to have waxing and waning symptoms. Today is a good day. Yesterday she was fatigued. Multiple family is at bedside. Has mild cough, denies chest pain, nausea, abdominal pain
Objective Data
Data Reviewed
Vital Signs / I&O / Oxygen:
Vital Signs
Temp Pulse Resp BP Pulse Ox
97.4 F 89 16 141/90 95
10/10/23 07:05 10/10/23 07:37 10/10/23 07:37 10/10/23 07:05 10/10/23 07:37
Intake and Output
10/09/23 10/10/23 10/11/23
06:59 06:59 06:59
Intake Total 1260 / 1260 1020 / 1020
Balance 1260 / 1260 1020 / 1020
SaO2 95
Nasal Cannula flow liters per 5
minute
Physical Exam
General: Comfortable
HEENT: Normocephalic and Anicteric
Cardiovascular: S1-S2, Regular Rhythm, Murmur (n) and Rub (n)
Respiratory: Wheeze (n), Crackles (Mild at base), Rhonchi (n) and Non-Labored Respirations
GI: Soft, Non Distended (Obese) and Non Tender
Neurology: Awake, Alert and No Motor Deficits
Skin: Cyanosis (n), Jaundice (n), Rash (n) and Bruising (Few)
Labs/Micro/Reports
Lab Data
10/09/23 05:36
10/09/23 05:36
Microbiology
10/05/23 16:25 Blood/Venous Blood Culture - Preliminary
No Growth in 4 days- Final report to follow
10/05/23 16:05 Blood/Venous Blood Culture - Preliminary
No Growth in 4 days- Final report to follow
[2023-10-10 11:06] VITALS: BP 146/90
[2023-10-10] MEDS: MUCINEX 600 MG PO (12:53)
[2023-10-10 15:03] VITALS: BP 146/75
[2023-10-10 15:26] VITALS: PULSE 86; O2SAT 99
[2023-10-10] MEDS: ATIVAN 0.25 MG PO (15:44)
[2023-10-10] MEDS: DESENEX/MITRAZOL/ZEASORB 1 APPLIC TOPICAL (15:45)
--- NOTE | 2023-10-10 16:12 | CM ---
Patient has been medically cleared for discharge to [facility] for prison and rehab services. Insurance auth required and received:
Approved for 7 days, 10/10/23 through to and including 10/16/23, NRD 10/16/23. Concurrent reviews to FAX # [phone], Phone # for questions is # [phone] option #5, Ambulance auth reference # [id number] and Facility auth reference #
[id number]. Transport to be scheduled.
NURSE TO NURSE # [phone]
FAX # [phone]
[2023-10-10 16:13] LABS: COVID-19 Antigen Negative (Negative)
[2023-10-10 17:12] LABS: Glucose - Point of Care 194 mg/dl (70-99)
--- NOTE | 2023-10-10 17:17 | W.DCSUMMARY ---
Discharge Summary
Discharge Data
Date of Admission: 10/05/23
Date of Discharge: 10/10/23
-
Pending Results: No
Hospital Course
88 years old female was brought in from [facility] facility for worsening hypoxia. Patient reported that she felt short of breath. Patient reported that she was getting short of breath most of the time. She denied difficulty swallowing,
chest pain or choking. History of cough but no hemoptysis. Patient was diagnosed with acute on chronic hypoxic respiratory insufficiency/failure. She was noted to have bilateral interstitial changes on chest radiography. Patient was evaluated
by pulmonary doctor. Oxygen requirement was 5 L ( home baseline) . Patient was given nebulizer treatment, diuretic treatment. She was diagnosed with acute on chronic heart failure with preserved ejection fraction. Repeat blood culture did not
show any growth. Patient had paroxysmal atrial fibrillation. Rate was well-controlled. She was continued on Eliquis. Renal function remained stable with creatinine between 1.5-1.9. Diuretic treatment was changed from intravenous to oral
furosemide 20 mg daily. Patient seemed to stabilized with stable oxygen requirement. She was put on scheduled nebulizer treatment. She was maintained on azithromycin and daptomycin. Patient was noted to have anxiety. Discussed with her family,
she was maintained on low-dose trazodone at nighttime. Family requested to try low-dose Ativan only as needed. Patient remained hemodynamically stable. She was discharged in a stable condition.
7
Total discharge time spent to see the patient, examine the patient, review data and lab results, discuss discharge plan with patient, family, case packer and sealer, pulmonary doctor, nursing staff around 75 minutes
Discharge Plan
-
Patient Disposition: Long Term/SNF
Discharge Diagnosis/Procedures: Acute on chronic hypoxic respiratory failure. Baseline oxygen requirement 5 to 6 L
Acute heart failure with a preserved ejection fraction
Chronic kidney disease stage IIIb-IV. Creatinine on discharge 1.8
Paroxysmal atrial fibrillation
History of COPD
History of obstructive sleep apnea on CPAP at 7, 4 to 5 L O2 flow
Primary hypertension
Anemia of chronic disease
History of esophageal reflux disease
Type 2 diabetes
History of CVA/TIAs
History of Complicated MRSA bacteremia: Continue Daptomycin 1000mg IV q48H through 11/09/23, followed by doxycycline 100mg po bid x another 4 weeks. Weekly CBC, CMP, CRP, CK
Patient needs continuous oxygen supply and not pulse oxygen
Diet: As tolerated
Blood Work: Weekly CBC, CMP, CRP, CK
Referrals:
Sonia Murguia MD [Active] -
(2 weeks with [employer] in 3 mo)
Ana Rosa Min MD [Family Provider] - in one to two weeks
Lauren Cesar MD [Active] - in two to three weeks
Additional Discharge Medication Instructions: [employer] visit in 3 weeks
[facility] visit in 2-3 mo
Prescriptions:
New
furosemide 20 mg Tablet
20 mg PO DAILY Qty: 30 0RF
lorazepam [Ativan] 0.5 mg tablet
0.25 mg PO Q12H PRN (Reason: anxiety) Qty: 10 0RF
ipratropium-albuterol 0.5 mg-3 mg(2.5 mg base)/3 mL solution for nebulization
3 ml inhalation BID Qty: 90 0RF
Continued
propranolol 60 MG capsule,extended release 24 hr
60 mg PO DAILY
isosorbide mononitrate 120 mg Tablet Extended Release 24 Hr
120 mg PO DAILY
cyanocobalamin (vitamin B-12) 500 mcg Tablet
500 mcg PO HS
rosuvastatin 40 mg Tablet
40 mg PO HS
Hold Instructions: I until done with daptomycin
Rx Instructions:
hold until 12/07/23
cholecalciferol (vitamin D3) 125 mcg (5,000 unit) Tablet
125 mcg PO DAILY
loperamide 2 mg Capsule
2 mg PO DAILYPRN PRN (Reason: diarrhea)
ipratropium-albuterol 0.5 mg-3 mg(2.5 mg base)/3 mL Solution For Nebulization
3 ml inhalation R Q4HPRN PRN (Reason: shortness of breath) Qty: 90 0RF
acetaminophen 500 mg Tablet
1,000 mg PO HS
acetaminophen 500 mg Tablet
1,000 mg PO DAILYPRN PRN (Reason: mild pain)
magnesium hydroxide [Milk of Magnesia] 400 mg/5 mL Suspension
30 ml PO [id number] PRN (Reason: no bm in 2 days)
bisacodyl [Dulcolax (bisacodyl)] 10 mg Suppository
10 mg SD DAILY PRN (Reason: if no bm aftr mom)
Fleet Enema 19-7 gram/118 mL Enema
118 ml SD DAILYPRN PRN (Reason: if no bm aftr dulcolax)
insulin glargine [Lantus Solostar U-100 Insulin] 100 unit/mL (3 mL) Insulin Pen
12 unit SC DAILY
guaifenesin [Mucinex] 600 mg Tablet Extended Release 12hr
600 mg PO BIDPRN PRN (Reason: congestion)
azithromycin 250 mg tablet
250 mg PO Q48H
diltiazem HCl 240 mg capsule,extended release 24hr
240 mg PO DAILY
pantoprazole 40 mg tablet,delayed release (DR/EC)
40 mg PO DAILY
fluticasone propion-salmeterol 230-21 mcg/actuation HFA aerosol inhaler
2 puff inhalation R BID
Spiriva Respimat 2.5 mcg/actuation mist
2 puff inhalation R DAILY
polyethylene glycol 3350 [HealthyLax] 17 gram Powder In Packet
17 g PO DAILYPRN PRN (Reason: constipation) Qty: 0 0RF
potassium chloride 20 mEq Tablet,Er Particles/Crystals
20 meq PO DAILY Qty: 0 0RF
DAPTOmycin [Cubicin] 1000 MG
Syringe [Syringe-Pump] 0 ML
As Directed mls/hr IV Q48H
Ordered By: Roebrt Lucia MD
Last Taken: 10/05/23
trazodone 50 mg Tablet
25 mg PO HS
sodium chloride 0.65 % Aerosol,[place]
1 spray INTRANASAL Q4HPRN PRN (Reason: dryness)
saxagliptin 5 mg Tablet
5 mg PO DAILY
Eliquis 2.5 mg Tablet
2.5 mg PO BID
Discharge Orders:
Discharge Patient (As Directed); Ordered 10/10/23
Ordered By: Vinod Turpin
Discharge Date and Time
Discharge Date/Time: 10/10/23 18:51
Print Language: NIGERIAN
== END 2023-10-10 18:51 | DRG 291 ==
LOC: 2 NORTH 17:39
PROVIDERS: ADMITTING PHYSICIAN Internal Medicine; ATTENDING PHYSICIAN Internal Medicine; EMERGENCY PHYSICIAN Emergency Medicine; FAMILY PHYSICIAN Family Medicine; OTHER PHYSICIAN Internal Medicine Critical Care Medicine
DX: I13.0 Hypertensive heart and chronic kidney disease with heart failure and stage 1 through stage 4 chronic kidney disease, or unspecified chronic kidney disease (principal); I50.33 Acute on chronic diastolic (congestive) heart failure; J96.21 Acute and chronic respiratory failure with hypoxia; J84.9 Interstitial pulmonary disease, unspecified; E87.1 Hypo-osmolality and hyponatremia; R78.81 Bacteremia; N18.4 Chronic kidney disease, stage 4 (severe); I48.0 Paroxysmal atrial fibrillation; J44.9 Chronic obstructive pulmonary disease, unspecified; K21.9 Gastro-esophageal reflux disease without esophagitis; E66.09 Other obesity due to excess calories; I25.10 Atherosclerotic heart disease of native coronary artery without angina pectoris; R91.1 Solitary pulmonary nodule; N28.89 Other specified disorders of kidney and ureter; E78.00 Pure hypercholesterolemia, unspecified; R26.2 Difficulty in walking, not elsewhere classified; K76.0 Fatty (change of) liver, not elsewhere classified; I08.1 Rheumatic disorders of both mitral and tricuspid valves; G47.33 Obstructive sleep apnea (adult) (pediatric); R79.89 Other specified abnormal findings of blood chemistry; E11.22 Type 2 diabetes mellitus with diabetic chronic kidney disease; E11.65 Type 2 diabetes mellitus with hyperglycemia; D72.819 Decreased white blood cell count, unspecified; E11.36 Type 2 diabetes mellitus with diabetic cataract; K57.30 Diverticulosis of large intestine without perforation or abscess without bleeding; E27.8 Other specified disorders of adrenal gland; D63.8 Anemia in other chronic diseases classified elsewhere; B95.62 Methicillin resistant Staphylococcus aureus infection as the cause of diseases classified elsewhere; E55.9 Vitamin D deficiency, unspecified; Z66 Do not resuscitate; Z86.73 Personal history of transient ischemic attack (TIA), and cerebral infarction without residual deficits; Z22.7 Latent tuberculosis; Z86.15 Personal history of latent tuberculosis infection; Z68.35 Body mass index [BMI] 35.0-35.9, adult; Z99.81 Dependence on supplemental oxygen; Z11.52 Encounter for screening for COVID-19; Z87.891 Personal history of nicotine dependence; Z91.012 Allergy to eggs; Z79.51 Long term (current) use of inhaled steroids; Z79.4 Long term (current) use of insulin; Z79.01 Long term (current) use of anticoagulants; Z80.1 Family history of malignant neoplasm of trachea, bronchus and lung; Z81.1 Family history of alcohol abuse and dependence; Z80.51 Family history of malignant neoplasm of kidney; Z83.6 Family history of other diseases of the respiratory system; Z86.14 Personal history of Methicillin resistant Staphylococcus aureus infection
CPT/HCPCS: 93308; 71045; 74230; 80048; 82962; 83540; 83605; 83735; 83880; 84443; 84484; 85025; 85027; 87040; 87502; 87811; 92610; 92611; 93005; 94640; 96374; 97110; 97116; 97162; 97166; 97530; 97535; 99285; J0878